=== PATIENT | male | born 1955 | race Caucasian/White ===

== ENCOUNTER 2016-09-14 21:45 | Emergency (ER) | payer MEDICARE, OTHER ==
[2016-09-14 22:01] VITALS: BP 161/110
[2016-09-14] MEDS ORDERED: Doxycycline 100 MG Cap PO ONE (22:46)
--- NOTE | 2016-09-14 22:50 | EDM.PDOC ---
ED HPI Skin/Rash - General Chief Complaint: Skin Complaint Stated Complaint: BOIL ON TOP OF BACK Time Seen by Provider: 09/14/16 22:26 Source: Reports: Patient History Limitations: Reports: No limitations - History of Present Illness INITIAL COMMENTS - FREE TEXT/NARRATIVE: 61-year-old male presents to the ED with a chronic skin lesion right upper back. States his been present for at least 3 weeks and he can't help himself from picking at it.he can't of course visualize it very well is on his right upper back adjacent to the shoulder blade. Known injuries. No drainage from the wound. Hit one of the nurses look at it down at [place] today as this is where his father is. Symptom Onset Date: 08/19/16 Timing: Reports: still present, worse, gradual onset Location, Skin: Reports: back (right upper back) Quality: Reports: Ache, Burning, Itching, Other (pain when he lies back on it.) Severity: moderate Known Identified Source: no Sick Contact: no Associated Symptoms: Reports: no other symptoms Similar Symptoms Previously: no Recent Medical Care: no - Related Data Allergies Allergy/AdvReac Type Severity Reaction Status Date / Time peanut Allergy Anaphylactic Verified 09/14/16 22:01 Shock levofloxacin AdvReac Other Verified 09/14/16 22:01 metformin AdvReac Diarrhea Verified 09/14/16 22:01 nuts Allergy Hives Uncoded 09/14/16 22:01 Home Meds: Ambulatory Orders Medication Instructions Recorded Confirmed Lisinopril 5 mg PO DAILY 10/29/14 09/14/16 Metoprolol Succinate [Toprol XL] 100 mg PO DAILY 10/29/14 09/14/16 Potassium Chloride 10 meq PO DAILY 10/29/14 09/14/16 Pravastatin [Pravachol] 10 mg PO DAILY 10/29/14 09/14/16 Temazepam 15 mg PO BEDTIME 10/29/14 09/14/16 Ibuprofen 600 mg PO Q6H PRN 07/27/15 09/14/16 Multivitamin [Multi-Vitamin Daily] 1 tab PO DAILY 01/13/16 09/14/16 Omeprazole Magnesium [Prilosec Otc] 20 mg PO DAILY #30 tablet. 01/13/16 Sucralfate [Carafate] 1 gm PO QIDACANDBED #28 tablet 01/13/16 09/14/16 Doxycycline [Vibramycin] 100 mg PO Q12HR #28 cap 09/14/16 Past Medical History HEENT History: Reports: Impaired vision Other HEENT History: Wears glasses Cardiovascular History: Reports: High cholesterol, Hypertension Respiratory History: Reports: Sleep apnea, Other (see below) Other Respiratory History: hemothorax with chest tube Gastrointestinal History: Reports: Diverticulosis, GERD, Pancreatitis Genitourinary History: Reports: Acute renal failure Musculoskeletal History: Reports: Amputation, Fracture Other Musculoskeletal History: Lumbar fracture Neurological History: Reports: Neuropathy, peripheral Psychiatric History: Reports: Anxiety Endocrine/Metabolic History: Reports: Diabetes, type II Other Endocrine/Metabolic History: diabetic Hematologic History: Reports: Other (see below) Other Hematologic History: Hypopotassemia Dermatologic History: Reports: Cellulitis, Other (see below) Other Dermatologic History: boils - Past Surgical History HEENT Surgical History: Reports: Tonsillectomy Respiratory Surgical History: Reports: Other (see below) (fell with multiple rib fractures and pneumothorax requiring close thoracotomy drainage.) Neurological Surgical History: Reports: Lumbar spine, Spinal fusion (with rods and screws.) Musculoskeletal Surgical History: Reports: Knee replacement, Other (see below) ( 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 He only has small portion of the proximal humerus present.) Other Musculoskeletal Surgeries/Procedures:: Has stump on the right arm from farm accident in 1962 Social & Family History - Family History Family Medical History: Noncontributory - Tobacco Use Smoking Status *Q: Never Smoker Second Hand Smoke Exposure: No - Caffeine Use Caffeine Use: Reports: None - Recreational Drug Use Recreational Drug Use: No - Living Situation & Occupation Living situation: Reports: single Occupation: disabled ED ROS GENERAL - Review of Systems Review Of Systems: See Below Constitutional: Denies: fever, chills, malaise, weakness, fatigue, weight loss HEENT: Reports: No symptoms Respiratory: Reports: No Symptoms Cardiovascular: Reports: No symptoms Endocrine: Reports: no symptoms GI/Abdominal: Reports: No symptoms : Reports: no symptoms Musculoskeletal: Reports: other (healing fracture right foot.) Skin: Reports: rash (right upper back see history of present illness) Neurological: Reports: No Symptoms Psychiatric: Reports: No symptoms Hematologic/Lymphatic: Reports: no symptoms ED EXAM, SKIN/RASH Exam: See Below Exam Limited By: No limitations General Appearance: alert, WD/WN, no apparent distress Eye Exam: bilateral eye: normal inspection Extremities: other (patient has only a small portion of the proximal humerus on the right shoulder. Rest of the arm has been amputated from a grain auger accident as a youngster.) Neurological: alert, oriented, CN II-XII intact, normal cognition Psychiatric: normal affect Skin: Other (patient has a scaly skin lesion 4 cm length and 2 cm in width on his right upper back almost 08 in shape. It is a circumferential red border which is not raised. The central part is christianson crusted. Hips has no suspicious areas to suggest malignancy. He does suggest that the area was infected and with continued picking the skin is been continued to be broken down. Her is no surrounding erythema to suggest cellulitis. There is no oozing from the wound to allow collection of sample.) Location, Skin: back (8 upper back medial to the shoulder blade) Characteristics: maculopapular, patchy Associated features: scaling, crusting, rough. No: warmth, tenderness, swelling , induration, lymphangitis, weeping Course - Vital Signs Last Recorded V/S: Last Vital Signs Temp 36.5 C 09/14/16 21:56 Pulse 91 09/14/16 21:56 Resp 18 09/14/16 21:56 BP 161/110 H 09/14/16 21:56 Pulse Ox 97 09/14/16 21:56 - Orders/Labs/Meds Meds: Medications Discontinued Medications Generic Name Dose Route Start Last Admin Trade Name Freq PRN Reason Stop Dose Admin Doxycycline Hyclate 200 mg 09/14/16 22:46 09/14/16 23:00 Vibramycin PO 09/14/16 22:47 200 mg ONETIME ONE Administration - Radiology Interpretation Free Text/Narrative:: 61-year-old male presents the ED for evaluation of a chronic skin lesion right upper back. It's unclear how long its been present but certainly more than 3 weeks. Exam reveals a 4 cm in length and 2 cm in width the lesion almost totally in shape on his right upper back. It has a red border well demarcated lesion. The inside of the lesion is christianson and slightly crusty-impetigo like. He is not losing any serous material. There is no active signs of cellulitis. I suspect it's been chronically infected from him picking at it. Plan I'm going to place him on doxycycline 200 mg tonight then to 100 mg twice daily for 14 days and see how it looks. If it is not improved then biopsy is indicated to rule out an underlying malignancy. Patient was advised for followup with his personal care physician in 14 days time Departure - Departure Time of Disposition: 22:47 Disposition: Home, Self-Care 01 Condition: fair Clinical Impression: Skin lesion of back Prescriptions: Doxycycline [Vibramycin] 100 mg PO Q12HR #28 cap Referrals: Yari Perez NP [Primary Care Provider] - Forms: ED Department Discharge Additional Instructions: evaluation he mentioned today in regards to a persistent skin lesion right upper back. As you indicated you been picking at this area because it's irritating for several weeks. Examination shows a almost oval shaped lesion approximately 4 cm in length and 2 cm in width. It is showing a erythematous border with crusting in the center of the lesion suggesting the infection that is breaking down the skin. Suggest treatment with doxycycline 200 mg tonight then one tablet twice daily for 100 mg strength for the next 2 weeks. Evaluation of this lesion needs to be carried out again in 12 weeks if it's not healing and needs to be biopsied.
== END 2016-09-14 23:07 | disposition home or self-care (01) ==
LOC: JD.ED 21:45
DX: L98.9 Disorder of the skin and subcutaneous tissue, unspecified (principal); K21.9 Gastro-esophageal reflux disease without esophagitis; I10 Essential (primary) hypertension; E78.00 Pure hypercholesterolemia, unspecified; F41.9 Anxiety disorder, unspecified; E11.9 Type 2 diabetes mellitus without complications; Z98.890 Other specified postprocedural states; Z91.010 Allergy to peanuts; Z91.018 Allergy to other foods; Z88.8 Allergy status to other drugs, medicaments and biological substances; Z96.659 Presence of unspecified artificial knee joint; Z88.1 Allergy status to other antibiotic agents
CPT/HCPCS: 99283; A9270

== ENCOUNTER 2016-09-29 13:01 | Emergency (ER) | payer MEDICARE, OTHER ==
[2016-09-29 13:16] VITALS: BP 126/93
--- NOTE | 2016-09-29 13:36 | EDM.PDOC ---
ED HPI GENERAL MEDICAL PROBLEM - General Chief Complaint: Chest Pain Stated Complaint: UNABLE TO URINATE AND CHEST PAIN Time Seen by Provider: 09/29/16 13:33 Source of Information: Reports: Patient History Limitations: Reports: No Limitations - History of Present Illness INITIAL COMMENTS - FREE TEXT/NARRATIVE: 61-year-old male reports to the ED stating that she's unable to void. States it may take 30 seconds to a minute for him to stand up toward addending get a bit of a few dribbles out. This has occurred over the last 2-3 days. He has mild lower bowel discomfort but note terrible pain from urinary retention. He is diaphoretic however. He also reports intermittent left-sided chest pain off and on the last day or so. No associated shortness of breath. He is very high strung and anxious. He is to see Dr. Tracey moreno shortly about having surgery on his shoulder. 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 At present he is struggling with left arm pain suspect due to to combination of degenerative arthritis and rotator cuff disease. He denies any fever or chills. Patient has a type II diabetic currently controlled by diet and no medications. Patient had initially attended the [facility] once he reported chest pain he was sent to the ED for further evaluation. He states he had chest pain off and on during the night but he has no chest pain at present. ECG done by triage nurse shows sinus rhythm at 82 per minute with early R-wave transition. Suspect right ventricular hypertrophy versus septal hypertrophy pattern. No evidence of ischemia is evident on current ECG. Onset: Today (Has had chest pain left precordium off-and-on over the night. More sharp stabbing pain. Patient is quite anxious as well. Associated diaphoresis.), Gradual (Gradually worsening ability to void. States he'll stand at the toilet for 30 seconds to couple minutes to get urine to flow and then it' s only a few dribbles at the time. He feels he is not emptying his bladder completely. The going on for at least 3 days.) Duration: Day(s): Location: Reports: Chest (Intermittent left-sided chest pain during the night but not at present time.), Other (Difficulty voiding for the last 3 days.) Quality: Reports: Sharp (Is being distended be sharp and stabbing and transient. ), Other (Denies any abdominal pain.) Severity: Moderate Improves with: Reports: None Worsens with: Reports: None Context: Denies: Activity, Exercise, Lifting, Sick Contact, Trauma, Other Associated Symptoms: Reports: Chest Pain, Diaphoresis, Loss of Appetite, Malaise , Nausea/Vomiting, Weakness (Occasional nausea. Generalized weakness he is worried his potassium might be a bit on the low side again.). Denies: No Other Symptoms, Confusion (Precordium), Cough, cough w sputum, Fever/Chills (States he sweats easily and he was more diaphoretic today than usual.), Headaches, Rash , Seizure, Shortness of Breath, Syncope Treatments SALES [employer]: Reports: Other (see below) (Not) Chest Pain Score (Numeric/FACES): 0 - Related Data Allergies Allergy/AdvReac Type Severity Reaction Status Date / Time peanut Allergy Anaphylactic Verified 09/29/16 13:11 Shock levofloxacin AdvReac Other Verified 09/29/16 13:11 metformin AdvReac Diarrhea Verified 09/29/16 13:11 nuts Allergy Hives Uncoded 09/29/16 13:11 Home Meds: Home Meds Lisinopril 5 mg PO DAILY 10/29/14 [History] Metoprolol Succinate [Toprol XL] 100 mg PO DAILY 10/29/14 [History] Potassium Chloride 10 meq PO DAILY 10/29/14 [History] Pravastatin [Pravachol] 10 mg PO DAILY 10/29/14 [History] Temazepam 15 mg PO BEDTIME 10/29/14 [History] Ibuprofen 600 mg PO Q6H PRN 07/27/15 [History] Multivitamin [Multi-Vitamin Daily] 1 tab PO DAILY 01/13/16 [History] Omeprazole Magnesium [Prilosec Otc] 20 mg PO DAILY #30 tablet. 01/13/16 [Rx] Sucralfate [Carafate] 1 gm PO QIDACANDBED #28 tablet 01/13/16 [Rx] Doxycycline [Vibramycin] 100 mg PO Q12HR #28 cap 09/14/16 [Rx] Potassium Chloride 20 meq PO DAILY #30 tablet.er 09/29/16 [Rx] Sulfamethoxazole/Trimethoprim [Bactrim Ds Tablet] 1 each PO BID #20 tablet 09/29 [Rx] Past Medical History HEENT History: Reports: Impaired Vision Other HEENT History: Wears glasses Cardiovascular History: Reports: High Cholesterol, Hypertension Respiratory History: Reports: Sleep Apnea, Other (See Below) Other Respiratory History: hemothorax with chest tube Gastrointestinal History: Reports: Diverticulosis, GERD, Pancreatitis Genitourinary History: Reports: Acute Renal Failure Musculoskeletal History: Reports: Amputation, Fracture Other Musculoskeletal History: Lumbar fracture Neurological History: Reports: Neuropathy, Peripheral Psychiatric History: Reports: Anxiety Endocrine/Metabolic History: Reports: Diabetes, Type II Other Endocrine/Metabolic History: diabetic Hematologic History: Reports: Other (See Below) Other Hematologic History: Hypopotassemia Dermatologic History: Reports: Cellulitis, Other (See Below) Other Dermatologic History: boils - Past Surgical History Respiratory Surgical History: Reports: Other (See Below) Neurological Surgical History: Reports: Lumbar Spine, Spinal Fusion Musculoskeletal Surgical History: Reports: Knee Replacement, Other (See Below) Social & Family History - Family History Family Medical History: Noncontributory - Tobacco Use Smoking Status *Q: Never Smoker Second Hand Smoke Exposure: No - Caffeine Use Caffeine Use: Reports: None - Recreational Drug Use Recreational Drug Use: No - Living Situation & Occupation Living situation: Reports: Single Occupation: Disabled ED ROS GENERAL - Review of Systems Review Of Systems: See Below Constitutional: Reports: Malaise, Weakness, Fatigue, Diaphoresis, Decreased Appetite. Denies: Fever, Chills, Weight Loss HEENT: Reports: No Symptoms Respiratory: Denies: Shortness of Breath, Wheezing, Pleuritic Chest Pain, Cough , Sputum, Hemoptysis, Other Cardiovascular: Reports: Chest Pain (Intermittent left precordial chest pains, sharp and stabbing in fleeting. They were present during the night but not at present time). Denies: Blood Pressure Problem, Claudication, Dyspnea on Exertion, Edema, Lightheadedness, Orthopnea, Palpitations Endocrine: Reports: Fatigue, High Glucose GI/Abdominal: Denies: Abdominal Pain : Reports: Other (Greg troubles trying to avoid the last 3 days. Takes a long time to start his flow and then he only gets a small quantity of urine out. He is aware that his bladder sterilely not emptying all the way. This reason he has not been drinking much in the way of fluids.). Denies: Dysuria Musculoskeletal: Reports: Back Pain (Has had chronic back pain with multiple surgeries. Right chronic right shoulder dislocation after proximal humerus amputation and a granddaughter many years ago. I pain in his left shoulder due to 2 degenerative arthritis and rotator cuff disease.) Skin: Reports: No Symptoms Neurological: Reports: No Symptoms Psychiatric: Reports: Anxiety (Mildly anxious.), Depression (Chronic depression due to chronic illness.) Hematologic/Lymphatic: Reports: No Symptoms Immunologic: Reports: No Symptoms ED EXAM, GENERAL - Physical Exam Exam: See Below Exam Limited By: No Limitations General Appearance: Alert, Anxious, Mild Distress Eye Exam: Bilateral Eye: Normal Inspection Throat/Mouth: Normal Inspection, Normal Lips, Normal Teeth, Normal Gums, Normal Oropharynx Head: Atraumatic, Normocephalic Neck: Normal Inspection, Supple, Non-Tender, Full Range of Motion Respiratory/Chest: No Respiratory Distress, Lungs Clear, Normal Breath Sounds, No Accessory Muscle Use Cardiovascular: Regular Rate, Rhythm, No Edema, No Gallop, No Murmur, No Rub. No: Normal Peripheral Pulses Peripheral Pulses: 1+: Posterior Tibial (L), Posterior Tibial (R), Dorsalis Pedis (L), Dorsalis Pedis (R) GI/Abdominal: Normal Bowel Sounds, Soft, Non-Tender, No Organomegaly, Other ( Does have dullness to percussion in the lower abdomen with no defined palpable urinary bladder certainly no exacerbation of pain on palpation of the lower abdomen. There is a sense of fullness over the in this area.) (Male) Exam: Suprapubic Fullness Neurological: Other (Well-healed mid line surgical scars.) Psychiatric: Depressed Mood Skin Exam: Warm, Dry, Intact, Normal Color, No Rash EKG INTERPRETATION EKG Date: 09/29/16 Time: 13:10 Rhythm: NSR Rate (beats/min): 82 [place]: normal P-wave: present QRS: other (Early R wave transition. Consider right ventricular hypertrophy/ septal hypertrophy pattern.) ST-T: other (Normal. Computed indicates that there is ST elevation in the lateral leads which I disagree with. There is no evidence of lateral ischemia.) QT: prolonged (QT is mildly prolonged.) Course - Vital Signs Last Recorded V/S: Last Vital Signs Temp 35.7 C 09/29/16 13:11 Pulse 83 09/29/16 13:11 Resp BP 126/93 H 09/29/16 13:11 Pulse Ox 93 L 09/29/16 13:11 - Orders/Labs/Meds Orders: Active Orders 24 hr Category Date Time Status EKG Documentation Completion [RC] STAT Care 09/29/16 13:44 Active Mayo Catheter Insertion [Insert Urinary Catheter] [OM. Care 09/29/16 15:00 Ordered PC] Q24H Urinary Catheter Assessment [RC] ASDIRECTED Care 09/29/16 14:47 Active CULTURE URINE [RM] Stat Lab 09/29/16 16:12 Uncollected Dextrose 5%-0.9% NaCl [Dextrose 5%-Normal Saline] 1,000 Med 09/29/16 14:15 Active ml IV ASDIRECTED Medication Orders Dextrose/Sodium Chloride (Dextrose 5%-Normal Saline) 1,000 mls @ 500 mls/hr IV ASDIRECTED WANDA Last Admin: 09/29/16 15:27 Dose: 500 mls/hr Labs: Laboratory Tests 09/29/16 09/29/16 09/29/16 Range/Units 14:00 14:15 14:15 WBC 10.59 H (4.23-9.07) K/mm3 RBC 6.02 (4.63-6.08) M/mm3 Hgb 17.7 H (13.7-17.5) gm/L Hct 52.2 H (40.1-51.0) % MCV 86.7 (79.0-92.2) fl MCH 29.4 (25.7-32.2) pg MCHC 33.9 (32.2-35.5) g/dl RDW Std Deviation 46.5 H (35.1-43.9) fL Plt Count 162 L (163-337) K/mm3 MPV 10.5 (9.4-12.3) fl Neutrophils % (Manual) 80 H (40-60) % Band Neutrophils % 0 (0-10) % Lymphocytes % (Manual) 13 L (20-40) % Atypical Lymphs % 0 % Monocytes % (Manual) 4 (2-10) % Eosinophils % (Manual) 3 (0.8-7.0) % Basophils % (Manual) 0 L (0.2-1.2) Platelet Estimate Adequate Plt Morphology Comment Normal RBC Morph Comment Normal PT 10.3 (8.0-13.0) SECONDS INR 0.95 Sodium (136-145) mEq/L Potassium (3.5-5.1) mEq/L Chloride (98-107) mEq/L Carbon Dioxide (21-32) mEq/L Anion Gap (5-15) BUN (7-18) mg/dL Creatinine (0.7-1.3) mg/dL Est Cr Clr Drug Dosing mL/min Estimated GFR (MDRD) (>60) mL/min BUN/Creatinine Ratio (14-18) Glucose (74-106) mg/dL Hemoglobin A1c (4.50-6.20) % Calcium (8.5-10.1) mg/dL Total Bilirubin (0.2-1.0) mg/dL AST (15-37) U/L ALT (16-63) U/L Alkaline Phosphatase (46-116) U/L CK-MB (CK-2) (0-3.6) ng/ml Troponin I (0.00-0.056) ng/mL C-Reactive Protein (<1.0) mg/dL B-Natriuretic Peptide (0-100) pg/mL Total Protein (6.4-8.2) g/dl Albumin (3.4-5.0) g/dl Globulin gm/dL Albumin/Globulin Ratio (1-2) PSA Screen (0.0-4.0) ng/mL Urine Color Dark yellow (Yellow) Urine Appearance Clear (Clear) Urine pH 7.0 (5.0-8.0) Ur Specific [place] 1.025 (1.005-1.030) Urine Protein 2+ H (Negative) Urine Glucose (UA) 1+ H (Negative) Urine Ketones Negative (Negative) Urine Occult Blood Negative (Negative) Urine Nitrite Negative (Negative) Urine Bilirubin 1+ H (Negative) Urine Urobilinogen 1.0 (0.2-1.0) Ur Leukocyte Esterase Negative (Negative) Urine RBC 0-5 (0-5) /hpf Urine WBC 0-5 (0-5) /hpf Ur Epithelial Cells 0-5 (0-5) /hpf Amorphous Sediment Few H (NOT SEEN) /hpf Urine Bacteria Moderate H (FEW) /hpf Urine Mucus Few (FEW) /hpf 09/29/16 09/29/16 09/29/16 Range/Units 14:15 14:15 14:15 WBC (4.23-9.07) K/mm3 RBC (4.63-6.08) M/mm3 Hgb (13.7-17.5) gm/L Hct (40.1-51.0) % MCV (79.0-92.2) fl MCH (25.7-32.2) pg MCHC (32.2-35.5) g/dl RDW Std Deviation (35.1-43.9) fL Plt Count (163-337) K/mm3 MPV (9.4-12.3) fl Neutrophils % (Manual) (40-60) % Band Neutrophils % (0-10) % Lymphocytes % (Manual) (20-40) % Atypical Lymphs % % Monocytes % (Manual) (2-10) % Eosinophils % (Manual) (0.8-7.0) % Basophils % (Manual) (0.2-1.2) Platelet Estimate Plt Morphology Comment RBC Morph Comment PT (8.0-13.0) SECONDS INR Sodium 139 (136-145) mEq/L Potassium 3.2 L (3.5-5.1) mEq/L Chloride 99 (98-107) mEq/L Carbon Dioxide 31 (21-32) mEq/L Anion Gap 12.2 (5-15) BUN 27 H (7-18) mg/dL Creatinine 1.0 (0.7-1.3) mg/dL Est Cr Clr Drug Dosing 83.67 mL/min Estimated GFR (MDRD) > 60 (>60) mL/min BUN/Creatinine Ratio 27.0 H (14-18) Glucose 294 H (74-106) mg/dL Hemoglobin A1c (4.50-6.20) % Calcium 9.0 (8.5-10.1) mg/dL Total Bilirubin 1.3 H (0.2-1.0) mg/dL AST 54 H (15-37) U/L ALT 67 H (16-63) U/L Alkaline Phosphatase 95 (46-116) U/L CK-MB (CK-2) 1.9 (0-3.6) ng/ml Troponin I < 0.017 (0.00-0.056) ng/mL C-Reactive Protein 1.9 H* (<1.0) mg/dL B-Natriuretic Peptide 92 (0-100) pg/mL Total Protein 7.6 (6.4-8.2) g/dl Albumin 3.9 (3.4-5.0) g/dl Globulin 3.7 gm/dL Albumin/Globulin Ratio 1.1 (1-2) PSA Screen 0.4 (0.0-4.0) ng/mL Urine Color (Yellow) Urine Appearance (Clear) Urine pH (5.0-8.0) Ur Specific [place] (1.005-1.030) Urine Protein (Negative) Urine Glucose (UA) (Negative) Urine Ketones (Negative) Urine Occult Blood (Negative) Urine Nitrite (Negative) Urine Bilirubin (Negative) Urine Urobilinogen (0.2-1.0) Ur Leukocyte Esterase (Negative) Urine RBC (0-5) /hpf Urine WBC (0-5) /hpf Ur Epithelial Cells (0-5) /hpf Amorphous Sediment (NOT SEEN) /hpf Urine Bacteria (FEW) /hpf Urine Mucus (FEW) /hpf 09/29/16 Range/Units 14:15 WBC (4.23-9.07) K/mm3 RBC (4.63-6.08) M/mm3 Hgb (13.7-17.5) gm/L Hct (40.1-51.0) % MCV (79.0-92.2) fl MCH (25.7-32.2) pg MCHC (32.2-35.5) g/dl RDW Std Deviation (35.1-43.9) fL Plt Count (163-337) K/mm3 MPV (9.4-12.3) fl Neutrophils % (Manual) (40-60) % Band Neutrophils % (0-10) % Lymphocytes % (Manual) (20-40) % Atypical Lymphs % % Monocytes % (Manual) (2-10) % Eosinophils % (Manual) (0.8-7.0) % Basophils % (Manual) (0.2-1.2) Platelet Estimate Plt Morphology Comment RBC Morph Comment PT (8.0-13.0) SECONDS INR Sodium (136-145) mEq/L Potassium (3.5-5.1) mEq/L Chloride (98-107) mEq/L Carbon Dioxide (21-32) mEq/L Anion Gap (5-15) BUN (7-18) mg/dL Creatinine (0.7-1.3) mg/dL Est Cr Clr Drug Dosing mL/min Estimated GFR (MDRD) (>60) mL/min BUN/Creatinine Ratio (14-18) Glucose (74-106) mg/dL Hemoglobin A1c 7.90 H (4.50-6.20) % Calcium (8.5-10.1) mg/dL Total Bilirubin (0.2-1.0) mg/dL AST (15-37) U/L ALT (16-63) U/L Alkaline Phosphatase (46-116) U/L CK-MB (CK-2) (0-3.6) ng/ml Troponin I (0.00-0.056) ng/mL C-Reactive Protein (<1.0) mg/dL B-Natriuretic Peptide (0-100) pg/mL Total Protein (6.4-8.2) g/dl Albumin (3.4-5.0) g/dl Globulin gm/dL Albumin/Globulin Ratio (1-2) PSA Screen (0.0-4.0) ng/mL Urine Color (Yellow) Urine Appearance (Clear) Urine pH (5.0-8.0) Ur Specific [place] (1.005-1.030) Urine Protein (Negative) Urine Glucose (UA) (Negative) Urine Ketones (Negative) Urine Occult Blood (Negative) Urine Nitrite (Negative) Urine Bilirubin (Negative) Urine Urobilinogen (0.2-1.0) Ur Leukocyte Esterase (Negative) Urine RBC (0-5) /hpf Urine WBC (0-5) /hpf Ur Epithelial Cells (0-5) /hpf Amorphous Sediment (NOT SEEN) /hpf Urine Bacteria (FEW) /hpf Urine Mucus (FEW) /hpf Meds: Medications Generic Name Dose Route Start Last Admin Trade Name Freq PRN Reason Stop Dose Admin Dextrose/Sodium Chloride 1,000 mls @ 500 mls/hr 09/29/16 14:15 09/29/16 15:27 Dextrose 5%-Normal Saline IV 500 mls/hr ASDIRECTED WANDA Administration Discontinued Medications Generic Name Dose Route Start Last Admin Trade Name Freq PRN Reason Stop Dose Admin Levofloxacin 500 mg 09/29/16 15:23 Levaquin PO 09/29/16 15:24 ONETIME ONE Lidocaine HCl 10 ml 09/29/16 14:47 Xylocaine 2% Jelly MUCMEM 09/29/16 14:48 ONETIME ONE Nitrofurantoin Macrocrystals 100 mg 09/29/16 15:33 09/29/16 18:05 Macrobid PO 09/29/16 15:34 100 mg ONETIME ONE Administration - Radiology Interpretation Free Text/Narrative:: 61-year-old male presents to the ED with a multitude of complaints. Intermittent left-sided chest pain during the night then when he attended the ED. Chief complaint is primarily that of inability to void. CT scans of the toilet and takes 30 seconds to 2 minutes for 2 work a little bit and it is only passing small quantity of urine. He seems to be well aware that he is not emptying his bladder for the last 2-3 days. Associated diaphoresis but no reported fever or bad chills. Appetite is poor with mild nausea. Patient is a right upper extremity amputee from [place] accident many years ago. He does only has his left arm. Left shoulder is painful due to rotator cuff disease and degenerative arthritic changes and he is waiting to see Dr. Webb in this regard patient has type 2 diabetes and is not taking any medication for this. Apparently he developed side effects to metformin and therefore has not been on medication. Examination revealed heart lungs to sounds clear. Benign abdominal examination although a sense of fullness suprapubically appreciated suggestive of possible bladder. I will be to try and have been voiding and a post residual bladder scan. Routine labs to be done to look for signs of infection. Urinalysis when able. - Re-Assessments/Exams Free Text/Narrative Re-Assessment/Exam: 09/29/16 14:48 Bladder scan revealed 350 mils of retained urine after voiding. Therefore a Mayo catheter will be placed in presumption that he had some infection in his prostate for benign prostatic hypertrophy to be the cause of this problem. Chest x-ray is within normal limits. 09/29/16 15:01 patient is somewhat apprehensive of having a Mayo catheter placed but explained that really doesn't have much choice. I suspect because he is not having much discomfort that he has developing a neurogenic bladder. This is likely from uncontrolled diabetes. We will Mayo catheter in under local anesthesia the viscous lidocaine and see how he manages with a leg bag with his left arm. Urinalysis is not yet back. Chest x-ray reveals chronic dislocation of his right shoulder the left-sided rib fractures which appear to be chronic lungs are clear without any infiltrates previous lumbar spine surgery is appreciated tortuous thoracic aorta noted without aneurysm. 09/29/16 15:24 her white count is 10.59 with 80% neutrophils no bands hemoglobin is 17.7 with hematocrit of 52.2 indicating a degree of hemoconcentration pellets 162,000. Coags are normal sodium 139 potassium low at 3.2 bicarbonate is 31 BUN is 27. Glucose 294 BNP 92 CRP is 1.9 bilirubin 1.3 AST 54 ALT 67 cardiac markers were all normal. Creatinine is 1.0. EGFR is greater than 60. 09/29/16 15:49 CRP is 1.9. Urine does contain moderate amount of bacteria but no pus cells. This is suggestive of likely prostatitis. Urine culture will be ordered. Glycosylate protein was 7.9. Diabetes is present and at risk of increased infection. Potassium is 3.2 and is going to need potassium supplement twice daily I suggest 20 mEq once a day. He will be discharged in the ED with a view to followup with Chris in the clinic on Thursday morning to have his catheter removed. Hopefully he will be able to void normally once the swelling has gone down was treated with antibiotic therapy. Again follow up with urology in the near future is indicated. He may well have a component of neurogenic bladder since he had very little pain or discomfort with his bladder. He may well need to be introduced to another medication to bring his blood sugar under better control. Departure - Departure Time of Disposition: 17:21 Disposition: Home, Self-Care 01 Condition: fair Clinical Impression: Urinary retention due to benign prostatic hyperplasia, Non-cardiac chest pain, Hypokalemia with normal acid-base balance Type 2 diabetes mellitus Qualifiers: Diabetes mellitus complication status: with unspecified complications Prescriptions: Potassium Chloride 20 meq PO DAILY #30 tablet.er Sulfamethoxazole/Trimethoprim [Bactrim Ds Tablet] 1 each PO BID #20 tablet Instructions: Benign Prostatic Hyperplasia, Hypokalemia, Nonspecific Chest Pain , Acute Urinary Retention, Male, [id number] Referrals: Yari Perez NP [Primary Care Provider] - Forms: ED Department Discharge Additional Instructions: Evaluation in the emergency department today primarily in regards to urinary retention inability to pass her water. This appears to be secondary to infection your prostate gland call prostatitis. Urine showed moderate amount of bacteria. Culture has been performed. Chest pains were evaluated but had a normal ECG and normal chest x-ray and normal lab work all in regards to heart no signs of heart related illness. Diabetes is a little bit uncontrolled with a blood sugar of 294 today. Glycosylate protein was 7.9. Elevated blood sugars contributing to infection your prostate. He'll have a finding today was a low potassium at 3.2. He therefore will need treatment with antibiotic Bactrim double strength twice daily for 10 days to clear up infection and I suggested 20 mg a potassium supplement once daily. I sent these prescriptions to in the pharmacy close to the [facility]. He needs followup with your provider on Thursday this week to have the catheter removed from her bladder but preferably in the director of early childhood so that we know you didn't go back into retention over the next 8 hours i.e. that you're back to voiding per her norm. Followup with urology is probably advisable in the future as you would risk of this happening again. He to see if you have any component of neurogenic bladder in terms of the bladder itself was not bruna properly. It appears that most of this is secondary to an enlarged prostate with an infection that compromised the flow. - My Orders Last 24 Hours: My Active Orders 09/29/16 13:44 EKG Documentation Completion [RC] STAT 09/29/16 14:15 Dextrose 5%-0.9% NaCl [Dextrose 5%-Normal Saline] 1,000 ml IV ASDIRECTED 09/29/16 14:47 Urinary Catheter Assessment [RC] ASDIRECTED 09/29/16 15:00 Mayo Catheter Insertion [Insert Urinary Catheter] [OM.PC] Q24H 09/29/16 16:12 CULTURE URINE [RM] Stat - Assessment/Plan Last 24 Hours: My Active Orders 09/29/16 13:44 EKG Documentation Completion [RC] STAT 09/29/16 14:15 Dextrose 5%-0.9% NaCl [Dextrose 5%-Normal Saline] 1,000 ml IV ASDIRECTED 09/29/16 14:47 Urinary Catheter Assessment [RC] ASDIRECTED 09/29/16 15:00 Mayo Catheter Insertion [Insert Urinary Catheter] [OM.PC] Q24H 09/29/16 16:12 CULTURE URINE [RM] Stat
[2016-09-29] MEDS ORDERED: Dextrose 5%-0.9% NaCl 1,000 ML IV SCH (14:15)
[2016-09-29] MEDS ORDERED: Lidocaine 2% Jelly 10 ML Urojet MUCMEM ONE (14:47)
--- NOTE | 2016-09-29 15:05 | CR ---
Chest: Portable view of the chest was obtained. Comparison: Previous chest x-ray of 02/09/16. Chronic dislocated right shoulder is seen. Multiple left-sided rib fractures are seen which appear to be chronic. Lungs are clear with no acute infiltrates. Previous lumbar spine surgery is partially visualized. Heart size is normal. Tortuous thoracic aorta is seen. Impression: 1. Multiple findings which are stable as described above. Nothing acute is identified on portable chest x-ray. Diagnostic code #2
[2016-09-29] MEDS ORDERED: Levofloxacin 250 MG Tab PO ONE (15:23)
[2016-09-29] MEDS ORDERED: Nitrofurantoin Monohydrate/Macrocrystalline 100 MG Cap PO ONE (15:33)
[2016-09-29] MEDS ORDERED: Levofloxacin 500 MG Tab ONE (18:11)
== END 2016-09-29 18:20 | disposition home or self-care (01) ==
LOC: JD.ED 13:01
DX: N40.1 Benign prostatic hyperplasia with lower urinary tract symptoms (principal); R07.89 Other chest pain; E87.6 Hypokalemia; E87.4 Mixed disorder of acid-base balance; I10 Essential (primary) hypertension; E78.00 Pure hypercholesterolemia, unspecified; K21.9 Gastro-esophageal reflux disease without esophagitis; E11.40 Type 2 diabetes mellitus with diabetic neuropathy, unspecified; Z91.010 Allergy to peanuts; Z88.1 Allergy status to other antibiotic agents; Z91.018 Allergy to other foods; Z88.8 Allergy status to other drugs, medicaments and biological substances; Z79.899 Other long term (current) drug therapy; Z96.659 Presence of unspecified artificial knee joint
CPT/HCPCS: 36415; 51702; 51798; 71010; 80053; 81001; 82553; 83036; 83880; 84484; 85025; 85610; 86140; 93005; 96360; 96361; 99285; A9270; G0103; J7042; 99283

== ENCOUNTER 2017-02-24 11:34 | Inpatient (IN) | payer MEDICARE, OTHER ==
[2017-02-24] MEDS ORDERED: Albuterol/Ipratropium 3.0-0.5 MG/3 ML Neb Soln NEB ONE ×2 (12:00→18:02)
[2017-02-24] MEDS ORDERED: Sodium Chloride 0.9% 1,000 ML IV SCH (12:00)
[2017-02-24] MEDS ORDERED: methylPREDNISolone Sodium Succinate 125 MG/2 ML SDV IVPUSH ONE (12:01)
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
[2017-02-24] MEDS ORDERED: LORazepam 2 MG/ML MDV IVPUSH ONE (12:10)
[2017-02-24] MEDS ORDERED: Albuterol 0.083% 2.5 MG/3 ML Neb Soln NEB ONE (13:49)
[2017-02-24] MEDS ORDERED: Sodium Chloride 0.9% 10 ML Syringe FLUSH PRN (14:43)
[2017-02-24] MEDS ORDERED: Iopamidol 612 MG/ML 100 ML Bottle IVPUSH ONE (14:43)
--- NOTE | 2017-02-24 15:29 | CT ---
CT chest Technique: Multiple axial sections were obtained from above the lung apices inferiorly through the lung bases. Intravenous contrast was utilized. Comparison: Prior chest x-ray performed on the same day, no previous chest CT. Findings: Mediastinum and hilar regions show no adenopathy or mass. Coronary artery calcification is seen. No pericardial thickening is seen. Fatty infiltration is seen within the visualized portions of the liver. Lungs are clear. No pleural effusions are seen. Multiple old healed left-sided rib fractures are present. Several old healed right-sided rib fractures are also seen. Previous surgery within the lower thoracic spine is noted. Impression: 1. Old healed rib fractures on both sides of the chest, more numerous on the left side. 2. Previous lower thoracic spine surgery. 3. Other incidental findings. 4. Nothing acute is seen on CT study of the chest. Diagnostic code #2
[2017-02-24] MEDS ORDERED: cefTRIAXone 1 GM in Sodium Chloride 0.9% 100 ML IV ONE (15:38)
[2017-02-24] MEDS ORDERED: Acetaminophen/oxyCODONE 325-5 MG Tab PO ONE (20:25)
[2017-02-24] MEDS ORDERED: LORazepam 2 MG/ML MDV IVPUSH PRN (22:48)
[2017-02-24] MEDS ORDERED: Albuterol 0.083% 2.5 MG/3 ML Neb Soln NEB PRN (22:48)
[2017-02-24] MEDS ORDERED: Acetaminophen 325 MG Tab PO PRN (22:48)
[2017-02-24] MEDS: Albuterol/Ipratropium 3.0-0.5 MG/3 ML Neb Soln NEB SCH (23:24)
[2017-02-24] MEDS: Gabapentin 100 MG Cap PO SCH (23:50)
[2017-02-24] MEDS: Tamsulosin 0.4 MG Cap.ER PO SCH (23:50)
[2017-02-24] MEDS: guaiFENesin 600 MG Tab.ER PO SCH (23:50)
[2017-02-24] MEDS: Temazepam 15 MG Cap PO SCH (23:51)
[2017-02-24] MEDS: Glimepiride 2 MG Tab PO SCH (23:51)
[2017-02-24] MEDS: Metoprolol Succinate 50 MG Tab.ER PO SCH (23:59)
[2017-02-25] MEDS: Albuterol/Ipratropium 3.0-0.5 MG/3 ML Neb Soln NEB SCH ×4 (03:46→20:53)
[2017-02-25] MEDS: Potassium Chloride 20 MEQ Tab.ER PO SCH (07:37)
[2017-02-25] MEDS: Nystatin Topical Powder 15 GM Bottle TOP SCH ×2 (07:38→21:29)
--- NOTE | 2017-02-25 08:04 | PCM.HP ---
<Donnell Maxwell - Last Filed: 02/25/17 08:55> H&P History of Present Illness - General Date of Service: 02/25/17 Admit Problem/Dx: Admission Diagnosis/Problem Admission Diagnosis/Problem Bronchitis Source of Information: Patient, Old Records, RN History Limitations: Reports: No Limitations - History of Present Illness Initial Comments - Free Text/Narative: Melvin Kelly is a 62 yo male who presented to our ED last night via ambulance with complaints of dyspnea. Reports a cough that began yesterday and worsened. He awoke with a productive cough and was diaphoretic. He contacted 911 after he was able to catch his breath. EMS gave the patient a DuoNeb while in route. This reportedly did help somewhat but he was still short of breath. Lungs in the ED were clear to auscultation and percussion. He was very diaphoretic and anxious. He denied any recent cold symptoms. It is reported that he did eat 8. But are perfectly last night and he is allergic to peanuts. Unsure if this is contributing to current episode. Once in the ED was given oxygen which was titrated up to 4 L to keep him above 94%. Chest x-ray was obtained that revealed poor air flow at the left lung. Increased vasculature and decreased air were noted suggesting mucous plug. Some areas of increased density were noted within the right lung. Atelectasis was noted in the left lower lobe per ED report. Labs were obtained: White count was 9.72. Hemoglobin 14.7. Hematocrit 44.8. Platelets 199,000. 77% neutrophils with no bandemia. D-dimer normal at 0.45. Chemistry normal with an anion gap of 14.9. He was slightly elevated at 23. Creatinine 0.9. Glucose markedly elevated at 303. TMB slightly elevated at 3.9. Normal at less than 0.017. CRP 0.6. BNP 64. CT of the chest showed normal-appearing left lung field. There is some evidence of old healed rib fractures bilateral. Mild fatty infiltration is seen within some portions of the liver. He was given Rocephin 1 g. Original plan was to send the patient home however he was unable to be weaned off oxygen. Sats showed 9495% on room air however he was unable to catch breath. He remained very anxious about this and oxygen remained at 2 L by nasal cannula. He carries a history of HLD, HTN, sleep apnea, diverticulosis, GERD, right arm amputation, peripheral neuropathy, anxiety, type II but diabetes, obesity, and hypokalemia. He was subsequently admitted to the medical department as an observation patient. He is a full code. He is a patient of Sridevi Perez, nurse practitioner at [facility] in [place]. - Related Data Allergies/Adverse Reactions: Allergies Allergy/AdvReac Type Severity Reaction Status Date / Time peanut Allergy Anaphylactic Verified 02/24/17 12:19 Shock levofloxacin AdvReac Other Verified 02/24/17 12:19 metformin AdvReac Diarrhea Verified 02/24/17 12:19 cats Allergy Airway Uncoded 02/24/17 12:30 Tightness nuts Allergy Hives Uncoded 02/24/17 12:19 steroids Allergy Cannot Uncoded 02/24/17 12:19 Remember Home Medications: Home Meds Lisinopril 20 mg PO DAILY 10/29/14 [History] Metoprolol Succinate [Toprol XL] 100 mg PO DAILY 10/29/14 [History] Pravastatin [Pravachol] 40 mg PO DAILY 10/29/14 [History] Temazepam 30 mg PO BEDTIME 10/29/14 [History] Ibuprofen 600 mg PO Q6H PRN 07/27/15 [History] Multivitamin [Multi-Vitamin Daily] 1 tab PO DAILY 01/13/16 [History] Omeprazole Magnesium [Prilosec Otc] 20 mg PO DAILY #30 tablet. 01/13/16 [Rx] Potassium Chloride 20 meq PO DAILY #30 tablet.er 09/29/16 [Rx] Fenofibric Acid (Choline) [Fenofibric Acid] 135 mg PO DAILY 02/24/17 [History] Gabapentin [Neurontin] 200 mg PO BID 02/24/17 [History] Glimepiride [Amaryl] 2 mg PO DAILY 02/24/17 [History] Nystatin [Nystatin Crm] 15 gm TOP BID 02/24/17 [History] SitaGLIPtin [Januvia] 100 mg PO DAILY 02/24/17 [History] Tamsulosin [Flomax] 0.4 mg PO BEDTIME 02/24/17 [History] oxyCODONE HCl/Acetaminophen [Percocet 10-325 mg Tablet] 1 each PO Q6HR PRN 02/24 [History] Past Medical History HEENT History: Reports: Impaired Vision Other HEENT History: Wears glasses, loss portion of vision in left eye Cardiovascular History: Reports: High Cholesterol, Hypertension, Other (See Below) Other Cardiovascular History: hx of more parkinsons syndrome-surgery was done. Respiratory History: Reports: Sleep Apnea, Other (See Below) Other Respiratory History: hemothorax with chest tube Gastrointestinal History: Reports: Diverticulosis, GERD, Pancreatitis Genitourinary History: Reports: Acute Renal Failure Musculoskeletal History: Reports: Amputation, Fracture Other Musculoskeletal History: Lumbar fracture Neurological History: Reports: Neuropathy, Peripheral Psychiatric History: Reports: Anxiety Endocrine/Metabolic History: Reports: Diabetes, Type II, Obesity/BMI 30+ Other Endocrine/Metabolic History: diabetic Hematologic History: Reports: Other (See Below) Other Hematologic History: Hypopotassemia Oncologic (Cancer) History: Reports: Other (See Below) Other Oncologic History: preliminary skin cancer, removed and biopsy, froze the area. Dermatologic History: Reports: Cellulitis, Other (See Below) Other Dermatologic History: boils - Infectious Disease History Infectious Disease History: Reports: Influenza - Past Surgical History HEENT Surgical History: Reports: Adenoidectomy Cardiovascular Surgical History: Reports: None Respiratory Surgical History: Reports: None GI Surgical History: Reports: Colonoscopy, Hernia Repair/Other Male Surgical History: Reports: Other (See Below) Other Male Surgeries/Procedures: surgery on testicles Neurological Surgical History: Reports: Lumbar Spine, Spinal Fusion Musculoskeletal Surgical History: Reports: Knee Replacement Other Musculoskeletal Surgeries/Procedures:: bilateral knee replacement, two rods and six pins in back from broken back Oncologic Surgical History: Reports: None Dermatological Surgical History: Reports: Skin Biopsy Social & Family History - Family History Family Medical History: Noncontributory - Tobacco Use Smoking Status *Q: Never Smoker Second Hand Smoke Exposure: No - Caffeine Use Caffeine Use: Reports: Coffee - Recreational Drug Use Recreational Drug Use: No - Living Situation & Occupation Living situation: Reports: Single Occupation: Disabled H&P Review of Systems - Review of Systems: Review Of Systems: See Below General: Reports: Malaise, Weakness, Diaphoresis. Denies: Fever, Chills HEENT: Reports: No Symptoms. Denies: Ear Pain, Eye Pain, Headaches, Sinus Congestion, Sore Throat Pulmonary: Reports: Shortness of Breath, Wheezing, Cough, Sputum. Denies: Pleuritic Chest Pain Cardiovascular: Reports: Chest Pain, Dyspnea on Exertion, Lightheadedness, Blood Pressure Problem. Denies: Palpitations, Edema Gastrointestinal: Reports: No Symptoms. Denies: Abdominal Pain, Constipation, Diarrhea, Nausea, Vomiting Genitourinary: Reports: Frequency. Denies: Dysuria, Burning, Pain Musculoskeletal: Reports: Neck Pain, Back Pain, Hand Pain (worse in fingers ), Muscle Pain, Other (phantom pain in right arm ) Skin: Reports: Diaphoresis. Denies: Cyanosis, Jaundice, Mottled Psychiatric: Reports: Depression (non-medicated ), Anxiety. Denies: Confusion Neurological: Reports: Dizziness, Numbness, Tingling, Weakness. Denies: Confusion, Headache, Seizure, Trouble Speaking, Difficulty Walking Hematologic/Lymphatic: Reports: No Symptoms Immunologic: Reports: No Symptoms Review of Systems Comment:: Patient reports that he does not feel any better and he believes his cough may be worsening. I explained to the patient that this can occur as the mucous loosens. He is very concerned about his medications as he says he cannot afford to pay for the medications here. He's currently on observation status. Will discuss this with case management. Exam - Exam Exam: See Below - Vital Signs Vital Signs: Last Vital Signs Temp 98.8 F 02/24/17 21:16 Pulse 91 02/25/17 03:07 Resp 18 02/24/17 21:16 BP 141/81 H 02/24/17 23:59 Pulse Ox 93 L 02/25/17 03:46 Weight: 113.534 kg - Exam Quality Assessment: Supplemental Oxygen, DVT Prophylaxis (ordered) General: Alert, Oriented, Cooperative, Mild Distress HEENT: Conjunctiva Clear, EACs Clear, EOMI, Hearing Intact, Mucosa Moist & [place] , Nares Patent, Normal Nasal Septum, Pupils Equal, Pupils Reactive, Other ( Exematous posterior pharynx ) Neck: Supple, Trachea Midline, Full Range of Motion. 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 ) Peripheral Pulses: 2+: Radial (L), Posterior Tibial (L), Posterior Tibial (R), Dorsalis Pedis (L), Dorsalis Pedis (R) Skin: Warm, Intact, Moist Neurological: Cranial Nerves Intact (grossly) Neuro Extensive - Mental Status: Alert, Oriented x3, Normal Cognition, Memory Intact Neuro Extensive - Motor, Sensory, Reflexes: CN II-XII Intact (grossly), Normal Gait Psychiatric: Alert, Normal Mood, Anxious - Patient Data Lab Results Last 24 hrs: Laboratory Results - last 24 hr 02/25/17 02/25/17 Range/Units 06:35 06:35 WBC 8.30 (4.23-9.07) K/mm3 RBC 4.85 (4.63-6.08) M/mm3 Hgb 14.3 (13.7-17.5) gm/L Hct 42.8 (40.1-51.0) % MCV 88.2 (79.0-92.2) fl MCH 29.5 (25.7-32.2) pg MCHC 33.4 (32.2-35.5) g/dl RDW Std Deviation 47.6 H (35.1-43.9) fL Plt Count 191 (163-337) K/mm3 MPV 10.1 (9.4-12.3) fl Neut % (Auto) 63.3 (34.0-67.9) % Lymph % (Auto) 19.5 L (21.8-53.1) % Park % (Auto) 11.1 (5.3-12.2) % Eos % (Auto) 4.9 (0.8-7.0) Baso % (Auto) 0.7 (0.1-1.2) % Neut # (Auto) 5.25 (1.78-5.38) K/mm3 Lymph # (Auto) 1.62 (1.32-3.57) K/mm3 Park # (Auto) 0.92 H (0.30-0.82) K/mm3 Eos # (Auto) 0.41 (0.04-0.54) K/mm3 Baso # (Auto) 0.06 (0.01-0.08) K/mm3 Sodium 144 (136-145) mEq/L Potassium 3.6 (3.5-5.1) mEq/L Chloride 107 (98-107) mEq/L Carbon Dioxide 28 (21-32) mEq/L Anion Gap 12.6 (5-15) BUN 16 (7-18) mg/dL Creatinine 0.7 (0.7-1.3) mg/dL Est Cr Clr Drug Dosing 114.42 mL/min Estimated GFR (MDRD) > 60 (>60) mL/min BUN/Creatinine Ratio 22.9 H (14-18) Glucose 194 H (80-115) mg/dL Calcium 8.6 (8.5-10.1) mg/dL Magnesium 1.8 (1.8-2.4) mg/dl Result Diagrams: 02/25/17 06:35 02/25/17 06:35 Dmitry Results Last 24 hrs: Microbiology 02/24/17 23:30 Gram Stain - Final Sputum - Expectorated *Q Meaningful Use (ADM) - VTE *Q VTE Criteria *Q: - Stroke *Q Stroke Criteria *Q: - AMI *Q AMI Criteria *Q: - Problem List (1) Bronchitis SNOMED Code(s): 22237130 ICD Code: J40 - BRONCHITIS, NOT SPECIFIED ACUTE OR CHRONIC Status: Acute Priority: High Current Visit: Yes (2) Hypoxia SNOMED Code(s): 659505814 ICD Code: R09.02 - HYPOXEMIA Status: Acute Priority: High Current Visit : Yes (3) Type 2 diabetes mellitus SNOMED Code(s): 29891526 ICD Code: E11.9 - TYPE 2 DIABETES MELLITUS WITHOUT COMPLICATIONS Status: Chronic Priority: Low Current Visit: Yes QualifierTitle: Diabetes mellitus complication status: with unspecified complications Diabetes mellitus sales operations associate insulin use: unspecified mcc insulin use status Qualified Code(s): E11.8 - Type 2 diabetes mellitus with unspecified complications (4) Venous (peripheral) insufficiency SNOMED Code(s): 00214146 ICD Code: I87.2 - VENOUS INSUFFICIENCY (CHRONIC) (PERIPHERAL) Status: Chronic Priority: Low Current Visit: Yes Problem List Initiated/Reviewed/Updated: Yes Orders Last 24hrs: Active Orders 24 hr Category Date Time Status Antiembolic Devices [RC] PER UNIT ROUTINE Care 02/25/17 06:26 Active RT Aerosol Therapy [RC] ASDIRECTED Care 02/24/17 22:50 Active Up ad Ashley [RC] ASDIRECTED Care 02/24/17 22:43 Active Vital Signs [RC] 09,15,21,03 Care 02/24/17 22:43 Active Consult to Diabetic Nurse Specialist [CONS] Routine Cons 02/25/17 07:52 Active Consult to Occupational Therapy [OT Evaluation and Cons 02/24/17 22:48 Active Treatment] [CONS] Routine Consult to Ratchet Setter [CONS] Routine Cons 02/24/17 22:48 Active PT Evaluation and Treatment [CONS] Routine Cons 02/24/17 22:48 Active Consistent Carbohydrate Diet [DIET] Diet 02/25/17 Lunch Active CULTURE SPUTUM + SMEAR [RM] Routine Lab 02/24/17 23:30 Results Acetaminophen [Tylenol] Med 02/24/17 22:48 Active 650 mg PO Q6H PRN Albuterol [Proventil Neb Soln] Med 02/24/17 22:48 Active 2.5 mg NEB Q4HRRT PRN Albuterol/Ipratropium [DuoNeb 3.0-0.5 MG/3 ML] Med 02/24/17 23:00 Active 3 ml NEB Q6HRRT Azithromycin [Zithromax] 500 mg Med 02/25/17 12:00 Active Sodium Chloride 0.9% [Normal Saline] 250 ml IV Q24H Gabapentin [Neurontin] Med 02/24/17 23:00 Active 200 mg PO BID Glimepiride [Amaryl] Med 02/24/17 23:00 Active 2 mg PO DAILY HYDROmorphone [Dilaudid] Med 02/24/17 22:48 Active 1 mg IVPUSH Q6H PRN LORazepam [Ativan] Med 02/24/17 22:48 Active 1 mg IVPUSH Q12H PRN Lisinopril [Prinivil] Med 02/24/17 23:00 Active 20 mg PO DAILY Metoprolol Succinate [Toprol XL] Med 02/24/17 23:00 Active 100 mg PO DAILY Nystatin [Nystop] Med 02/25/17 06:30 Active 0 gm TOP BID Potassium Chloride [Klor-Con M20] Med 02/25/17 06:30 Active 20 meq PO DAILY Saxagliptin [Onglyza] Med 02/25/17 09:00 Active 5 mg PO DAILY Tamsulosin [Flomax] Med 02/24/17 22:59 Active 0.4 mg PO BEDTIME Temazepam [Restoril] Med 02/24/17 22:59 Active 30 mg PO BEDTIME cefTRIAXone [Rocephin] 2 gm Med 02/25/17 11:00 Active Sodium Chloride 0.9% [Normal Saline] 100 ml IV Q24H guaiFENesin [Mucinex] Med 02/24/17 23:45 Active 1,200 mg PO BID FRANTZ Hose [Antiembolic Hose] [OM.PC] Routine Oth 02/25/17 06:26 Ordered Resuscitation Status Routine Resus Stat 02/25/17 01:01 Ordered Medication Orders Acetaminophen (Tylenol) 650 mg PO Q6H PRN PRN Reason: Pain/Fever Albuterol (Proventil Neb Soln) 2.5 mg NEB Q4HRRT PRN PRN Reason: Shortness of Breath Albuterol/Ipratropium (Duoneb 3.0-0.5 Mg/3 Ml) 3 ml NEB Q6HRRT [facility] Last Admin: 02/25/17 03:46 Dose: 3 ml Admin: 02/24/17 23:24 Dose: 3 ml Gabapentin (Neurontin) 200 mg PO BID [facility] Last Admin: 02/24/17 23:50 Dose: 200 mg Glimepiride (Amaryl) 2 mg PO DAILY [facility] Last Admin: 02/24/17 23:51 Dose: 2 mg Guaifenesin (Mucinex) 1,200 mg PO BID [facility] Last Admin: 02/24/17 23:50 Dose: 1,200 mg Hydromorphone HCl (Dilaudid) 1 mg IVPUSH Q6H PRN PRN Reason: Pain Azithromycin 500 mg/ Sodium (Chloride) 250 mls @ 250 mls/hr IV Q24H [facility] Ceftriaxone Sodium 2 gm/ (Sodium Chloride) 100 mls @ 200 mls/hr IV Q24H [facility] Lisinopril (Prinivil) 20 mg PO DAILY [facility] Last Admin: 02/25/17 00:00 Dose: 20 mg Lorazepam (Ativan) 1 mg IVPUSH Q12H PRN PRN Reason: Anxiety Metoprolol Succinate (Toprol Xl) 100 mg PO DAILY [facility] Last Admin: 02/24/17 23:59 Dose: 100 mg Nystatin (Nystop) 0 gm TOP BID [facility] Last Admin: 02/25/17 07:38 Dose: Not Given Potassium Chloride (Klor-Con M20) 20 meq PO DAILY [facility] Last Admin: 02/25/17 07:37 Dose: 20 meq Saxagliptin Hydrochloride (Onglyza) 5 mg PO DAILY [facility] Sodium Chloride (Saline Flush) 10 ml FLUSH ONETIME PRN PRN Reason: IV FLUSH Last Admin: 02/24/17 14:57 Dose: 10 ml Tamsulosin HCl (Flomax) 0.4 mg PO BEDTIME [facility] Last Admin: 02/24/17 23:50 Dose: 0.4 mg Temazepam (Restoril) 30 mg PO BEDTIME [facility] Last Admin: 02/24/17 23:51 Dose: 30 mg Assessment/Plan Comment:: I/P: Acute: Bronchitis -Minimal findings on CT and CXR -Continues to be SOB on 2L via NC -Cough with sputum -Duoneb given in ED with minimal improvement -Rocephen 1g given in ED --> increased to 2 g daily on floor -Albuterol and Duoneb as ordered -Azithromycin -Mucinex -Sputum culture obtained, results pending -RT -Attempt to wean off O2 Anxiety -Ativan -Coaching of progress Chronic: Periphreal neuropathy -Home medications as ordered -Percocet given in ED -Additional pain medications as ordered HLD HTN GERALD Diverticulosis GERD Amputations of right arm - mid to proximal humerus Obesity Type II DM - continue home medications Hypokalemia - continue supplementation Plan: Admit to medical floor with telemetry CM/SW for discharge planning Consult diabetic education for help with medication assistance while in hospital Continue home medications as indicated Routine AM lab draws PT/OT DVT prophylaxis <Reba Campuzano - Last Filed: 02/25/17 11:59> H&P History of Present Illness - General Admit Problem/Dx: Admission Diagnosis/Problem Admission Diagnosis/Problem Bronchitis Exam - Vital Signs Vital Signs: Last Vital Signs Temp 37.1 C 02/24/17 21:16 Pulse 94 02/25/17 10:22 Resp 18 02/24/17 21:16 BP 132/82 02/25/17 10:22 Pulse Ox 91 L 02/25/17 09:34 - Patient Data Lab Results Last 24 hrs: Laboratory Results - last 24 hr 02/25/17 02/25/17 Range/Units 06:35 06:35 WBC 8.30 (4.23-9.07) K/mm3 RBC 4.85 (4.63-6.08) M/mm3 Hgb 14.3 (13.7-17.5) gm/L Hct 42.8 (40.1-51.0) % MCV 88.2 (79.0-92.2) fl MCH 29.5 (25.7-32.2) pg MCHC 33.4 (32.2-35.5) g/dl RDW Std Deviation 47.6 H (35.1-43.9) fL Plt Count 191 (163-337) K/mm3 MPV 10.1 (9.4-12.3) fl Neut % (Auto) 63.3 (34.0-67.9) % Lymph % (Auto) 19.5 L (21.8-53.1) % Park % (Auto) 11.1 (5.3-12.2) % Eos % (Auto) 4.9 (0.8-7.0) Baso % (Auto) 0.7 (0.1-1.2) % Neut # (Auto) 5.25 (1.78-5.38) K/mm3 Lymph # (Auto) 1.62 (1.32-3.57) K/mm3 Park # (Auto) 0.92 H (0.30-0.82) K/mm3 Eos # (Auto) 0.41 (0.04-0.54) K/mm3 Baso # (Auto) 0.06 (0.01-0.08) K/mm3 Sodium 144 (136-145) mEq/L Potassium 3.6 (3.5-5.1) mEq/L Chloride 107 (98-107) mEq/L Carbon Dioxide 28 (21-32) mEq/L Anion Gap 12.6 (5-15) BUN 16 (7-18) mg/dL Creatinine 0.7 (0.7-1.3) mg/dL Est Cr Clr Drug Dosing 114.42 mL/min Estimated GFR (MDRD) > 60 (>60) mL/min BUN/Creatinine Ratio 22.9 H (14-18) Glucose 194 H (80-115) mg/dL Calcium 8.6 (8.5-10.1) mg/dL Magnesium 1.8 (1.8-2.4) mg/dl Result Diagrams: 02/25/17 06:35 02/25/17 06:35 Dmitry Results Last 24 hrs: Microbiology 02/24/17 23:30 Gram Stain - Final Sputum - Expectorated *Q Meaningful Use (ADM) - VTE *Q VTE Criteria *Q: - Stroke *Q Stroke Criteria *Q: - AMI *Q AMI Criteria *Q: Orders Last 24hrs: Active Orders 24 hr Category Date Time Status Admission Status [Patient Status] [ADT] Routine ADT 02/25/17 11:37 Active Antiembolic Devices [RC] PER UNIT ROUTINE Care 02/25/17 06:26 Active RT Aerosol Therapy [RC] ASDIRECTED Care 02/24/17 22:50 Active RT PFT Spirometry Screen Pre/P [RC] Click to Edit Care 02/25/17 11:40 Active Up ad Ashley [RC] ASDIRECTED Care 02/24/17 22:43 Active Vital Signs [RC] 09,15,21,03 Care 02/24/17 22:43 Active Consult to Diabetic Nurse Specialist [CONS] Routine Cons 02/25/17 07:52 Active Consult to Occupational Therapy [OT Evaluation and Cons 02/24/17 22:48 Active Treatment] [CONS] Routine Consult to Ratchet Setter [CONS] Routine Cons 02/24/17 22:48 Active PT Evaluation and Treatment [CONS] Routine Cons 02/24/17 22:48 Active Consistent Carbohydrate Diet [DIET] Diet 02/25/17 Breakfast Active CULTURE SPUTUM + SMEAR [RM] Routine Lab 02/24/17 23:30 Results Acetaminophen [Tylenol] Med 02/24/17 22:48 Active 650 mg PO Q6H PRN Albuterol [Proventil Neb Soln] Med 02/24/17 22:48 Active 2.5 mg NEB Q4HRRT PRN Albuterol/Ipratropium [DuoNeb 3.0-0.5 MG/3 ML] Med 02/24/17 23:00 Active 3 ml NEB Q6HRRT Azithromycin [Zithromax] 500 mg Med 02/25/17 12:00 Active Sodium Chloride 0.9% [Normal Saline] 250 ml IV Q24H Gabapentin [Neurontin] Med 02/24/17 23:00 Active 200 mg PO BID Glimepiride [Amaryl] Med 02/24/17 23:00 Active 2 mg PO DAILY HYDROmorphone [Dilaudid] Med 02/24/17 22:48 Active 1 mg IVPUSH Q6H PRN LORazepam [Ativan] Med 02/24/17 22:48 Active 1 mg IVPUSH Q12H PRN Lisinopril [Prinivil] Med 02/24/17 23:00 Active 20 mg PO DAILY Metoprolol Succinate [Toprol XL] Med 02/24/17 23:00 Active 100 mg PO DAILY Nystatin [Nystop] Med 02/25/17 06:30 Active 0 gm TOP BID Potassium Chloride [Klor-Con M20] Med 02/25/17 06:30 Active 20 meq PO DAILY Saxagliptin [Onglyza] Med 02/25/17 09:00 Active 5 mg PO DAILY Tamsulosin [Flomax] Med 02/24/17 22:59 Active 0.4 mg PO BEDTIME Temazepam [Restoril] Med 02/24/17 22:59 Active 30 mg PO BEDTIME cefTRIAXone [Rocephin] 2 gm Med 02/25/17 11:00 Active Sodium Chloride 0.9% [Normal Saline] 100 ml IV Q24H guaiFENesin [Mucinex] Med 02/24/17 23:45 Active 1,200 mg PO BID Bedside Screening Spirometry [RT Spirometry Screening] Oth 02/25/17 09:52 Active [RESPCARE] Routine FRANTZ Hose [Antiembolic Hose] [OM.PC] Routine Oth 02/25/17 06:26 Ordered Resuscitation Status Routine Resus Stat 02/25/17 01:01 Ordered Medication Orders Acetaminophen (Tylenol) 650 mg PO Q6H PRN PRN Reason: Pain/Fever Albuterol (Proventil Neb Soln) 2.5 mg NEB Q4HRRT PRN PRN Reason: Shortness of Breath Albuterol/Ipratropium (Duoneb 3.0-0.5 Mg/3 Ml) 3 ml NEB Q6HRRT [facility] Last Admin: 02/25/17 09:23 Dose: 3 ml Admin: 02/25/17 03:46 Dose: 3 ml Admin: 02/24/17 23:24 Dose: 3 ml Gabapentin (Neurontin) 200 mg PO BID [facility] Last Admin: 02/25/17 10:23 Dose: 200 mg Admin: 02/24/17 23:50 Dose: 200 mg Glimepiride (Amaryl) 2 mg PO DAILY [facility] Last Admin: 02/25/17 10:25 Dose: 2 mg Admin: 02/24/17 23:51 Dose: 2 mg Guaifenesin (Mucinex) 1,200 mg PO BID [facility] Last Admin: 02/25/17 10:25 Dose: 1,200 mg Admin: 02/24/17 23:50 Dose: 1,200 mg Hydromorphone HCl (Dilaudid) 1 mg IVPUSH Q6H PRN PRN Reason: Pain Last Admin: 02/25/17 10:07 Dose: 1 mg Azithromycin 500 mg/ Sodium (Chloride) 250 mls @ 250 mls/hr IV Q24H [facility] Last Admin: 02/25/17 11:14 Dose: 250 mls/hr Ceftriaxone Sodium 2 gm/ (Sodium Chloride) 100 mls @ 200 mls/hr IV Q24H [facility] Last Admin: 02/25/17 10:17 Dose: 200 mls/hr Lisinopril (Prinivil) 20 mg PO DAILY [facility] Last Admin: 02/25/17 10:23 Dose: 20 mg Admin: 02/25/17 00:00 Dose: 20 mg Lorazepam (Ativan) 1 mg IVPUSH Q12H PRN PRN Reason: Anxiety Last Admin: 02/25/17 11:10 Dose: 1 mg Metoprolol Succinate (Toprol Xl) 100 mg PO DAILY [facility] Last Admin: 02/25/17 10:22 Dose: 100 mg Admin: 02/24/17 23:59 Dose: 100 mg Nystatin (Nystop) 0 gm TOP BID [facility] Last Admin: 02/25/17 07:38 Dose: Not Given Potassium Chloride (Klor-Con M20) 20 meq PO DAILY [facility] Last Admin: 02/25/17 07:37 Dose: 20 meq Saxagliptin Hydrochloride (Onglyza) 5 mg PO DAILY [facility] Last Admin: 02/25/17 10:24 Dose: 5 mg Sodium Chloride (Saline Flush) 10 ml FLUSH ONETIME PRN PRN Reason: IV FLUSH Last Admin: 02/24/17 14:57 Dose: 10 ml Tamsulosin HCl (Flomax) 0.4 mg PO BEDTIME [facility] Last Admin: 02/24/17 23:50 Dose: 0.4 mg Temazepam (Restoril) 30 mg PO BEDTIME [facility] Last Admin: 02/24/17 23:51 Dose: 30 mg Assessment/Plan Comment:: Patient was seen in the ED, admitted around 2100 hour to observation. Appears to have a hx of COPD, currently being treated for COPD exacerbation. Pulmonary studies will be performed this admission. Also is depressed, will order a psych consult with Dr Kaufman.
--- NOTE | 2017-02-25 08:16 | CR ---
Chest: Frontal view of the chest was obtained. Comparison: Previous chest x-ray of 09/29/16. Old left-sided rib fractures are seen. Lungs are clear. Heart size is normal. Mild tortuosity of the thoracic aorta is seen. Chronic dislocation is seen of the right shoulder. Impression: 1. Chronic bone findings. Nothing acute is appreciated. Diagnostic code #2
[2017-02-25] MEDS ORDERED: FLU Vacc QS 2017-18 (6mos UP)/PF 60 MCG/0.5 ML Syringe IM ONE (09:00)
[2017-02-25] MEDS: HYDROmorphone 1 MG/ML Syringe IVPUSH PRN ×2 (10:07→17:16)
[2017-02-25] MEDS: Metoprolol Succinate 50 MG Tab.ER PO SCH (10:22)
[2017-02-25] MEDS: Gabapentin 100 MG Cap PO SCH ×2 (10:23→20:44)
[2017-02-25] MEDS: Lisinopril 5 MG Tab PO SCH ×2 (10:23)
[2017-02-25] MEDS: Saxagliptin 5 MG Tab PO SCH (10:24)
[2017-02-25] MEDS: Glimepiride 2 MG Tab PO SCH (10:25)
[2017-02-25] MEDS: guaiFENesin 600 MG Tab.ER PO SCH ×2 (10:25→20:44)
[2017-02-25] MEDS ORDERED: Calcium Carbonate 500 MG Tab.Chew PO ONE (10:58)
[2017-02-25] MEDS ORDERED: cefTRIAXone 2 GM in Sodium Chloride 0.9% 100 ML IV SCH (11:00)
[2017-02-25] MEDS ORDERED: Azithromycin 500 MG in Sodium Chloride 0.9% 250 ML IV SCH (12:00)
[2017-02-25] MEDS: Insulin Aspart 100 Units/ML 3 ML Pen SUBCUT SCH ×3 (17:08→21:28)
[2017-02-25] MEDS: Temazepam 15 MG Cap PO SCH (20:44)
[2017-02-25] MEDS: Tamsulosin 0.4 MG Cap.ER PO SCH (20:44)
[2017-02-25] MEDS ORDERED: Aluminum Hydroxide/Magnesium Hydroxide/Simethicone Susp 30 ML Cup PO PRN (20:52)
[2017-02-26] MEDS: Albuterol/Ipratropium 3.0-0.5 MG/3 ML Neb Soln NEB SCH ×4 (02:49→21:34)
[2017-02-26] MEDS: HYDROmorphone 1 MG/ML Syringe IVPUSH PRN (06:49)
[2017-02-26] MEDS: Insulin Aspart 100 Units/ML 3 ML Pen SUBCUT SCH ×4 (06:50→21:02)
[2017-02-26] MEDS: Glimepiride 2 MG Tab PO SCH (09:00)
[2017-02-26] MEDS: Potassium Chloride 20 MEQ Tab.ER PO SCH (09:01)
[2017-02-26] MEDS: Gabapentin 100 MG Cap PO SCH ×2 (09:01→20:36)
[2017-02-26] MEDS: guaiFENesin 600 MG Tab.ER PO SCH ×2 (09:01→20:37)
[2017-02-26] MEDS: Saxagliptin 5 MG Tab PO SCH (09:02)
[2017-02-26] MEDS: Lisinopril 5 MG Tab PO SCH (09:03)
[2017-02-26] MEDS: Metoprolol Succinate 50 MG Tab.ER PO SCH (09:04)
[2017-02-26] MEDS: Nystatin Topical Powder 15 GM Bottle TOP SCH ×2 (10:30→20:38)
[2017-02-26] MEDS: Levofloxacin/Dextrose 5%-Water 750 MG in Premix Bag 1 BAG IV SCH (11:11)
--- NOTE | 2017-02-26 14:13 | PCM.PN ---
<Donnell Maxwell - Last Filed: 02/26/17 15:19> - General Info Date of Service: 02/26/17 Admission Dx/Problem (Free Text): Admission Diagnosis/Problem Admission Diagnosis/Problem Bronchitis Functional Status: Reports: Pain Controlled, Tolerating Diet, Ambulating, Incentive Spirometry. Denies: New Symptoms - Review of Systems General: Reports: No Symptoms HEENT: Reports: No Symptoms Pulmonary: Reports: Shortness of Breath, Cough, Sputum Cardiovascular: Reports: Dyspnea on Exertion, Edema Gastrointestinal: Reports: No Symptoms Genitourinary: Reports: No Symptoms Musculoskeletal: Reports: Arm Pain, Hand Pain, Back Pain, Leg Pain Skin: Reports: No Symptoms Neurological: Reports: No Symptoms Psychiatric: Reports: No Symptoms Systems Review Comment:: Patient reports he is improving however he still feels short of breath. He was seen today by Dr. Kaufman this made him very angry. He was not notified of the consult prior due to a communication error. - Patient Data Vitals - Most Recent: Last Vital Signs Temp 97.0 F 02/26/17 11:40 Pulse 92 02/26/17 11:40 Resp 20 02/26/17 11:40 BP 152/95 H 02/26/17 11:40 Pulse Ox 94 L 02/26/17 11:40 Weight - Most Recent: 114.351 kg I&O - Last 24 Hours: Intake & Output 02/25/17 02/26/17 02/26/17 22:59 06:59 14:59 Intake Total 1285 50 960 Balance 1285 50 960 Lab Results Last 24 Hours: Laboratory Results - last 24 hr 02/25/17 02/25/17 02/26/17 Range/Units 16:49 21:28 06:48 WBC (4.23-9.07) K/mm3 RBC (4.63-6.08) M/mm3 Hgb (13.7-17.5) gm/L Hct (40.1-51.0) % MCV (79.0-92.2) fl MCH (25.7-32.2) pg MCHC (32.2-35.5) g/dl RDW Std Deviation (35.1-43.9) fL Plt Count (163-337) K/mm3 MPV (9.4-12.3) fl Neut % (Auto) (34.0-67.9) % Lymph % (Auto) (21.8-53.1) % Sargent % (Auto) (5.3-12.2) % Eos % (Auto) (0.8-7.0) Baso % (Auto) (0.1-1.2) % Neut # (Auto) (1.78-5.38) K/mm3 Lymph # (Auto) (1.32-3.57) K/mm3 Sargent # (Auto) (0.30-0.82) K/mm3 Eos # (Auto) (0.04-0.54) K/mm3 Baso # (Auto) (0.01-0.08) K/mm3 Sodium (136-145) mEq/L Potassium (3.5-5.1) mEq/L Chloride (98-107) mEq/L Carbon Dioxide (21-32) mEq/L Anion Gap (5-15) BUN (7-18) mg/dL Creatinine (0.7-1.3) mg/dL Est Cr Clr Drug Dosing mL/min Estimated GFR (MDRD) (>60) mL/min BUN/Creatinine Ratio (14-18) Glucose (80-115) mg/dL POC Glucose 238 H 184 H 181 H (80-115) mg/dL Calcium (8.5-10.1) mg/dL Magnesium (1.8-2.4) mg/dl 02/26/17 02/26/17 02/26/17 Range/Units 08:19 08:19 11:25 WBC 7.74 (4.23-9.07) K/mm3 RBC 4.98 (4.63-6.08) M/mm3 Hgb 14.4 (13.7-17.5) gm/L Hct 43.7 (40.1-51.0) % MCV 87.8 (79.0-92.2) fl MCH 28.9 (25.7-32.2) pg MCHC 33.0 (32.2-35.5) g/dl RDW Std Deviation 47.6 H (35.1-43.9) fL Plt Count 207 (163-337) K/mm3 MPV 10.3 (9.4-12.3) fl Neut % (Auto) 65.2 (34.0-67.9) % Lymph % (Auto) 19.8 L (21.8-53.1) % Sargent % (Auto) 8.8 (5.3-12.2) % Eos % (Auto) 5.2 (0.8-7.0) Baso % (Auto) 0.6 (0.1-1.2) % Neut # (Auto) 5.05 (1.78-5.38) K/mm3 Lymph # (Auto) 1.53 (1.32-3.57) K/mm3 Sargent # (Auto) 0.68 (0.30-0.82) K/mm3 Eos # (Auto) 0.40 (0.04-0.54) K/mm3 Baso # (Auto) 0.05 (0.01-0.08) K/mm3 Sodium 141 (136-145) mEq/L Potassium 3.8 (3.5-5.1) mEq/L Chloride 105 (98-107) mEq/L Carbon Dioxide 25 (21-32) mEq/L Anion Gap 14.8 (5-15) BUN 17 (7-18) mg/dL Creatinine 0.8 (0.7-1.3) mg/dL Est Cr Clr Drug Dosing 100.12 mL/min Estimated GFR (MDRD) > 60 (>60) mL/min BUN/Creatinine Ratio 21.3 H (14-18) Glucose 266 H (80-115) mg/dL POC Glucose 244 H (80-115) mg/dL Calcium 8.9 (8.5-10.1) mg/dL Magnesium 1.9 (1.8-2.4) mg/dl Med Orders - Current: Current Medications Acetaminophen (Tylenol) 650 mg PO Q6H PRN PRN Reason: Pain/Fever Last Admin: 02/26/17 09:05 Dose: 650 mg Al Hydroxide/Mg Hydroxide (Mag-Al Plus) 30 ml PO Q4H PRN PRN Reason: Heartburn Last Admin: 02/25/17 21:25 Dose: 30 ml Albuterol (Proventil Neb Soln) 2.5 mg NEB Q4HRRT PRN PRN Reason: Shortness of Breath Albuterol/Ipratropium (Duoneb 3.0-0.5 Mg/3 Ml) 3 ml NEB Q6HRRT [facility] Last Admin: 02/26/17 08:29 Dose: 3 ml Gabapentin (Neurontin) 200 mg PO BID [facility] Last Admin: 02/26/17 09:01 Dose: 200 mg Glimepiride (Amaryl) 2 mg PO DAILY [facility] Last Admin: 02/26/17 09:00 Dose: 2 mg Guaifenesin (Mucinex) 1,200 mg PO BID [facility] Last Admin: 02/26/17 09:01 Dose: 1,200 mg Hydromorphone HCl (Dilaudid) 1 mg IVPUSH Q6H PRN PRN Reason: Pain Last Admin: 02/26/17 06:49 Dose: 1 mg Levofloxacin/Dextrose 750 mg/ (Premix) 150 mls @ 100 mls/hr IV Q24H [facility] Last Admin: 02/26/17 11:11 Dose: 100 mls/hr Insulin Aspart (Novolog) 0 unit SUBCUT QIDACANDBED [facility] PRN Reason: Protocol Last Admin: 02/26/17 12:07 Dose: 2 units Lisinopril (Prinivil) 20 mg PO DAILY [facility] Last Admin: 02/26/17 09:03 Dose: 20 mg Lorazepam (Ativan) 1 mg IVPUSH Q12H PRN PRN Reason: Anxiety Last Admin: 02/25/17 11:10 Dose: 1 mg Metoprolol Succinate (Toprol Xl) 100 mg PO DAILY [facility] Last Admin: 02/26/17 09:04 Dose: 100 mg Nystatin (Nystop) 0 gm TOP BID [facility] Last Admin: 02/26/17 10:30 Dose: Not Given Potassium Chloride (Klor-Con M20) 20 meq PO DAILY [facility] Last Admin: 02/26/17 09:01 Dose: 20 meq Saxagliptin Hydrochloride (Onglyza) 5 mg PO DAILY [facility] Last Admin: 02/26/17 09:02 Dose: 5 mg Sodium Chloride (Saline Flush) 10 ml FLUSH ONETIME PRN PRN Reason: IV FLUSH Last Admin: 02/24/17 14:57 Dose: 10 ml Tamsulosin HCl (Flomax) 0.4 mg PO BEDTIME [facility] Last Admin: 02/25/17 20:44 Dose: 0.4 mg Temazepam (Restoril) 30 mg PO BEDTIME WANDA Last Admin: 02/25/17 20:44 Dose: 30 mg Discontinued Medications Albuterol (Proventil Neb Soln) 2.5 mg NEB ONETIME ONE Stop: 02/24/17 13:50 Last Admin: 02/24/17 14:03 Dose: 2.5 mg Albuterol/Ipratropium (Duoneb 3.0-0.5 Mg/3 Ml) 3 ml NEB ONETIME ONE Stop: 02/24/17 12:01 Last Admin: 02/24/17 12:11 Dose: 3 ml Albuterol/Ipratropium (Duoneb 3.0-0.5 Mg/3 Ml) 3 ml NEB ONETIME ONE Stop: 02/24/17 18:03 Last Admin: 02/24/17 18:08 Dose: 3 ml Calcium Carbonate/Glycine (Tums) 1,000 mg PO ONETIME ONE Stop: 02/25/17 10:59 Last Admin: 02/25/17 11:10 Dose: 1,000 mg Sodium Chloride (Normal Saline) 1,000 mls @ 100 mls/hr IV ASDIRECTED [facility] Last Admin: 02/24/17 12:12 Dose: 100 mls/hr Ceftriaxone Sodium 1 gm/ (Sodium Chloride) 100 mls @ 200 mls/hr IV ONETIME ONE Stop: 02/24/17 16:07 Last Admin: 02/24/17 15:49 Dose: 200 mls/hr Azithromycin 500 mg/ Sodium (Chloride) 250 mls @ 250 mls/hr IV Q24H [facility] Last Admin: 02/25/17 11:14 Dose: 250 mls/hr Ceftriaxone Sodium 2 gm/ (Sodium Chloride) 100 mls @ 200 mls/hr IV Q24H [facility] Last Admin: 02/25/17 10:17 Dose: 200 mls/hr Influenza Virus Vaccine (Pharmacy To Dose - Influenza Vaccine) 1 each IM ONETIME ONE Stop: 02/25/17 08:51 Influenza Virus Vaccine (Flulaval Quad [id number]) 60 mcg IM .ONCE ONE Stop: 02/25/17 09:01 Iopamidol (Isovue-300 (61%)) 100 ml IVPUSH ONETIME ONE Stop: 02/24/17 14:44 Last Admin: 02/24/17 14:56 Dose: 80 ml Lorazepam (Ativan) 1 mg IVPUSH ONETIME ONE Stop: 02/24/17 12:11 Last Admin: 10/17/17 12:26 Dose: 1 mg Methylprednisolone Sodium Succinate (Solu-Medrol) 125 mg IVPUSH ONETIME ONE Stop: 02/24/17 12:02 Last Admin: 02/24/17 12:21 Dose: Not Given Oxycodone/Acetaminophen (Percocet 325-5 Mg) 1 tab PO ONETIME ONE Stop: 02/24/17 20:26 Last Admin: 02/24/17 20:28 Dose: 1 tab Sitagliptin Phosphate (Januvia) 100 mg PO DAILY WANDA Last Admin: 02/25/17 02:11 Dose: Not Given - Exam Quality Assessment: DVT Prophylaxis General: Alert, Oriented, Cooperative HEENT: Pupils Equal, Pupils Reactive, Mucous Membr. Moist/Theresa Neck: Supple, Trachea Midline, No JVD Lungs: Clear to Auscultation, Normal Respiratory Effort, Decreased Breath Sounds Cardiovascular: Regular Rate, Regular Rhythm GI/Abdominal Exam: Normal Bowel Sounds, Soft, Non-Tender, No Organomegaly, No Distention, No Abnormal Bruit (Male) Exam: Deferred Back Exam: Normal Inspection, Full Range of Motion Extremities: Normal Range of Motion, Non-Tender, No Pedal Edema, Other (Right mid to proximal humerus amputation ) Peripheral Pulses: 2+: Radial (L), Posterior Tibial (L), Posterior Tibial (R), Dorsalis Pedis (L), Dorsalis Pedis (R) Skin: Warm, Dry, Intact Neurological: No New Focal Deficit Psy/Mental Status: Alert, Normal Affect, Anxious Physical Findings Comments:: I explained to the patient his new diagnosis of COPD and plan of care. With a lengthy discussion about his health history and his care with us thus far. Labs looked good today. - Problem List & Annotations (1) COPD (chronic obstructive pulmonary disease) SNOMED Code(s): 15432020 Code(s): J44.9 - CHRONIC OBSTRUCTIVE PULMONARY DISEASE, UNSPECIFIED Status : Acute Current Visit: Yes (2) Bronchitis SNOMED Code(s): 28975952 Code(s): J40 - BRONCHITIS, NOT SPECIFIED ACUTE OR CHRONIC Status: Acute Priority: High Current Visit: Yes (3) Hypoxia SNOMED Code(s): 274587340 Code(s): R09.02 - HYPOXEMIA Status: Acute Priority: High Current Visit : Yes (4) Type 2 diabetes mellitus SNOMED Code(s): 56095804 Code(s): E11.9 - TYPE 2 DIABETES MELLITUS WITHOUT COMPLICATIONS Status: Chronic Priority: Low Current Visit: Yes QualifierTitle: Diabetes mellitus complication status: with unspecified complications Diabetes mellitus intermediate insulin use: unspecified intermediate insulin use status Qualified Code(s): E11.8 - Type 2 diabetes mellitus with unspecified complications (5) Venous (peripheral) insufficiency SNOMED Code(s): 24993859 Code(s): I87.2 - VENOUS INSUFFICIENCY (CHRONIC) (PERIPHERAL) Status: Chronic Priority: Low Current Visit: Yes - Problem List Review Problem List Initiated/Reviewed/Updated: Yes - My Orders Last 24 Hours: My Active Orders 02/26/17 10:30 Levofloxacin/Dextrose 5%-Water [Levaquin in D5W 750 MG/150 ML] 750 mg Premix Bag 1 bag IV Q24H 02/26/17 14:06 MYCOPLASMA PNEUMONIAE IGM AB [CHEM] Routine RESPIRATORY PANEL BY PCR [MREF] Routine STREP PNEUMONIAE ANTIGEN [MREF] Routine 02/27/17 05:11 BASIC METABOLIC PANEL,BMP [CHEM] AM CBC WITH AUTO DIFF [HEME] AM MAGNESIUM [CHEM] AM 02/27/17 08:00 CXR [Chest 2V] [CR] Routine 02/28/17 05:11 BASIC METABOLIC PANEL,BMP [CHEM] AM CBC WITH AUTO DIFF [HEME] AM MAGNESIUM [CHEM] AM 03/01/17 05:11 BASIC METABOLIC PANEL,BMP [CHEM] AM CBC WITH AUTO DIFF [HEME] AM MAGNESIUM [CHEM] AM - Plan Plan:: I/P: Acute: Exacerbation of COPD -New diagnosis after PFT yesterday - Severe obstructive airway disease -Never a smoker -Regularly exposed to second-hand smoke via brother and other family members -Will start dulera -Follow-up with PCP after discharge for continued management -Consider establishing with lodge sales associate after discharge Bronchitis -Minimal findings on CT and CXR - Repeat CXR ordered 02/27/17 -Continues to be SOB on 2L via NC - Discontinued O2. Pt. states he feels short of breath but speaks in full sentences and does not appear dyspneic. -Continue to titrate and monitor -Cough with sputum -Duoneb given in ED with minimal improvement -Rocephen 1g given in ED --> increased to 2 g daily on floor - discontinued -Albuterol and Duoneb as ordered -Azithromycin- Switched to Levaquin 750mg. -Mucinex -Sputum culture obtained, normal respiratory brittni after 1 day -RT -Respiratory panel, step, and mycoplasma ordered. 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 I spent approximately 60 minutes with the patient today discussing plan of care and concerns. <Reba Campuzano - Last Filed: 02/26/17 18:51> - Patient Data Vitals - Most Recent: Last Vital Signs Temp 36.6 C 02/26/17 16:19 Pulse 91 02/26/17 16:19 Resp 19 02/26/17 16:19 BP 152/95 H 02/26/17 16:19 Pulse Ox 94 L 02/26/17 16:19 I&O - Last 24 Hours: Intake & Output 02/26/17 02/26/17 02/26/17 06:59 14:59 22:59 Intake Total 50 960 920 Balance 50 960 920 Lab Results Last 24 Hours: Laboratory Results - last 24 hr 02/25/17 02/26/17 02/26/17 Range/Units 21:28 06:48 08:19 WBC 7.74 (4.23-9.07) K/mm3 RBC 4.98 (4.63-6.08) M/mm3 Hgb 14.4 (13.7-17.5) gm/L Hct 43.7 (40.1-51.0) % MCV 87.8 (79.0-92.2) fl MCH 28.9 (25.7-32.2) pg MCHC 33.0 (32.2-35.5) g/dl RDW Std Deviation 47.6 H (35.1-43.9) fL Plt Count 207 (163-337) K/mm3 MPV 10.3 (9.4-12.3) fl Neut % (Auto) 65.2 (34.0-67.9) % Lymph % (Auto) 19.8 L (21.8-53.1) % Sargent % (Auto) 8.8 (5.3-12.2) % Eos % (Auto) 5.2 (0.8-7.0) Baso % (Auto) 0.6 (0.1-1.2) % Neut # (Auto) 5.05 (1.78-5.38) K/mm3 Lymph # (Auto) 1.53 (1.32-3.57) K/mm3 Sargent # (Auto) 0.68 (0.30-0.82) K/mm3 Eos # (Auto) 0.40 (0.04-0.54) K/mm3 Baso # (Auto) 0.05 (0.01-0.08) K/mm3 Sodium (136-145) mEq/L Potassium (3.5-5.1) mEq/L Chloride (98-107) mEq/L Carbon Dioxide (21-32) mEq/L Anion Gap (5-15) BUN (7-18) mg/dL Creatinine (0.7-1.3) mg/dL Est Cr Clr Drug Dosing mL/min Estimated GFR (MDRD) (>60) mL/min BUN/Creatinine Ratio (14-18) Glucose (80-115) mg/dL POC Glucose 184 H 181 H (80-115) mg/dL Calcium (8.5-10.1) mg/dL Magnesium (1.8-2.4) mg/dl Mycoplasma pneumon IgM (NEGATIVE) 02/26/17 02/26/17 02/26/17 Range/Units 08:19 08:19 11:25 WBC (4.23-9.07) K/mm3 RBC (4.63-6.08) M/mm3 Hgb (13.7-17.5) gm/L Hct (40.1-51.0) % MCV (79.0-92.2) fl MCH (25.7-32.2) pg MCHC (32.2-35.5) g/dl RDW Std Deviation (35.1-43.9) fL Plt Count (163-337) K/mm3 MPV (9.4-12.3) fl Neut % (Auto) (34.0-67.9) % Lymph % (Auto) (21.8-53.1) % Sargent % (Auto) (5.3-12.2) % Eos % (Auto) (0.8-7.0) Baso % (Auto) (0.1-1.2) % Neut # (Auto) (1.78-5.38) K/mm3 Lymph # (Auto) (1.32-3.57) K/mm3 Sargent # (Auto) (0.30-0.82) K/mm3 Eos # (Auto) (0.04-0.54) K/mm3 Baso # (Auto) (0.01-0.08) K/mm3 Sodium 141 (136-145) mEq/L Potassium 3.8 (3.5-5.1) mEq/L Chloride 105 (98-107) mEq/L Carbon Dioxide 25 (21-32) mEq/L Anion Gap 14.8 (5-15) BUN 17 (7-18) mg/dL Creatinine 0.8 (0.7-1.3) mg/dL Est Cr Clr Drug Dosing 100.12 mL/min Estimated GFR (MDRD) > 60 (>60) mL/min BUN/Creatinine Ratio 21.3 H (14-18) Glucose 266 H (80-115) mg/dL POC Glucose 244 H (80-115) mg/dL Calcium 8.9 (8.5-10.1) mg/dL Magnesium 1.9 (1.8-2.4) mg/dl Mycoplasma pneumon IgM Negative (NEGATIVE) 02/26/17 Range/Units 17:13 WBC (4.23-9.07) K/mm3 RBC (4.63-6.08) M/mm3 Hgb (13.7-17.5) gm/L Hct (40.1-51.0) % MCV (79.0-92.2) fl MCH (25.7-32.2) pg MCHC (32.2-35.5) g/dl RDW Std Deviation (35.1-43.9) fL Plt Count (163-337) K/mm3 MPV (9.4-12.3) fl Neut % (Auto) (34.0-67.9) % Lymph % (Auto) (21.8-53.1) % Sargent % (Auto) (5.3-12.2) % Eos % (Auto) (0.8-7.0) Baso % (Auto) (0.1-1.2) % Neut # (Auto) (1.78-5.38) K/mm3 Lymph # (Auto) (1.32-3.57) K/mm3 Sargent # (Auto) (0.30-0.82) K/mm3 Eos # (Auto) (0.04-0.54) K/mm3 Baso # (Auto) (0.01-0.08) K/mm3 Sodium (136-145) mEq/L Potassium (3.5-5.1) mEq/L Chloride (98-107) mEq/L Carbon Dioxide (21-32) mEq/L Anion Gap (5-15) BUN (7-18) mg/dL Creatinine (0.7-1.3) mg/dL Est Cr Clr Drug Dosing mL/min Estimated GFR (MDRD) (>60) mL/min BUN/Creatinine Ratio (14-18) Glucose (80-115) mg/dL POC Glucose 198 H (80-115) mg/dL Calcium (8.5-10.1) mg/dL Magnesium (1.8-2.4) mg/dl Mycoplasma pneumon IgM (NEGATIVE) Med Orders - Current: Current Medications Acetaminophen (Tylenol) 650 mg PO Q6H PRN PRN Reason: Pain/Fever Last Admin: 02/26/17 09:05 Dose: 650 mg Al Hydroxide/Mg Hydroxide (Mag-Al Plus) 30 ml PO Q4H PRN PRN Reason: Heartburn Last Admin: 02/25/17 21:25 Dose: 30 ml Albuterol (Proventil Neb Soln) 2.5 mg NEB Q4HRRT PRN PRN Reason: Shortness of Breath Albuterol/Ipratropium (Duoneb 3.0-0.5 Mg/3 Ml) 3 ml NEB Q6HRRT [facility] Last Admin: 02/26/17 15:02 Dose: 3 ml Gabapentin (Neurontin) 200 mg PO BID [facility] Last Admin: 02/26/17 09:01 Dose: 200 mg Glimepiride (Amaryl) 2 mg PO DAILY [facility] Last Admin: 02/26/17 09:00 Dose: 2 mg Guaifenesin (Mucinex) 1,200 mg PO BID [facility] Last Admin: 02/26/17 09:01 Dose: 1,200 mg Levofloxacin/Dextrose 750 mg/ (Premix) 150 mls @ 100 mls/hr IV Q24H [facility] Last Admin: 02/26/17 11:11 Dose: 100 mls/hr Insulin Aspart (Novolog) 0 unit SUBCUT QIDACANDBED WANDA PRN Reason: Protocol Last Admin: 02/26/17 17:41 Dose: 1 units Lisinopril (Prinivil) 20 mg PO DAILY [facility] Last Admin: 02/26/17 09:03 Dose: 20 mg Lorazepam (Ativan) 1 mg IVPUSH Q12H PRN PRN Reason: Anxiety Last Admin: 02/25/17 11:10 Dose: 1 mg Metoprolol Succinate (Toprol Xl) 100 mg PO DAILY [facility] Last Admin: 02/26/17 09:04 Dose: 100 mg Mometasone Furoate/Formoterol Fumar (Dulera 100-5 Mcg) 2 puff IH BID [facility] Nystatin (Nystop) 0 gm TOP BID [facility] Last Admin: 02/26/17 10:30 Dose: Not Given Oxycodone/Acetaminophen (Percocet 325-5 Mg) 1 tab PO Q6H PRN PRN Reason: Pain Last Admin: 02/26/17 15:55 Dose: 1 tab Potassium Chloride (Klor-Con M20) 20 meq PO DAILY [facility] Last Admin: 02/26/17 09:01 Dose: 20 meq Saxagliptin Hydrochloride (Onglyza) 5 mg PO DAILY [facility] Last Admin: 02/26/17 09:02 Dose: 5 mg Sodium Chloride (Saline Flush) 10 ml FLUSH ONETIME PRN PRN Reason: IV FLUSH Last Admin: 02/24/17 14:57 Dose: 10 ml Tamsulosin HCl (Flomax) 0.4 mg PO BEDTIME [facility] Last Admin: 02/25/17 20:44 Dose: 0.4 mg Temazepam (Restoril) 30 mg PO BEDTIME [facility] Last Admin: 02/25/17 20:44 Dose: 30 mg Discontinued Medications Albuterol (Proventil Neb Soln) 2.5 mg NEB ONETIME ONE Stop: 02/24/17 13:50 Last Admin: 02/24/17 14:03 Dose: 2.5 mg Albuterol/Ipratropium (Duoneb 3.0-0.5 Mg/3 Ml) 3 ml NEB ONETIME ONE Stop: 02/24/17 12:01 Last Admin: 02/24/17 12:11 Dose: 3 ml Albuterol/Ipratropium (Duoneb 3.0-0.5 Mg/3 Ml) 3 ml NEB ONETIME ONE Stop: 02/24/17 18:03 Last Admin: 02/24/17 18:08 Dose: 3 ml Calcium Carbonate/Glycine (Tums) 1,000 mg PO ONETIME ONE Stop: 02/25/17 10:59 Last Admin: 02/25/17 11:10 Dose: 1,000 mg Hydromorphone HCl (Dilaudid) 1 mg IVPUSH Q6H PRN PRN Reason: Pain Last Admin: 02/26/17 06:49 Dose: 1 mg Sodium Chloride (Normal Saline) 1,000 mls @ 100 mls/hr IV ASDIRECTED [facility] Last Admin: 02/24/17 12:12 Dose: 100 mls/hr Ceftriaxone Sodium 1 gm/ (Sodium Chloride) 100 mls @ 200 mls/hr IV ONETIME ONE Stop: 02/24/17 16:07 Last Admin: 02/24/17 15:49 Dose: 200 mls/hr Azithromycin 500 mg/ Sodium (Chloride) 250 mls @ 250 mls/hr IV Q24H [facility] Last Admin: 02/25/17 11:14 Dose: 250 mls/hr Ceftriaxone Sodium 2 gm/ (Sodium Chloride) 100 mls @ 200 mls/hr IV Q24H [facility] Last Admin: 02/25/17 10:17 Dose: 200 mls/hr Influenza Virus Vaccine (Pharmacy To Dose - Influenza Vaccine) 1 each IM ONETIME ONE Stop: 02/25/17 08:51 Influenza Virus Vaccine (Flulaval Quad [id number]) 60 mcg IM .ONCE ONE Stop: 02/25/17 09:01 Iopamidol (Isovue-300 (61%)) 100 ml IVPUSH ONETIME ONE Stop: 02/24/17 14:44 Last Admin: 02/24/17 14:56 Dose: 80 ml Lorazepam (Ativan) 1 mg IVPUSH ONETIME ONE Stop: 02/24/17 12:11 Last Admin: 02/24/17 12:26 Dose: 1 mg Methylprednisolone Sodium Succinate (Solu-Medrol) 125 mg IVPUSH ONETIME ONE Stop: 02/24/17 12:02 Last Admin: 02/24/17 12:21 Dose: Not Given Mometasone Furoate/Formoterol Fumar (Dulera 100-5 Mcg) 2 puff IH BIDRT [facility] Last Admin: 02/26/17 18:12 Dose: Not Given Oxycodone/Acetaminophen (Percocet 325-5 Mg) 1 tab PO ONETIME ONE Stop: 02/24/17 20:26 Last Admin: 02/24/17 20:28 Dose: 1 tab Sitagliptin Phosphate (Januvia) 100 mg PO DAILY [facility] Last Admin: 02/25/17 02:11 Dose: Not Given - My Orders Last 24 Hours: My Active Orders 02/25/17 20:52 Alum Hydrox/Mag Hydrox/Simeth [Mag-Al Plus] 30 ml PO Q4H PRN 02/26/17 10:02 Incentive Spirometry [RT Incentive Spirometry] [RC] ASDIRECTED 02/26/17 16:42 Overnight Pulse Oximetry [RC] Click to Edit 02/26/17 21:00 Mometasone/Formoterol [Dulera 100-5 MCG] 2 puff IH BID - Plan Plan:: Multiple medical problems addresses as above; PFTs document severity of pulmonary function. DC 24-48 hours.
[2017-02-26] MEDS ORDERED: Formoterol/Mometasone 100-5 MCG 8.8 GM Inhaler IH SCH (15:15)
--- NOTE | 2017-02-26 15:16 | CONS ---
CONSULTING PHYSICIAN: Jr Kaufman MD DATE OF CONSULTATION: 02/26/2017 TITLE: Psychiatric evaluation. This is a 60-minute inpatient clinical event. IDENTIFICATION: The patient is a 62-year-old male who was admitted to the inpatient medical unit at [facility] in [place], [place], on 02/24/2017. He is seen for psychiatric evaluation. CHIEF COMPLAINT: "I had congestion problems. I could not breathe." HISTORY OF PRESENT ILLNESS: The patient is a 62-year-old male who is admitted for bronchitis on 02/24/2017. He is assessed for possible anxiety after evidently raising the concerns to the primary treatment team that he had been becoming more agitated while on the unit. For his part, the patient is denying any problems with any kind of psychiatric mental health issues. He denies any suicidal or homicidal, denies any psychotic, delusional, or paranoid symptoms. He denies any problems with depression. He states as long as he is physically healthy, his mood is good, he has good energy levels and good sleep patterns. In fact, the patient states "I am pretty offended" that the psychiatric consult was even ordered because, besides the fact that he does not feel he has anything wrong from a psychiatric standpoint. He is also angry that no one informed him of the consult previously. Again, the patient is denying that he has any psychiatric issues and he is wanting to get better physically so "I can get out of here and go home." MEDICATIONS: At the time of presentation. 1. [place] for pain. 2. Ativan p.r.n. given on the unit for anxiety and agitation. ALLERGIES: 1. Metformin. 2. Steroids. 3. Peanuts. 4. Cats. PAST MEDICAL HISTORY: 1. Status post back surgery. 2. Total knee replacements bilaterally. 3. Loss of right arm at 6 years of age. 4. History of joint pain. 5. Type 2 diabetes. 6. History of dialysis in 2006 for poor kidney function. 7. History of bronchitis. FAMILY PSYCHIATRIC AND CD HISTORY: The patient denies. PAST PSYCHIATRIC AND CD HISTORY: The patient denies any previous psychiatric hospitalizations or chemical dependency treatments. Denies any previous suicide attempts, self-injurious behaviors, eating disorder history. Denies any past psychiatric medication history in the past. He is a nontobacco user. SOCIAL HISTORY: The patient is born and raised in [place], [place] the 4th of 5 siblings having 2 brothers and 2 sisters. The patient's parents were throughout his childhood and adolescence. Father was a cardona. Mother also worked in farm, was a homemaker. The patient's highest level of education is a master's in counseling. 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 He has never been , has no children, not involved in any current relationships. He lives by himself in [place], [place]. Denies any prior service or current legal difficulties. He is Rastafarian in terms of his samantha formation. He enjoys fishing, historical events, Bible study, and going to christianity. MENTAL STATUS EXAM: The patient is a 62-year-old white male in no apparent distress. Speech is of regular rate and rhythm. Psychomotor activity is within normal limits. There is no abnormal motor movements or tics observed. Gait is steady. Station is normal. The patient is cognitively oriented. Psychomotor activity is within normal limits. There is no abnormal motor movements or tics observed. Mood is upset. Affect is consistent with stated mood, but cooperative overall for the purposes of the inpatient psychiatric consult. There is no behavioral or stated evidence of acute suicidal or homicidal ideation or acute psychotic, delusional, or paranoid symptoms. Thought processes are organized. There are no manic symptoms, loose associations evident. Judgment and insight appear unimpaired at this point in time. Motivation for help is fair to good. VITALS: 132/79, 83, 15, 97.5 degrees. IMPRESSION: [place] I. 1. Depression, not otherwise specified, F32.9. 2. Rule out anxiety disorder, not otherwise specified. 3. Rule out bipolar affect disease, not otherwise specified. [place] II: None. [place] III. 1. Bronchitis. 2. Status post back surgery in the past. 3. History of knee replacements bilaterally. 4. Loss of right arm at 6 years of age. 5. Type 2 diabetes. 6. History of dialysis back in 2006 secondary to poor kidney function. 7. History of joint pain. [place] IV: Moderate to severe. [place] V: 65. PLAN: 1. Continue current treatment plan as indicated and prescribed by the patient's primary inpatient medical treatment team. 2. We will hold off on any type of psychiatric medication regimen at this point in time. Does not appear the patient is displaying any psychiatric pathology to the level that requires psychiatric intervention. 3. We will follow up with the patient on an as-needed basis while he remains on the inpatient medical unit. 4. We will follow up with the patient sooner if any complications in the interim. 5. Crisis plan is in place. KRISTINE /[id number]
[2017-02-26] MEDS: Acetaminophen/oxyCODONE 325-5 MG Tab PO PRN ×2 (15:55→23:12)
[2017-02-26] MEDS: Temazepam 15 MG Cap PO SCH (20:36)
[2017-02-26] MEDS: Tamsulosin 0.4 MG Cap.ER PO SCH (20:37)
[2017-02-26] MEDS: Saccharomyces Boulardii (Probiotic) 250 MG Cap PO SCH ×2 (20:37)
[2017-02-27] MEDS: Formoterol/Mometasone 100-5 MCG 8.8 GM Inhaler IH SCH ×2 (02:59→09:01)
[2017-02-27] MEDS: Albuterol/Ipratropium 3.0-0.5 MG/3 ML Neb Soln NEB SCH ×2 (03:00→08:57)
--- NOTE | 2017-02-27 07:50 | PCM.PN ---
- General Info Date of Service: 02/27/17 Admission Dx/Problem (Free Text): Admission Diagnosis/Problem Admission Diagnosis/Problem Bronchitis - Patient Data Vitals - Most Recent: Last Vital Signs Temp 97.5 F 02/27/17 01:52 Pulse 88 02/27/17 01:52 Resp 14 02/27/17 01:52 BP 130/81 02/27/17 01:52 Pulse Ox 93 L 02/27/17 01:52 Weight - Most Recent: 238 lb 14.4 oz I&O - Last 24 Hours: Intake & Output 02/26/17 02/27/17 02/27/17 22:59 06:59 14:59 Intake Total 1550 150 Balance 1550 150 Lab Results Last 24 Hours: Laboratory Results - last 24 hr 02/26/17 02/26/17 02/26/17 Range/Units 08:19 08:19 08:19 WBC 7.74 (4.23-9.07) K/mm3 RBC 4.98 (4.63-6.08) M/mm3 Hgb 14.4 (13.7-17.5) gm/L Hct 43.7 (40.1-51.0) % MCV 87.8 (79.0-92.2) fl MCH 28.9 (25.7-32.2) pg MCHC 33.0 (32.2-35.5) g/dl RDW Std Deviation 47.6 H (35.1-43.9) fL Plt Count 207 (163-337) K/mm3 MPV 10.3 (9.4-12.3) fl Neut % (Auto) 65.2 (34.0-67.9) % Lymph % (Auto) 19.8 L (21.8-53.1) % Nobles % (Auto) 8.8 (5.3-12.2) % Eos % (Auto) 5.2 (0.8-7.0) Baso % (Auto) 0.6 (0.1-1.2) % Neut # (Auto) 5.05 (1.78-5.38) K/mm3 Lymph # (Auto) 1.53 (1.32-3.57) K/mm3 Nobles # (Auto) 0.68 (0.30-0.82) K/mm3 Eos # (Auto) 0.40 (0.04-0.54) K/mm3 Baso # (Auto) 0.05 (0.01-0.08) K/mm3 Sodium 141 (136-145) mEq/L Potassium 3.8 (3.5-5.1) mEq/L Chloride 105 (98-107) mEq/L Carbon Dioxide 25 (21-32) mEq/L Anion Gap 14.8 (5-15) BUN 17 (7-18) mg/dL Creatinine 0.8 (0.7-1.3) mg/dL Est Cr Clr Drug Dosing 100.12 mL/min Estimated GFR (MDRD) > 60 (>60) mL/min BUN/Creatinine Ratio 21.3 H (14-18) Glucose 266 H (80-115) mg/dL POC Glucose (80-115) mg/dL Calcium 8.9 (8.5-10.1) mg/dL Magnesium 1.9 (1.8-2.4) mg/dl Mycoplasma pneumon IgM Negative (NEGATIVE) 02/26/17 02/26/17 02/26/17 Range/Units 11:25 17:13 21:01 WBC (4.23-9.07) K/mm3 RBC (4.63-6.08) M/mm3 Hgb (13.7-17.5) gm/L Hct (40.1-51.0) % MCV (79.0-92.2) fl MCH (25.7-32.2) pg MCHC (32.2-35.5) g/dl RDW Std Deviation (35.1-43.9) fL Plt Count (163-337) K/mm3 MPV (9.4-12.3) fl Neut % (Auto) (34.0-67.9) % Lymph % (Auto) (21.8-53.1) % Nobles % (Auto) (5.3-12.2) % Eos % (Auto) (0.8-7.0) Baso % (Auto) (0.1-1.2) % Neut # (Auto) (1.78-5.38) K/mm3 Lymph # (Auto) (1.32-3.57) K/mm3 Nobles # (Auto) (0.30-0.82) K/mm3 Eos # (Auto) (0.04-0.54) K/mm3 Baso # (Auto) (0.01-0.08) K/mm3 Sodium (136-145) mEq/L Potassium (3.5-5.1) mEq/L Chloride (98-107) mEq/L Carbon Dioxide (21-32) mEq/L Anion Gap (5-15) BUN (7-18) mg/dL Creatinine (0.7-1.3) mg/dL Est Cr Clr Drug Dosing mL/min Estimated GFR (MDRD) (>60) mL/min BUN/Creatinine Ratio (14-18) Glucose (80-115) mg/dL POC Glucose 244 H 198 H 195 H (80-115) mg/dL Calcium (8.5-10.1) mg/dL Magnesium (1.8-2.4) mg/dl Mycoplasma pneumon IgM (NEGATIVE) 02/27/17 02/27/17 02/27/17 Range/Units 06:00 06:00 06:44 WBC 7.14 (4.23-9.07) K/mm3 RBC 5.10 (4.63-6.08) M/mm3 Hgb 15.1 (13.7-17.5) gm/L Hct 44.8 (40.1-51.0) % MCV 87.8 (79.0-92.2) fl MCH 29.6 (25.7-32.2) pg MCHC 33.7 (32.2-35.5) g/dl RDW Std Deviation 48.8 H (35.1-43.9) fL Plt Count 213 (163-337) K/mm3 MPV 10.3 (9.4-12.3) fl Neut % (Auto) 57.5 (34.0-67.9) % Lymph % (Auto) 23.9 (21.8-53.1) % Nobles % (Auto) 11.5 (5.3-12.2) % Eos % (Auto) 5.9 (0.8-7.0) Baso % (Auto) 0.6 (0.1-1.2) % Neut # (Auto) 4.11 (1.78-5.38) K/mm3 Lymph # (Auto) 1.71 (1.32-3.57) K/mm3 Nobles # (Auto) 0.82 (0.30-0.82) K/mm3 Eos # (Auto) 0.42 (0.04-0.54) K/mm3 Baso # (Auto) 0.04 (0.01-0.08) K/mm3 Sodium 141 (136-145) mEq/L Potassium 3.9 (3.5-5.1) mEq/L Chloride 105 (98-107) mEq/L Carbon Dioxide 25 (21-32) mEq/L Anion Gap 14.9 (5-15) BUN 18 (7-18) mg/dL Creatinine 0.8 (0.7-1.3) mg/dL Est Cr Clr Drug Dosing 100.12 mL/min Estimated GFR (MDRD) > 60 (>60) mL/min BUN/Creatinine Ratio 22.5 H (14-18) Glucose 234 H (80-115) mg/dL POC Glucose 193 H (80-115) mg/dL Calcium 9.0 (8.5-10.1) mg/dL Magnesium 1.8 (1.8-2.4) mg/dl Mycoplasma pneumon IgM (NEGATIVE) Med Orders - Current: Current Medications Acetaminophen (Tylenol) 650 mg PO Q6H PRN PRN Reason: Pain/Fever Last Admin: 02/26/17 09:05 Dose: 650 mg Al Hydroxide/Mg Hydroxide (Mag-Al Plus) 30 ml PO Q4H PRN PRN Reason: Heartburn Last Admin: 02/25/17 21:25 Dose: 30 ml Albuterol (Proventil Neb Soln) 2.5 mg NEB Q4HRRT PRN PRN Reason: Shortness of Breath Albuterol/Ipratropium (Duoneb 3.0-0.5 Mg/3 Ml) 3 ml NEB Q6HRRT [facility] Last Admin: 02/27/17 03:00 Dose: Not Given Gabapentin (Neurontin) 200 mg PO BID [facility] Last Admin: 02/26/17 20:36 Dose: 200 mg Glimepiride (Amaryl) 2 mg PO DAILY [facility] Last Admin: 02/26/17 09:00 Dose: 2 mg Guaifenesin (Mucinex) 1,200 mg PO BID [facility] Last Admin: 02/26/17 20:37 Dose: 1,200 mg Levofloxacin/Dextrose 750 mg/ (Premix) 150 mls @ 100 mls/hr IV Q24H [facility] Last Admin: 02/26/17 11:11 Dose: 100 mls/hr Insulin Aspart (Novolog) 0 unit SUBCUT QIDACANDBED WANDA PRN Reason: Protocol Last Admin: 02/26/17 21:02 Dose: 195 units Lisinopril (Prinivil) 20 mg PO DAILY [facility] Last Admin: 02/26/17 09:03 Dose: 20 mg Lorazepam (Ativan) 1 mg IVPUSH Q12H PRN PRN Reason: Anxiety Last Admin: 02/25/17 11:10 Dose: 1 mg Metoprolol Succinate (Toprol Xl) 100 mg PO DAILY [facility] Last Admin: 02/26/17 09:04 Dose: 100 mg Mometasone Furoate/Formoterol Fumar (Dulera 100-5 Mcg) 2 puff IH BID [facility] Last Admin: 02/27/17 02:59 Dose: Not Given Nystatin (Nystop) 0 gm TOP BID [facility] Last Admin: 02/26/17 20:38 Dose: Not Given Oxycodone/Acetaminophen (Percocet 325-5 Mg) 1 tab PO Q6H PRN PRN Reason: Pain Last Admin: 02/26/17 23:12 Dose: 1 tab Potassium Chloride (Klor-Con M20) 20 meq PO DAILY [facility] Last Admin: 02/26/17 09:01 Dose: 20 meq Saccharomyces Boulardii (Florastor) 250 mg PO BID [facility] Last Admin: 02/26/17 20:37 Dose: 250 mg Saxagliptin Hydrochloride (Onglyza) 5 mg PO DAILY [facility] Last Admin: 02/26/17 09:02 Dose: 5 mg Sodium Chloride (Saline Flush) 10 ml FLUSH ONETIME PRN PRN Reason: IV FLUSH Last Admin: 02/24/17 14:57 Dose: 10 ml Tamsulosin HCl (Flomax) 0.4 mg PO BEDTIME [facility] Last Admin: 02/26/17 20:37 Dose: 0.4 mg Temazepam (Restoril) 30 mg PO BEDTIME [facility] Last Admin: 02/26/17 20:36 Dose: 30 mg Discontinued Medications Albuterol (Proventil Neb Soln) 2.5 mg NEB ONETIME ONE Stop: 02/24/17 13:50 Last Admin: 02/24/17 14:03 Dose: 2.5 mg Albuterol/Ipratropium (Duoneb 3.0-0.5 Mg/3 Ml) 3 ml NEB ONETIME ONE Stop: 02/24/17 12:01 Last Admin: 02/24/17 12:11 Dose: 3 ml Albuterol/Ipratropium (Duoneb 3.0-0.5 Mg/3 Ml) 3 ml NEB ONETIME ONE Stop: 02/24/17 18:03 Last Admin: 02/24/17 18:08 Dose: 3 ml Calcium Carbonate/Glycine (Tums) 1,000 mg PO ONETIME ONE Stop: 02/25/17 10:59 Last Admin: 02/25/17 11:10 Dose: 1,000 mg Hydromorphone HCl (Dilaudid) 1 mg IVPUSH Q6H PRN PRN Reason: Pain Last Admin: 02/26/17 06:49 Dose: 1 mg Sodium Chloride (Normal Saline) 1,000 mls @ 100 mls/hr IV ASDIRECTED [facility] Last Admin: 02/24/17 12:12 Dose: 100 mls/hr Ceftriaxone Sodium 1 gm/ (Sodium Chloride) 100 mls @ 200 mls/hr IV ONETIME ONE Stop: 02/24/17 16:07 Last Admin: 02/24/17 15:49 Dose: 200 mls/hr Azithromycin 500 mg/ Sodium (Chloride) 250 mls @ 250 mls/hr IV Q24H [facility] Last Admin: 02/25/17 11:14 Dose: 250 mls/hr Ceftriaxone Sodium 2 gm/ (Sodium Chloride) 100 mls @ 200 mls/hr IV Q24H [facility] Last Admin: 02/25/17 10:17 Dose: 200 mls/hr Influenza Virus Vaccine (Pharmacy To Dose - Influenza Vaccine) 1 each IM ONETIME ONE Stop: 02/25/17 08:51 Influenza Virus Vaccine (Flulaval Quad [id number]) 60 mcg IM .ONCE ONE Stop: 02/25/17 09:01 Iopamidol (Isovue-300 (61%)) 100 ml IVPUSH ONETIME ONE Stop: 02/24/17 14:44 Last Admin: 02/24/17 14:56 Dose: 80 ml Lorazepam (Ativan) 1 mg IVPUSH ONETIME ONE Stop: 02/24/17 12:11 Last Admin: 02/24/17 12:26 Dose: 1 mg Methylprednisolone Sodium Succinate (Solu-Medrol) 125 mg IVPUSH ONETIME ONE Stop: 02/24/17 12:02 Last Admin: 02/24/17 12:21 Dose: Not Given Mometasone Furoate/Formoterol Fumar (Dulera 100-5 Mcg) 2 puff IH BIDRT [facility] Last Admin: 02/26/17 18:12 Dose: Not Given Oxycodone/Acetaminophen (Percocet 325-5 Mg) 1 tab PO ONETIME ONE Stop: 02/24/17 20:26 Last Admin: 02/24/17 20:28 Dose: 1 tab Sitagliptin Phosphate (Januvia) 100 mg PO DAILY [facility] Last Admin: 02/25/17 02:11 Dose: Not Given - Problem List & Annotations (1) COPD (chronic obstructive pulmonary disease) SNOMED Code(s): 90495192 Code(s): J44.9 - CHRONIC OBSTRUCTIVE PULMONARY DISEASE, UNSPECIFIED Status : Acute Current Visit: Yes (2) Bronchitis SNOMED Code(s): 14904595 Code(s): J40 - BRONCHITIS, NOT SPECIFIED ACUTE OR CHRONIC Status: Acute Priority: High Current Visit: Yes (3) Hypoxia SNOMED Code(s): 072381601 Code(s): R09.02 - HYPOXEMIA Status: Acute Priority: High Current Visit : Yes (4) Type 2 diabetes mellitus SNOMED Code(s): 67027879 Code(s): E11.9 - TYPE 2 DIABETES MELLITUS WITHOUT COMPLICATIONS Status: Chronic Priority: Low Current Visit: Yes Qualifiers: Diabetes mellitus complication status: with unspecified complications Diabetes mellitus intermediate accountant insulin use: unspecified detention insulin use status Qualified Code(s): E11.8 - Type 2 diabetes mellitus with unspecified complications (5) Venous (peripheral) insufficiency SNOMED Code(s): 22367481 Code(s): I87.2 - VENOUS INSUFFICIENCY (CHRONIC) (PERIPHERAL) Status: Chronic Priority: Low Current Visit: Yes - My Orders Last 24 Hours: My Active Orders 02/26/17 10:30 Levofloxacin/Dextrose 5%-Water [Levaquin in D5W 750 MG/150 ML] 750 mg Premix Bag 1 bag IV Q24H 02/26/17 15:06 Acetaminophen/oxyCODONE [Percocet 325-5 MG] 1 tab PO Q6H PRN 02/26/17 15:50 RESPIRATORY PANEL BY PCR [MREF] Routine STREP PNEUMONIAE ANTIGEN [MREF] Routine 02/27/17 08:00 CXR [Chest 2V] [CR] Routine 02/28/17 05:11 BASIC METABOLIC PANEL,BMP [CHEM] AM CBC WITH AUTO DIFF [HEME] AM MAGNESIUM [CHEM] AM 03/01/17 05:11 BASIC METABOLIC PANEL,BMP [CHEM] AM CBC WITH AUTO DIFF [HEME] AM MAGNESIUM [CHEM] AM - Plan Plan:: Multiple medical problems addresses as above; PFTs document severity of pulmonary function. DC 24-48 hours.
[2017-02-27] MEDS: Insulin Aspart 100 Units/ML 3 ML Pen SUBCUT SCH ×2 (08:36→12:18)
[2017-02-27] MEDS: Saccharomyces Boulardii (Probiotic) 250 MG Cap PO SCH (08:37)
[2017-02-27] MEDS: Potassium Chloride 20 MEQ Tab.ER PO SCH (08:37)
[2017-02-27] MEDS: Glimepiride 2 MG Tab PO SCH (08:37)
[2017-02-27] MEDS: Gabapentin 100 MG Cap PO SCH (08:39)
[2017-02-27] MEDS: Lisinopril 5 MG Tab PO SCH (08:39)
[2017-02-27] MEDS: Saxagliptin 5 MG Tab PO SCH (08:39)
[2017-02-27] MEDS: Metoprolol Succinate 50 MG Tab.ER PO SCH (08:40)
[2017-02-27] MEDS: guaiFENesin 600 MG Tab.ER PO SCH (08:46)
[2017-02-27 08:47] VITALS: BP 132/83
[2017-02-27] MEDS: Acetaminophen/oxyCODONE 325-5 MG Tab PO PRN (09:39)
--- NOTE | 2017-02-27 09:52 | CR ---
Chest: Two views of the chest are obtained. Comparison: Previous chest x-ray of 02/24/17 Old healed left-sided rib fractures are noted. Previous surgery is seen within the spine. Heart size is normal. Mild tortuosity of the thoracic aorta is seen. Lungs are clear with no acute infiltrates. 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 Impression: 1. Findings as noted above appearing stable from prior chest x-ray. 2. Nothing acute is appreciated. Diagnostic code #2
--- NOTE | 2017-02-27 10:10 | PCM.DCSUM1 ---
<Donnell Maxwell - Last Filed: 02/27/17 12:22> Discharge Summary - Hospital Course Free Text/Narrative:: Melvin Kelly is a 62 yo male who presented to our ED last night via ambulance with complaints of dyspnea. Reports a cough that began day before admission and worsened. He awoke with a productive cough and was diaphoretic. He contacted 911 after he was able to catch his breath. EMS gave the patient a DuoNeb while in route. This reportedly did help somewhat but he was still short of breath. Lungs in the ED were clear to auscultation and percussion. He was very diaphoretic and anxious. He denied any recent cold symptoms. It is reported that he did eat 8. He did eat a peanut butter parfait last night and he is allergic to peanuts. Unsure if this is contributing to current episode. Once in the ED was given oxygen which was titrated up to 4 L to keep him above 94%. Chest x-ray was obtained that revealed poor air flow at the left lung. Increased vasculature and decreased air were noted suggesting mucous plug. Some areas of increased density were noted within the right lung. Atelectasis was noted in the left lower lobe per ED report. Labs were obtained: White count was 9.72. Hemoglobin 14.7. Hematocrit 44.8. Platelets 199,000. 77% neutrophils with no bandemia. D-dimer normal at 0.45. Chemistry normal with an anion gap of 14.9. He was slightly elevated at 23. Creatinine 0.9. Glucose markedly elevated at 303. TMB slightly elevated at 3.9. Normal at less than 0.017. CRP 0.6. BNP 64. CT of the chest showed normal-appearing left lung field. There is some evidence of old healed rib fractures bilateral. Mild fatty infiltration is seen within some portions of the liver. He was given Rocephin 1 g. Original plan was to send the patient home however he was unable to be weaned off oxygen. Sats showed 9495% on room air however he was unable to catch breath. He remained very anxious about this and oxygen remained at 2 L by nasal cannula. He carries a history of HLD, HTN, sleep apnea, diverticulosis, GERD, right arm amputation, peripheral neuropathy, anxiety, type II but diabetes, obesity, and hypokalemia. He was subsequently admitted to the medical department as an observation patient. He is a full code. He is a patient of Sridevi Perez, nurse practitioner at [facility] here in [place]. Once in our care it was noted he had many risk factors for COPD. Spirometry was performed and showed severe pulmonic obstruction. He was then admitted as full inpatient here. Nebulizers were continued and RT assessed the patient regularly. He was able to be weaned off oxygen and his sats remained good. He was given Levaquin via IV. Mucinex was started. He responded well to treatment. I attempted to add Dulera to his medication regimen but the patient refused. He is concerned as he was told by an biomedical engineering aide at one point to not take anything with steroids. I splinted the patient that this was not a systemic steroid but rather a respiratory steroid that would primarily remained in his lungs. He was advised to take this with his new COPD diagnosis but continued to refuse. He advised me he would like to call his biomedical engineering aide Thursday and get the okay. I felt this is reasonable and his primary care provider can prescribe if she feels it is appropriate. I will fax results of his spirometry to [facility]. The patient has had some concern over cost of medications and I discussed Dulera with our pharmacist and she feels this is one of the more inexpensive options. I also advised the patient may want to look into seeing a biomedical engineering aide. This is something his primary care provider can explore as well. A psychiatric consult was ordered during his stay as it was reported to me he was on a depression medication at one point but stopped due to the expense. He has indicated a very tough past and it was felt this would be appropriate. The patient was offended by this. After reasoning was explained he calmed down but still feels was a necessary. Psychologist states patient does not need medication and is not not depressed. A viral panel was ordered. Results of this will be in Thursday as is a send out. Mycoplasma pneumonia was negative. He has not had a white count of since he has been here. He has improved greatly and does not appear in any distress at the moment. RT evaluated overnight and reports patient had good saturations on CPA however he got up to use the bathroom and did not put his mask on. This dropped his saturations. He does have CPAP at home. I do not feel he needs a nebulizer at this point as his responded well to treatment. Will prescribe levofloxacin and Mucinex as he was on these here. He should follow up with his primary care provider in 7-10 days. As noted it may be beneficial to follow-up with a biomedical engineering aide as well. - Discharge Data Discharge Date: 02/27/17 (Admit date: 02/25/17) Discharge Disposition: Home, Self-Care 01 Condition: Good - Discharge Diagnosis/Problem(s) (1) COPD (chronic obstructive pulmonary disease) SNOMED Code(s): 29115938 ICD Code: J44.9 - CHRONIC OBSTRUCTIVE PULMONARY DISEASE, UNSPECIFIED Status : Acute (2) Bronchitis SNOMED Code(s): 09600634 ICD Code: J40 - BRONCHITIS, NOT SPECIFIED ACUTE OR CHRONIC Status: Acute Priority: High (3) Hypoxia SNOMED Code(s): 826297458 ICD Code: R09.02 - HYPOXEMIA Status: Acute Priority: High (4) Type 2 diabetes mellitus SNOMED Code(s): 55726643 ICD Code: E11.9 - TYPE 2 DIABETES MELLITUS WITHOUT COMPLICATIONS Status: Chronic Priority: Low QualifierTitle: Diabetes mellitus complication status: with unspecified complications Diabetes mellitus halfway insulin use: unspecified watermaster insulin use status Qualified Code(s): E11.8 - Type 2 diabetes mellitus with unspecified complications (5) Venous (peripheral) insufficiency SNOMED Code(s): 32677826 ICD Code: I87.2 - VENOUS INSUFFICIENCY (CHRONIC) (PERIPHERAL) Status: Chronic Priority: Low (6) Cough SNOMED Code(s): 19555566 ICD Code: R05 - COUGH Status: Acute Priority: High - Patient Summary/Data Consults: Consultations 02/25/17 11:59 Consult to Physician [CONS] Routine - Patient Instructions Diet: Heart Healthy Diet, Diabetic Diet Activity: As Tolerated Driving: Do Not Drive (today ) Showering/Bathing: May Shower Notify Provider of: Fever, Increased Pain, Nausea and/or Vomiting - Discharge Plan Prescriptions/Med Rec: guaiFENesin [Mucinex] 1,200 mg PO BID 10 Days #20 tab.er Levofloxacin 750 mg PO DAILY 7 Days #7 tablet Home Medications: Home Meds Lisinopril 20 mg PO DAILY 10/29/14 [History] Metoprolol Succinate [Toprol XL] 100 mg PO DAILY 10/29/14 [History] Pravastatin [Pravachol] 40 mg PO DAILY 10/29/14 [History] Temazepam 30 mg PO BEDTIME 10/29/14 [History] Ibuprofen 600 mg PO Q6H PRN 07/27/15 [History] Multivitamin [Multi-Vitamin Daily] 1 tab PO DAILY 01/13/16 [History] Omeprazole Magnesium [Prilosec Otc] 20 mg PO DAILY #30 tablet.dr 01/13/16 [Rx] Potassium Chloride 20 meq PO DAILY #30 tablet.er 09/29/16 [Rx] Fenofibric Acid (Choline) [Fenofibric Acid] 135 mg PO DAILY 02/24/17 [History] Gabapentin [Neurontin] 200 mg PO BID 02/24/17 [History] Glimepiride [Amaryl] 2 mg PO DAILY 02/24/17 [History] Nystatin [Nystatin Crm] 15 gm TOP BID 02/24/17 [History] SitaGLIPtin [Januvia] 100 mg PO DAILY 02/24/17 [History] Tamsulosin [Flomax] 0.4 mg PO BEDTIME 02/24/17 [History] oxyCODONE HCl/Acetaminophen [Percocet 10-325 mg Tablet] 1 each PO Q6HR PRN 02/24 [History] Levofloxacin 750 mg PO DAILY 7 Days #7 tablet 02/27/17 [Rx] guaiFENesin [Mucinex] 1,200 mg PO BID 10 Days #20 tab.er 02/27/17 [Rx] Patient Handouts: Shortness of Breath, [id number], Acute Bronchitis, Easy-to- Read Forms: ED Department Discharge Referrals: Yari Perez NP [Primary Care Provider] - 03/06/17 1:15 pm (Please follow up with Yari Perez on Thursday at 1315.) - Discharge Summary/Plan Comment DC Time >30 min.: Yes (60 minute ) - General Info Date of Service: 02/27/17 Admission Dx/Problem (Free Text: Shortness of breath Functional Status: Reports: Pain Controlled, Tolerating Diet, Ambulating, Urinating, Incentive Spirometry. Denies: New Symptoms - Review of Systems General: Reports: No Symptoms HEENT: Reports: No Symptoms Pulmonary: Reports: Shortness of Breath (improved ), Cough, Sputum Cardiovascular: Reports: No Symptoms Gastrointestinal: Reports: No Symptoms Genitourinary: Reports: No Symptoms Musculoskeletal: Reports: Neck Pain (chronic ), Hand Pain (chronic ), Back Pain (chronic ), Leg Pain (chronic ), Other Skin: Reports: No Symptoms Neurological: Reports: No Symptoms Psychiatric: Reports: No Symptoms - Patient Data Vitals - Most Recent: Last Vital Signs Temp 97.5 F 02/27/17 01:52 Pulse 92 02/27/17 08:40 Resp 14 02/27/17 01:52 BP 132/83 02/27/17 08:40 Pulse Ox 95 02/27/17 08:58 Weight - Most Recent: 108.363 kg I&O - Last 24 hours: Intake & Output 02/26/17 02/27/17 02/27/17 22:59 06:59 14:59 Intake Total 1550 150 Balance 1550 150 Lab Results - Last 24 hrs: Laboratory Results - last 24 hr 02/26/17 02/26/17 02/26/17 Range/Units 08:19 11:25 17:13 WBC (4.23-9.07) K/mm3 RBC (4.63-6.08) M/mm3 Hgb (13.7-17.5) gm/L Hct (40.1-51.0) % MCV (79.0-92.2) fl MCH (25.7-32.2) pg MCHC (32.2-35.5) g/dl RDW Std Deviation (35.1-43.9) fL Plt Count (163-337) K/mm3 MPV (9.4-12.3) fl Neut % (Auto) (34.0-67.9) % Lymph % (Auto) (21.8-53.1) % [place] % (Auto) (5.3-12.2) % Eos % (Auto) (0.8-7.0) Baso % (Auto) (0.1-1.2) % Neut # (Auto) (1.78-5.38) K/mm3 Lymph # (Auto) (1.32-3.57) K/mm3 [place] # (Auto) (0.30-0.82) K/mm3 Eos # (Auto) (0.04-0.54) K/mm3 Baso # (Auto) (0.01-0.08) K/mm3 Sodium (136-145) mEq/L Potassium (3.5-5.1) mEq/L Chloride (98-107) mEq/L Carbon Dioxide (21-32) mEq/L Anion Gap (5-15) BUN (7-18) mg/dL Creatinine (0.7-1.3) mg/dL Est Cr Clr Drug Dosing mL/min Estimated GFR (MDRD) (>60) mL/min BUN/Creatinine Ratio (14-18) Glucose (80-115) mg/dL POC Glucose 244 H 198 H (80-115) mg/dL Calcium (8.5-10.1) mg/dL Magnesium (1.8-2.4) mg/dl Mycoplasma pneumon IgM Negative (NEGATIVE) 02/26/17 02/27/17 02/27/17 Range/Units 21:01 06:00 06:00 WBC 7.14 (4.23-9.07) K/mm3 RBC 5.10 (4.63-6.08) M/mm3 Hgb 15.1 (13.7-17.5) gm/L Hct 44.8 (40.1-51.0) % MCV 87.8 (79.0-92.2) fl MCH 29.6 (25.7-32.2) pg MCHC 33.7 (32.2-35.5) g/dl RDW Std Deviation 48.8 H (35.1-43.9) fL Plt Count 213 (163-337) K/mm3 MPV 10.3 (9.4-12.3) fl Neut % (Auto) 57.5 (34.0-67.9) % Lymph % (Auto) 23.9 (21.8-53.1) % [place] % (Auto) 11.5 (5.3-12.2) % Eos % (Auto) 5.9 (0.8-7.0) Baso % (Auto) 0.6 (0.1-1.2) % Neut # (Auto) 4.11 (1.78-5.38) K/mm3 Lymph # (Auto) 1.71 (1.32-3.57) K/mm3 [place] # (Auto) 0.82 (0.30-0.82) K/mm3 Eos # (Auto) 0.42 (0.04-0.54) K/mm3 Baso # (Auto) 0.04 (0.01-0.08) K/mm3 Sodium 141 (136-145) mEq/L Potassium 3.9 (3.5-5.1) mEq/L Chloride 105 (98-107) mEq/L Carbon Dioxide 25 (21-32) mEq/L Anion Gap 14.9 (5-15) BUN 18 (7-18) mg/dL Creatinine 0.8 (0.7-1.3) mg/dL Est Cr Clr Drug Dosing 100.12 mL/min Estimated GFR (MDRD) > 60 (>60) mL/min BUN/Creatinine Ratio 22.5 H (14-18) Glucose 234 H (80-115) mg/dL POC Glucose 195 H (80-115) mg/dL Calcium 9.0 (8.5-10.1) mg/dL Magnesium 1.8 (1.8-2.4) mg/dl Mycoplasma pneumon IgM (NEGATIVE) 02/27/17 Range/Units 06:44 WBC (4.23-9.07) K/mm3 RBC (4.63-6.08) M/mm3 Hgb (13.7-17.5) gm/L Hct (40.1-51.0) % MCV (79.0-92.2) fl MCH (25.7-32.2) pg MCHC (32.2-35.5) g/dl RDW Std Deviation (35.1-43.9) fL Plt Count (163-337) K/mm3 MPV (9.4-12.3) fl Neut % (Auto) (34.0-67.9) % Lymph % (Auto) (21.8-53.1) % [place] % (Auto) (5.3-12.2) % Eos % (Auto) (0.8-7.0) Baso % (Auto) (0.1-1.2) % Neut # (Auto) (1.78-5.38) K/mm3 Lymph # (Auto) (1.32-3.57) K/mm3 [place] # (Auto) (0.30-0.82) K/mm3 Eos # (Auto) (0.04-0.54) K/mm3 Baso # (Auto) (0.01-0.08) K/mm3 Sodium (136-145) mEq/L Potassium (3.5-5.1) mEq/L Chloride (98-107) mEq/L Carbon Dioxide (21-32) mEq/L Anion Gap (5-15) BUN (7-18) mg/dL Creatinine (0.7-1.3) mg/dL Est Cr Clr Drug Dosing mL/min Estimated GFR (MDRD) (>60) mL/min BUN/Creatinine Ratio (14-18) Glucose (80-115) mg/dL POC Glucose 193 H (80-115) mg/dL Calcium (8.5-10.1) mg/dL Magnesium (1.8-2.4) mg/dl Mycoplasma pneumon IgM (NEGATIVE) Med Orders - Current: Current Medications Acetaminophen (Tylenol) 650 mg PO Q6H PRN PRN Reason: Pain/Fever Last Admin: 02/26/17 09:05 Dose: 650 mg Al Hydroxide/Mg Hydroxide (Mag-Al Plus) 30 ml PO Q4H PRN PRN Reason: Heartburn Last Admin: 02/25/17 21:25 Dose: 30 ml Albuterol (Proventil Neb Soln) 2.5 mg NEB Q4HRRT PRN PRN Reason: Shortness of Breath Albuterol/Ipratropium (Duoneb 3.0-0.5 Mg/3 Ml) 3 ml NEB Q6HRRT [facility] Last Admin: 02/27/17 08:57 Dose: 3 ml Gabapentin (Neurontin) 200 mg PO BID [facility] Last Admin: 02/27/17 08:39 Dose: 200 mg Glimepiride (Amaryl) 2 mg PO DAILY [facility] Last Admin: 02/27/17 08:37 Dose: 2 mg Guaifenesin (Mucinex) 1,200 mg PO BID [facility] Last Admin: 02/27/17 08:46 Dose: 1,200 mg Levofloxacin/Dextrose 750 mg/ (Premix) 150 mls @ 100 mls/hr IV Q24H [facility] Last Admin: 02/26/17 11:11 Dose: 100 mls/hr Insulin Aspart (Novolog) 0 unit SUBCUT QIDACANDBED [facility] PRN Reason: Protocol Last Admin: 02/27/17 08:36 Dose: 1 units Lisinopril (Prinivil) 20 mg PO DAILY [facility] Last Admin: 02/27/17 08:39 Dose: 20 mg Lorazepam (Ativan) 1 mg IVPUSH Q12H PRN PRN Reason: Anxiety Last Admin: 02/25/17 11:10 Dose: 1 mg Metoprolol Succinate (Toprol Xl) 100 mg PO DAILY [facility] Last Admin: 02/27/17 08:40 Dose: 100 mg Mometasone Furoate/Formoterol Fumar (Dulera 100-5 Mcg) 2 puff IH BID [facility] Last Admin: 02/27/17 09:01 Dose: Not Given Nystatin (Nystop) 0 gm TOP BID [facility] Last Admin: 02/26/17 20:38 Dose: Not Given Oxycodone/Acetaminophen (Percocet 325-5 Mg) 1 tab PO Q6H PRN PRN Reason: Pain Last Admin: 02/27/17 09:39 Dose: 1 tab Potassium Chloride (Klor-Con M20) 20 meq PO DAILY [facility] Last Admin: 02/27/17 08:37 Dose: 20 meq Saccharomyces Boulardii (Florastor) 250 mg PO BID [facility] Last Admin: 02/27/17 08:37 Dose: 250 mg Saxagliptin Hydrochloride (Onglyza) 5 mg PO DAILY [facility] Last Admin: 02/27/17 08:39 Dose: 5 mg Sodium Chloride (Saline Flush) 10 ml FLUSH ONETIME PRN PRN Reason: IV FLUSH Last Admin: 02/24/17 14:57 Dose: 10 ml Tamsulosin HCl (Flomax) 0.4 mg PO BEDTIME [facility] Last Admin: 02/26/17 20:37 Dose: 0.4 mg Temazepam (Restoril) 30 mg PO BEDTIME [facility] Last Admin: 02/26/17 20:36 Dose: 30 mg Discontinued Medications Albuterol (Proventil Neb Soln) 2.5 mg NEB ONETIME ONE Stop: 02/24/17 13:50 Last Admin: 02/24/17 14:03 Dose: 2.5 mg Albuterol/Ipratropium (Duoneb 3.0-0.5 Mg/3 Ml) 3 ml NEB ONETIME ONE Stop: 02/24/17 12:01 Last Admin: 02/24/17 12:11 Dose: 3 ml Albuterol/Ipratropium (Duoneb 3.0-0.5 Mg/3 Ml) 3 ml NEB ONETIME ONE Stop: 02/24/17 18:03 Last Admin: 02/24/17 18:08 Dose: 3 ml Calcium Carbonate/Glycine (Tums) 1,000 mg PO ONETIME ONE Stop: 02/25/17 10:59 Last Admin: 02/25/17 11:10 Dose: 1,000 mg Hydromorphone HCl (Dilaudid) 1 mg IVPUSH Q6H PRN PRN Reason: Pain Last Admin: 02/26/17 06:49 Dose: 1 mg Sodium Chloride (Normal Saline) 1,000 mls @ 100 mls/hr IV ASDIRECTED [facility] Last Admin: 02/24/17 12:12 Dose: 100 mls/hr Ceftriaxone Sodium 1 gm/ (Sodium Chloride) 100 mls @ 200 mls/hr IV ONETIME ONE Stop: 02/24/17 16:07 Last Admin: 02/24/17 15:49 Dose: 200 mls/hr Azithromycin 500 mg/ Sodium (Chloride) 250 mls @ 250 mls/hr IV Q24H [facility] Last Admin: 02/25/17 11:14 Dose: 250 mls/hr Ceftriaxone Sodium 2 gm/ (Sodium Chloride) 100 mls @ 200 mls/hr IV Q24H [facility] Last Admin: 02/25/17 10:17 Dose: 200 mls/hr Influenza Virus Vaccine (Pharmacy To Dose - Influenza Vaccine) 1 each IM ONETIME ONE Stop: 02/25/17 08:51 Influenza Virus Vaccine (Flulaval Quad [id number]) 60 mcg IM .ONCE ONE Stop: 02/25/17 09:01 Iopamidol (Isovue-300 (61%)) 100 ml IVPUSH ONETIME ONE Stop: 02/24/17 14:44 Last Admin: 02/24/17 14:56 Dose: 80 ml Lorazepam (Ativan) 1 mg IVPUSH ONETIME ONE Stop: 02/24/17 12:11 Last Admin: 02/24/17 12:26 Dose: 1 mg Methylprednisolone Sodium Succinate (Solu-Medrol) 125 mg IVPUSH ONETIME ONE Stop: 02/24/17 12:02 Last Admin: 02/24/17 12:21 Dose: Not Given Mometasone Furoate/Formoterol Fumar (Dulera 100-5 Mcg) 2 puff IH BIDRT [facility] Last Admin: 02/26/17 18:12 Dose: Not Given Oxycodone/Acetaminophen (Percocet 325-5 Mg) 1 tab PO ONETIME ONE Stop: 02/24/17 20:26 Last Admin: 02/24/17 20:28 Dose: 1 tab Sitagliptin Phosphate (Januvia) 100 mg PO DAILY [facility] Last Admin: 02/25/17 02:11 Dose: Not Given - Exam Quality Assessment: Reports: DVT Prophylaxis. Denies: Supplemental Oxygen General: Reports: Alert, Oriented, Cooperative HEENT: Reports: Pupils Equal, Pupils Reactive, EOMI Lungs: Reports: Clear to Auscultation, Normal Respiratory Effort, Decreased Breath Sounds Cardiovascular: Reports: Regular Rate, Regular Rhythm GI/Abdominal Exam: Normal Bowel Sounds, Soft, Non-Tender, No Organomegaly, No Distention, No Abnormal Bruit, No Mass (Male) Exam: Deferred Rectal (Males) Exam: Deferred Back Exam: Reports: Decreased Range of Motion Extremities: Normal Range of Motion, Non-Tender, No Pedal Edema, Normal Capillary Refill, Other (Right mid to proximal humerus amputation ) Skin: Reports: Warm, Dry, Intact Neurological: Reports: No New Focal Deficit Psy/Mental Status: Reports: Alert, Normal Affect, Normal Mood Physical Findings Comments:: Patient examined while in bed. He looks much better today. No rest or distress. Communicates with ease. *Q Meaningful Use (DIS) - VTE *Q VTE Criteria *Q: - Stroke *Q Stroke Criteria *Q: - AMI *Q AMI Criteria *Q: <Reba Campuzano - Last Filed: 02/27/17 17:51> Discharge Summary - Hospital Course Free Text/Narrative:: Extensive description of hospitalization above, follow up was strongly encouraged; a new COPD dx was documented. The patient hindered his care with frequent refusal of medication. - Patient Summary/Data Consults: Consultations 02/25/17 11:59 Consult to Physician [CONS] Routine - Patient Data Vitals - Most Recent: Last Vital Signs Temp 37.2 C 02/27/17 08:33 Pulse 92 02/27/17 08:40 Resp 14 02/27/17 08:33 BP 132/83 02/27/17 08:40 Pulse Ox 95 02/27/17 08:58 I&O - Last 24 hours: Intake & Output 02/27/17 02/27/17 02/27/17 06:59 14:59 22:59 Intake Total 150 480 200 Balance 150 480 200 Lab Results - Last 24 hrs: Laboratory Results - last 24 hr 02/26/17 02/27/17 02/27/17 Range/Units 21:01 06:00 06:00 WBC 7.14 (4.23-9.07) K/mm3 RBC 5.10 (4.63-6.08) M/mm3 Hgb 15.1 (13.7-17.5) gm/L Hct 44.8 (40.1-51.0) % MCV 87.8 (79.0-92.2) fl MCH 29.6 (25.7-32.2) pg MCHC 33.7 (32.2-35.5) g/dl RDW Std Deviation 48.8 H (35.1-43.9) fL Plt Count 213 (163-337) K/mm3 MPV 10.3 (9.4-12.3) fl Neut % (Auto) 57.5 (34.0-67.9) % Lymph % (Auto) 23.9 (21.8-53.1) % [place] % (Auto) 11.5 (5.3-12.2) % Eos % (Auto) 5.9 (0.8-7.0) Baso % (Auto) 0.6 (0.1-1.2) % Neut # (Auto) 4.11 (1.78-5.38) K/mm3 Lymph # (Auto) 1.71 (1.32-3.57) K/mm3 [place] # (Auto) 0.82 (0.30-0.82) K/mm3 Eos # (Auto) 0.42 (0.04-0.54) K/mm3 Baso # (Auto) 0.04 (0.01-0.08) K/mm3 Sodium 141 (136-145) mEq/L Potassium 3.9 (3.5-5.1) mEq/L Chloride 105 (98-107) mEq/L Carbon Dioxide 25 (21-32) mEq/L Anion Gap 14.9 (5-15) BUN 18 (7-18) mg/dL Creatinine 0.8 (0.7-1.3) mg/dL Est Cr Clr Drug Dosing 100.12 mL/min Estimated GFR (MDRD) > 60 (>60) mL/min BUN/Creatinine Ratio 22.5 H (14-18) Glucose 234 H (80-115) mg/dL POC Glucose 195 H (80-115) mg/dL Calcium 9.0 (8.5-10.1) mg/dL Magnesium 1.8 (1.8-2.4) mg/dl 02/27/17 02/27/17 Range/Units 06:44 12:13 WBC (4.23-9.07) K/mm3 RBC (4.63-6.08) M/mm3 Hgb (13.7-17.5) gm/L Hct (40.1-51.0) % MCV (79.0-92.2) fl MCH (25.7-32.2) pg MCHC (32.2-35.5) g/dl RDW Std Deviation (35.1-43.9) fL Plt Count (163-337) K/mm3 MPV (9.4-12.3) fl Neut % (Auto) (34.0-67.9) % Lymph % (Auto) (21.8-53.1) % [place] % (Auto) (5.3-12.2) % Eos % (Auto) (0.8-7.0) Baso % (Auto) (0.1-1.2) % Neut # (Auto) (1.78-5.38) K/mm3 Lymph # (Auto) (1.32-3.57) K/mm3 [place] # (Auto) (0.30-0.82) K/mm3 Eos # (Auto) (0.04-0.54) K/mm3 Baso # (Auto) (0.01-0.08) K/mm3 Sodium (136-145) mEq/L Potassium (3.5-5.1) mEq/L Chloride (98-107) mEq/L Carbon Dioxide (21-32) mEq/L Anion Gap (5-15) BUN (7-18) mg/dL Creatinine (0.7-1.3) mg/dL Est Cr Clr Drug Dosing mL/min Estimated GFR (MDRD) (>60) mL/min BUN/Creatinine Ratio (14-18) Glucose (80-115) mg/dL POC Glucose 193 H 203 H (80-115) mg/dL Calcium (8.5-10.1) mg/dL Magnesium (1.8-2.4) mg/dl Med Orders - Current: Current Medications Discontinued Medications Acetaminophen (Tylenol) 650 mg PO Q6H PRN PRN Reason: Pain/Fever Last Admin: 02/26/17 09:05 Dose: 650 mg Al Hydroxide/Mg Hydroxide (Mag-Al Plus) 30 ml PO Q4H PRN PRN Reason: Heartburn Last Admin: 02/25/17 21:25 Dose: 30 ml Albuterol (Proventil Neb Soln) 2.5 mg NEB ONETIME ONE Stop: 02/24/17 13:50 Last Admin: 02/24/17 14:03 Dose: 2.5 mg Albuterol (Proventil Neb Soln) 2.5 mg NEB Q4HRRT PRN PRN Reason: Shortness of Breath Albuterol/Ipratropium (Duoneb 3.0-0.5 Mg/3 Ml) 3 ml NEB ONETIME ONE Stop: 02/24/17 12:01 Last Admin: 02/24/17 12:11 Dose: 3 ml Albuterol/Ipratropium (Duoneb 3.0-0.5 Mg/3 Ml) 3 ml NEB ONETIME ONE Stop: 02/24/17 18:03 Last Admin: 02/24/17 18:08 Dose: 3 ml Albuterol/Ipratropium (Duoneb 3.0-0.5 Mg/3 Ml) 3 ml NEB Q6HRRT [facility] Last Admin: 02/27/17 08:57 Dose: 3 ml Calcium Carbonate/Glycine (Tums) 1,000 mg PO ONETIME ONE Stop: 02/25/17 10:59 Last Admin: 02/25/17 11:10 Dose: 1,000 mg Gabapentin (Neurontin) 200 mg PO BID [facility] Last Admin: 02/27/17 08:39 Dose: 200 mg Glimepiride (Amaryl) 2 mg PO DAILY [facility] Last Admin: 02/27/17 08:37 Dose: 2 mg Guaifenesin (Mucinex) 1,200 mg PO BID [facility] Last Admin: 02/27/17 08:46 Dose: 1,200 mg Hydromorphone HCl (Dilaudid) 1 mg IVPUSH Q6H PRN PRN Reason: Pain Last Admin: 02/26/17 06:49 Dose: 1 mg Sodium Chloride (Normal Saline) 1,000 mls @ 100 mls/hr IV ASDIRECTED [facility] [place] Last Admin: 02/24/17 12:12 Dose: 100 mls/hr Ceftriaxone Sodium 1 gm/ (Sodium Chloride) 100 mls @ 200 mls/hr IV ONETIME ONE Stop: 02/24/17 16:07 Last Admin: 02/24/17 15:49 Dose: 200 mls/hr Azithromycin 500 mg/ Sodium (Chloride) 250 mls @ 250 mls/hr IV Q24H [facility] [place] Last Admin: 02/25/17 11:14 Dose: 250 mls/hr Ceftriaxone Sodium 2 gm/ (Sodium Chloride) 100 mls @ 200 mls/hr IV Q24H [facility] [place] Last Admin: 02/25/17 10:17 Dose: 200 mls/hr Levofloxacin/Dextrose 750 mg/ (Premix) 150 mls @ 100 mls/hr IV Q24H [facility] [place] Last Admin: 02/27/17 10:54 Dose: 100 mls/hr Influenza Virus Vaccine (Pharmacy To Dose - Influenza Vaccine) 1 each IM ONETIME ONE Stop: 02/25/17 08:51 Influenza Virus Vaccine (Flulaval Quad [id number]) 60 mcg IM .ONCE ONE Stop: 02/25/17 09:01 Last Admin: 02/27/17 14:45 Dose: 60 mcg Insulin Aspart (Novolog) 0 unit SUBCUT QIDACANDBED [facility] [place] PRN Reason: Protocol Last Admin: 02/27/17 12:18 Dose: 2 units Iopamidol (Isovue-300 (61%)) 100 ml IVPUSH ONETIME ONE Stop: 02/24/17 14:44 Last Admin: 02/24/17 14:56 Dose: 80 ml Lisinopril (Prinivil) 20 mg PO DAILY [facility] [place] Last Admin: 02/27/17 08:39 Dose: 20 mg Lorazepam (Ativan) 1 mg IVPUSH ONETIME ONE Stop: 02/24/17 12:11 Last Admin: 02/24/17 12:26 Dose: 1 mg Lorazepam (Ativan) 1 mg IVPUSH Q12H PRN PRN Reason: Anxiety Last Admin: 02/25/17 11:10 Dose: 1 mg Methylprednisolone Sodium Succinate (Solu-Medrol) 125 mg IVPUSH ONETIME ONE Stop: 02/24/17 12:02 Last Admin: 02/24/17 12:21 Dose: Not Given Metoprolol Succinate (Toprol Xl) 100 mg PO DAILY [facility] [place] Last Admin: 02/27/17 08:40 Dose: 100 mg Mometasone Furoate/Formoterol Fumar (Dulera 100-5 Mcg) 2 puff IH BIDRT [facility] [place] Last Admin: 02/26/17 18:12 Dose: Not Given Mometasone Furoate/Formoterol Fumar (Dulera 100-5 Mcg) 2 puff IH BID [facility] [place] Last Admin: 02/27/17 09:01 Dose: Not Given Nystatin (Nystop) 0 gm TOP BID [facility] [place] Last Admin: 02/27/17 11:30 Dose: Not Given Oxycodone/Acetaminophen (Percocet 325-5 Mg) 1 tab PO ONETIME ONE Stop: 02/24/17 20:26 Last Admin: 02/24/17 20:28 Dose: 1 tab Oxycodone/Acetaminophen (Percocet 325-5 Mg) 1 tab PO Q6H PRN PRN Reason: Pain Last Admin: 02/27/17 09:39 Dose: 1 tab Potassium Chloride (Klor-Con M20) 20 meq PO DAILY [facility] Last Admin: 02/27/17 08:37 Dose: 20 meq Saccharomyces Boulardii (Florastor) 250 mg PO BID [facility] Last Admin: 02/27/17 08:37 Dose: 250 mg Saxagliptin Hydrochloride (Onglyza) 5 mg PO DAILY [facility] Last Admin: 02/27/17 08:39 Dose: 5 mg Sitagliptin Phosphate (Januvia) 100 mg PO DAILY [facility] Last Admin: 02/25/17 02:11 Dose: Not Given Sodium Chloride (Saline Flush) 10 ml FLUSH ONETIME PRN PRN Reason: IV FLUSH Last Admin: 02/24/17 14:57 Dose: 10 ml Tamsulosin HCl (Flomax) 0.4 mg PO BEDTIME [facility] Last Admin: 02/26/17 20:37 Dose: 0.4 mg Temazepam (Restoril) 30 mg PO BEDTIME [facility] Last Admin: 02/26/17 20:36 Dose: 30 mg *Q Meaningful Use (DIS) - VTE *Q VTE Criteria *Q: - Stroke *Q Stroke Criteria *Q: - AMI *Q AMI Criteria *Q:
[2017-02-27] MEDS: Levofloxacin/Dextrose 5%-Water 750 MG in Premix Bag 1 BAG IV SCH (10:54)
[2017-02-27] MEDS: Nystatin Topical Powder 15 GM Bottle TOP SCH (11:30)
--- NOTE | 2017-03-03 17:43 | PCM.SN ---
- Free Text/Narrative Note: I was contacted by Mr. Kelly yesterday with some concern as he was still reportedly short of breath. I contacted his listed pharmacy to discuss a low cost albuterol MDI as he has been concerned about the cost of money in the past. A prescription for albuterol MDI was sent. Today his Viral panel results came back negative and I contacted the patient to alert him of this. 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 I reported they have that I still feel Dulera would be a good option and he should investigate this further with his primary care provider, Natalie Perez. He reported that he has an appointment with Natalie on Thursday and he will investigate this further. He also reported that today was his last day of Levaquin and he was questioning if he needed another prescription. I communicated this was the end of his treatment and Natalie can investigate if he needs it further. He voiced understanding.
== END 2017-02-27 14:50 | disposition home or self-care (01) | DRG 192 ==
LOC: JD.ED 11:34 → JD.MS 19:43 → OBSVTOIN 02-25 11:37 → JD.MS 02-25 11:37
PROVIDERS: ADMIT Internal Medicine Cardiovascular Disease; ATTEND Internal Medicine Cardiovascular Disease
PROC: 3E0234Z Introduction of Serum, Toxoid and Vaccine into Muscle, Percutaneous Approach (ICD-10-PCS; principal; 2017-02-27)
DX: J44.0 Chronic obstructive pulmonary disease with (acute) lower respiratory infection (principal); J40 Bronchitis, not specified as acute or chronic; J20.9 Acute bronchitis, unspecified; J44.1 Chronic obstructive pulmonary disease with (acute) exacerbation; R09.02 Hypoxemia; I87.2 Venous insufficiency (chronic) (peripheral); E11.42 Type 2 diabetes mellitus with diabetic polyneuropathy; I10 Essential (primary) hypertension; E78.5 Hyperlipidemia, unspecified; K21.9 Gastro-esophageal reflux disease without esophagitis; G89.4 Chronic pain syndrome; G47.33 Obstructive sleep apnea (adult) (pediatric); E66.9 Obesity, unspecified; Z68.30 Body mass index [BMI] 30.0-30.9, adult; H54.7 Unspecified visual loss; Z88.1 Allergy status to other antibiotic agents; Z91.018 Allergy to other foods; Z91.010 Allergy to peanuts; Z91.09 Other allergy status, other than to drugs and biological substances; Z79.899 Other long term (current) drug therapy; Z23 Encounter for immunization; F41.9 Anxiety disorder, unspecified; E87.6 Hypokalemia; Z89.201 Acquired absence of right upper limb, unspecified level
CPT/HCPCS: 71010; 71260; 96361; 96365; 94640 ×6; 99285; 93005; 96375; 85025 ×2; 85379; 36415 ×2; 80053; 80048; 83735; 82553; 84484; 83880; 86140; 87040 ×2; A9270 ×16; J0696 ×2; J1170; Q9967; J2060 ×2; J7040; J7030 ×2; J7050 ×2; J0456; 71020; 71020-26; 82962; 86738; 87070; 87205; 87486; 87581; 87633; 87798; 87899; 90686; 93010; 94060; 94660; 94761; 94762; 96366; 96367; 96376; 97110-GO; 97116-GP; 97162-GP; 97167-GO; 97530-GO; G0008; G0378; J1815-GY; J1956

== ENCOUNTER 2017-06-24 07:08 | Day surgery (SDC) | payer MEDICARE, OTHER ==
[~2017-06-24 07:08] MED LIST: Lactated Ringers 1,000 ML IV SCH; Lidocaine 1%/Sod Bicarbonate in NS 8.4% 1 ML Syringe IDERM PRN; Sodium Chloride 0.9% 10 ML Syringe FLUSH PRN
[2017-06-24] MEDS ORDERED: Propofol 200 MG/20 ML SDV ONE (07:12)
[2017-06-24] MEDS ORDERED: fentaNYL 100 MCG/2 ML SDV ONE (07:12)
[2017-06-24] MEDS ORDERED: Lidocaine 1% 4 ML ONE (07:12)
--- NOTE | 2017-06-24 08:38 | PCM.PREANE ---
Preanesthetic Assessment - Procedure Proposed Procedure: Diagnostic colonoscopy - Anesthesia/Transfusion/Family Hx Anesthesia History: Prior Anesthesia Without Reaction Family History of Anesthesia Reaction: No Transfusion History: Prior Transfusion Without Reaction Additional History: opioid dependence - Review of Systems General: No Symptoms Pulmonary: Other (GERALD with CPAP) Cardiovascular: Other (HTN, treated for WPW in 1984) Gastrointestinal: Other (GERD ) Neurological: No Symptoms Other: Reports: Easy Bleeding, Diabetes (IDDM, GS 145 at 0748 this am) - Physical Assessment NPO Status Date: 06/24/17 NPO Status Time: 06:00 O2 Sat by Pulse Oximetry: 95 Respiratory Rate: 18 Vital Signs: Last Vital Signs Temp 36.5 C 06/24/17 07:20 Pulse 75 06/24/17 07:20 Resp 18 06/24/17 07:20 BP 140/92 H 06/24/17 07:20 Pulse Ox 95 06/24/17 07:20 Height: 1.78 m Weight: 106.141 kg ASA Class: 2 Mental Status: Alert & Oriented x3 Airway Class: Mallampati = 3 Thyro-Mental Finger Breadths: 3 Mouth Opening Finger Breadths: 3 ROM/Head Extension: Full Lungs: Clear to Auscultation, Normal Respiratory Effort Cardiovascular: Regular Rate, Regular Rhythm - Lab Values: Laboratory Last Values POC Glucose 145 mg/dL (80-115) H 06/24/17 07:48 - Allergies Allergies/Adverse Reactions: Allergies Allergy/AdvReac Type Severity Reaction Status Date / Time cat dander Allergy Airway Verified 06/24/17 08:14 Tightness Corticosteroids Allergy Cannot Verified 06/24/17 08:14 (Glucocorticoids) Remember lorazepam Allergy Cannot Verified 06/24/17 08:14 Remember peanut Allergy Anaphylactic Verified 06/24/17 08:14 Shock levofloxacin AdvReac Other Verified 06/24/17 08:14 metformin AdvReac Diarrhea Verified 06/24/17 08:14 - Blood Blood Available: No Product(s) Available: None - Anesthesia Plan Pre-Op Medication Ordered: None - Acknowledgements Anesthesia Type Planned: MAC Pt an Appropriate Candidate for the Planned Anesthesia: Yes Alternatives and Risks of Anesthesia Discussed w Pt/Guardian: Yes Pt/Guardian Understands and Agrees with Anesthesia Plan: Yes PreAnesthesia Questionnaire HEENT History: Reports: Impaired Vision Other HEENT History: Wears glasses, loss portion of vision in left eye Cardiovascular History: Reports: High Cholesterol, Hypertension, Other (See Below) Other Cardiovascular History: hx of more parkinsons syndrome-surgery was done. Respiratory History: Reports: Other (See Below), Sleep Apnea Other Respiratory History: hemothorax with chest tube Gastrointestinal History: Reports: Diverticulosis, GERD, Pancreatitis Other Gastrointestinal History: rectal bleeding, dysphagia Genitourinary History: Reports: Acute Renal Failure INTAKE CLERK History: Reports: None Musculoskeletal History: Reports: Amputation, Fracture Other Musculoskeletal History: Lumbar fracture Neurological History: Reports: Neuropathy, Peripheral Psychiatric History: Reports: Anxiety Endocrine/Metabolic History: Reports: Diabetes, Type II, Obesity/BMI 30+ Other Endocrine/Metabolic History: diabetic Hematologic History: Reports: Other (See Below) Other Hematologic History: Hypopotassemia Immunologic History: Reports: None Oncologic (Cancer) History: Reports: Other (See Below) Other Oncologic History: preliminary skin cancer, removed and biopsy, froze the area. Dermatologic History: Reports: Cellulitis, Other (See Below) Other Dermatologic History: boils - Infectious Disease History Infectious Disease History: Reports: Influenza - Past Surgical History Cardiovascular Surgical History: Reports: None - SUBSTANCE USE Smoking Status *Q: Never Smoker Second Hand Smoke Exposure: No Recreational Drug Use History: No - HOME MEDS Home Medications: Home Meds Metoprolol Succinate [Toprol XL] 100 mg PO DAILY 10/29/14 [History] Pravastatin [Pravachol] 20 mg PO DAILY 10/29/14 [History] Temazepam 30 mg PO BEDTIME 10/29/14 [History] Ibuprofen 600 mg PO Q6H PRN 07/27/15 [History] Multivitamin [Multi-Vitamin Daily] 1 tab PO DAILY 01/13/16 [History] Potassium Chloride 20 meq PO DAILY #30 tablet.er 09/29/16 [Rx] Fenofibric Acid (Choline) [Fenofibric Acid] 135 mg PO DAILY 02/24/17 [History] Gabapentin [Neurontin] 300 mg PO BID 02/24/17 [History] Glimepiride [Amaryl] 2 mg PO DAILY 02/24/17 [History] Tamsulosin [Flomax] 0.4 mg PO BEDTIME 02/24/17 [History] oxyCODONE HCl/Acetaminophen [Percocet 10-325 mg Tablet] 1 each PO Q6HR PRN 02/24 [History] Acai Valle Extract [Acai] 500 mg PO DAILY 06/23/17 [History] Ascorbate Calcium [Vitamin C] 500 mg PO DAILY 06/23/17 [History] Bee Pollen 550 mg PO DAILY 06/23/17 [History] Beta-Carotene [Beta Carotene] 25,000 unit PO DAILY 06/23/17 [History] Cinnamon Bark [Cinnamon] 500 mg PO DAILY 06/23/17 [History] Cranberry 500 mg PO DAILY 06/23/17 [History] Fish Oil/[place]-3 Fatty Acids [Fish Oil 1,000 MG] 1 gm PO DAILY 06/23/17 [History ] Garlic 1 tab PO DAILY 06/23/17 [History] Insulin Lispro [Humalog] 1 dose SQ TID 06/23/17 [History] Lisinopril 40 mg PO DAILY 06/23/17 [History] Omeprazole Magnesium [Prilosec Otc] 40 mg PO DAILY 06/23/17 [History] Orphenadrine Citrate 100 mg PO BID 06/23/17 [History] Tresiba 38 units SQ DAILY 06/23/17 [History] Ubidecarenone [Coq-10] 100 mg PO DAILY 06/23/17 [History] Vitamin B Complex [B Complex] 1 tab PO DAILY 06/23/17 [History] - CURRENT (IN HOUSE) MEDS Current Meds: Current Medications Lactated Ringer's (Ringers, Lactated) 1,000 mls @ 125 mls/hr IV ASDIRECTED WANDA Last Admin: 06/24/17 07:47 Dose: 125 mls/hr Lidocaine/Sodium Bicarbonate (Buffered Lidocaine 1% In Ns 8.4%) 0.25 ml IDERM ONETIME PRN PRN Reason: Prior to IV Start Last Admin: 06/24/17 07:44 Dose: 0.25 ml Sodium Chloride (Saline Flush) 10 ml FLUSH ASDIRECTED PRN PRN Reason: Keep Vein Open Discontinued Medications Fentanyl (Sublimaze) Confirm Administered Dose 100 mcg .ROUTE .STK-MED ONE Stop: 06/24/17 07:13 Lidocaine HCl (Xylocaine-Mpf 1%) Confirm Administered Dose 4 mls @ as directed .ROUTE .STK-MED ONE Stop: 06/24/17 07:13 Propofol (Diprivan 20 Ml) Confirm Administered Dose 200 mg .ROUTE .STK-MED ONE Stop: 06/24/17 07:13
--- NOTE | 2017-06-24 09:15 | PCM48HPAN ---
Post Anesthesia Note - EVALUATION WITHIN 48HRS OF ANESTHETIC Vital Signs in Normal Range: Yes Patient Participated in Evaluation: Yes Respiratory Function Stable: Yes Airway Patent: Yes Cardiovascular Function Stable: Yes Hydration Status Stable: Yes Pain Control Satisfactory: Yes Nausea and Vomiting Control Satisfactory: Yes Mental Status Recovered: Yes Pulse Rate: 74 SaO2: 93 Resp Rate: 18 Temperature: 97.7 F Blood Pressure: 99/66
--- NOTE | 2017-06-24 09:16 | PCM.OPNOTE ---
- General Post-Op/Procedure Note Date of Surgery/Procedure: 06/24/17 Operative Procedure(s): Colonoscopy with transverse colon cold forceps polypectomy Findings: 1. Small almost healed posterior chronic anal fissure 2. Internal hemorrhoids 3. Colonic diverticulosis 4. Diminutive transverse colon polyp less than 5 mm Pre Op Diagnosis: Bright red rectal bleeding history of colon polyps Post-Op Diagnosis: 1. Posterior chronic anal fissure. 2. Internal hemorrhoids. 3. Colonic diverticulosis. 4. Diminutive transverse colon polyp less than 5 mm Anesthesia Technique: MAC, Moderate Sedation Primary Surgeon: Gilberto Alfaro Pathology: Diminutive polyp of the transverse colon EBL in mLs: 0 Complications: None Condition: Good Free Text/Narrative:: After adequate IV sedation and analgesia was obtained with monitoring the patient was placed on his left side. Perianal inspection revealed a small posterior anal fissure. Perianal inspection also revealed internal hemorrhoids which were minimally prolapsed. On digital rectal examination I could palpate the hemorrhoids. The prostate was grossly normal. A lubricated colonoscope was then inserted into the rectum and advanced to the cecum without difficulty. The bowel preparation was adequate. The patient had diffuse and many pancolonic diverticuli some with fecaliths. There was a small polyp in the transverse colon which was removed with cold forceps. The cecum ascending colon and transverse colon otherwise were endoscopically normal. The descending colon and sigmoid also had diverticuli. the largest diverticuli were in the sigmoid and were uncomplicated. There weas circular muscle hypertrophy of the sigmoid. The rectum in both views was unremarkable. Air was removed as I finished the procedure which he tolerated well. Photographs were taken for the patient and for the medical record.
[2017-06-24 09:42] VITALS: BP 114/76
== END 2017-06-24 09:48 | disposition home or self-care (01) ==
LOC: JD.SDS 07:08
PROVIDERS: ATTEND Surgery
DX: Z12.11 Encounter for screening for malignant neoplasm of colon (principal); D12.3 Benign neoplasm of transverse colon; K57.30 Diverticulosis of large intestine without perforation or abscess without bleeding; K64.8 Other hemorrhoids; I10 Essential (primary) hypertension; E78.00 Pure hypercholesterolemia, unspecified; K21.9 Gastro-esophageal reflux disease without esophagitis; G47.30 Sleep apnea, unspecified; E11.65 Type 2 diabetes mellitus with hyperglycemia; Z86.010 Personal history of colon polyps; Z88.1 Allergy status to other antibiotic agents; J30.81 Allergic rhinitis due to animal (cat) (dog) hair and dander; Z91.010 Allergy to peanuts; Z79.4 Long term (current) use of insulin; Z79.899 Other long term (current) drug therapy
CPT/HCPCS: 45380; 82962; J3010; J7120; 88305; J2704

== ENCOUNTER 2017-07-12 08:43 | Inpatient (IN) | payer MEDICARE, OTHER ==
[2017-07-12] MEDS ORDERED: HYDROmorphone 1 MG/ML Syringe IM ONE (09:01)
--- NOTE | 2017-07-12 09:06 | EDM.PDOC ---
ED HPI GENERAL MEDICAL PROBLEM - General Chief Complaint: Upper Extremity Injury/Pain Stated Complaint: [facility] Time Seen by Provider: 07/12/17 09:00 Source of Information: Reports: Patient History Limitations: Reports: Uncooperative (Does not want to answer questions) - History of Present Illness INITIAL COMMENTS - FREE TEXT/NARRATIVE: The patient states that he slipped on ice outside of his home this morning, falling onto his left upper extremity. He presents with pain to the superior aspect of his left humerus. He is otherwise uninjured. The patient's PCP is Dr. Henao. Left Arm Pain Score (Numeric/FACES): 8 - Related Data Allergies Allergy/AdvReac Type Severity Reaction Status Date / Time cat dander Allergy Airway Verified 07/12/17 08:51 Tightness Corticosteroids Allergy Cannot Verified 07/12/17 08:51 (Glucocorticoids) Remember lorazepam Allergy Cannot Verified 07/12/17 08:51 Remember peanut Allergy Anaphylactic Verified 07/12/17 08:51 Shock levofloxacin AdvReac Other Verified 07/12/17 08:51 metformin AdvReac Diarrhea Verified 07/12/17 08:51 Home Meds: Home Meds Metoprolol Succinate [Toprol XL] 100 mg PO DAILY 10/29/14 [History] Pravastatin [Pravachol] 40 mg PO DAILY 10/29/14 [History] Temazepam 30 mg PO BEDTIME 10/29/14 [History] Multivitamin [Multi-Vitamin Daily] 1 tab PO DAILY 01/13/16 [History] Potassium Chloride 20 meq PO DAILY #30 tablet.er 09/29/16 [Rx] Fenofibric Acid (Choline) [Fenofibric Acid] 135 mg PO DAILY 02/24/17 [History] Gabapentin [Neurontin] 300 mg PO DAILY 02/24/17 [History] Tamsulosin [Flomax] 0.4 mg PO BEDTIME 02/24/17 [History] oxyCODONE HCl/Acetaminophen [Percocet 10-325 mg Tablet] 1 each PO Q6HR PRN 02/24 [History] Acai Valle Extract [Acai] 500 mg PO DAILY 06/23/17 [History] Ascorbate Calcium [Vitamin C] 500 mg PO DAILY 06/23/17 [History] Bee Pollen 550 mg PO DAILY 06/23/17 [History] Beta-Carotene [Beta Carotene] 25,000 unit PO DAILY 06/23/17 [History] Cinnamon Bark [Cinnamon] 500 mg PO DAILY 06/23/17 [History] Cranberry 500 mg PO DAILY 06/23/17 [History] Fish Oil/[place]-3 Fatty Acids [Fish Oil 1,000 MG] 1 gm PO DAILY 06/23/17 [History ] Garlic 1 tab PO DAILY 06/23/17 [History] Insulin Lispro [Humalog] 1 dose SQ TID 06/23/17 [History] Lisinopril 40 mg PO DAILY 06/23/17 [History] Omeprazole Magnesium [Prilosec Otc] 40 mg PO DAILY 06/23/17 [History] Orphenadrine Citrate 100 mg PO BID 06/23/17 [History] Tresiba 64 units SQ ASDIRECTED 06/23/17 [History] Ubidecarenone [Coq-10] 100 mg PO DAILY 06/23/17 [History] Vitamin B Complex [B Complex] 1 tab PO DAILY 06/23/17 [History] Past Medical History HEENT History: Reports: Impaired Vision Other HEENT History: Wears glasses, loss portion of vision in left eye Cardiovascular History: Reports: Arrhythmia ([id number], s/p ablation ), High Cholesterol, Hypertension Respiratory History: Reports: Sleep Apnea Gastrointestinal History: Reports: Diverticulosis, GERD, Pancreatitis Genitourinary History: Reports: Acute Renal Failure (s/p transient HD), BPH Musculoskeletal History: Reports: Amputation (RUE), Fracture (lumbar spine) Neurological History: Reports: Neuropathy, Peripheral Psychiatric History: Reports: Anxiety Endocrine/Metabolic History: Reports: Diabetes, Type II, Obesity/BMI 30+ - Infectious Disease History Infectious Disease History: Reports: Influenza - Past Surgical History HEENT Surgical History: Reports: Adenoidectomy, Tonsillectomy GI Surgical History: Reports: Colonoscopy, Hernia, Inguinal, Other (See Below) ( Repair of testicular torsion) Neurological Surgical History: Reports: Lumbar Spine (Fusion) Musculoskeletal Surgical History: Reports: Knee Replacement (bilateral), Other ( See Below) (RUE amputation) Social & Family History - Family History Family Medical History: Noncontributory - Tobacco Use Smoking Status *Q: Never Smoker Second Hand Smoke Exposure: No - Caffeine Use Caffeine Use: Reports: Coffee - Alcohol Use Alcohol Use History: No - Recreational Drug Use Recreational Drug Use: No - Living Situation & Occupation Living situation: Reports: Single, Alone Occupation: Disabled Review of Systems - Review of Systems Review Of Systems: ROS reveals no pertinent complaints other than HPI. ED EXAM, GENERAL - Physical Exam Exam: See Below Exam Limited By: Uncooperative (Does not want to be touched) General Appearance: Alert, WD/WN, No Apparent Distress Extremities: Other (No visible abnormality to the left upper extremity, such as obvious deformity, swelling, erythema, ecchymosis, or abrasion. The patient indicates pain to his superior left humerus area. He denies tingling or numbness to the left upper extremity.) Course - Vital Signs Last Recorded V/S: Last Vital Signs Temp 36.1 C 07/12/17 08:51 Pulse 87 07/12/17 08:51 Resp 20 07/12/17 08:51 BP 186/92 H 07/12/17 08:51 Pulse Ox 93 L 07/12/17 08:51 - Orders/Labs/Meds Orders: Active Orders 24 hr Category Date Time Status Humerus Lt [CR] Stat Exams 07/12/17 09:00 Taken DME for Inpatients [OM.PC] Stat Oth 07/12/17 09:41 Ordered Meds: Medications Discontinued Medications Generic Name Dose Route Start Last Admin Trade Name Freq PRN Reason Stop Dose Admin Hydromorphone HCl 1 mg 07/12/17 09:01 07/12/17 09:39 Dilaudid IM 07/12/17 09:02 Not Given ONETIME ONE Hydromorphone HCl 1 mg 07/12/17 09:07 07/12/17 09:14 Dilaudid IM 07/12/17 09:08 1 mg ONETIME STA Administration - Re-Assessments/Exams Free Text/Narrative Re-Assessment/Exam: 07/12/17 09:36 2-view radiographs of the left humerus appear to demonstrate a moderately displaced fracture at the humeral neck. There also appears to be damage to the humeral head. No dislocation of the humeral head. Formal read per the Radiologist pending. 07/12/17 09:[address] Farley at 09:39. He recommends that we sling and swath the LUE. As the patient has only one arm, now fractured, and lives alone, he will not be able to care for himself at home. He will need to be placed into a assisted until he is able to care for himself. Dr. Farley is willing to be on consult. The above was discussed with the patient. He is agreeable to being admitted. Case then discussed with Dr. Campuzano at 09:50. She accepts the patient for admission. Departure - Departure Time of Disposition: 09:55 Disposition: Admitted As Inpatient 67 Condition: Fair Clinical Impression: Left humeral fracture - Discharge Information - My Orders Last 24 Hours: My Active Orders 07/12/17 09:00 Humerus Lt [CR] Stat 07/12/17 09:41 DME for Inpatients [OM.PC] Stat - Assessment/Plan Last 24 Hours: My Active Orders 07/12/17 09:00 Humerus Lt [CR] Stat 07/12/17 09:41 DME for Inpatients [OM.PC] Stat
[2017-07-12] MEDS ORDERED: HYDROmorphone 0.5 MG/0.5 ML SYRINGE IM STA (09:07)
[2017-07-12] MEDS ORDERED: HYDROmorphone 0.5 MG/0.5 ML SYRINGE IVPUSH STA (10:15)
--- NOTE | 2017-07-12 11:07 | PCM.HP ---
H&P History of Present Illness - General Date of Service: 07/12/17 Admit Problem/Dx: Admission Diagnosis/Problem Admission Diagnosis/Problem Fracture of humerus Source of Information: Patient, Provider History Limitations: Reports: No Limitations - History of Present Illness Initial Comments - Free Text/Narative: 62 year old male with a moderately displaced fracture of left humerus will be admitted for intractable pain. He will acutely require SNF, he has a history of a RUE amputation; the injured limb is the LUE. Thus he will be unable to use his one remaining UE until the pain is more manageable. An otho consult has been made, he will be seen by Dr Farley. Onset of Symptoms: Reports: Sudden Duration of Symptoms: Reports: Hour(s):, Getting Worse Location: Reports: Lower Extremity, Left Severity: Moderate Improves with: Reports: Medication Worsens with: Reports: Movement Associated Symptoms: Reports: No Other Symptoms Left Arm Pain Score (Numeric/FACES): 8 - Related Data Allergies/Adverse Reactions: Allergies Allergy/AdvReac Type Severity Reaction Status Date / Time cat dander Allergy Airway Verified 07/12/17 12:29 Tightness Corticosteroids Allergy Cannot Verified 07/12/17 12:29 (Glucocorticoids) Remember lorazepam Allergy Cannot Verified 07/12/17 12:29 Remember peanut Allergy Anaphylactic Verified 07/12/17 12:29 Shock levofloxacin AdvReac Other Verified 07/12/17 12:29 metformin AdvReac Diarrhea Verified 07/12/17 12:29 Home Medications: Home Meds Metoprolol Succinate [Toprol XL] 100 mg PO DAILY 10/29/14 [History] Pravastatin [Pravachol] 40 mg PO DAILY 10/29/14 [History] Temazepam 30 mg PO BEDTIME 10/29/14 [History] Multivitamin [Multi-Vitamin Daily] 1 tab PO DAILY 01/13/16 [History] Potassium Chloride 20 meq PO DAILY #30 tablet.er 09/29/16 [Rx] Fenofibric Acid (Choline) [Fenofibric Acid] 135 mg PO DAILY 02/24/17 [History] Gabapentin [Neurontin] 300 mg PO DAILY 02/24/17 [History] Tamsulosin [Flomax] 0.4 mg PO BEDTIME 02/24/17 [History] oxyCODONE HCl/Acetaminophen [Percocet 10-325 mg Tablet] 1 each PO Q6HR PRN 10/17 /17 [History] Acai Valle Extract [Acai] 500 mg PO DAILY 06/23/17 [History] Ascorbate Calcium [Vitamin C] 500 mg PO DAILY 06/23/17 [History] Bee Pollen 550 mg PO DAILY 06/23/17 [History] Beta-Carotene [Beta Carotene] 25,000 unit PO DAILY 06/23/17 [History] Cinnamon Bark [Cinnamon] 500 mg PO DAILY 06/23/17 [History] Cranberry 500 mg PO DAILY 06/23/17 [History] Fish Oil/[place]-3 Fatty Acids [Fish Oil 1,000 MG] 1 gm PO DAILY 06/23/17 [History ] Garlic 1 tab PO DAILY 06/23/17 [History] Insulin Lispro [Humalog] 1 dose SQ TID 06/23/17 [History] Lisinopril 40 mg PO DAILY 06/23/17 [History] Omeprazole Magnesium [Prilosec Otc] 40 mg PO DAILY 06/23/17 [History] Orphenadrine Citrate 100 mg PO BID 06/23/17 [History] Tresiba 64 units SQ ASDIRECTED 06/23/17 [History] Ubidecarenone [Coq-10] 100 mg PO DAILY 06/23/17 [History] Vitamin B Complex [B Complex] 1 tab PO DAILY 06/23/17 [History] Past Medical History HEENT History: Reports: Impaired Vision Other HEENT History: Wears glasses, loss portion of vision in left eye Cardiovascular History: Reports: Arrhythmia (Snoqr-Uemaedivb-Ehhtn, s/p ablation ), High Cholesterol, Hypertension Other Cardiovascular History: hx of more parkinsons syndrome-surgery was done. Respiratory History: Reports: Sleep Apnea Other Respiratory History: hemothorax with chest tube Gastrointestinal History: Reports: Diverticulosis, GERD, Pancreatitis Other Gastrointestinal History: rectal bleeding, dysphagia Genitourinary History: Reports: Acute Renal Failure (s/p transient HD), BPH BUTCHER FISH History: Reports: None Musculoskeletal History: Reports: Amputation (RUE), Fracture (lumbar spine) Other Musculoskeletal History: Lumbar fracture Neurological History: Reports: Neuropathy, Peripheral Psychiatric History: Reports: Anxiety Endocrine/Metabolic History: Reports: Diabetes, Type II, Obesity/BMI 30+ Other Endocrine/Metabolic History: diabetic Hematologic History: Reports: Other (See Below) Other Hematologic History: Hypopotassemia Immunologic History: Reports: None Oncologic (Cancer) History: Reports: Other (See Below) Other Oncologic History: preliminary skin cancer, removed and biopsy, froze the area. Dermatologic History: Reports: Cellulitis, Other (See Below) Other Dermatologic History: boils - Infectious Disease History Infectious Disease History: Reports: Influenza - Past Surgical History HEENT Surgical History: Reports: Adenoidectomy, Tonsillectomy GI Surgical History: Reports: Colonoscopy, Hernia, Inguinal, Other (See Below) ( Repair of testicular torsion) Neurological Surgical History: Reports: Lumbar Spine (Fusion) Musculoskeletal Surgical History: Reports: Knee Replacement (bilateral), Other ( See Below) (RUE amputation) Social & Family History - Family History Family Medical History: Noncontributory - Tobacco Use Smoking Status *Q: Never Smoker Second Hand Smoke Exposure: No - Caffeine Use Caffeine Use: Reports: Coffee - Recreational Drug Use Recreational Drug Use: No - Living Situation & Occupation Living situation: Reports: Single, Alone Occupation: Disabled H&P Review of Systems - Review of Systems: Review Of Systems: See Below General: Reports: No Symptoms HEENT: Reports: No Symptoms Pulmonary: Reports: No Symptoms Cardiovascular: Reports: No Symptoms Gastrointestinal: Reports: No Symptoms Genitourinary: Reports: No Symptoms Musculoskeletal: Reports: Arm Pain, Back Pain, Muscle Stiffness Skin: Reports: No Symptoms Psychiatric: Reports: No Symptoms Neurological: Reports: No Symptoms Hematologic/Lymphatic: Reports: No Symptoms Immunologic: Reports: No Symptoms Exam - Exam Exam: See Below - Vital Signs Vital Signs: Last Vital Signs Temp 36.1 C 07/12/17 08:51 Pulse 87 07/12/17 08:51 Resp 20 07/12/17 08:51 BP 186/92 H 07/12/17 08:51 Pulse Ox 93 L 07/12/17 08:51 Weight: 111.13 kg - Exam Quality Assessment: DVT Prophylaxis General: Alert, Oriented, Mild Distress HEENT: Conjunctiva Clear, Nares Patent, Normal Nasal Septum, Pupils Equal, Pupils Reactive, PERRLA Neck: Trachea Midline Lungs: Clear to Auscultation, Normal Respiratory Effort Cardiovascular: Regular Rate, Regular Rhythm GI/Abdominal Exam: Normal Bowel Sounds, Soft, Non-Tender, No Organomegaly, No Distention (Male) Exam: Deferred Rectal (Males) Exam: Deferred Back Exam: Normal Inspection Extremities: Normal Inspection, Arm Pain, Limited Range of Motion Skin: Warm Neurological: Cranial Nerves Intact, Normal Speech Neuro Extensive - Mental Status: Alert, Oriented x3, Normal Mood/Affect, Normal Cognition, Memory Intact Neuro Extensive - Motor, Sensory, Reflexes: CN II-XII Intact Psychiatric: Alert, Depressed - Patient Data Lab Results Last 24 hrs: Laboratory Results - last 24 hr 07/12/17 Range/Units 10:52 POC Glucose 202 H (80-115) mg/dL *Q Meaningful Use (ADM) - VTE *Q VTE Criteria *Q: - Stroke *Q Stroke Criteria *Q: - AMI *Q AMI Criteria *Q: - Problem List (1) Left humeral fracture SNOMED Code(s): 30198496 ICD Code: S42.302A - UNSP FRACTURE OF SHAFT OF HUMERUS, LEFT ARM, INIT Status: Acute Current Visit: Yes (2) Adjustment disorder with anxiety SNOMED Code(s): 62268988 ICD Code: F43.22 - ADJUSTMENT DISORDER WITH ANXIETY Status: Acute Current Visit: No (3) Back pain SNOMED Code(s): 452929333 ICD Code: M54.9 - DORSALGIA, UNSPECIFIED Status: Acute Current Visit: No (4) COPD (chronic obstructive pulmonary disease) SNOMED Code(s): 04011161 ICD Code: J44.9 - CHRONIC OBSTRUCTIVE PULMONARY DISEASE, UNSPECIFIED Status : Acute Current Visit: No (5) Diverticulosis of colon SNOMED Code(s): 496567892 ICD Code: K57.30 - DVRTCLOS OF LG INT W/O PERFORATION OR ABSCESS W/O BLEEDING Status: Chronic Priority: Low Current Visit: No (6) Type 2 diabetes mellitus SNOMED Code(s): 53328714 ICD Code: E11.9 - TYPE 2 DIABETES MELLITUS WITHOUT COMPLICATIONS Status: Chronic Priority: Low Current Visit: No Qualifiers: Diabetes mellitus complication status: with unspecified complications Diabetes mellitus group home insulin use: unspecified group home insulin use status Qualified Code(s): E11.8 - Type 2 diabetes mellitus with unspecified complications Problem List Initiated/Reviewed/Updated: Yes Orders Last 24hrs: Active Orders 24 hr Category Date Time Status ADA Diabetic [[place] [employer] Diet] [DIET Diet 07/12/17 Lunch Active ] Assessment/Plan Comment:: Impression: Acute traumatic LUE injury with displaced fracture at the humeral neck. S/P fall 07/12/17. RUE amputation Multiple orthopedic procedures including spinal fusion, lumbar Chronic pain with dependence on narcotics History of WPW S/P ablation Chronic DM type II Obesity HLD Hx of pancreatitis Plan: Ortho consult, notified by ED ALFREDO [place] Pain mgt Home meds Daily labs Consult PT/OT/SW DVT/GI prophylaxis
[2017-07-12] MEDS: Acetaminophen/oxyCODONE 325-5 MG Tab PO PRN ×2 (13:12→21:31)
[2017-07-12] MEDS: oxyCODONE 5 MG Tab PO PRN ×2 (13:13→21:32)
[2017-07-12] MEDS ORDERED: HYDROmorphone 1 MG/ML Syringe IVPUSH PRN (13:45)
[2017-07-12] MEDS: Gabapentin 300 MG Cap PO SCH ×2 (14:41→22:00)
[2017-07-12] MEDS: fentaNYL 25 MCG/HR Transdermal Patch TRDERM SCH (14:42)
[2017-07-12] MEDS: Lactated Ringers 1,000 ML IV SCH (14:43)
[2017-07-12] MEDS ORDERED: INSULIN LISPRO SQ SCH (15:00)
[2017-07-12] MEDS: HYDROmorphone 0.5 MG/0.5 ML SYRINGE IVPUSH PRN (17:24)
[2017-07-12] MEDS: Insulin Aspart 100 Units/ML 3 ML Pen SUBCUT SCH ×2 (17:33→22:01)
[2017-07-12] MEDS: Temazepam 15 MG Cap PO SCH (22:00)
[2017-07-12] MEDS: Tamsulosin 0.4 MG Cap.ER PO SCH (22:00)
[2017-07-12] MEDS: Orphenadrine 100 MG Tab.ER PO SCH (22:00)
[2017-07-13] MEDS: HYDROmorphone 0.5 MG/0.5 ML SYRINGE IVPUSH PRN ×2 (00:01→06:28)
[2017-07-13] MEDS: oxyCODONE 5 MG Tab PO PRN (03:41)
[2017-07-13] MEDS: Lactated Ringers 1,000 ML IV SCH ×2 (03:41→17:29)
[2017-07-13] MEDS: Acetaminophen/oxyCODONE 325-5 MG Tab PO PRN (03:41)
[2017-07-13] MEDS: Pantoprazole 40 MG Tab.CR PO SCH (06:28)
[2017-07-13] MEDS ORDERED: Enoxaparin 30 MG/0.3 ML Syringe SUBCUT SCH (09:00)
[2017-07-13] MEDS ORDERED: Non-Formulary Medication 1 Each (Ubidecarenone 100 MG) PO SCH (09:00)
[2017-07-13] MEDS: Gabapentin 300 MG Cap PO SCH ×2 (09:00→21:52)
[2017-07-13] MEDS ORDERED: Gabapentin 300 MG Cap PO SCH (09:00)
[2017-07-13] MEDS: Fenofibrate Nanocrystallized 145 MG Tab PO SCH (09:01)
[2017-07-13] MEDS: Ascorbic Acid 500 MG Tab PO SCH (09:01)
[2017-07-13] MEDS: Insulin Aspart 100 Units/ML 3 ML Pen SUBCUT SCH ×4 (09:01→21:53)
[2017-07-13] MEDS: Orphenadrine 100 MG Tab.ER PO SCH ×2 (09:01→21:52)
[2017-07-13] MEDS: Metoprolol Succinate 50 MG Tab.ER PO SCH (09:04)
[2017-07-13] MEDS: Insulin Detemir 100 Units/ML 3 ML Pen SUBCUT SCH ×2 (10:02→21:54)
[2017-07-13] MEDS: Magnesium Sulfate/Water 2 GM in Premix Bag 1 BAG IV SCH ×3 (10:03→15:12)
[2017-07-13] MEDS ORDERED: Naloxone 0.4 MG/ML SDV IVPUSH ONE (12:45)
--- NOTE | 2017-07-13 13:51 | CR ---
Left humerus: Two views of the left humerus were obtained. Comparison: No prior humerus exam. Fracture is identified within the surgical neck. Fracture is seen within the greater tuberosity. Mild displacement is seen by approximately 9 mm. No distal abnormality is seen. Impression: 1. Mildly displaced surgical neck fracture as well as fracture within the greater tuberosity. Diagnostic code #3
[2017-07-13] MEDS ORDERED: Magnesium Sulfate/Water 4 GM in Premix Bag 1 BAG IV ONE (15:18)
--- NOTE | 2017-07-13 19:22 | PCM.PN ---
- General Info Date of Service: 07/13/17 Functional Status: Reports: Pain Controlled, Tolerating Diet, Ambulating, Urinating - Review of Systems General: Reports: No Symptoms HEENT: Reports: No Symptoms Pulmonary: Reports: No Symptoms Cardiovascular: Reports: No Symptoms Gastrointestinal: Reports: No Symptoms Genitourinary: Reports: No Symptoms Musculoskeletal: Reports: No Symptoms Skin: Reports: No Symptoms Neurological: Reports: No Symptoms Psychiatric: Reports: No Symptoms - Patient Data Vitals - Most Recent: Last Vital Signs Temp 37.4 C 07/13/17 11:16 Pulse 89 07/13/17 13:34 Resp 12 07/13/17 12:40 BP 122/78 07/13/17 12:40 Pulse Ox 90 L 07/13/17 13:34 Weight - Most Recent: 112.4 kg I&O - Last 24 Hours: Intake & Output 07/13/17 07/13/17 07/13/17 06:59 14:59 22:59 Intake Total 8413 856 7366 Output Total 300 900 Balance 0843 725 4614 Lab Results Last 24 Hours: Laboratory Results - last 24 hr 07/12/17 07/13/17 07/13/17 Range/Units 20:41 06:11 06:45 WBC (4.23-9.07) K/mm3 RBC (4.63-6.08) M/mm3 Hgb (13.7-17.5) gm/L Hct (40.1-51.0) % MCV (79.0-92.2) fl MCH (25.7-32.2) pg MCHC (32.2-35.5) g/dl RDW Std Deviation (35.1-43.9) fL Plt Count (163-337) K/mm3 MPV (9.4-12.3) fl Neut % (Auto) (34.0-67.9) % Lymph % (Auto) (21.8-53.1) % [place] % (Auto) (5.3-12.2) % Eos % (Auto) (0.8-7.0) Baso % (Auto) (0.1-1.2) % Neut # (Auto) (1.78-5.38) K/mm3 Lymph # (Auto) (1.32-3.57) K/mm3 [place] # (Auto) (0.30-0.82) K/mm3 Eos # (Auto) (0.04-0.54) K/mm3 Baso # (Auto) (0.01-0.08) K/mm3 Sodium 137 (136-145) mEq/L Potassium 4.2 (3.5-5.1) mEq/L Chloride 104 (98-107) mEq/L Carbon Dioxide 21 (21-32) mEq/L Anion Gap 16.2 H (5-15) BUN 20 H (7-18) mg/dL Creatinine 0.9 (0.7-1.3) mg/dL Est Cr Clr Drug Dosing 91.80 mL/min Estimated GFR (MDRD) > 60 (>60) mL/min BUN/Creatinine Ratio 22.2 H (14-18) Glucose 138 H (80-115) mg/dL POC Glucose 295 H 170 H (80-115) mg/dL Hemoglobin A1c (4.50-6.20) % Calcium 7.7 L (8.5-10.1) mg/dL Magnesium 1.1 L (1.8-2.4) mg/dl C-Reactive Protein 2.8 H* (<1.0) mg/dL 07/13/17 07/13/17 07/13/17 Range/Units 06:45 06:45 10:58 WBC 6.60 (4.23-9.07) K/mm3 RBC 3.41 L (4.63-6.08) M/mm3 Hgb 10.0 L (13.7-17.5) gm/L Hct 31.5 L (40.1-51.0) % MCV 92.4 H (79.0-92.2) fl MCH 29.3 (25.7-32.2) pg MCHC 31.7 L (32.2-35.5) g/dl RDW Std Deviation 47.6 H (35.1-43.9) fL Plt Count 140 L (163-337) K/mm3 MPV 10.2 (9.4-12.3) fl Neut % (Auto) 64.9 (34.0-67.9) % Lymph % (Auto) 21.8 (21.8-53.1) % [place] % (Auto) 9.2 (5.3-12.2) % Eos % (Auto) 3.2 (0.8-7.0) Baso % (Auto) 0.6 (0.1-1.2) % Neut # (Auto) 4.28 (1.78-5.38) K/mm3 Lymph # (Auto) 1.44 (1.32-3.57) K/mm3 [place] # (Auto) 0.61 (0.30-0.82) K/mm3 Eos # (Auto) 0.21 (0.04-0.54) K/mm3 Baso # (Auto) 0.04 (0.01-0.08) K/mm3 Sodium (136-145) mEq/L Potassium (3.5-5.1) mEq/L Chloride (98-107) mEq/L Carbon Dioxide (21-32) mEq/L Anion Gap (5-15) BUN (7-18) mg/dL Creatinine (0.7-1.3) mg/dL Est Cr Clr Drug Dosing mL/min Estimated GFR (MDRD) (>60) mL/min BUN/Creatinine Ratio (14-18) Glucose (80-115) mg/dL POC Glucose 168 H (80-115) mg/dL Hemoglobin A1c 9.10 H (4.50-6.20) % Calcium (8.5-10.1) mg/dL Magnesium (1.8-2.4) mg/dl C-Reactive Protein (<1.0) mg/dL 07/13/17 Range/Units 17:10 WBC (4.23-9.07) K/mm3 RBC (4.63-6.08) M/mm3 Hgb (13.7-17.5) gm/L Hct (40.1-51.0) % MCV (79.0-92.2) fl MCH (25.7-32.2) pg MCHC (32.2-35.5) g/dl RDW Std Deviation (35.1-43.9) fL Plt Count (163-337) K/mm3 MPV (9.4-12.3) fl Neut % (Auto) (34.0-67.9) % Lymph % (Auto) (21.8-53.1) % [place] % (Auto) (5.3-12.2) % Eos % (Auto) (0.8-7.0) Baso % (Auto) (0.1-1.2) % Neut # (Auto) (1.78-5.38) K/mm3 Lymph # (Auto) (1.32-3.57) K/mm3 [place] # (Auto) (0.30-0.82) K/mm3 Eos # (Auto) (0.04-0.54) K/mm3 Baso # (Auto) (0.01-0.08) K/mm3 Sodium (136-145) mEq/L Potassium (3.5-5.1) mEq/L Chloride (98-107) mEq/L Carbon Dioxide (21-32) mEq/L Anion Gap (5-15) BUN (7-18) mg/dL Creatinine (0.7-1.3) mg/dL Est Cr Clr Drug Dosing mL/min Estimated GFR (MDRD) (>60) mL/min BUN/Creatinine Ratio (14-18) Glucose (80-115) mg/dL POC Glucose 242 H (80-115) mg/dL Hemoglobin A1c (4.50-6.20) % Calcium (8.5-10.1) mg/dL Magnesium (1.8-2.4) mg/dl C-Reactive Protein (<1.0) mg/dL Med Orders - Current: Current Medications Ascorbic Acid (Vitamin C) 500 mg PO DAILY [facility] Last Admin: 07/13/17 09:01 Dose: 500 mg Enoxaparin Sodium (Lovenox) 40 mg SUBCUT DAILY [facility] Fenofibrate (Tricor) 145 mg PO DAILY [facility] Last Admin: 07/13/17 09:01 Dose: 145 mg Fentanyl (Duragesic) 25 mcg TRDERM Q72H [facility] Last Admin: 07/12/17 14:42 Dose: 25 mcg Gabapentin (Neurontin) 600 mg PO BID [facility] Last Admin: 07/13/17 09:00 Dose: 600 mg Hydromorphone HCl (Dilaudid) 1 mg IVPUSH Q6H PRN PRN Reason: Pain (moderate 4-6) Last Admin: 07/13/17 06:28 Dose: 1 mg Lactated Ringer's (Ringers, Lactated) 1,000 mls @ 75 mls/hr IV ASDIRECTED [facility] Last Admin: 07/13/17 17:29 Dose: 75 mls/hr Insulin Aspart (Novolog) 0 unit SUBCUT QIDACANDBED [facility] PRN Reason: Protocol Last Admin: 07/13/17 17:29 Dose: 4 units Insulin Detemir (Levemir) 32 unit SUBCUT BID [facility] Last Admin: 07/13/17 10:02 Dose: 32 units Metoprolol Succinate (Toprol Xl) 100 mg PO DAILY [facility] Last Admin: 07/13/17 09:04 Dose: 100 mg Miscellaneous Information (Remove Patch) 1 ea TRDERM Q72H [facility] Orphenadrine Citrate (Norflex) 100 mg PO BID [facility] Last Admin: 07/13/17 09:01 Dose: 100 mg Oxycodone HCl (Oxycodone) 5 mg PO Q6H PRN PRN Reason: PAIN Last Admin: 07/13/17 03:41 Dose: 5 mg Oxycodone/Acetaminophen (Percocet 325-5 Mg) 1 tab PO Q6H PRN PRN Reason: PAIN Last Admin: 07/13/17 03:41 Dose: 1 tab Pantoprazole Sodium (Protonix) 40 mg PO DAILY@0700 [facility] Last Admin: 07/13/17 06:28 Dose: 40 mg Simvastatin (Zocor) 20 mg PO BEDTIME [facility] Tamsulosin HCl (Flomax) 0.4 mg PO BEDTIME [facility] Last Admin: 07/12/17 22:00 Dose: 0.4 mg Temazepam (Restoril) 30 mg PO BEDTIME [facility] Last Admin: 07/12/17 22:00 Dose: 30 mg Discontinued Medications Enoxaparin Sodium (Lovenox) 30 mg SUBCUT DAILY [facility] Last Admin: 07/13/17 09:00 Dose: 30 mg Gabapentin (Neurontin) 300 mg PO DAILY [facility] Hydromorphone HCl (Dilaudid) 1 mg IM ONETIME ONE Stop: 07/12/17 09:02 Last Admin: 07/12/17 09:39 Dose: Not Given Hydromorphone HCl (Dilaudid) 1 mg IM ONETIME STA Stop: 07/12/17 09:08 Last Admin: 07/12/17 09:14 Dose: 1 mg Hydromorphone HCl (Dilaudid) 1 mg IVPUSH ONETIME STA Stop: 07/12/17 10:16 Last Admin: 07/12/17 10:21 Dose: 1 mg Hydromorphone HCl (Dilaudid) 1 mg IVPUSH Q6H PRN PRN Reason: Pain (moderate 4-6) Magnesium Sulfate 2 gm/ Premix 50 mls @ 25 mls/hr IV Q2H [facility] Stop: 07/13/17 15:44 Last Admin: 07/13/17 15:12 Dose: 25 mls/hr Magnesium Sulfate 4 gm/ Premix 100 mls @ 50 mls/hr IV ONETIME ONE Stop: 07/13/17 17:17 Last Admin: 07/13/17 17:56 Dose: Not Given Naloxone HCl (Narcan) 0.4 mg IVPUSH ONETIME ONE Stop: 07/13/17 12:46 Last Admin: 07/13/17 12:48 Dose: 0.4 mg Non-Formulary Medication (Insulin Lispro [Humalog]) 1 dose SQ TID [facility] Non-Formulary Medication (Ubidecarenone) 100 mg PO DAILY [facility] - Exam Quality Assessment: DVT Prophylaxis General: Alert, Oriented, Cooperative HEENT: Pupils Equal, Pupils Reactive, EOMI Neck: Trachea Midline, No JVD Lungs: Normal Respiratory Effort Cardiovascular: Regular Rate, Regular Rhythm GI/Abdominal Exam: Normal Bowel Sounds, Soft, Non-Tender, No Organomegaly, No Distention (Male) Exam: Deferred Back Exam: Normal Inspection Extremities: Normal Inspection Skin: Warm Neurological: No New Focal Deficit Psy/Mental Status: Alert, Normal Affect, Normal Mood - Problem List & Annotations (1) Left humeral fracture SNOMED Code(s): 68450760 Code(s): S42.302A - UNSP FRACTURE OF SHAFT OF HUMERUS, LEFT ARM, INIT Status: Acute Current Visit: Yes (2) Adjustment disorder with anxiety SNOMED Code(s): 01515305 Code(s): F43.22 - ADJUSTMENT DISORDER WITH ANXIETY Status: Acute Current Visit: No (3) Back pain SNOMED Code(s): 973705991 Code(s): M54.9 - DORSALGIA, UNSPECIFIED Status: Acute Current Visit: No (4) COPD (chronic obstructive pulmonary disease) SNOMED Code(s): 46506021 Code(s): J44.9 - CHRONIC OBSTRUCTIVE PULMONARY DISEASE, UNSPECIFIED Status : Acute Current Visit: No (5) Diverticulosis of colon SNOMED Code(s): 419137851 Code(s): K57.30 - DVRTCLOS OF LG INT W/O PERFORATION OR ABSCESS W/O BLEEDING Status: Chronic Priority: Low Current Visit: No (6) Type 2 diabetes mellitus SNOMED Code(s): 16246723 Code(s): E11.9 - TYPE 2 DIABETES MELLITUS WITHOUT COMPLICATIONS Status: Chronic Priority: Low Current Visit: No Qualifiers: Diabetes mellitus complication status: with unspecified complications Diabetes mellitus fpc insulin use: unspecified fpc insulin use status Qualified Code(s): E11.8 - Type 2 diabetes mellitus with unspecified complications - Problem List Review Problem List Initiated/Reviewed/Updated: Yes - My Orders Last 24 Hours: My Active Orders 07/12/17 21:00 Orphenadrine [Norflex] 100 mg PO BID Tamsulosin [Flomax] 0.4 mg PO BEDTIME Temazepam [Restoril] 30 mg PO BEDTIME 07/13/17 07:00 Consult to Physician [CONS] Routine Pantoprazole [ProTONIX] 40 mg PO DAILY@0700 07/13/17 09:00 Ascorbic Acid [Vitamin C] 500 mg PO DAILY Fenofibrate Nanocrystallized [Tricor] 145 mg PO DAILY Insulin Detemir [Levemir] 32 unit SUBCUT BID Metoprolol Succinate [Toprol XL] 100 mg PO DAILY 07/13/17 10:26 Enoxaparin [Lovenox] 40 mg SUBCUT DAILY 07/13/17 21:00 Simvastatin [Zocor] 20 mg PO BEDTIME 07/14/17 05:00 BMP [BASIC METABOLIC PANEL,BMP] [CHEM] DAILY CRP [C-REACTIVE PROTEIN] [CHEM] DAILY MAGNESIUM [CHEM] DAILY 07/14/17 12:08 CBC WITH AUTO DIFF [HEME] DAILY 07/15/17 05:00 BMP [BASIC METABOLIC PANEL,BMP] [CHEM] DAILY CRP [C-REACTIVE PROTEIN] [CHEM] DAILY MAGNESIUM [CHEM] DAILY 07/15/17 12:08 CBC WITH AUTO DIFF [HEME] DAILY 07/15/17 14:00 Remove Patch 1 ea TRDERM Q72H 07/16/17 05:00 BMP [BASIC METABOLIC PANEL,BMP] [CHEM] DAILY CRP [C-REACTIVE PROTEIN] [CHEM] DAILY MAGNESIUM [CHEM] DAILY 07/16/17 12:08 CBC WITH AUTO DIFF [HEME] DAILY - Plan Plan:: Impression: Acute traumatic LUE injury with displaced fracture at the humeral neck. S/P fall 07/12/17. RUE amputation Multiple orthopedic procedures including spinal fusion, lumbar Chronic pain with dependence on narcotics History of WPW S/P ablation Chronic DM type II Obesity HLD Hx of pancreatitis Plan: --->Ortho consult, notified by ED; will call again. LUE sling and swath Pain mgt Home meds Daily labs Consult PT/OT/SW DVT/GI prophylaxis
[2017-07-13] MEDS: Simvastatin 20 MG Tab PO SCH (21:52)
[2017-07-13] MEDS: Tamsulosin 0.4 MG Cap.ER PO SCH (21:52)
[2017-07-13] MEDS: Temazepam 15 MG Cap PO SCH (23:08)
[2017-07-14] MEDS: Benzocaine/Cetylpyridinium/Menthol Lozenge MUCMEM PRN (03:49)
[2017-07-14] MEDS: Lactated Ringers 1,000 ML IV SCH (06:06)
[2017-07-14] MEDS: Pantoprazole 40 MG Tab.CR PO SCH (06:07)
[2017-07-14] MEDS: Insulin Aspart 100 Units/ML 3 ML Pen SUBCUT SCH ×4 (08:02→21:04)
[2017-07-14] MEDS: Enoxaparin 40 MG/0.4 ML Syringe SUBCUT SCH (10:16)
[2017-07-14] MEDS: Orphenadrine 100 MG Tab.ER PO SCH ×2 (10:17→20:58)
[2017-07-14] MEDS: Insulin Detemir 100 Units/ML 3 ML Pen SUBCUT SCH ×2 (10:17→21:04)
[2017-07-14] MEDS: Ascorbic Acid 500 MG Tab PO SCH (10:18)
[2017-07-14] MEDS: Gabapentin 300 MG Cap PO SCH (10:24)
[2017-07-14] MEDS: Fenofibrate Nanocrystallized 145 MG Tab PO SCH (10:24)
[2017-07-14] MEDS: Metoprolol Succinate 50 MG Tab.ER PO SCH (10:45)
[2017-07-14] MEDS: oxyCODONE 5 MG Tab PO PRN ×2 (13:10→22:20)
[2017-07-14] MEDS: Acetaminophen/oxyCODONE 325-5 MG Tab PO PRN ×2 (13:12→22:20)
--- NOTE | 2017-07-14 13:25 | PCM.PN ---
- General Info Date of Service: 07/14/17 Subjective Update: Patient continues to have pain with movement; will adjust Neurontin dose to 600 mg TID. Functional Status: Reports: Tolerating Diet, Ambulating, Urinating - Review of Systems General: Reports: No Symptoms HEENT: Reports: No Symptoms Pulmonary: Reports: No Symptoms Cardiovascular: Reports: No Symptoms Gastrointestinal: Reports: No Symptoms Genitourinary: Reports: No Symptoms Musculoskeletal: Reports: Arm Pain Skin: Reports: No Symptoms Neurological: Reports: No Symptoms Psychiatric: Reports: No Symptoms - Patient Data Vitals - Most Recent: Last Vital Signs Temp 37.3 C 07/14/17 11:31 Pulse 96 07/14/17 11:31 Resp 19 07/14/17 11:31 BP 157/89 H 07/14/17 12:28 Pulse Ox 92 L 07/14/17 11:31 Weight - Most Recent: 111.697 kg I&O - Last 24 Hours: Intake & Output 07/13/17 07/14/17 07/14/17 22:59 06:59 14:59 Intake Total 2775 898 1120 Output Total 900 1625 Balance 1875 898 -505 Lab Results Last 24 Hours: Laboratory Results - last 24 hr 07/13/17 07/14/17 07/14/17 Range/Units 17:10 06:10 06:10 WBC 7.71 (4.23-9.07) K/mm3 RBC 4.89 (4.63-6.08) M/mm3 Hgb 14.1 (13.7-17.5) gm/L Hct 44.0 (40.1-51.0) % MCV 90.0 (79.0-92.2) fl MCH 28.8 (25.7-32.2) pg MCHC 32.0 L (32.2-35.5) g/dl RDW Std Deviation 47.7 H (35.1-43.9) fL Plt Count 162 L (163-337) K/mm3 MPV 10.5 (9.4-12.3) fl Neut % (Auto) 59.3 (34.0-67.9) % Lymph % (Auto) 23.1 (21.8-53.1) % [place] % (Auto) 12.2 (5.3-12.2) % Eos % (Auto) 4.7 (0.8-7.0) Baso % (Auto) 0.4 (0.1-1.2) % Neut # (Auto) 4.58 (1.78-5.38) K/mm3 Lymph # (Auto) 1.78 (1.32-3.57) K/mm3 [place] # (Auto) 0.94 H (0.30-0.82) K/mm3 Eos # (Auto) 0.36 (0.04-0.54) K/mm3 Baso # (Auto) 0.03 (0.01-0.08) K/mm3 Sodium 142 (136-145) mEq/L Potassium 4.0 (3.5-5.1) mEq/L Chloride 107 (98-107) mEq/L Carbon Dioxide 28 (21-32) mEq/L Anion Gap 11.0 (5-15) BUN 16 (7-18) mg/dL Creatinine 0.6 L (0.7-1.3) mg/dL Est Cr Clr Drug Dosing 137.70 mL/min Estimated GFR (MDRD) > 60 (>60) mL/min BUN/Creatinine Ratio 26.7 H (14-18) Glucose 145 H (80-115) mg/dL POC Glucose 242 H (80-115) mg/dL Calcium 8.4 L (8.5-10.1) mg/dL Magnesium 1.8 (1.8-2.4) mg/dl C-Reactive Protein 6.4 H* (<1.0) mg/dL 18 07/14/17 Range/Units 07:15 10:45 WBC (4.23-9.07) K/mm3 RBC (4.63-6.08) M/mm3 Hgb (13.7-17.5) gm/L Hct (40.1-51.0) % MCV (79.0-92.2) fl MCH (25.7-32.2) pg MCHC (32.2-35.5) g/dl RDW Std Deviation (35.1-43.9) fL Plt Count (163-337) K/mm3 MPV (9.4-12.3) fl Neut % (Auto) (34.0-67.9) % Lymph % (Auto) (21.8-53.1) % [place] % (Auto) (5.3-12.2) % Eos % (Auto) (0.8-7.0) Baso % (Auto) (0.1-1.2) % Neut # (Auto) (1.78-5.38) K/mm3 Lymph # (Auto) (1.32-3.57) K/mm3 [place] # (Auto) (0.30-0.82) K/mm3 Eos # (Auto) (0.04-0.54) K/mm3 Baso # (Auto) (0.01-0.08) K/mm3 Sodium (136-145) mEq/L Potassium (3.5-5.1) mEq/L Chloride (98-107) mEq/L Carbon Dioxide (21-32) mEq/L Anion Gap (5-15) BUN (7-18) mg/dL Creatinine (0.7-1.3) mg/dL Est Cr Clr Drug Dosing mL/min Estimated GFR (MDRD) (>60) mL/min BUN/Creatinine Ratio (14-18) Glucose (80-115) mg/dL POC Glucose 149 H 305 H (80-115) mg/dL Calcium (8.5-10.1) mg/dL Magnesium (1.8-2.4) mg/dl C-Reactive Protein (<1.0) mg/dL Med Orders - Current: Current Medications Ascorbic Acid (Vitamin C) 500 mg PO DAILY [facility] Last Admin: 07/14/17 10:18 Dose: 500 mg Benzocaine/Menthol (Cepacol Sore Throat) 1 lozenge MUCMEM Q2H PRN PRN Reason: throat irritation, dry mouth Last Admin: 07/14/17 03:49 Dose: 1 lozenge Enoxaparin Sodium (Lovenox) 40 mg SUBCUT DAILY [facility] Last Admin: 07/14/17 10:16 Dose: 40 mg Fenofibrate (Tricor) 145 mg PO DAILY [facility] Last Admin: 07/14/17 10:24 Dose: 145 mg Fentanyl (Duragesic) 25 mcg TRDERM Q72H [facility] Last Admin: 07/12/17 14:42 Dose: 25 mcg Gabapentin (Neurontin) 600 mg PO BID [facility] Last Admin: 07/14/17 10:24 Dose: 600 mg Hydromorphone HCl (Dilaudid) 1 mg IVPUSH Q6H PRN PRN Reason: Pain (moderate 4-6) Last Admin: 07/13/17 06:28 Dose: 1 mg Lactated Ringer's (Ringers, Lactated) 1,000 mls @ 75 mls/hr IV ASDIRECTED [facility] Last Admin: 07/14/17 06:06 Dose: 75 mls/hr Insulin Aspart (Novolog) 0 unit SUBCUT QIDACANDBED [facility] PRN Reason: Protocol Last Admin: 07/14/17 11:26 Dose: 8 units Insulin Detemir (Levemir) 32 unit SUBCUT BID [facility] Last Admin: 07/14/17 10:17 Dose: 32 units Metoprolol Succinate (Toprol Xl) 100 mg PO DAILY [facility] Last Admin: 07/14/17 10:45 Dose: 100 mg Miscellaneous Information (Remove Patch) 1 ea TRDERM Q72H [facility] Orphenadrine Citrate (Norflex) 100 mg PO BID [facility] Last Admin: 07/14/17 10:17 Dose: 100 mg Oxycodone HCl (Oxycodone) 5 mg PO Q6H PRN PRN Reason: PAIN Last Admin: 07/14/17 13:10 Dose: 5 mg Oxycodone/Acetaminophen (Percocet 325-5 Mg) 1 tab PO Q6H PRN PRN Reason: PAIN Last Admin: 07/14/17 13:12 Dose: 1 tab Pantoprazole Sodium (Protonix) 40 mg PO DAILY@0700 [facility] Last Admin: 07/14/17 06:07 Dose: 40 mg Simvastatin (Zocor) 20 mg PO BEDTIME [facility] Last Admin: 07/13/17 21:52 Dose: 20 mg Tamsulosin HCl (Flomax) 0.4 mg PO BEDTIME [facility] Last Admin: 07/13/17 21:52 Dose: 0.4 mg Temazepam (Restoril) 30 mg PO BEDTIME [facility] Last Admin: 07/13/17 23:08 Dose: 30 mg Discontinued Medications Enoxaparin Sodium (Lovenox) 30 mg SUBCUT DAILY [facility] Last Admin: 07/13/17 09:00 Dose: 30 mg Gabapentin (Neurontin) 300 mg PO DAILY [facility] Hydromorphone HCl (Dilaudid) 1 mg IM ONETIME ONE Stop: 07/12/17 09:02 Last Admin: 07/12/17 09:39 Dose: Not Given Hydromorphone HCl (Dilaudid) 1 mg IM ONETIME STA Stop: 07/12/17 09:08 Last Admin: 07/12/17 09:14 Dose: 1 mg Hydromorphone HCl (Dilaudid) 1 mg IVPUSH ONETIME STA Stop: 07/12/17 10:16 Last Admin: 07/12/17 10:21 Dose: 1 mg Hydromorphone HCl (Dilaudid) 1 mg IVPUSH Q6H PRN PRN Reason: Pain (moderate 4-6) Magnesium Sulfate 2 gm/ Premix 50 mls @ 25 mls/hr IV Q2H [facility] Stop: 07/13/17 15:44 Last Admin: 07/13/17 15:12 Dose: 25 mls/hr Magnesium Sulfate 4 gm/ Premix 100 mls @ 50 mls/hr IV ONETIME ONE Stop: 07/13/17 17:17 Last Admin: 07/13/17 17:56 Dose: Not Given Naloxone HCl (Narcan) 0.4 mg IVPUSH ONETIME ONE Stop: 07/13/17 12:46 Last Admin: 07/13/17 12:48 Dose: 0.4 mg Non-Formulary Medication (Insulin Lispro [Humalog]) 1 dose SQ TID [facility] Non-Formulary Medication (Ubidecarenone) 100 mg PO DAILY [facility] - Exam Quality Assessment: DVT Prophylaxis General: Alert, Oriented, Cooperative, No Acute Distress HEENT: Pupils Equal, Pupils Reactive, EOMI Neck: Trachea Midline, No JVD Lungs: Normal Respiratory Effort Cardiovascular: Regular Rate, Regular Rhythm GI/Abdominal Exam: Normal Bowel Sounds, Soft, Non-Tender, No Organomegaly, No Distention (Male) Exam: Deferred Back Exam: Normal Inspection Extremities: Normal Inspection Skin: Warm, Dry Neurological: No New Focal Deficit Psy/Mental Status: Alert, Depressed - Problem List & Annotations (1) Left humeral fracture SNOMED Code(s): 76502484 Code(s): S42.302A - UNSP FRACTURE OF SHAFT OF HUMERUS, LEFT ARM, INIT Status: Acute Current Visit: Yes (2) Adjustment disorder with anxiety SNOMED Code(s): 31550191 Code(s): F43.22 - ADJUSTMENT DISORDER WITH ANXIETY Status: Acute Current Visit: No (3) Back pain SNOMED Code(s): 891961202 Code(s): M54.9 - DORSALGIA, UNSPECIFIED Status: Acute Current Visit: No (4) COPD (chronic obstructive pulmonary disease) SNOMED Code(s): 06922792 Code(s): J44.9 - CHRONIC OBSTRUCTIVE PULMONARY DISEASE, UNSPECIFIED Status : Acute Current Visit: No (5) Diverticulosis of colon SNOMED Code(s): 346557660 Code(s): K57.30 - DVRTCLOS OF LG INT W/O PERFORATION OR ABSCESS W/O BLEEDING Status: Chronic Priority: Low Current Visit: No (6) Type 2 diabetes mellitus SNOMED Code(s): 21253633 Code(s): E11.9 - TYPE 2 DIABETES MELLITUS WITHOUT COMPLICATIONS Status: Chronic Priority: Low Current Visit: No Qualifiers: Diabetes mellitus complication status: with unspecified complications Diabetes mellitus senior living insulin use: unspecified terminal makeup operator insulin use status Qualified Code(s): E11.8 - Type 2 diabetes mellitus with unspecified complications - Problem List Review Problem List Initiated/Reviewed/Updated: Yes - My Orders Last 24 Hours: My Active Orders 07/13/17 21:00 Simvastatin [Zocor] 20 mg PO BEDTIME 07/14/17 03:27 Benzocaine/Cetylpyrd/Menthol [Cepacol Sore Throat] 1 lozenge MUCMEM Q2H PRN 07/14/17 11:03 Consult to Physician [CONS] Routine 07/14/17 11:06 Notify Provider Consults [RC] ASDIRECTED 07/15/17 05:00 BMP [BASIC METABOLIC PANEL,BMP] [CHEM] DAILY CRP [C-REACTIVE PROTEIN] [CHEM] DAILY MAGNESIUM [CHEM] DAILY 07/15/17 12:08 CBC WITH AUTO DIFF [HEME] DAILY 07/15/17 14:00 Remove Patch 1 ea TRDERM Q72H 07/16/17 05:00 BMP [BASIC METABOLIC PANEL,BMP] [CHEM] DAILY CRP [C-REACTIVE PROTEIN] [CHEM] DAILY MAGNESIUM [CHEM] DAILY 07/16/17 12:08 CBC WITH AUTO DIFF [HEME] DAILY - Plan Plan:: Impression: Acute traumatic LUE injury with displaced fracture at the humeral neck. S/P fall 07/12/17. Requested ortho consult, changed providers today. Will have radiographi study for possible surgical intervention, TBD. RUE amputation Multiple orthopedic procedures including spinal fusion, lumbar Chronic pain with dependence on narcotics; adjusted non narcotic pain mgt increased Neurontin 600 mg TID. History of WPW S/P ablation Diabets Mellitus, poor control, Hgb A1C>9.0, continue home meds and increase SS to high level Chronic DM type II Obesity HLD Hx of pancreatitis Plan: LUE sling and swath Pain mgt Home meds Daily labs Correct electrolytes as needed. Consult PT/OT/SW DVT/GI prophylaxis
--- NOTE | 2017-07-14 14:18 | CR ---
Left shoulder: Two views of left shoulder were obtained. Comparison: Prior humerus study of 07/12/17. Proximal humeral fracture is again noted. Displacement appears less than on prior study. No additional abnormality is appreciated on this two-view exam. Impression: 1. Proximal humeral fracture. No callus is seen. Diagnostic code #3
[2017-07-14] MEDS: Gabapentin 600 MG Tab PO SCH ×2 (14:42→20:58)
[2017-07-14] MEDS: Simvastatin 20 MG Tab PO SCH (20:57)
[2017-07-14] MEDS: hydrALAZINE 20 MG/ML SDV IVPUSH PRN (20:58)
[2017-07-14] MEDS: Tamsulosin 0.4 MG Cap.ER PO SCH (20:58)
[2017-07-14] MEDS: Temazepam 15 MG Cap PO SCH (22:19)
[2017-07-15] MEDS: Benzocaine/Cetylpyridinium/Menthol Lozenge MUCMEM PRN (01:01)
[2017-07-15] MEDS: hydrALAZINE 20 MG/ML SDV IVPUSH PRN ×2 (04:52→19:39)
[2017-07-15] MEDS: Acetaminophen/oxyCODONE 325-5 MG Tab PO PRN ×3 (05:36→21:55)
[2017-07-15] MEDS: Pantoprazole 40 MG Tab.CR PO SCH ×2 (05:36→06:24)
[2017-07-15] MEDS: oxyCODONE 5 MG Tab PO PRN ×3 (05:36→21:57)
[2017-07-15] MEDS: Insulin Aspart 100 Units/ML 3 ML Pen SUBCUT SCH ×4 (06:25→21:58)
[2017-07-15] MEDS: Ascorbic Acid 500 MG Tab PO SCH (08:33)
[2017-07-15] MEDS: Fenofibrate Nanocrystallized 145 MG Tab PO SCH (08:33)
[2017-07-15] MEDS: Orphenadrine 100 MG Tab.ER PO SCH ×2 (08:33→21:56)
[2017-07-15] MEDS: Gabapentin 600 MG Tab PO SCH ×3 (08:33→21:55)
[2017-07-15] MEDS: Insulin Detemir 100 Units/ML 3 ML Pen SUBCUT SCH ×2 (08:34→21:57)
[2017-07-15] MEDS: Metoprolol Succinate 50 MG Tab.ER PO SCH (08:36)
[2017-07-15] MEDS: Enoxaparin 40 MG/0.4 ML Syringe SUBCUT SCH (08:36)
--- NOTE | 2017-07-15 08:45 | CT ---
CT left shoulder Technique: Multiple axial sections through the left shoulder were obtained. Reconstructed sagittal and coronal images were obtained. Findings: Slightly comminuted and mildly impacted fracture is noted within the surgical neck. Additional fracture line extends to the inferior aspect of the greater tuberosity but no involvement of the tuberosity is otherwise seen. Greatest displacement is about 5 mm. Fracture is seen within the anterior glenoid rim which shows displacement anteriorly by about 5 mm. Deformity to several left upper ribs having the appearance of old healed fractures. Impression: 1. Proximal humeral fracture as described above. 2. Mildly displaced anterior glenoid rim fracture. Diagnostic code #3 MTDD
[2017-07-15] MEDS: Lisinopril 20 MG Tab PO SCH (12:25)
[2017-07-15] MEDS: fentaNYL 25 MCG/HR Transdermal Patch TRDERM SCH (13:05)
--- NOTE | 2017-07-15 13:15 | PCM.PN ---
- General Info Date of Service: 07/15/17 Functional Status: Reports: Tolerating Diet, Ambulating, Urinating - Review of Systems General: Reports: Weakness HEENT: Reports: No Symptoms Pulmonary: Reports: No Symptoms Cardiovascular: Reports: No Symptoms Gastrointestinal: Reports: No Symptoms Genitourinary: Reports: No Symptoms Musculoskeletal: Reports: No Symptoms Skin: Reports: No Symptoms Neurological: Reports: No Symptoms Psychiatric: Reports: No Symptoms - Patient Data Vitals - Most Recent: Last Vital Signs Temp 36.5 C 07/15/17 02:52 Pulse 92 07/15/17 08:36 Resp 20 07/15/17 08:53 BP 153/89 H 07/15/17 12:25 Pulse Ox 93 L 07/15/17 08:35 Weight - Most Recent: 112.627 kg I&O - Last 24 Hours: Intake & Output 07/14/17 07/15/17 07/15/17 22:59 06:59 14:59 Intake Total 2044 525 Output Total 1800 800 Balance 244 -275 Lab Results Last 24 Hours: Laboratory Results - last 24 hr 07/14/17 07/14/17 07/15/17 Range/Units 16:54 21:03 06:18 WBC (4.23-9.07) K/mm3 RBC (4.63-6.08) M/mm3 Hgb (13.7-17.5) gm/L Hct (40.1-51.0) % MCV (79.0-92.2) fl MCH (25.7-32.2) pg MCHC (32.2-35.5) g/dl RDW Std Deviation (35.1-43.9) fL Plt Count (163-337) K/mm3 MPV (9.4-12.3) fl Neut % (Auto) (34.0-67.9) % Lymph % (Auto) (21.8-53.1) % [place] % (Auto) (5.3-12.2) % Eos % (Auto) (0.8-7.0) Baso % (Auto) (0.1-1.2) % Neut # (Auto) (1.78-5.38) K/mm3 Lymph # (Auto) (1.32-3.57) K/mm3 [place] # (Auto) (0.30-0.82) K/mm3 Eos # (Auto) (0.04-0.54) K/mm3 Baso # (Auto) (0.01-0.08) K/mm3 Sodium (136-145) mEq/L Potassium (3.5-5.1) mEq/L Chloride (98-107) mEq/L Carbon Dioxide (21-32) mEq/L Anion Gap (5-15) BUN (7-18) mg/dL Creatinine (0.7-1.3) mg/dL Est Cr Clr Drug Dosing mL/min Estimated GFR (MDRD) (>60) mL/min BUN/Creatinine Ratio (14-18) Glucose (80-115) mg/dL POC Glucose 168 H 220 H 143 H (80-115) mg/dL Calcium (8.5-10.1) mg/dL Magnesium (1.8-2.4) mg/dl C-Reactive Protein (<1.0) mg/dL 07/15/17 07/15/17 07/15/17 Range/Units 06:20 06:20 11:25 WBC 7.54 (4.23-9.07) K/mm3 RBC 5.11 (4.63-6.08) M/mm3 Hgb 15.0 (13.7-17.5) gm/L Hct 45.6 (40.1-51.0) % MCV 89.2 (79.0-92.2) fl MCH 29.4 (25.7-32.2) pg MCHC 32.9 (32.2-35.5) g/dl RDW Std Deviation 47.8 H (35.1-43.9) fL Plt Count 153 L (163-337) K/mm3 MPV 10.7 (9.4-12.3) fl Neut % (Auto) 64.5 (34.0-67.9) % Lymph % (Auto) 17.6 L (21.8-53.1) % [place] % (Auto) 10.7 (5.3-12.2) % Eos % (Auto) 6.5 (0.8-7.0) Baso % (Auto) 0.4 (0.1-1.2) % Neut # (Auto) 4.86 (1.78-5.38) K/mm3 Lymph # (Auto) 1.33 (1.32-3.57) K/mm3 [place] # (Auto) 0.81 (0.30-0.82) K/mm3 Eos # (Auto) 0.49 (0.04-0.54) K/mm3 Baso # (Auto) 0.03 (0.01-0.08) K/mm3 Sodium 140 (136-145) mEq/L Potassium 3.9 (3.5-5.1) mEq/L Chloride 104 (98-107) mEq/L Carbon Dioxide 27 (21-32) mEq/L Anion Gap 12.9 (5-15) BUN 16 (7-18) mg/dL Creatinine 0.6 L (0.7-1.3) mg/dL Est Cr Clr Drug Dosing 137.70 mL/min Estimated GFR (MDRD) > 60 (>60) mL/min BUN/Creatinine Ratio 26.7 H (14-18) Glucose 142 H (80-115) mg/dL POC Glucose 173 H (80-115) mg/dL Calcium 8.7 (8.5-10.1) mg/dL Magnesium 1.7 L (1.8-2.4) mg/dl C-Reactive Protein 5.3 H* (<1.0) mg/dL Med Orders - Current: Current Medications Ascorbic Acid (Vitamin C) 500 mg PO DAILY [facility] Last Admin: 07/15/17 08:33 Dose: 500 mg Benzocaine/Menthol (Cepacol Sore Throat) 1 lozenge MUCMEM Q2H PRN PRN Reason: throat irritation, dry mouth Last Admin: 07/15/17 01:01 Dose: 1 lozenge Enoxaparin Sodium (Lovenox) 40 mg SUBCUT DAILY [facility] Last Admin: 07/15/17 08:36 Dose: 40 mg Fenofibrate (Tricor) 145 mg PO DAILY [facility] Last Admin: 07/15/17 08:33 Dose: 145 mg Fentanyl (Duragesic) 25 mcg TRDERM Q72H [facility] Last Admin: 07/15/17 13:05 Dose: 25 mcg Gabapentin (Neurontin) 600 mg PO TID [facility] Last Admin: 07/15/17 08:33 Dose: 600 mg Hydralazine HCl (Apresoline) 20 mg IVPUSH Q6H PRN PRN Reason: Hypertension Last Admin: 07/15/17 04:52 Dose: 20 mg Hydromorphone HCl (Dilaudid) 1 mg IVPUSH Q6H PRN PRN Reason: Pain (moderate 4-6) Last Admin: 07/13/17 06:28 Dose: 1 mg Insulin Aspart (Novolog) 0 unit SUBCUT QIDACANDBED [facility] PRN Reason: Protocol Last Admin: 07/15/17 12:22 Dose: 3 units Insulin Detemir (Levemir) 32 unit SUBCUT BID [facility] Last Admin: 07/15/17 08:34 Dose: 32 units Lisinopril (Prinivil) 40 mg PO DAILY [facility] Last Admin: 07/15/17 12:25 Dose: 40 mg Metoprolol Succinate (Toprol Xl) 100 mg PO DAILY [facility] Last Admin: 07/15/17 08:36 Dose: 100 mg Miscellaneous Information (Remove Patch) 1 ea TRDERM Q72H [facility] Last Admin: 07/15/17 13:06 Dose: 1 ea Orphenadrine Citrate (Norflex) 100 mg PO BID [facility] Last Admin: 07/15/17 08:33 Dose: 100 mg Oxycodone HCl (Oxycodone) 5 mg PO Q6H PRN PRN Reason: PAIN Last Admin: 07/15/17 13:05 Dose: 5 mg Oxycodone/Acetaminophen (Percocet 325-5 Mg) 1 tab PO Q6H PRN PRN Reason: PAIN Last Admin: 07/15/17 13:04 Dose: 1 tab Pantoprazole Sodium (Protonix) 40 mg PO DAILY@0700 [facility] Last Admin: 07/15/17 06:24 Dose: Not Given Simvastatin (Zocor) 20 mg PO BEDTIME [facility] Last Admin: 07/14/17 20:57 Dose: 20 mg Tamsulosin HCl (Flomax) 0.4 mg PO BEDTIME [facility] Last Admin: 07/14/17 20:58 Dose: 0.4 mg Temazepam (Restoril) 30 mg PO BEDTIME [facility] Last Admin: 07/14/17 22:19 Dose: 30 mg Discontinued Medications Enoxaparin Sodium (Lovenox) 30 mg SUBCUT DAILY [facility] Last Admin: 07/13/17 09:00 Dose: 30 mg Gabapentin (Neurontin) 300 mg PO DAILY [facility] Gabapentin (Neurontin) 600 mg PO BID [facility] Last Admin: 07/14/17 10:24 Dose: 600 mg Hydromorphone HCl (Dilaudid) 1 mg IM ONETIME ONE Stop: 07/12/17 09:02 Last Admin: 07/12/17 09:39 Dose: Not Given Hydromorphone HCl (Dilaudid) 1 mg IM ONETIME STA Stop: 07/12/17 09:08 Last Admin: 07/12/17 09:14 Dose: 1 mg Hydromorphone HCl (Dilaudid) 1 mg IVPUSH ONETIME [facility] Stop: 07/12/17 10:16 Last Admin: 07/12/17 10:21 Dose: 1 mg Hydromorphone HCl (Dilaudid) 1 mg IVPUSH Q6H PRN PRN Reason: Pain (moderate 4-6) Lactated Ringer's (Ringers, Lactated) 1,000 mls @ 75 mls/hr IV ASDIRECTED [facility] Last Admin: 07/14/17 06:06 Dose: 75 mls/hr Magnesium Sulfate 2 gm/ Premix 50 mls @ 25 mls/hr IV Q2H [facility] Stop: 07/13/17 15:44 Last Admin: 07/13/17 15:12 Dose: 25 mls/hr Magnesium Sulfate 4 gm/ Premix 100 mls @ 50 mls/hr IV ONETIME ONE Stop: 07/13/17 17:17 Last Admin: 07/13/17 17:56 Dose: Not Given Naloxone HCl (Narcan) 0.4 mg IVPUSH ONETIME ONE Stop: 07/13/17 12:46 Last Admin: 07/13/17 12:48 Dose: 0.4 mg Non-Formulary Medication (Insulin Lispro [Humalog]) 1 dose SQ TID [facility] Non-Formulary Medication (Ubidecarenone) 100 mg PO DAILY [facility] - Exam Quality Assessment: Supplemental Oxygen, DVT Prophylaxis General: Alert, Oriented, Cooperative, No Acute Distress HEENT: Pupils Equal, Pupils Reactive, EOMI Neck: Trachea Midline Lungs: Clear to Auscultation, Normal Respiratory Effort Cardiovascular: Regular Rate, Regular Rhythm GI/Abdominal Exam: Normal Bowel Sounds, Soft, Non-Tender, No Organomegaly, No Distention (Male) Exam: Deferred Back Exam: Normal Inspection Extremities: Normal Inspection, Non-Tender Skin: Warm Neurological: No New Focal Deficit Psy/Mental Status: Alert, Anxious, Depressed - Problem List & Annotations (1) Left humeral fracture SNOMED Code(s): 64005401 Code(s): S42.302A - UNSP FRACTURE OF SHAFT OF HUMERUS, LEFT ARM, INIT Status: Acute Current Visit: Yes (2) Adjustment disorder with anxiety SNOMED Code(s): 66252761 Code(s): F43.22 - ADJUSTMENT DISORDER WITH ANXIETY Status: Acute Current Visit: No (3) Back pain SNOMED Code(s): 592441565 Code(s): M54.9 - DORSALGIA, UNSPECIFIED Status: Acute Current Visit: No (4) COPD (chronic obstructive pulmonary disease) SNOMED Code(s): 68866409 Code(s): J44.9 - CHRONIC OBSTRUCTIVE PULMONARY DISEASE, UNSPECIFIED Status : Acute Current Visit: No (5) Diverticulosis of colon SNOMED Code(s): 856669898 Code(s): K57.30 - DVRTCLOS OF LG INT W/O PERFORATION OR ABSCESS W/O BLEEDING Status: Chronic Priority: Low Current Visit: No (6) Type 2 diabetes mellitus SNOMED Code(s): 45985067 Code(s): E11.9 - TYPE 2 DIABETES MELLITUS WITHOUT COMPLICATIONS Status: Chronic Priority: Low Current Visit: No Qualifiers: Diabetes mellitus complication status: with unspecified complications Diabetes mellitus nursing home insulin use: unspecified onion topper insulin use status Qualified Code(s): E11.8 - Type 2 diabetes mellitus with unspecified complications - Problem List Review Problem List Initiated/Reviewed/Updated: Yes - My Orders Last 24 Hours: My Active Orders 07/14/17 15:00 Gabapentin [Neurontin] 600 mg PO TID 07/14/17 15:23 hydrALAZINE [Apresoline] 20 mg IVPUSH Q6H PRN 07/15/17 14:00 Remove Patch 1 ea TRDERM Q72H 07/16/17 05:00 BMP [BASIC METABOLIC PANEL,BMP] [CHEM] DAILY CRP [C-REACTIVE PROTEIN] [CHEM] DAILY MAGNESIUM [CHEM] DAILY 07/16/17 12:08 CBC WITH AUTO DIFF [HEME] DAILY - Plan Plan:: Impression: Acute traumatic LUE injury with displaced fracture at the humeral neck. S/P fall 07/12/17. Requested ortho consult, changed providers today. Will have radiographi study for possible surgical intervention--->non surgical RUE amputation Multiple orthopedic procedures including spinal fusion, lumbar Chronic pain with dependence on narcotics; adjusted non narcotic pain mgt increased Neurontin 600 mg TID. History of WPW S/P ablation Diabetes Mellitus, poor control, Hgb A1C>9.0, continue home meds and increase SS to high level Chronic DM type II Obesity HLD Hx of pancreatitis Plan: LUE sling and swath Pain mgt Home meds Daily labs Correct electrolytes as needed. Consult PT/OT/SW DVT/GI prophylaxis LOS>96 hours with placement needed.
[2017-07-15] MEDS ORDERED: Remove Patch*FENTANYL TRDERM SCH (14:00)
[2017-07-15] MEDS ORDERED: Magnesium Oxide 400 MG Tab PO ONE (18:05)
[2017-07-15] MEDS: Temazepam 15 MG Cap PO SCH (21:55)
[2017-07-15] MEDS: Tamsulosin 0.4 MG Cap.ER PO SCH (21:56)
[2017-07-15] MEDS: Simvastatin 20 MG Tab PO SCH (21:57)
[2017-07-16] MEDS: Acetaminophen/oxyCODONE 325-5 MG Tab PO PRN (06:51)
[2017-07-16] MEDS: Pantoprazole 40 MG Tab.CR PO SCH (06:52)
[2017-07-16] MEDS: oxyCODONE 5 MG Tab PO PRN (06:52)
--- NOTE | 2017-07-16 07:16 | PCM.CONS ---
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 He presents with pain to the left shoulder after a fall on the ice on 07/12/17. Patient was evaluated and found to have a left proximal humerus fracture. Patient was subsequently placed in a shoulder immobilizer and admitted to the floor secondary to having only his left upper extremity for daily living activities. Patient denies any previous pain or problems and lives alone. He also has multiple other health issues including diabetes with a hemoglobin a1c of nearly 10. Left Arm Pain Score (Numeric/FACES): 5 - Related Data Allergies/Adverse Reactions: Allergies Allergy/AdvReac Type Severity Reaction Status Date / Time cat dander Allergy Airway Verified 07/12/17 12:29 Tightness Corticosteroids Allergy Cannot Verified 07/12/17 12:29 (Glucocorticoids) Remember lorazepam Allergy Cannot Verified 07/12/17 12:29 Remember peanut Allergy Anaphylactic Verified 07/12/17 12:29 Shock levofloxacin AdvReac Other Verified 07/12/17 12:29 metformin AdvReac Diarrhea Verified 07/12/17 12:29 Home Medications: Home Meds Metoprolol Succinate [Toprol XL] 100 mg PO DAILY 10/29/14 [History] Pravastatin [Pravachol] 40 mg PO DAILY 10/29/14 [History] Temazepam 30 mg PO BEDTIME 10/29/14 [History] Multivitamin [Multi-Vitamin Daily] 1 tab PO DAILY 01/13/16 [History] Potassium Chloride 20 meq PO DAILY #30 tablet.er 09/29/16 [Rx] Fenofibric Acid (Choline) [Fenofibric Acid] 135 mg PO DAILY 02/24/17 [History] Gabapentin [Neurontin] 300 mg PO DAILY 02/24/17 [History] Tamsulosin [Flomax] 0.4 mg PO BEDTIME 02/24/17 [History] oxyCODONE HCl/Acetaminophen [Percocet 10-325 mg Tablet] 1 each PO Q6HR PRN 02/24 [History] Acai Valle Extract [Acai] 500 mg PO DAILY 06/23/17 [History] Ascorbate Calcium [Vitamin C] 500 mg PO DAILY 06/23/17 [History] Bee Pollen 550 mg PO DAILY 06/23/17 [History] Beta-Carotene [Beta Carotene] 25,000 unit PO DAILY 06/23/17 [History] Cinnamon Bark [Cinnamon] 500 mg PO DAILY 06/23/17 [History] Cranberry 500 mg PO DAILY 06/23/17 [History] Fish Oil/Marion-3 Fatty Acids [Fish Oil 1,000 MG] 1 gm PO DAILY 06/23/17 [History ] Garlic 1 tab PO DAILY 06/23/17 [History] Insulin Lispro [Humalog] 1 dose SQ TID 06/23/17 [History] Lisinopril 40 mg PO DAILY 06/23/17 [History] Omeprazole Magnesium [Prilosec Otc] 40 mg PO DAILY 06/23/17 [History] Orphenadrine Citrate 100 mg PO BID 06/23/17 [History] Tresiba 64 units SQ ASDIRECTED 06/23/17 [History] Ubidecarenone [Coq-10] 100 mg PO DAILY 06/23/17 [History] Vitamin B Complex [B Complex] 1 tab PO DAILY 06/23/17 [History] Past Medical History HEENT History: Reports: Impaired Vision Other HEENT History: Wears glasses, loss portion of vision in left eye Cardiovascular History: Reports: Arrhythmia (Mehbp-[id number], s/p ablation ), High Cholesterol, Hypertension Other Cardiovascular History: hx of more parkinsons syndrome-surgery was done. Respiratory History: Reports: Sleep Apnea Other Respiratory History: hemothorax with chest tube Gastrointestinal History: Reports: Diverticulosis, GERD, Pancreatitis Other Gastrointestinal History: rectal bleeding, dysphagia Genitourinary History: Reports: Acute Renal Failure (s/p transient HD), BPH Other Genitourinary History: hemodyalysis for 2mo. SOLUTIONS ENGINEER History: Reports: None Musculoskeletal History: Reports: Amputation (RUE), Fracture (lumbar spine) Other Musculoskeletal History: Lumbar fracture Neurological History: Reports: Neuropathy, Peripheral Psychiatric History: Reports: Anxiety Endocrine/Metabolic History: Reports: Diabetes, Type II, Obesity/BMI 30+ Other Endocrine/Metabolic History: diabetic Hematologic History: Reports: Other (See Below) Other Hematologic History: Hypopotassemia Immunologic History: Reports: None Oncologic (Cancer) History: Reports: Other (See Below) Other Oncologic History: preliminary skin cancer, removed and biopsy, froze the area. Dermatologic History: Reports: Cellulitis, Other (See Below) Other Dermatologic History: boils - Infectious Disease History Infectious Disease History: Reports: Influenza - Past Surgical History HEENT Surgical History: Reports: Adenoidectomy, Tonsillectomy GI Surgical History: Reports: Colonoscopy, Hernia, Inguinal, Other (See Below) ( Repair of testicular torsion) Neurological Surgical History: Reports: Lumbar Spine (Fusion) Musculoskeletal Surgical History: Reports: Knee Replacement (bilateral), Other ( See Below) (RUE amputation) Social & Family History - Family History Family Medical History: Noncontributory - Tobacco Use Smoking Status *Q: Never Smoker Second Hand Smoke Exposure: No - Caffeine Use Caffeine Use: Reports: Coffee - Recreational Drug Use Recreational Drug Use: No - Living Situation & Occupation Living situation: Reports: Single, Alone Occupation: Disabled H&P Review of Systems - Review of Systems: Review Of Systems: ROS reveals no pertinent complaints other than HPI. Exam - Exam Exam: See Below - Vital Signs Vital Signs: Last Vital Signs Temp 36.6 C 07/16/17 02:30 Pulse 89 07/16/17 02:30 Resp 16 07/16/17 02:30 BP 124/79 07/16/17 02:30 Pulse Ox 91 L 07/16/17 02:30 Weight: 110.903 kg - Exam Physical Exam Comments:: LUE: no tenderness to palpation to the clavicle or elbow, able to move elbow without difficulty, able to move wrist with no tenderness, able to flex and extend the IP joint of his thumb and abduct and adduct his fingers, neurovascularly intact to the median, radial, and ulnar nerve distribution with 2+ distal pulses - Patient Data Lab Results Last 24 hrs: Laboratory Results - last 24 hr 07/15/17 07/15/17 07/15/17 Range/Units 06:20 11:25 16:26 WBC (4.23-9.07) K/mm3 RBC (4.63-6.08) M/mm3 Hgb (13.7-17.5) gm/L Hct (40.1-51.0) % MCV (79.0-92.2) fl MCH (25.7-32.2) pg MCHC (32.2-35.5) g/dl RDW Std Deviation (35.1-43.9) fL Plt Count (163-337) K/mm3 MPV (9.4-12.3) fl Neut % (Auto) (34.0-67.9) % Lymph % (Auto) (21.8-53.1) % Latimer % (Auto) (5.3-12.2) % Eos % (Auto) (0.8-7.0) Baso % (Auto) (0.1-1.2) % Neut # (Auto) (1.78-5.38) K/mm3 Lymph # (Auto) (1.32-3.57) K/mm3 Latimer # (Auto) (0.30-0.82) K/mm3 Eos # (Auto) (0.04-0.54) K/mm3 Baso # (Auto) (0.01-0.08) K/mm3 Sodium 140 (136-145) mEq/L Potassium 3.9 (3.5-5.1) mEq/L Chloride 104 (98-107) mEq/L Carbon Dioxide 27 (21-32) mEq/L Anion Gap 12.9 (5-15) BUN 16 (7-18) mg/dL Creatinine 0.6 L (0.7-1.3) mg/dL Est Cr Clr Drug Dosing 137.70 mL/min Estimated GFR (MDRD) > 60 (>60) mL/min BUN/Creatinine Ratio 26.7 H (14-18) Glucose 142 H (80-115) mg/dL POC Glucose 173 H 211 H (80-115) mg/dL Calcium 8.7 (8.5-10.1) mg/dL Magnesium 1.7 L (1.8-2.4) mg/dl C-Reactive Protein 5.3 H* (<1.0) mg/dL 07/15/17 07/16/17 07/16/17 Range/Units 21:54 06:05 06:05 WBC 5.74 (4.23-9.07) K/mm3 RBC 4.81 (4.63-6.08) M/mm3 Hgb 13.9 (13.7-17.5) gm/L Hct 43.2 (40.1-51.0) % MCV 89.8 (79.0-92.2) fl MCH 28.9 (25.7-32.2) pg MCHC 32.2 (32.2-35.5) g/dl RDW Std Deviation 50.1 H (35.1-43.9) fL Plt Count 188 (163-337) K/mm3 MPV 10.2 (9.4-12.3) fl Neut % (Auto) 58.7 (34.0-67.9) % Lymph % (Auto) 20.4 L (21.8-53.1) % Latimer % (Auto) 12.4 H (5.3-12.2) % Eos % (Auto) 7.5 H (0.8-7.0) Baso % (Auto) 0.7 (0.1-1.2) % Neut # (Auto) 3.37 (1.78-5.38) K/mm3 Lymph # (Auto) 1.17 L (1.32-3.57) K/mm3 Latimer # (Auto) 0.71 (0.30-0.82) K/mm3 Eos # (Auto) 0.43 (0.04-0.54) K/mm3 Baso # (Auto) 0.04 (0.01-0.08) K/mm3 Sodium 139 (136-145) mEq/L Potassium 3.9 (3.5-5.1) mEq/L Chloride 104 (98-107) mEq/L Carbon Dioxide 27 (21-32) mEq/L Anion Gap 11.9 (5-15) BUN 21 H (7-18) mg/dL Creatinine 0.7 (0.7-1.3) mg/dL Est Cr Clr Drug Dosing 118.03 mL/min Estimated GFR (MDRD) > 60 (>60) mL/min BUN/Creatinine Ratio 30.0 H (14-18) Glucose 207 H (80-115) mg/dL POC Glucose 208 H (80-115) mg/dL Calcium 8.7 (8.5-10.1) mg/dL Magnesium 1.7 L (1.8-2.4) mg/dl C-Reactive Protein 3.9 H* (<1.0) mg/dL 07/16/17 Range/Units 06:51 WBC (4.23-9.07) K/mm3 RBC (4.63-6.08) M/mm3 Hgb (13.7-17.5) gm/L Hct (40.1-51.0) % MCV (79.0-92.2) fl MCH (25.7-32.2) pg MCHC (32.2-35.5) g/dl RDW Std Deviation (35.1-43.9) fL Plt Count (163-337) K/mm3 MPV (9.4-12.3) fl Neut % (Auto) (34.0-67.9) % Lymph % (Auto) (21.8-53.1) % Latimer % (Auto) (5.3-12.2) % Eos % (Auto) (0.8-7.0) Baso % (Auto) (0.1-1.2) % Neut # (Auto) (1.78-5.38) K/mm3 Lymph # (Auto) (1.32-3.57) K/mm3 Latimer # (Auto) (0.30-0.82) K/mm3 Eos # (Auto) (0.04-0.54) K/mm3 Baso # (Auto) (0.01-0.08) K/mm3 Sodium (136-145) mEq/L Potassium (3.5-5.1) mEq/L Chloride (98-107) mEq/L Carbon Dioxide (21-32) mEq/L Anion Gap (5-15) BUN (7-18) mg/dL Creatinine (0.7-1.3) mg/dL Est Cr Clr Drug Dosing mL/min Estimated GFR (MDRD) (>60) mL/min BUN/Creatinine Ratio (14-18) Glucose (80-115) mg/dL POC Glucose 198 H (80-115) mg/dL Calcium (8.5-10.1) mg/dL Magnesium (1.8-2.4) mg/dl C-Reactive Protein (<1.0) mg/dL Result Diagrams: 07/16/17 06:05 07/16/17 06:05 Consult PN Assessment/Plan Procedures: Procedures AGENT NOS ASSAY W/OPTIC (02/25/17) AIRWAY INHALATION TREATMENT (02/25/17) ANTINUCLEAR ANTIBODIES (09/30/16) ASSAY OF LACTIC ACID (11/18/15) ASSAY OF LIPASE (02/08/16) ASSAY OF MAGNESIUM (02/25/17) ASSAY OF NATRIURETIC PEPTIDE (02/25/17) ASSAY OF TROPONIN QUANT (05/18/17) ASSAY THYROID STIM HORMONE (06/23/17) BLOOD CULTURE FOR BACTERIA (02/25/17) C-REACTIVE PROTEIN (02/25/17) CARDIOVASCULAR STRESS TEST (05/25/17) CCP ANTIBODY (09/30/16) CHEST X-RAY 1 VIEW FRONTAL (02/25/17) CHEST X-RAY 2VW FRONTAL&LATL (02/25/17) CHYLMD PNEUM DNA AMP PROBE (02/25/17) COLONOSCOPY AND BIOPSY (06/24/17) COMPLETE CBC W/AUTO DIFF WBC (05/18/17) COMPREHEN METABOLIC PANEL (06/23/17) CREATINE MB FRACTION (02/25/17) CT ABD & PELV W/CONTRAST (11/24/13) CT LUMBAR SPINE W/O DYE (01/10/15) CT PELVIS W/O DYE (01/10/15) CT THORAX W/DYE (02/25/17) CULTURE OTHR SPECIMN AEROBIC (02/25/17) DETECT AGENT NOS DNA AMP (02/25/17) DRUG TEST PRSMV INSTRMNT (06/09/17) ELECTROCARDIOGRAM TRACING (05/18/17) EMERGENCY DEPT VISIT (02/25/17) EMERGENCY DEPT VISIT (09/14/16) EMERGENCY DEPT VISIT (02/08/16) EMERGENCY DEPT VISIT (02/02/16) EMERGENCY DEPT VISIT (01/13/16) EMERGENCY DEPT VISIT (11/18/15) EMERGENCY DEPT VISIT (12/12/14) EMERGENCY DEPT VISIT (10/29/14) EVALUATION OF WHEEZING (02/25/17) FIBRIN DEGRADATION QUANT (02/25/17) GAIT TRAINING THERAPY (02/25/17) GLUCOSE BLOOD TEST (06/24/17) GLYCOSYLATED HEMOGLOBIN TEST (06/23/17) HEP B SURFACE ANTIBODY (06/23/17) HEPATITIS B SURFACE AG IA (06/23/17) HEPATITIS C AB TEST (06/23/17) HT MUSCLE IMAGE SPECT MULT (05/25/17) HYDRATE IV INFUSION ADD-ON (02/25/17) HYDRATION IV INFUSION INIT (09/29/16) INSERT TEMP BLADDER CATH (09/29/16) LIPID PANEL (06/23/17) M.PNEUMON DNA AMP PROBE (02/25/17) MEASURE BLOOD OXYGEN LEVEL (02/25/17) MEASURE BLOOD OXYGEN LEVEL (02/25/17) MEDICAL NUTRITION INDIV IN (06/05/17) METABOLIC PANEL TOTAL CA (02/25/17) MRI CHEST SPINE W/O DYE (08/28/15) MRI LUMBAR SPINE W/O DYE (08/03/15) MRI NECK SPINE W/O DYE (08/03/15) MYCOPLASMA ANTIBODY (02/25/17) OFFICE/OUTPATIENT VISIT EST (06/09/17) OFFICE/OUTPATIENT VISIT NEW (05/18/17) OT EVAL HIGH COMPLEX 60 MIN (02/25/17) POS AIRWAY PRESSURE CPAP (02/25/17) PROTHROMBIN TIME (09/29/16) PT EVAL MOD COMPLEX 30 MIN (02/25/17) RBC SED RATE AUTOMATED (09/30/16) RESP VIRUS 12-25 TARGETS (02/25/17) RHEUMATOID FACTOR TEST QUAL (09/30/16) ROUTINE VENIPUNCTURE (06/23/17) SMEAR GRAM STAIN (02/25/17) THER/PROPH/DIAG INJ IV PUSH (02/08/16) THER/PROPH/DIAG IV INF ADDON (02/02/16) THER/PROPH/DIAG IV INF INIT (02/25/17) THERAPEUTIC ACTIVITIES (02/25/17) THERAPEUTIC EXERCISES (02/25/17) THROMBOPLASTIN TIME PARTIAL (01/13/16) TX/PRO/DX INJ NEW DRUG ADDON (02/25/17) TX/PRO/DX INJ SAME DRUG IT SERVICE CONTINUITY SUPERVISOR (07/27/15) UR ALBUMIN QUANTITATIVE (06/23/17) URINALYSIS AUTO W/SCOPE (09/29/16) US URINE CAPACITY MEASURE (09/29/16) X-RAY EXAM L-S SPINE 2/3 VWS (02/02/16) X-RAY EXAM OF SHOULDER (01/13/16) X-RAY EXAM RIBS UNI 2 VIEWS (12/12/14) X-RAY EXAM THORAC SPINE 2VWS (01/13/16) X-RAY EXAM UNILAT RIBS/CHEST (02/02/16) Problem List Initiated/Reviewed/Updated: Yes Plan: A: Left proximal humerus fracture with anterior glenoid rim fracture P: I had a long discussion with the patient with this being his only upper extremity this is a difficult problem. A CT scan was ordered of the left shoulder and it showed almost no displacement of the proximal humerus fracture at this time. I discussed both operative and non-operative management at this time and the risks and benefits of both. The patient is apprehensive about surgery if it is not guaranteed secondary to this being his only arm. I did also discuss with him the significant risk of arthrofibrosis as well as infection secondary to his poorly controlled diabetes at this time. After discussing this with him he would like to try non-operative management and we will have the patient follow up in 1 week with radiographs. I did discuss with the patient that if it displaces at all we should consider operative management. He is in agreement with this plan.
[2017-07-16] MEDS: Insulin Aspart 100 Units/ML 3 ML Pen SUBCUT SCH (08:29)
[2017-07-16] MEDS: Insulin Detemir 100 Units/ML 3 ML Pen SUBCUT SCH (08:29)
[2017-07-16] MEDS: Lisinopril 20 MG Tab PO SCH (08:30)
[2017-07-16] MEDS: Metoprolol Succinate 50 MG Tab.ER PO SCH (08:30)
[2017-07-16] MEDS: Orphenadrine 100 MG Tab.ER PO SCH (08:35)
[2017-07-16] MEDS: Gabapentin 600 MG Tab PO SCH (08:35)
[2017-07-16] MEDS: Ascorbic Acid 500 MG Tab PO SCH (08:35)
[2017-07-16 08:36] VITALS: BP 143/83
[2017-07-16] MEDS: Enoxaparin 40 MG/0.4 ML Syringe SUBCUT SCH (08:36)
[2017-07-16] MEDS: Fenofibrate Nanocrystallized 145 MG Tab PO SCH (08:36)
--- NOTE | 2017-07-16 11:29 | PCM.DCSUM1 ---
Discharge Summary - Hospital Course Free Text/Narrative:: 62 year old male with a moderately displaced fracture of left humerus will be admitted for intractable pain. He will acutely require SNF, he has a history of a RUE amputation; the injured limb is the LUE. Thus he will be unable to use his one remaining UE until the pain is more manageable. An otho consult has been made, however another provider was notified, Dr Toledo assessed the patient and made non surgical recommendations. He has been accepted at [facility] for recovery from his traumatic injury. The patient is considering another location, but will be DCd to the current facility. He may or may not choose to leave for the other facility if accepted. - Discharge Data Discharge Date: 07/16/17 Discharge Disposition: Home, Self-Care 01 Condition: Good - Discharge Diagnosis/Problem(s) (1) Left humeral fracture SNOMED Code(s): 07267695 ICD Code: S42.302A - UNSP FRACTURE OF SHAFT OF HUMERUS, LEFT ARM, INIT Status: Acute Current Visit: Yes (2) Adjustment disorder with anxiety SNOMED Code(s): 99953166 ICD Code: F43.22 - ADJUSTMENT DISORDER WITH ANXIETY Status: Acute Current Visit: No (3) Back pain SNOMED Code(s): 510400009 ICD Code: M54.9 - DORSALGIA, UNSPECIFIED Status: Acute Current Visit: No (4) COPD (chronic obstructive pulmonary disease) SNOMED Code(s): 35682227 ICD Code: J44.9 - CHRONIC OBSTRUCTIVE PULMONARY DISEASE, UNSPECIFIED Status : Acute Current Visit: No (5) Diverticulosis of colon SNOMED Code(s): 458716904 ICD Code: K57.30 - DVRTCLOS OF LG INT W/O PERFORATION OR ABSCESS W/O BLEEDING Status: Chronic Priority: Low Current Visit: No (6) Type 2 diabetes mellitus SNOMED Code(s): 90065390 ICD Code: E11.9 - TYPE 2 DIABETES MELLITUS WITHOUT COMPLICATIONS Status: Chronic Priority: Low Current Visit: No Qualifiers: Diabetes mellitus complication status: with unspecified complications Diabetes mellitus joint terminal attack controller insulin use: unspecified longterm insulin use status Qualified Code(s): E11.8 - Type 2 diabetes mellitus with unspecified complications - Patient Summary/Data Consults: Consultations 07/12/17 12:10 Consult to Dietary [Consult to Manager Coding] [CONS] Routine 07/12/17 12:11 Consult to Occupational Therapy [OT Evaluation and Treatment] [CONS] Routine Consult to Physical Therapy [PT Evaluation and Treatment] [CONS] Routine 07/12/17 12:12 Consult to Software Technical Lead [CONS] Routine 07/14/17 11:03 Consult to Physician [CONS] Routine - Patient Instructions Diet: Usual Diet as Tolerated Activity: As Tolerated Driving: Do Not Drive Showering/Bathing: May Shower Notify Provider of: Fever, Increased Pain, Nausea and/or Vomiting - Discharge Plan Prescriptions/Med Rec: fentaNYL [Duragesic] 25 mcg TRDERM Q72H #3 patch Gabapentin [Neurontin] 600 mg PO TIDAC #90 capsule Home Medications: Home Meds Metoprolol Succinate [Toprol XL] 100 mg PO DAILY 10/29/14 [History] Pravastatin [Pravachol] 40 mg PO DAILY 10/29/14 [History] Multivitamin [Multi-Vitamin Daily] 1 tab PO DAILY 01/13/16 [History] Potassium Chloride 20 meq PO DAILY #30 tablet.er 09/29/16 [Rx] Fenofibric Acid (Choline) [Fenofibric Acid] 135 mg PO DAILY 02/24/17 [History] Tamsulosin [Flomax] 0.4 mg PO BEDTIME 02/24/17 [History] oxyCODONE HCl/Acetaminophen [Percocet 10-325 mg Tablet] 1 each PO Q6HR PRN 02/24 [History] Acai Valle Extract [Acai] 500 mg PO DAILY 06/23/17 [History] Ascorbate Calcium [Vitamin C] 500 mg PO DAILY 06/23/17 [History] Bee Pollen 550 mg PO DAILY 06/23/17 [History] Beta-Carotene [Beta Carotene] 25,000 unit PO DAILY 06/23/17 [History] Cinnamon Bark [Cinnamon] 500 mg PO DAILY 06/23/17 [History] Cranberry 500 mg PO DAILY 06/23/17 [History] Fish Oil/[place]-3 Fatty Acids [Fish Oil 1,000 MG] 1 gm PO DAILY 06/23/17 [History ] Garlic 1 tab PO DAILY 06/23/17 [History] Insulin Lispro [Humalog] 1 dose SQ TID 06/23/17 [History] Lisinopril 40 mg PO DAILY 06/23/17 [History] Omeprazole Magnesium [Prilosec Otc] 40 mg PO DAILY 06/23/17 [History] Orphenadrine Citrate 100 mg PO BID 06/23/17 [History] Tresiba 64 units SQ ASDIRECTED 06/23/17 [History] Ubidecarenone [Coq-10] 100 mg PO DAILY 06/23/17 [History] Vitamin B Complex [B Complex] 1 tab PO DAILY 06/23/17 [History] Gabapentin [Neurontin] 600 mg PO TIDAC #90 capsule 07/16/17 [Rx] Temazepam 7.5 mg PO BEDTIME PRN #30 07/16/17 [Rx] fentaNYL [Duragesic] 25 mcg TRDERM Q72H #3 patch 07/16/17 [Rx] Referrals: Solomon Toledo MD [Physician] - (Make appointment to follow-up in 1 week. Patient will need x-rays/CT scan of left shoulder and left humerus prior to appointment.) Curtis Henao [Primary Care Provider] - (Follow-up as needed.) - Discharge Summary/Plan Comment DC Time >30 min.: No Discharge Summary/Plan Comment: Impression: Acute traumatic LUE injury with displaced fracture at the humeral neck. S/P fall 07/12/17. Requested ortho consult, changed providers today. Will have radiographi study for possible surgical intervention--->non surgical RUE amputation Multiple orthopedic procedures including spinal fusion, lumbar Chronic pain with dependence on narcotics; adjusted non narcotic pain mgt increased Neurontin 600 mg TID. History of WPW S/P ablation Diabetes Mellitus, poor control, Hgb A1C>9.0, continue home meds and increase SS to high level Chronic DM type II Obesity HLD Hx of pancreatitis Plan: LUE sling and swath Pain mgt Home meds Daily labs Correct electrolytes as needed. Consult PT/OT/SW DVT/GI prophylaxis LOS>96 hours with placement needed. Consult snapshot with Dr Toledo during hospitalization A: Left proximal humerus fracture with anterior glenoid rim fracture P: I had a long discussion with the patient with this being his only upper extremity this is a difficult problem. A CT scan was ordered of the left shoulder and it showed almost no displacement of the proximal humerus fracture at this time. I discussed both operative and non-operative management at this time and the risks and benefits of both. The patient is apprehensive about surgery if it is not guaranteed secondary to this being his only arm. I did also discuss with him the significant risk of arthrofibrosis as well as infection secondary to his poorly controlled diabetes at this time. After discussing this with him he would like to try non-operative management and we will have the patient follow up in 1 week with radiographs. I did discuss with the patient that if it displaces at all we should consider operative management. He is in agreement with this plan. - General Info Date of Service: 07/12/17 Functional Status: Reports: Pain Controlled, Tolerating Diet, Ambulating, Urinating - Review of Systems General: Reports: No Symptoms HEENT: Reports: No Symptoms Pulmonary: Reports: No Symptoms Cardiovascular: Reports: No Symptoms Gastrointestinal: Reports: No Symptoms Genitourinary: Reports: No Symptoms Musculoskeletal: Reports: No Symptoms Skin: Reports: No Symptoms Neurological: Reports: No Symptoms Psychiatric: Reports: No Symptoms - Patient Data Vitals - Most Recent: Last Vital Signs Temp 36.7 C 07/16/17 08:33 Pulse 85 07/16/17 08:33 Resp 18 07/16/17 08:33 BP 143/83 H 07/16/17 08:33 Pulse Ox 92 L 07/16/17 08:33 Weight - Most Recent: 110.903 kg I&O - Last 24 hours: Intake & Output 07/15/17 07/16/17 07/16/17 22:59 06:59 14:59 Intake Total 1490 200 300 Output Total 1250 950 Balance 240 -750 300 Lab Results - Last 24 hrs: Laboratory Results - last 24 hr 07/15/17 07/15/17 07/15/17 Range/Units 11:25 16:26 21:54 WBC (4.23-9.07) K/mm3 RBC (4.63-6.08) M/mm3 Hgb (13.7-17.5) gm/L Hct (40.1-51.0) % MCV (79.0-92.2) fl MCH (25.7-32.2) pg MCHC (32.2-35.5) g/dl RDW Std Deviation (35.1-43.9) fL Plt Count (163-337) K/mm3 MPV (9.4-12.3) fl Neut % (Auto) (34.0-67.9) % Lymph % (Auto) (21.8-53.1) % [place] % (Auto) (5.3-12.2) % Eos % (Auto) (0.8-7.0) Baso % (Auto) (0.1-1.2) % Neut # (Auto) (1.78-5.38) K/mm3 Lymph # (Auto) (1.32-3.57) K/mm3 [place] # (Auto) (0.30-0.82) K/mm3 Eos # (Auto) (0.04-0.54) K/mm3 Baso # (Auto) (0.01-0.08) K/mm3 Sodium (136-145) mEq/L Potassium (3.5-5.1) mEq/L Chloride (98-107) mEq/L Carbon Dioxide (21-32) mEq/L Anion Gap (5-15) BUN (7-18) mg/dL Creatinine (0.7-1.3) mg/dL Est Cr Clr Drug Dosing mL/min Estimated GFR (MDRD) (>60) mL/min BUN/Creatinine Ratio (14-18) Glucose (80-115) mg/dL POC Glucose 173 H 211 H 208 H (80-115) mg/dL Calcium (8.5-10.1) mg/dL Magnesium (1.8-2.4) mg/dl C-Reactive Protein (<1.0) mg/dL 07/16/17 07/16/17 07/16/17 Range/Units 06:05 06:05 06:51 WBC 5.74 (4.23-9.07) K/mm3 RBC 4.81 (4.63-6.08) M/mm3 Hgb 13.9 (13.7-17.5) gm/L Hct 43.2 (40.1-51.0) % MCV 89.8 (79.0-92.2) fl MCH 28.9 (25.7-32.2) pg MCHC 32.2 (32.2-35.5) g/dl RDW Std Deviation 50.1 H (35.1-43.9) fL Plt Count 188 (163-337) K/mm3 MPV 10.2 (9.4-12.3) fl Neut % (Auto) 58.7 (34.0-67.9) % Lymph % (Auto) 20.4 L (21.8-53.1) % [place] % (Auto) 12.4 H (5.3-12.2) % Eos % (Auto) 7.5 H (0.8-7.0) Baso % (Auto) 0.7 (0.1-1.2) % Neut # (Auto) 3.37 (1.78-5.38) K/mm3 Lymph # (Auto) 1.17 L (1.32-3.57) K/mm3 [place] # (Auto) 0.71 (0.30-0.82) K/mm3 Eos # (Auto) 0.43 (0.04-0.54) K/mm3 Baso # (Auto) 0.04 (0.01-0.08) K/mm3 Sodium 139 (136-145) mEq/L Potassium 3.9 (3.5-5.1) mEq/L Chloride 104 (98-107) mEq/L Carbon Dioxide 27 (21-32) mEq/L Anion Gap 11.9 (5-15) BUN 21 H (7-18) mg/dL Creatinine 0.7 (0.7-1.3) mg/dL Est Cr Clr Drug Dosing 118.03 mL/min Estimated GFR (MDRD) > 60 (>60) mL/min BUN/Creatinine Ratio 30.0 H (14-18) Glucose 207 H (80-115) mg/dL POC Glucose 198 H (80-115) mg/dL Calcium 8.7 (8.5-10.1) mg/dL Magnesium 1.7 L (1.8-2.4) mg/dl C-Reactive Protein 3.9 H* (<1.0) mg/dL Med Orders - Current: Current Medications Ascorbic Acid (Vitamin C) 500 mg PO DAILY [facility] Last Admin: 07/16/17 08:35 Dose: 500 mg Benzocaine/Menthol (Cepacol Sore Throat) 1 lozenge MUCMEM Q2H PRN PRN Reason: throat irritation, dry mouth Last Admin: 07/15/17 01:01 Dose: 1 lozenge Enoxaparin Sodium (Lovenox) 40 mg SUBCUT DAILY [facility] Last Admin: 07/16/17 08:36 Dose: 40 mg Fenofibrate (Tricor) 145 mg PO DAILY [facility] Last Admin: 07/16/17 08:36 Dose: 145 mg Fentanyl (Duragesic) 25 mcg TRDERM Q72H [facility] Last Admin: 07/15/17 13:05 Dose: 25 mcg Gabapentin (Neurontin) 600 mg PO TID [facility] Last Admin: 07/16/17 08:35 Dose: 600 mg Hydralazine HCl (Apresoline) 20 mg IVPUSH Q6H PRN PRN Reason: Hypertension Last Admin: 07/15/17 19:39 Dose: 20 mg Hydromorphone HCl (Dilaudid) 1 mg IVPUSH Q6H PRN PRN Reason: Pain (moderate 4-6) Last Admin: 07/13/17 06:28 Dose: 1 mg Insulin Aspart (Novolog) 0 unit SUBCUT QIDACANDBED [facility] PRN Reason: Protocol Last Admin: 07/16/17 08:29 Dose: 3 units Insulin Detemir (Levemir) 32 unit SUBCUT BID [facility] Last Admin: 07/16/17 08:29 Dose: 32 units Lisinopril (Prinivil) 40 mg PO DAILY [facility] Last Admin: 07/16/17 08:30 Dose: 40 mg Metoprolol Succinate (Toprol Xl) 100 mg PO DAILY [facility] Last Admin: 07/16/17 08:30 Dose: 100 mg Miscellaneous Information (Remove Patch) 1 ea TRDERM Q72H [facility] Last Admin: 07/15/17 13:06 Dose: 1 ea Orphenadrine Citrate (Norflex) 100 mg PO BID [facility] Last Admin: 07/16/17 08:35 Dose: 100 mg Oxycodone HCl (Oxycodone) 5 mg PO Q6H PRN PRN Reason: PAIN Last Admin: 07/16/17 06:52 Dose: 5 mg Oxycodone/Acetaminophen (Percocet 325-5 Mg) 1 tab PO Q6H PRN PRN Reason: PAIN Last Admin: 07/16/17 06:51 Dose: 1 tab Pantoprazole Sodium (Protonix) 40 mg PO DAILY@0700 [facility] Last Admin: 07/16/17 06:52 Dose: 40 mg Simvastatin (Zocor) 20 mg PO BEDTIME [facility] Last Admin: 07/15/17 21:57 Dose: 20 mg Tamsulosin HCl (Flomax) 0.4 mg PO BEDTIME [facility] Last Admin: 07/15/17 21:56 Dose: 0.4 mg Temazepam (Restoril) 30 mg PO BEDTIME [facility] Last Admin: 07/15/17 21:55 Dose: 30 mg Discontinued Medications Enoxaparin Sodium (Lovenox) 30 mg SUBCUT DAILY [facility] Last Admin: 07/13/17 09:00 Dose: 30 mg Gabapentin (Neurontin) 300 mg PO DAILY [facility] Gabapentin (Neurontin) 600 mg PO BID [facility] Last Admin: 07/14/17 10:24 Dose: 600 mg Hydromorphone HCl (Dilaudid) 1 mg IM ONETIME ONE Stop: 07/12/17 09:02 Last Admin: 07/12/17 09:39 Dose: Not Given Hydromorphone HCl (Dilaudid) 1 mg IM ONETIME STA Stop: 07/12/17 09:08 Last Admin: 07/12/17 09:14 Dose: 1 mg Hydromorphone HCl (Dilaudid) 1 mg IVPUSH ONETIME STA Stop: 07/12/17 10:16 Last Admin: 07/12/17 10:21 Dose: 1 mg Hydromorphone HCl (Dilaudid) 1 mg IVPUSH Q6H PRN PRN Reason: Pain (moderate 4-6) Lactated Ringer's (Ringers, Lactated) 1,000 mls @ 75 mls/hr IV ASDIRECTED [facility] Last Admin: 07/14/17 06:06 Dose: 75 mls/hr Magnesium Sulfate 2 gm/ Premix 50 mls @ 25 mls/hr IV Q2H [facility] Stop: 07/13/17 15:44 Last Admin: 07/13/17 15:12 Dose: 25 mls/hr Magnesium Sulfate 4 gm/ Premix 100 mls @ 50 mls/hr IV ONETIME ONE Stop: 07/13/17 17:17 Last Admin: 07/13/17 17:56 Dose: Not Given Magnesium Oxide (Magnesium Oxide) 400 mg PO ONETIME ONE Stop: 07/15/17 18:06 Last Admin: 07/15/17 18:25 Dose: 400 mg Naloxone HCl (Narcan) 0.4 mg IVPUSH ONETIME ONE Stop: 07/13/17 12:46 Last Admin: 07/13/17 12:48 Dose: 0.4 mg Non-Formulary Medication (Insulin Lispro [Humalog]) 1 dose SQ TID [facility] Non-Formulary Medication (Ubidecarenone) 100 mg PO DAILY [facility] - Exam Quality Assessment: Reports: DVT Prophylaxis General: Reports: Alert, Oriented, Cooperative, No Acute Distress HEENT: Reports: Pupils Equal, Pupils Reactive, EOMI Neck: Reports: Trachea Midline, No JVD Lungs: Reports: Normal Respiratory Effort GI/Abdominal Exam: Normal Bowel Sounds, Soft, Non-Tender, No Organomegaly, No Distention (Male) Exam: Deferred Rectal (Males) Exam: Deferred Back Exam: Reports: Normal Inspection Extremities: Normal Inspection Skin: Reports: Warm Neurological: Reports: No New Focal Deficit Psy/Mental Status: Reports: Alert, Anxious, Depressed *Q Meaningful Use (DIS) - VTE *Q VTE Criteria *Q: - Stroke *Q Stroke Criteria *Q: - AMI *Q AMI Criteria *Q:
--- NOTE | 2017-07-16 11:29 | PCM.PN ---
- General Info Date of Service: 07/16/17 - Patient Data Vitals - Most Recent: Last Vital Signs Temp 36.7 C 07/16/17 08:33 Pulse 85 07/16/17 08:33 Resp 18 07/16/17 08:33 BP 143/83 H 07/16/17 08:33 Pulse Ox 92 L 07/16/17 08:33 Weight - Most Recent: 110.903 kg I&O - Last 24 Hours: Intake & Output 07/15/17 07/16/17 07/16/17 22:59 06:59 14:59 Intake Total 1490 200 300 Output Total 1250 950 Balance 240 -750 300 Lab Results Last 24 Hours: Laboratory Results - last 24 hr 07/15/17 07/15/17 07/15/17 Range/Units 11:25 16:26 21:54 WBC (4.23-9.07) K/mm3 RBC (4.63-6.08) M/mm3 Hgb (13.7-17.5) gm/L Hct (40.1-51.0) % MCV (79.0-92.2) fl MCH (25.7-32.2) pg MCHC (32.2-35.5) g/dl RDW Std Deviation (35.1-43.9) fL Plt Count (163-337) K/mm3 MPV (9.4-12.3) fl Neut % (Auto) (34.0-67.9) % Lymph % (Auto) (21.8-53.1) % [place] % (Auto) (5.3-12.2) % Eos % (Auto) (0.8-7.0) Baso % (Auto) (0.1-1.2) % Neut # (Auto) (1.78-5.38) K/mm3 Lymph # (Auto) (1.32-3.57) K/mm3 [place] # (Auto) (0.30-0.82) K/mm3 Eos # (Auto) (0.04-0.54) K/mm3 Baso # (Auto) (0.01-0.08) K/mm3 Sodium (136-145) mEq/L Potassium (3.5-5.1) mEq/L Chloride (98-107) mEq/L Carbon Dioxide (21-32) mEq/L Anion Gap (5-15) BUN (7-18) mg/dL Creatinine (0.7-1.3) mg/dL Est Cr Clr Drug Dosing mL/min Estimated GFR (MDRD) (>60) mL/min BUN/Creatinine Ratio (14-18) Glucose (80-115) mg/dL POC Glucose 173 H 211 H 208 H (80-115) mg/dL Calcium (8.5-10.1) mg/dL Magnesium (1.8-2.4) mg/dl C-Reactive Protein (<1.0) mg/dL 07/16/17 07/16/17 07/16/17 Range/Units 06:05 06:05 06:51 WBC 5.74 (4.23-9.07) K/mm3 RBC 4.81 (4.63-6.08) M/mm3 Hgb 13.9 (13.7-17.5) gm/L Hct 43.2 (40.1-51.0) % MCV 89.8 (79.0-92.2) fl MCH 28.9 (25.7-32.2) pg MCHC 32.2 (32.2-35.5) g/dl RDW Std Deviation 50.1 H (35.1-43.9) fL Plt Count 188 (163-337) K/mm3 MPV 10.2 (9.4-12.3) fl Neut % (Auto) 58.7 (34.0-67.9) % Lymph % (Auto) 20.4 L (21.8-53.1) % [place] % (Auto) 12.4 H (5.3-12.2) % Eos % (Auto) 7.5 H (0.8-7.0) Baso % (Auto) 0.7 (0.1-1.2) % Neut # (Auto) 3.37 (1.78-5.38) K/mm3 Lymph # (Auto) 1.17 L (1.32-3.57) K/mm3 [place] # (Auto) 0.71 (0.30-0.82) K/mm3 Eos # (Auto) 0.43 (0.04-0.54) K/mm3 Baso # (Auto) 0.04 (0.01-0.08) K/mm3 Sodium 139 (136-145) mEq/L Potassium 3.9 (3.5-5.1) mEq/L Chloride 104 (98-107) mEq/L Carbon Dioxide 27 (21-32) mEq/L Anion Gap 11.9 (5-15) BUN 21 H (7-18) mg/dL Creatinine 0.7 (0.7-1.3) mg/dL Est Cr Clr Drug Dosing 118.03 mL/min Estimated GFR (MDRD) > 60 (>60) mL/min BUN/Creatinine Ratio 30.0 H (14-18) Glucose 207 H (80-115) mg/dL POC Glucose 198 H (80-115) mg/dL Calcium 8.7 (8.5-10.1) mg/dL Magnesium 1.7 L (1.8-2.4) mg/dl C-Reactive Protein 3.9 H* (<1.0) mg/dL Med Orders - Current: Current Medications Ascorbic Acid (Vitamin C) 500 mg PO DAILY [facility] Last Admin: 07/16/17 08:35 Dose: 500 mg Benzocaine/Menthol (Cepacol Sore Throat) 1 lozenge MUCMEM Q2H PRN PRN Reason: throat irritation, dry mouth Last Admin: 07/15/17 01:01 Dose: 1 lozenge Enoxaparin Sodium (Lovenox) 40 mg SUBCUT DAILY [facility] Last Admin: 07/16/17 08:36 Dose: 40 mg Fenofibrate (Tricor) 145 mg PO DAILY [facility] Last Admin: 07/16/17 08:36 Dose: 145 mg Fentanyl (Duragesic) 25 mcg TRDERM Q72H [facility] Last Admin: 07/15/17 13:05 Dose: 25 mcg Gabapentin (Neurontin) 600 mg PO TID [facility] Last Admin: 07/16/17 08:35 Dose: 600 mg Hydralazine HCl (Apresoline) 20 mg IVPUSH Q6H PRN PRN Reason: Hypertension Last Admin: 07/15/17 19:39 Dose: 20 mg Hydromorphone HCl (Dilaudid) 1 mg IVPUSH Q6H PRN PRN Reason: Pain (moderate 4-6) Last Admin: 07/13/17 06:28 Dose: 1 mg Insulin Aspart (Novolog) 0 unit SUBCUT QIDACANDBED [facility] PRN Reason: Protocol Last Admin: 07/16/17 08:29 Dose: 3 units Insulin Detemir (Levemir) 32 unit SUBCUT BID [facility] Last Admin: 07/16/17 08:29 Dose: 32 units Lisinopril (Prinivil) 40 mg PO DAILY [facility] Last Admin: 07/16/17 08:30 Dose: 40 mg Metoprolol Succinate (Toprol Xl) 100 mg PO DAILY [facility] Last Admin: 07/16/17 08:30 Dose: 100 mg Miscellaneous Information (Remove Patch) 1 ea TRDERM Q72H [facility] Last Admin: 07/15/17 13:06 Dose: 1 ea Orphenadrine Citrate (Norflex) 100 mg PO BID [facility] Last Admin: 07/16/17 08:35 Dose: 100 mg Oxycodone HCl (Oxycodone) 5 mg PO Q6H PRN PRN Reason: PAIN Last Admin: 07/16/17 06:52 Dose: 5 mg Oxycodone/Acetaminophen (Percocet 325-5 Mg) 1 tab PO Q6H PRN PRN Reason: PAIN Last Admin: 07/16/17 06:51 Dose: 1 tab Pantoprazole Sodium (Protonix) 40 mg PO DAILY@0700 [facility] Last Admin: 07/16/17 06:52 Dose: 40 mg Simvastatin (Zocor) 20 mg PO BEDTIME [facility] Last Admin: 07/15/17 21:57 Dose: 20 mg Tamsulosin HCl (Flomax) 0.4 mg PO BEDTIME [facility] Last Admin: 07/15/17 21:56 Dose: 0.4 mg Temazepam (Restoril) 30 mg PO BEDTIME [facility] Last Admin: 07/15/17 21:55 Dose: 30 mg Discontinued Medications Enoxaparin Sodium (Lovenox) 30 mg SUBCUT DAILY [facility] Last Admin: 07/13/17 09:00 Dose: 30 mg Gabapentin (Neurontin) 300 mg PO DAILY [facility] Gabapentin (Neurontin) 600 mg PO BID [facility] Last Admin: 07/14/17 10:24 Dose: 600 mg Hydromorphone HCl (Dilaudid) 1 mg IM ONETIME ONE Stop: 07/12/17 09:02 Last Admin: 07/12/17 09:39 Dose: Not Given Hydromorphone HCl (Dilaudid) 1 mg IM ONETIME STA Stop: 07/12/17 09:08 Last Admin: 07/12/17 09:14 Dose: 1 mg Hydromorphone HCl (Dilaudid) 1 mg IVPUSH ONETIME STA Stop: 07/12/17 10:16 Last Admin: 07/12/17 10:21 Dose: 1 mg Hydromorphone HCl (Dilaudid) 1 mg IVPUSH Q6H PRN PRN Reason: Pain (moderate 4-6) Lactated Ringer's (Ringers, Lactated) 1,000 mls @ 75 mls/hr IV ASDIRECTED [facility] Last Admin: 07/14/17 06:06 Dose: 75 mls/hr Magnesium Sulfate 2 gm/ Premix 50 mls @ 25 mls/hr IV Q2H [facility] Stop: 07/13/17 15:44 Last Admin: 07/13/17 15:12 Dose: 25 mls/hr Magnesium Sulfate 4 gm/ Premix 100 mls @ 50 mls/hr IV ONETIME ONE Stop: 07/13/17 17:17 Last Admin: 07/13/17 17:56 Dose: Not Given Magnesium Oxide (Magnesium Oxide) 400 mg PO ONETIME ONE Stop: 07/15/17 18:06 Last Admin: 07/15/17 18:25 Dose: 400 mg Naloxone HCl (Narcan) 0.4 mg IVPUSH ONETIME ONE Stop: 07/13/17 12:46 Last Admin: 07/13/17 12:48 Dose: 0.4 mg Non-Formulary Medication (Insulin Lispro [Humalog]) 1 dose SQ TID [facility] Non-Formulary Medication (Ubidecarenone) 100 mg PO DAILY [facility] - Problem List & Annotations (1) Left humeral fracture SNOMED Code(s): 54068148 Code(s): S42.302A - UNSP FRACTURE OF SHAFT OF HUMERUS, LEFT ARM, INIT Status: Acute Current Visit: Yes (2) Adjustment disorder with anxiety SNOMED Code(s): 31705219 Code(s): F43.22 - ADJUSTMENT DISORDER WITH ANXIETY Status: Acute Current Visit: No (3) Back pain SNOMED Code(s): 974185162 Code(s): M54.9 - DORSALGIA, UNSPECIFIED Status: Acute Current Visit: No (4) COPD (chronic obstructive pulmonary disease) SNOMED Code(s): 65657212 Code(s): J44.9 - CHRONIC OBSTRUCTIVE PULMONARY DISEASE, UNSPECIFIED Status : Acute Current Visit: No (5) Diverticulosis of colon SNOMED Code(s): 278425538 Code(s): K57.30 - DVRTCLOS OF LG INT W/O PERFORATION OR ABSCESS W/O BLEEDING Status: Chronic Priority: Low Current Visit: No (6) Type 2 diabetes mellitus SNOMED Code(s): 74628023 Code(s): E11.9 - TYPE 2 DIABETES MELLITUS WITHOUT COMPLICATIONS Status: Chronic Priority: Low Current Visit: No Qualifiers: Diabetes mellitus complication status: with unspecified complications Diabetes mellitus terminologist insulin use: unspecified detention insulin use status Qualified Code(s): E11.8 - Type 2 diabetes mellitus with unspecified complications - My Orders Last 24 Hours: My Active Orders 07/15/17 14:00 Remove Patch 1 ea [id number] [id number] 07/16/17 11:28 Ready for Discharge [RC] PER UNIT ROUTINE - Plan Plan:: Impression: Acute traumatic LUE injury with displaced fracture at the humeral neck. S/P fall 07/12/17. Requested ortho consult, changed providers today. Will have radiographi study for possible surgical intervention--->non surgical RUE amputation Multiple orthopedic procedures including spinal fusion, lumbar Chronic pain with dependence on narcotics; adjusted non narcotic pain mgt increased Neurontin 600 mg TID. History of WPW S/P ablation Diabetes Mellitus, poor control, Hgb A1C>9.0, continue home meds and increase SS to high level Chronic DM type II Obesity HLD Hx of pancreatitis Plan: LUE sling and swath Pain mgt Home meds Daily labs Correct electrolytes as needed. Consult PT/OT/SW DVT/GI prophylaxis LOS>96 hours with placement needed.
== END 2017-07-16 12:12 | disposition home or self-care (01) | DRG 563 ==
LOC: JD.ED 08:43 → JD.MS 10:23
PROVIDERS: ADMIT Internal Medicine Cardiovascular Disease; ATTEND Internal Medicine Cardiovascular Disease
DX: S42.292A Other displaced fracture of upper end of left humerus, initial encounter for closed fracture (principal); W00.0XXA Fall on same level due to ice and snow, initial encounter; E11.65 Type 2 diabetes mellitus with hyperglycemia; E78.00 Pure hypercholesterolemia, unspecified; I10 Essential (primary) hypertension; F43.22 Adjustment disorder with anxiety; M54.9 Dorsalgia, unspecified; F41.9 Anxiety disorder, unspecified; J44.9 Chronic obstructive pulmonary disease, unspecified; K57.30 Diverticulosis of large intestine without perforation or abscess without bleeding; E11.42 Type 2 diabetes mellitus with diabetic polyneuropathy; Z79.4 Long term (current) use of insulin; Z89.201 Acquired absence of right upper limb, unspecified level; G89.29 Other chronic pain; E66.9 Obesity, unspecified; E78.5 Hyperlipidemia, unspecified; K21.9 Gastro-esophageal reflux disease without esophagitis; G47.30 Sleep apnea, unspecified; N40.0 Benign prostatic hyperplasia without lower urinary tract symptoms; H54.7 Unspecified visual loss; Z91.010 Allergy to peanuts; Z88.8 Allergy status to other drugs, medicaments and biological substances; Z91.048 Other nonmedicinal substance allergy status; Z79.899 Other long term (current) drug therapy; Z68.34 Body mass index [BMI] 34.0-34.9, adult
CPT/HCPCS: 73060; 96372; 96374; 99285; J1170 ×2; 36415; 73030-26-LT; 73030-LT; 73200-26-LT; 73200-LT; 76376-26; 76377; 80048; 82962; 83036; 83735; 85025; 86140; 97110-GP; 97116-GP; 97162-GP; 97167-GO; 97530-GO; 97530-GP; 99222; 99231; 99232; 99238; 99284; A9270-GY; J0360; J1650; J1815-GY; J2310; J3475; J7120

== ENCOUNTER 2017-09-04 13:21 | Emergency (ER) | payer MEDICARE, OTHER ==
--- NOTE | 2017-09-04 13:53 | EDM.PDOC ---
<Aury Canales - Last Filed: 09/04/17 13:45> ED HPI GENERAL MEDICAL PROBLEM - General Chief Complaint: Respiratory Problem Stated Complaint: CHEST CONGESTION Time Seen by Provider: 09/04/17 13:42 Source of Information: Reports: Patient History Limitations: Reports: No Limitations - History of Present Illness INITIAL COMMENTS - FREE TEXT/NARRATIVE: Patient is a 62 YO male who presents today with shortness of breath. He recently broke his left humerus and was in the senior living for assistance with care because he does not have a right arm. He was discharged from there 2 weeks ago and has been taking care of his mother who passed and was buried yesterday. He has been under a lot of stress. He states he is also living with someone who has been diagnosed with pneumonia. He reports cough and shortness of breath that started 4 days ago. He has been coughing up green mucus. He has felt very tired and states he is "weak all over ". He does reports some nausea and loose stools. He denies hemoptysis. He states that he felt good when he was discharged from the senior living. He denies chest pain or abdominal pain. Chest Pain Score (Numeric/FACES): 5 Generalized Pain Score (Numeric/FACES): 5 - Related Data Allergies Allergy/AdvReac Type Severity Reaction Status Date / Time cat dander Allergy Airway Verified 09/04/17 13:34 Tightness Corticosteroids Allergy Cannot Verified 09/04/17 13:34 (Glucocorticoids) Remember lorazepam Allergy Cannot Verified 09/04/17 13:34 Remember peanut Allergy Anaphylactic Verified 09/04/17 13:34 Shock levofloxacin AdvReac Other Verified 09/04/17 13:34 metformin AdvReac Diarrhea Verified 09/04/17 13:34 Home Meds: Home Meds Metoprolol Succinate [Toprol XL] 100 mg PO DAILY 10/29/14 [History] Pravastatin [Pravachol] 40 mg PO DAILY 10/29/14 [History] Multivitamin [Multi-Vitamin Daily] 1 tab PO DAILY 01/13/16 [History] Potassium Chloride 20 meq PO DAILY #30 tablet.er 09/29/16 [Rx] Fenofibric Acid (Choline) [Fenofibric Acid] 135 mg PO DAILY 02/24/17 [History] Tamsulosin [Flomax] 0.4 mg PO BEDTIME 02/24/17 [History] oxyCODONE HCl/Acetaminophen [Percocet 10-325 mg Tablet] 1 each PO Q6HR PRN 02/24 [History] Acai Valle Extract [Acai] 500 mg PO DAILY 06/23/17 [History] Ascorbate Calcium [Vitamin C] 500 mg PO DAILY 06/23/17 [History] Bee Pollen 550 mg PO DAILY 06/23/17 [History] Beta-Carotene [Beta Carotene] 25,000 unit PO DAILY 06/23/17 [History] Cinnamon Bark [Cinnamon] 500 mg PO DAILY 06/23/17 [History] Cranberry 500 mg PO DAILY 06/23/17 [History] Fish Oil/[place]-3 Fatty Acids [Fish Oil 1,000 MG] 1 gm PO DAILY 06/23/17 [History ] Garlic 1 tab PO DAILY 06/23/17 [History] Insulin Lispro [Humalog] 1 dose SQ TID 06/23/17 [History] Lisinopril 40 mg PO DAILY 06/23/17 [History] Omeprazole Magnesium [Prilosec Otc] 40 mg PO DAILY 06/23/17 [History] Orphenadrine Citrate 100 mg PO BID 06/23/17 [History] Tresiba 64 units SQ ASDIRECTED 06/23/17 [History] Ubidecarenone [Coq-10] 100 mg PO DAILY 06/23/17 [History] Vitamin B Complex [B Complex] 1 tab PO DAILY 06/23/17 [History] Gabapentin [Neurontin] 600 mg PO TIDAC #90 capsule 07/16/17 [Rx] Temazepam 7.5 mg PO BEDTIME PRN #30 07/16/17 [Rx] Albuterol [Proventil HFA] 2 puff INH Q4H PRN #1 inhaler 09/04/17 [Rx] Azithromycin [IJD: Azithromycin] 250 mg PO DAILY #6 tab 09/04/17 [Rx] Codeine/Promethazine [Phenergan with Codeine] 5 - 10 ml PO Q6HR PRN #300 ml [Rx] Past Medical History HEENT History: Reports: Impaired Vision Other HEENT History: Wears glasses, loss portion of vision in left eye Cardiovascular History: Reports: Arrhythmia (Pcqao-Crshjvzhp-Fjusa, s/p ablation ), High Cholesterol, Hypertension Other Cardiovascular History: hx of more parkinsons syndrome-surgery was done. Respiratory History: Reports: Sleep Apnea Other Respiratory History: hemothorax with chest tube Gastrointestinal History: Reports: Diverticulosis, GERD, Pancreatitis Other Gastrointestinal History: rectal bleeding, dysphagia Genitourinary History: Reports: Acute Renal Failure (s/p transient HD), BPH Other Genitourinary History: hemodyalysis for 2mo. 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 Dermatologic History: Reports: Cellulitis, Other (See Below) Other Dermatologic History: boils - Infectious Disease History Infectious Disease History: Reports: Influenza - Past Surgical History HEENT Surgical History: Reports: Adenoidectomy, Tonsillectomy GI Surgical History: Reports: Colonoscopy, Hernia, Inguinal, Other (See Below) ( Repair of testicular torsion) Neurological Surgical History: Reports: Lumbar Spine (Fusion) Musculoskeletal Surgical History: Reports: Knee Replacement (bilateral), Other ( See Below) (RUE amputation) Social & Family History - Family History Family Medical History: Noncontributory - Tobacco Use Smoking Status *Q: Never Smoker Second Hand Smoke Exposure: No - Caffeine Use Caffeine Use: Reports: Coffee - Recreational Drug Use Recreational Drug Use: No - Living Situation & Occupation Living situation: Reports: Single, Alone Occupation: Disabled ED ROS GENERAL - Review of Systems Review Of Systems: See Below Constitutional: Reports: Malaise, Weakness, Fatigue, Decreased Appetite. Denies : Fever HEENT: Reports: No Symptoms Respiratory: Reports: Shortness of Breath, Cough, Sputum. Denies: Wheezing, Pleuritic Chest Pain, Hemoptysis Cardiovascular: Reports: No Symptoms GI/Abdominal: Reports: Decreased Appetite, Nausea. Denies: Constipation, Diarrhea, Vomiting Musculoskeletal: Reports: Other (left arm is tungsten tender from previous fracture of the humerus, back pain from previous back surgery) Skin: Reports: No Symptoms Neurological: Reports: No Symptoms Psychiatric: Reports: No Symptoms ED EXAM, GENERAL - Physical Exam Exam: See Below Exam Limited By: No Limitations General Appearance: Alert, WD/WN, Mild Distress Eye Exam: Bilateral Eye: EOMI, PERRL Throat/Mouth: Normal Inspection, Normal Gums, Normal Oropharynx Respiratory/Chest: No Respiratory Distress, Wheezing (all lung feilds ). No: Crackles, Splinting Cardiovascular: Normal Peripheral Pulses, Regular Rate, Rhythm, No Edema, No Murmur GI/Abdominal: Normal Bowel Sounds, Soft, Non-Tender Neurological: Alert, Oriented, CN II-XII Intact, Normal Cognition, No Motor/ Sensory Deficits Psychiatric: Normal Affect, Depressed Mood Skin Exam: Warm, Dry, Intact, Normal Color, No Rash Course - Vital Signs Last Recorded V/S: Last Vital Signs Temp 99.3 F 09/04/17 13:25 Pulse 94 09/04/17 13:25 Resp 20 09/04/17 13:25 BP 152/98 H 09/04/17 13:25 Pulse Ox 95 09/04/17 14:00 - Orders/Labs/Meds Orders: Active Orders 24 hr Category Date Time Status EKG Documentation Completion [RC] ASDIRECTED Care 09/04/17 14:00 Active RT Aerosol Therapy [RC] ASDIRECTED Care 09/04/17 13:58 Active CBC WITH MANUAL DIFF [HEME] Stat Lab 09/04/17 14:05 Results INFLUENZA A+B AG SCREEN [RM] Stat Lab 09/04/17 13:50 Ordered EKG 12 Lead [EK] Stat Ther 09/04/17 13:59 Ordered Labs: Laboratory Tests 09/04/17 09/04/17 Range/Units 14:05 14:05 WBC 6.00 (4.23-9.07) K/mm3 RBC 5.36 (4.63-6.08) M/mm3 Hgb 15.4 (13.7-17.5) gm/L Hct 46.8 (40.1-51.0) % MCV 87.3 (79.0-92.2) fl MCH 28.7 (25.7-32.2) pg MCHC 32.9 (32.2-35.5) g/dl RDW Std Deviation 46.9 H (35.1-43.9) fL Plt Count 205 (163-337) K/mm3 MPV 10.7 (9.4-12.3) fl Sodium 145 (136-145) mEq/L Potassium 3.6 (3.5-5.1) mEq/L Chloride 106 (98-107) mEq/L Carbon Dioxide 28 (21-32) mEq/L Anion Gap 14.6 (5-15) BUN 15 (7-18) mg/dL Creatinine 0.8 (0.7-1.3) mg/dL Est Cr Clr Drug Dosing 100.12 mL/min Estimated GFR (MDRD) > 60 (>60) mL/min BUN/Creatinine Ratio 18.8 H (14-18) Glucose 300 H (80-115) mg/dL Calcium 9.4 (8.5-10.1) mg/dL Total Bilirubin 0.5 (0.2-1.0) mg/dL AST 18 (15-37) U/L ALT 32 (16-63) U/L Alkaline Phosphatase 95 (46-116) U/L C-Reactive Protein 1.6 H* (<1.0) mg/dL Total Protein 7.2 (6.4-8.2) g/dl Albumin 3.8 (3.4-5.0) g/dl Globulin 3.4 gm/dL Albumin/Globulin Ratio 1.1 (1-2) Meds: Medications Discontinued Medications Generic Name Dose Route Start Last Admin Trade Name Freq PRN Reason Stop Dose Admin Albuterol/Ipratropium 3 ml 09/04/17 13:58 09/04/17 14:28 Duoneb 3.0-0.5 Mg/3 Ml NEB 09/04/17 13:59 3 ml ONETIME ONE Administration Departure - Departure Disposition: Home, Self-Care 01 Clinical Impression: Bronchitis - Discharge Information Prescriptions: Codeine/Promethazine [Phenergan with Codeine] 5 - 10 ml PO Q6HR PRN #300 ml PRN Reason: Cough Albuterol [Proventil HFA] 2 puff INH Q4H PRN #1 inhaler PRN Reason: Shortness Of Breath Azithromycin [IJD: Azithromycin] 250 mg PO DAILY #6 tab Referrals: Curtis Henao [Primary Care Provider] - 1 Week Forms: ED Department Discharge Additional Instructions: Take azithromycin 2 pills on day 1 and 1 pill on day 2 through 5. Use the albuterol 2 puffs every 4 to 6 hours as needed for shortness of breath or wheezing. Take the phenergan with codeine 5 to 10mls every 6 hours as needed for cough. Drink plenty of fluids and get some rest. Please return if you are worse. <Jr Mondragon - Last Filed: 09/04/17 15:19> EKG INTERPRETATION EKG Date: 09/04/17 Time: 14:36 Rhythm: NSR Rate (Beats/Min): 93 [place]: Normal P-Wave: Present QRS: Normal ST-T: Normal QT: Prolonged Course - Re-Assessments/Exams Free Text/Narrative Re-Assessment/Exam: 09/04/17 15:12 I ordered an IV saline lock, EKG, CXR, labs and a duoneb. His EKG shows a NSR with slight prolonged QT interval. His CXR does not show an infiltrate. The CXR was read by Dr Ellis. His CBC looks good. His blood sugar was elevated at 300. His influenza was negative. He is breathing better. I feel he has bronchitis so I will get him on some azithromycin, phenergan with codeine and albuterol inhaler. Departure - Departure Time of Disposition: 15:15 Condition: Good
[2017-09-04] MEDS ORDERED: Albuterol/Ipratropium 3.0-0.5 MG/3 ML Neb Soln NEB ONE (13:58)
--- NOTE | 2017-09-04 14:52 | CR ---
Chest: Two views of the chest were obtained. Comparison: Prior chest x-ray of 02/27/17. Heart size is normal. Tortuous thoracic aorta is seen. Multiple healed left-sided rib fractures are seen. Minimal atelectasis is noted within the right lateral costophrenic angle. Lungs otherwise are clear with no acute parenchymal densities. Previous lumbar spine surgery is noted. Mild compression deformity is seen within the lower thoracic spine which is old. Impression: 1. Incidental findings. Nothing acute is appreciated on two-view chest x-ray. Diagnostic code #2
[2017-09-04 15:51] VITALS: BP 146/95
== END 2017-09-04 15:45 | disposition home or self-care (01) ==
LOC: JD.ED 13:21 → SUPCPDRO 13:21 → JD.ED 15:45
DX: J40 Bronchitis, not specified as acute or chronic (principal); E11.42 Type 2 diabetes mellitus with diabetic polyneuropathy; Z91.048 Other nonmedicinal substance allergy status; Z88.1 Allergy status to other antibiotic agents; Z88.8 Allergy status to other drugs, medicaments and biological substances; Z91.010 Allergy to peanuts; Z79.899 Other long term (current) drug therapy; Z79.4 Long term (current) use of insulin
CPT/HCPCS: 36415; 71046; 71046-26; 80053; 85025; 86140; 87804; 93005; 94640; 99283; 99285-25

== ENCOUNTER 2018-05-26 19:16 | Inpatient (IN) | payer MEDICARE, OTHER ==
[2018-05-26] MEDS ORDERED: Metoclopramide 10 MG/2 ML SDV IVPUSH STA (19:39)
[2018-05-26] MEDS: Sodium Chloride 0.9% 1,000 ML IV SCH (19:46)
--- NOTE | 2018-05-26 19:51 | EDM.PDOC ---
ED HPI GENERAL MEDICAL PROBLEM - General Chief Complaint: General Stated Complaint: [facility] Time Seen by Provider: 05/26/18 19:18 Source of Information: Reports: Patient, RN Notes Reviewed History Limitations: Reports: No Limitations - History of Present Illness INITIAL COMMENTS - FREE TEXT/NARRATIVE: Upon entering the patient's room, the patient began yelling and swearing at me, because he had just vomited. The patient states that he developed the sensation of the room spinning, along with nausea and emesis around 17:30. He is unable to determine if it is positional or not. No decreased hearing, tinnitus, or ear pain in either ear. 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 He states that he has dyspnea when he is vomiting, but not otherwise. No associated chest pain or palpitations. No prior similar symptoms. Due to the patient's vertigo and vomiting, I am not able to ambulate him, however, he tells me that he has ambulated since 17:30, and that he did not have any difficulty (beyond his usual physical difficulties). He denies having a headache at this time, although he states that he has been experiencing brief, stabbing left-sided head pain for more than a week. He states that he was seen in this ER, offered a MRI, which he declined. Review of the medical records indicates that the patient was seen in this ED not a few days ago, but on 04/23/2018. At that time, he was complaining of sharp left-sided head pain, felt just above his left ear, and at that time he had indicated that it been going on for 3 months, and possibly as far back as July 12, 2017, which is when he fell, hitting his head and breaking his left humerus. The patient told the ED provider on 04/23/2018 that he had undergone a CT can of the head, which was negative, followed by a MRI of the head, which was also negative, although I cannot find a record of either of those imaging studies. The patient was instructed to follow-up with his PCP, Yari Perez, to arrange for a Neurology consultation, however, the patient has not followed up with Ms. Perez. - Related Data Allergies Allergy/AdvReac Type Severity Reaction Status Date / Time cat dander Allergy Airway Verified 05/26/18 19:25 Tightness Corticosteroids Allergy Cannot Verified 05/26/18 19:25 (Glucocorticoids) Remember lorazepam Allergy Cannot Verified 05/26/18 19:25 Remember peanut Allergy Anaphylactic Verified 05/26/18 19:25 Shock levofloxacin AdvReac Other Verified 05/26/18 19:25 metformin AdvReac Diarrhea Verified 05/26/18 19:25 Home Meds: Home Meds Metoprolol Succinate [Toprol XL] 100 mg PO DAILY 10/29/14 [History] Pravastatin [Pravachol] 40 mg PO DAILY 10/29/14 [History] Multivitamin [Multi-Vitamin Daily] 1 tab PO DAILY 01/13/16 [History] Potassium Chloride 20 meq PO DAILY #30 tablet.er 09/29/16 [Rx] Fenofibric Acid (Choline) [Fenofibric Acid] 135 mg PO DAILY 02/24/17 [History] Lisinopril 40 mg PO DAILY 06/23/17 [History] Omeprazole Magnesium [Prilosec Otc] 40 mg PO DAILY 06/23/17 [History] Orphenadrine Citrate [Orphenadrine Citrate ER] 100 mg PO BID 06/23/17 [History] Tresiba 86 units SQ ASDIRECTED 06/23/17 [History] Insulin Aspart [NovoLOG] 18 units SQ ACBREAKFAST 05/26/18 [History] Insulin Aspart [NovoLOG] 18 units SQ ACDINNER 05/26/18 [History] Insulin Aspart [NovoLOG] 24 units SQ ACLUNCH 05/26/18 [History] Meloxicam [Mobic] 15 mg PO DAILY 05/26/18 [History] Tacrolimus 1 dose TOP BID 05/26/18 [History] Temazepam 30 mg PO BEDTIME PRN 05/26/18 [History] traZODone HCl [Trazodone HCl] 50 mg PO DAILY 05/26/18 [History] Past Medical History HEENT History: Reports: Impaired Vision (partial blindness left eye) Other HEENT History: Wears glasses Cardiovascular History: Reports: Arrhythmia (Xvxbn-Onhnyvsbd-Fjotv syndrome), High Cholesterol, Hypertension Respiratory History: Reports: Sleep Apnea (wears CPAP some nights) Gastrointestinal History: Reports: Diverticulosis, GERD, GI Bleed (rectal), Pancreatitis Genitourinary History: Reports: Acute Renal Failure, BPH, Dialysis (temporary, for 2 months) Musculoskeletal History: Reports: Fracture (left humerus, lumbar spine) Neurological History: Reports: Neuropathy, Diabetic Psychiatric History: Reports: Anxiety Endocrine/Metabolic History: Reports: Diabetes, Type II, Obesity/BMI 30+ - Infectious Disease History Infectious Disease History: Reports: Influenza - Past Surgical History HEENT Surgical History: Reports: Adenoidectomy, Tonsillectomy Cardiovascular Surgical History: Reports: Cardiac Ablation (for WPW) Respiratory Surgical History: Reports: Thoracotomy (for hemothorax) GI Surgical History: Reports: Colonoscopy, Hernia, Inguinal Male Surgical History: Reports: Other (See Below) (repair of testicular torsion) Neurological Surgical History: Reports: Spinal Fusion (lumbar) Musculoskeletal Surgical History: Reports: Knee Replacement (bilateral), Shoulder Surgery Social & Family History - Family History Family Medical History: Noncontributory - Tobacco Use Smoking Status *Q: Never Smoker - Caffeine Use Caffeine Use: Reports: Coffee - Alcohol Use Alcohol Use History: No - Recreational Drug Use Recreational Drug Use: No - Living Situation & Occupation Living situation: Reports: Single, Assisted Living ([facility]) Occupation: Disabled ED ROS GENERAL - Review of Systems Review Of Systems: ROS reveals no pertinent complaints other than HPI. ED EXAM, DIZZINESS - Physical Exam Exam: See Below Exam Limited By: No Limitations General Appearance: Alert, WD/WN, Mild Distress (recent emesis) Eye Exam: Bilateral Eye: EOMI, Nystagmus (fast component to left with leftward gaze only), PERRL Ears: Normal External Exam, Normal Canal, Hearing Grossly Normal, Normal TMs Nose: Normal Inspection, Normal Mucosa, No Blood Throat/Mouth: Normal Inspection, Normal Lips, Normal Teeth, Normal Gums, Normal Oropharynx, Normal Voice, No Airway Compromise Head Exam: Atraumatic, Normocephalic Neck: Normal Inspection, Supple, Non-Tender, Full Range of Motion Respiratory/Chest: No Respiratory Distress, Lungs Clear, Normal Breath Sounds, No Accessory Muscle Use Cardiovascular: Normal Peripheral Pulses, Regular Rate, Rhythm, No Gallop, No JVD, No Murmur, No Rub GI/Abdominal: Normal Bowel Sounds, Soft, Non-Tender, No Organomegaly, No Distention, No Abnormal Bruit, No Mass, Other (Obese) (Male) Exam: Deferred Rectal (Males) Exam: Deferred Neurological: Alert, Normal Dorsiflexion, CN II-XII Intact, Normal Plantar Flexion, No Motor/Sensory Deficits, Oriented x 3, Other (Unable to perform the Tyrel-Hallpike maneuver on the patient due to his current condition. Had difficulty following the instructions for finger-nose - he kept re-touching my finger - and heel-barcenas - poor effort, wrong heel and barcenas - but no apparent discoordination.) Extremities: Normal Range of Motion, Normal Capillary Refill, Other (S/P proximal RUE amputation) Psychiatric: Other (Hostile, swearing frequently) Skin Exam: Warm, Intact, Normal Color, No Rash, Diaphoretic Course - Vital Signs Last Recorded V/S: Last Vital Signs Temp 36.4 C 05/26/18 19:18 Pulse 64 05/26/18 19:18 Resp 16 05/26/18 19:18 BP 149/101 H 05/26/18 19:18 Pulse Ox 92 L 05/26/18 19:18 - Orders/Labs/Meds Orders: Active Orders 24 hr Category Date Time Status Bladder Scan [RC] ASDIRECTED Care 05/26/18 23:14 Active Mayo Catheter Insertion [Insert Urinary Catheter] [OM. Care 05/26/18 23:15 Ordered PC] Q24H Urinary Catheter Assessment [RC] ASDIRECTED Care 05/26/18 23:15 Active Ang Head [CT] Stat Exams 05/26/18 21:11 Taken CTA Neck W & W/O Contrast [Ang Neck] [CT] Stat Exams 05/26/18 21:12 Taken Sodium Chloride 0.9% [Normal Saline] 1,000 ml Med 05/26/18 19:45 Active IV ASDIRECTED Medication Orders Sodium Chloride (Normal Saline) 1,000 mls @ 100 mls/hr IV ASDIRECTED WANDA Last Admin: 05/26/18 19:46 Dose: 100 mls/hr Labs: Laboratory Tests 05/26/18 05/26/18 Range/Units 19:57 19:57 WBC 8.45 (4.23-9.07) K/mm3 RBC 5.65 (4.63-6.08) M/mm3 Hgb 16.5 (13.7-17.5) gm/L Hct 49.7 (40.1-51.0) % MCV 88.0 (79.0-92.2) fl MCH 29.2 (25.7-32.2) pg MCHC 33.2 (32.2-35.5) g/dl RDW Std Deviation 45.1 H (35.1-43.9) fL Plt Count 240 (163-337) K/mm3 MPV 10.4 (9.4-12.3) fl Neutrophils % (Manual) 63 H (40-60) % Band Neutrophils % 0 (0-10) % Lymphocytes % (Manual) 29 (20-40) % Atypical Lymphs % 0 % Monocytes % (Manual) 4 (2-10) % Eosinophils % (Manual) 3 (0.8-7.0) % Basophils % (Manual) 1 (0.2-1.2) Platelet Estimate Adequate RBC Morph Comment Normal Sodium 141 (136-145) mEq/L Potassium 3.7 (3.5-5.1) mEq/L Chloride 104 (98-107) mEq/L Carbon Dioxide 27 (21-32) mEq/L Anion Gap 13.7 (5-15) BUN 21 H (7-18) mg/dL Creatinine 0.8 (0.7-1.3) mg/dL Est Cr Clr Drug Dosing 105.08 mL/min Estimated GFR (MDRD) > 60 (>60) mL/min BUN/Creatinine Ratio 26.3 H (14-18) Glucose 186 H (80-115) mg/dL Calcium 9.2 (8.5-10.1) mg/dL Magnesium 1.8 (1.8-2.4) mg/dl Total Bilirubin 0.3 (0.2-1.0) mg/dL AST 13 L (15-37) U/L ALT 33 (16-63) U/L Alkaline Phosphatase 67 (46-116) U/L Total Protein 7.5 (6.4-8.2) g/dl Albumin 3.9 (3.4-5.0) g/dl Globulin 3.6 gm/dL Albumin/Globulin Ratio 1.1 (1-2) Meds: Medications Generic Name Dose Route Start Last Admin Trade Name Freq PRN Reason Stop Dose Admin Sodium Chloride 1,000 mls @ 100 mls/hr 05/26/18 19:45 05/26/18 19:46 Normal Saline IV 100 mls/hr ASDIRECTED WANDA Administration Discontinued Medications Generic Name Dose Route Start Last Admin Trade Name Freq PRN Reason Stop Dose Admin Meclizine HCl 25 mg 05/26/18 23:32 05/26/18 23:38 Antivert PO 05/26/18 23:33 25 mg ONETIME STA Administration Metoclopramide HCl 10 mg 05/26/18 19:39 05/26/18 19:49 Reglan IVPUSH 05/26/18 19:40 10 mg ONETIME STA Administration - Re-Assessments/Exams Free Text/Narrative Re-Assessment/Exam: 05/26/18 20:05 The cause of the patient's vertigo is unclear. If it is positional, it is most likely due to BPPV, however, if it is truly not positional, then a brainstem infarct is a possibility. I have ordered a CT scan of his head as well as some blood work. The patient was given Zofran by EMS; I have ordered 10 mg of IV Reglan and some IV fluid. By description, the stabbing pain on the left side of the patient's head is most likely due to trigeminal neuralgia, and is unlikely related to his current vertigo. 05/26/18 20:29 CT of the head without contrast is read by Dr. Ellis as: 1. Slight senescent change. 2. No acute intracranial abnormality is identified. 05/26/18 20:37 I reevaluated the patient. He is less hostile than he was earlier, but I was still unable to perform the Tyrel-Hallpike maneuver, as he states that he is extremely dizzy, even while lying perfectly still. 05/26/18 21:[address] [facility] at 20:41. Case then discussed with Dr. Dale, Stroke Neurologist at [facility], at 20: 46. She, in turn, consulted two of her colleagues. Both of them recommended against the patient receiving t-PA. They feel that without any other symptoms, this is most likely viral. In cases of isolated vertigo, less than 1% turn sewer to be due to a stroke. Typically, with brainstem infarcts, the nystagmus is bidirectional, not unidirectional, as with this patient. Dr. Dale recommended that we obtain a CT angiogram of the patient's head and neck to look for basilar artery stenosis, tonight, if possible. I am to call her back if there is significant stenosis. She then recommended a MRI non-emergently tomorrow. 05/26/18 23:15 Notified by Suzan ROMAN that the patient had been up to go to the bathroom several times, but had minimal urine output. She bladder scanned him, finding 699 mL of urine. I have therefore ordered a Mayo catheter to be placed. 05/26/18 23:23 CT angiogram of the head is read by [facility] as "No acute findings." CT angiogram of the neck is read by [facility] as "No acute findings." 05/26/18 23:[address] Zepeda at 23:26. He accepted the patient for placement into observation. He asked that I write bridge orders. With the negative CT angiograms, I will order meclizine for the patient. Departure - Departure Time of Disposition: 23:29 Disposition: Refer to Observation Condition: Fair Clinical Impression: Vertigo, Urinary retention Nausea & vomiting Qualifiers: Vomiting type: unspecified Vomiting Intractability: non-intractable Qualified Code(s): R11.2 - Nausea with vomiting, unspecified - Discharge Information *PRESCRIPTION DRUG MONITORING PROGRAM REVIEWED*: Not Applicable *COPY OF PRESCRIPTION DRUG MONITORING REPORT IN PATIENT RENATE: Not Applicable - My Orders Last 24 Hours: My Active Orders 05/26/18 19:45 Sodium Chloride 0.9% [Normal Saline] 1,000 ml IV ASDIRECTED 05/26/18 21:11 Ang Head [CT] Stat 05/26/18 21:12 CTA Neck W & W/O Contrast [Ang Neck] [CT] Stat 05/26/18 23:14 Bladder Scan [RC] ASDIRECTED 05/26/18 23:15 Mayo Catheter Insertion [Insert Urinary Catheter] [OM.PC] Q24H Urinary Catheter Assessment [RC] ASDIRECTED - Assessment/Plan Last 24 Hours: My Active Orders 05/26/18 19:45 Sodium Chloride 0.9% [Normal Saline] 1,000 ml IV ASDIRECTED 05/26/18 21:11 Ang Head [CT] Stat 05/26/18 21:12 CTA Neck W & W/O Contrast [Ang Neck] [CT] Stat 05/26/18 23:14 Bladder Scan [RC] ASDIRECTED 05/26/18 23:15 Mayo Catheter Insertion [Insert Urinary Catheter] [OM.PC] Q24H Urinary Catheter Assessment [RC] ASDIRECTED
--- NOTE | 2018-05-26 20:26 | CT ---
Head CT Technique: Multiple axial sections through the brain were obtained. Intravenous contrast was not utilized. Comparison: No prior intracranial imaging. Findings: Ventricles along with basal cisterns and sulci over convexities are within normal limits for the patient's age. Old lacunar infarcts are noted within the basal ganglia. Old small infarct is noted inferiorly within the right cerebellar hemisphere. No other abnormal parenchymal densities are seen. No evidence of intracranial hemorrhage. No midline shift or mass effect is seen. Bone window settings were reviewed which shows the visualized sinuses to appear clear. No acute calvarial abnormality is seen. Impression: 1. Slight senescent change. 2. No acute intracranial abnormality is identified. Diagnostic code #2
[2018-05-27] MEDS ORDERED: Scopolamine 1.5 MG Transdermal Patch TOP ONE (01:00)
[2018-05-27] MEDS ORDERED: Ondansetron 4 MG/2 ML SDV ONE (01:23)
[2018-05-27] MEDS: Ondansetron 4 MG/2 ML SDV IVPUSH PRN ×3 (01:25→20:12)
[2018-05-27] MEDS: Sodium Chloride 0.9% 1,000 ML IV SCH ×2 (05:36→18:41)
--- NOTE | 2018-05-27 06:35 | PCM.HP ---
H&P History of Present Illness - General Date of Service: 05/27/18 Admit Problem/Dx: Admission Diagnosis/Problem Admission Diagnosis/Problem Vertigo Source of Information: Patient, Provider, RN, RN Notes Reviewed - History of Present Illness Initial Comments - Free Text/Narative: Melvin Kelly is a 63 yo male who presented to our ED yesterday evening via [facility] with the sensation of room spinning, nausea and vomiting. He was apparently quite angry in the ED and was yelling and swearing at the provider due to his symptoms. Reports nausea and vomiting that started that day around 1730. Denies any decreased hearing, tinnitus, ear pain, or any other hearing symptoms bilaterally. 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 Ports dyspnea 1 vomiting. Denies chest pain, palpitations, or prior similar symptoms. Denies a headache while in the ED although reports occasional brief stabbing left-sided pain for more than a week. He had been seen in the ED for this and offered an MRI but declined at that time. Prior medical records show that he was in our ED on with sharp left-sided head pain just above his left ear which had been ongoing for 3 months. This is believed to be secondary to a fall in which he hit his head and broke his left humerus. He reportedly underwent a CT scan of the head and an MRI although no records of either of these studies are available here. He was instructed to follow up with his PCP for neurology consultation although he never did. In the ED Was 36.4C. Pulse 64. Respirations 16. Blood pressure 149/101. Pulse ox 92%. Labs are obtained: WBC is 8.45. Hemoglobin 16.5. Hematocrit 49.7. He is normocytic. Blister 240,000. Neutrophils are elevated at 63%. There is no bandemia. Sodium is 141. Potassium 3.7. Chloride 104. Carbon dioxide 27. Anion gap 13.7. BUN is 21. Creatinine 0.8. EGFR is greater than 60. Glucose is high at 186. Calcium was 9.2. Magnesium 1.8. Bilirubin 0.3. AST is 13, ALT 33, alkaline phosphatase 67. Protein 7.5. Albumin 3.9. 100 mils an hour normal saline and given 25 mg of meclizine along with 10 mg of Reglan. He'll be given Zofran by EMS prior. Attempt was made to perform a Tyrel- Hallpike maneuver however the patient said he is extremely dizzy and was unable to perform. CT of the head without contrast is obtained and interpreted by Dr. Ellis as "1. Slight senescent change. 2. No acute intracranial abnormality is identified." Chito a stroke neurologist at [facility] in [place] contacted by the ED provider who in turn discussed the case with to her colleagues. They recommend against the patient receiving TPA and feel that without symptoms he is most likely having a viral illness. It is noted that in cases of isolated vertigo, less than 1% cuff turner to be due to a stroke. Typically with brainstem infarcts denies statements is bidirectional not unidirectional as with this patient. Dr. Dale recommended we obtain a CT angiogram of the patient's neck and head to look for basal artery stenosis and a nonemergent MRI tomorrow. Patient was up multiple times to use the restroom but had minimal urine output. Bladder scan was obtained showing 699 mL of urine and a Velazquez catheter was placed. CT angiogram of the neck was obtained and interpreted by Dr. Ellis as "one dominant left vertebral artery as an incidental note. Scattered calcified plaque. 2. No focal stenosis or occlusion is seen within the carotid arteries were within the vertebral arteries." CT angiogram of the brain is obtained and interpreted by Dr. Ellis as "one. 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 He was never a smoker. He lives at [facility]. His PCP is Sridevi Perze. He subsequently admitted to the medical floor observation status on telemetry. He is a full code. - Related Data Allergies/Adverse Reactions: Allergies Allergy/AdvReac Type Severity Reaction Status Date / Time cat dander Allergy Airway Verified 05/26/18 19:25 Tightness Corticosteroids Allergy Cannot Verified 05/26/18 19:25 (Glucocorticoids) Remember lorazepam Allergy Itching Verified 05/27/18 09:07 peanut Allergy Anaphylactic Verified 05/26/18 19:25 Shock levofloxacin AdvReac Other Verified 05/26/18 19:25 metformin AdvReac Diarrhea Verified 05/26/18 19:25 Home Medications: Home Meds Metoprolol Succinate [Toprol XL] 100 mg PO DAILY 10/29/14 [History] Pravastatin [Pravachol] 40 mg PO DAILY 10/29/14 [History] Multivitamin [Multi-Vitamin Daily] 1 tab PO DAILY 01/13/16 [History] Potassium Chloride 20 meq PO DAILY #30 tablet.er 09/29/16 [Rx] Fenofibric Acid (Choline) [Fenofibric Acid] 135 mg PO DAILY 02/24/17 [History] Lisinopril 40 mg PO DAILY 06/23/17 [History] Omeprazole Magnesium [Prilosec Otc] 40 mg PO DAILY 06/23/17 [History] Orphenadrine Citrate [Orphenadrine Citrate ER] 100 mg PO BID 06/23/17 [History] Tresiba 86 units SQ DAILY 06/23/17 [History] Insulin Aspart [NovoLOG] 18 units SQ ACBREAKFAST 05/26/18 [History] Insulin Aspart [NovoLOG] 18 units SQ ACDINNER 05/26/18 [History] Insulin Aspart [NovoLOG] 24 units SQ ACLUNCH 05/26/18 [History] Meloxicam [Mobic] 15 mg PO DAILY 05/26/18 [History] Tacrolimus 1 dose TOP BID 05/26/18 [History] Temazepam 30 mg PO BEDTIME 05/26/18 [History] traZODone HCl [Trazodone HCl] 50 mg PO DAILY 05/26/18 [History] Tacrolimus [Protopic] 1 applic TOP BID 05/27/18 [History] guaiFENesin/Codeine Phosphate [Cheratussin AC Syrup] 5 ml PO Q4HR PRN 05/27/18 [ History] Past Medical History HEENT History: Reports: Impaired Vision Other HEENT History: Wears glasses Cardiovascular History: Reports: Arrhythmia, High Cholesterol, Hypertension Other Cardiovascular History: hx of more parkinsons syndrome-surgery was done. Respiratory History: Reports: Sleep Apnea Other Respiratory History: hemothorax with chest tube Gastrointestinal History: Reports: Diverticulosis, GERD, GI Bleed, Pancreatitis Other Gastrointestinal History: rectal bleeding, dysphagia Genitourinary History: Reports: Acute Renal Failure, BPH, Dialysis Other Genitourinary History: hemodyalysis for 2mo. ACID CLEANER History: Reports: None Musculoskeletal History: Reports: Fracture Other Musculoskeletal History: R shoulder Neurological History: Reports: Neuropathy, Diabetic Psychiatric History: Reports: Anxiety Endocrine/Metabolic History: Reports: Diabetes, Type II, Obesity/BMI 30+ Other Endocrine/Metabolic History: diabetic Hematologic History: Reports: Other (See Below) Other Hematologic History: Hypopotassemia Immunologic History: Reports: None Oncologic (Cancer) History: Reports: Other (See Below) Other Oncologic History: preliminary skin cancer, removed and biopsy, froze the area. Dermatologic History: Reports: Cellulitis, Other (See Below) Other Dermatologic History: boils - Infectious Disease History Infectious Disease History: Reports: Influenza - Past Surgical History HEENT Surgical History: Reports: Adenoidectomy, Tonsillectomy Cardiovascular Surgical History: Reports: Cardiac Ablation Respiratory Surgical History: Reports: Thoracotomy GI Surgical History: Reports: Colonoscopy, Hernia, Inguinal Neurological Surgical History: Reports: Spinal Fusion Musculoskeletal Surgical History: Reports: Knee Replacement, Shoulder Surgery Social & Family History - Family History Family Medical History: Noncontributory - Tobacco Use Smoking Status *Q: Never Smoker Second Hand Smoke Exposure: No - Caffeine Use Caffeine Use: Reports: Coffee - Recreational Drug Use Recreational Drug Use: No - Living Situation & Occupation Living situation: Reports: Single, Assisted Living ([facility]) Occupation: Disabled H&P Review of Systems - Review of Systems: Review Of Systems: See Below General: Reports: Malaise, Weakness, Fatigue, Decreased Appetite. Denies: Fever , Chills HEENT: Reports: Ear Pain, Vertigo, Other (chronic left eye blindness ). Denies : Dysphasia, Eye Pain, Headaches, Hearing Changes, Sinus Congestion, Sore Throat , Visual Changes Pulmonary: Reports: Cough (has reportedly recenly been treated for "cold" and still has residual cough ). Denies: Shortness of Breath, Wheezing, Pleuritic Chest Pain, Sputum Cardiovascular: Denies: Chest Pain, Palpitations, Dyspnea on Exertion, Edema, Lightheadedness, Syncope, Claudication Gastrointestinal: Reports: Decreased Appetite, Nausea. Denies: Abdominal Pain, Constipation, Diarrhea, Vomiting Genitourinary: Reports: Retention Musculoskeletal: Reports: Back Pain, Foot Pain (left 2/2 diabetic neuropathy) Skin: Reports: No Symptoms Psychiatric: Reports: No Symptoms Neurological: Reports: Dizziness, Pre-Existing Deficit, Difficulty Walking, Weakness, Gait Disturbance. Denies: Headache, Numbness, Seizure, Syncope, Tingling, Trouble Speaking, Change in Speech Hematologic/Lymphatic: Reports: No Symptoms Immunologic: Reports: No Symptoms Exam - Exam Exam: See Below - Vital Signs Vital Signs: Last Vital Signs Temp 97.3 F 05/27/18 03:18 Pulse 69 05/27/18 03:18 Resp 16 05/27/18 03:18 BP 159/88 H 05/27/18 03:18 Pulse Ox 94 L 05/27/18 03:18 Weight: 248 lb - Exam Quality Assessment: Urinary Catheter, DVT Prophylaxis General: Alert, Oriented, Cooperative. No: Mild Distress HEENT: Conjunctiva Clear, EACs Clear, EOMI, Hearing Intact, Mucosa Moist & [place] , Nares Patent, Posterior Pharynx Clear, Other (Rapid 1-2 beat left-sided nystagmus on physical exam), PERRLA Neck: Supple, Trachea Midline Lungs: Clear to Auscultation, Normal Respiratory Effort Cardiovascular: Regular Rate, Regular Rhythm GI/Abdominal Exam: Normal Bowel Sounds, Soft, Non-Tender, No Organomegaly, No Distention, No Abnormal Bruit, No Mass, Pelvis Stable (Male) Exam: Deferred Rectal (Males) Exam: Deferred Extremities: Normal Inspection, Normal Range of Motion, Non-Tender, No Pedal Edema, Normal Capillary Refill, Other (S/P right arm amputation ) Peripheral Pulses: 2+: Radial (L), Dorsalis Pedis (L), Dorsalis Pedis (R) Neurological: Cranial Nerves Intact, Strength Equal Bilateral, Normal Tone, Sensation Intact Neuro Extensive - Mental Status: Alert, Oriented x3, Normal Mood/Affect Neuro Extensive - Motor, Sensory, Reflexes: No: Ataxia, Tongue Deviation (L), Tongue Deviation (R), Receptive Aphasia, Expressive Aphasia, Facial palsy (L), Facial Palsy (R) Psychiatric: Alert, Normal Affect, Normal Mood - Patient Data Lab Results Last 24 hrs: Laboratory Results - last 24 hr 05/26/18 05/26/18 05/27/18 Range/Units 19:57 19:57 00:42 WBC 8.45 (4.23-9.07) K/mm3 RBC 5.65 (4.63-6.08) M/mm3 Hgb 16.5 (13.7-17.5) gm/L Hct 49.7 (40.1-51.0) % MCV 88.0 (79.0-92.2) fl MCH 29.2 (25.7-32.2) pg MCHC 33.2 (32.2-35.5) g/dl RDW Std Deviation 45.1 H (35.1-43.9) fL Plt Count 240 (163-337) K/mm3 MPV 10.4 (9.4-12.3) fl Neutrophils % (Manual) 63 H (40-60) % Band Neutrophils % 0 (0-10) % Lymphocytes % (Manual) 29 (20-40) % Atypical Lymphs % 0 % Monocytes % (Manual) 4 (2-10) % Eosinophils % (Manual) 3 (0.8-7.0) % Basophils % (Manual) 1 (0.2-1.2) Platelet Estimate Adequate RBC Morph Comment Normal Sodium 141 (136-145) mEq/L Potassium 3.7 (3.5-5.1) mEq/L Chloride 104 (98-107) mEq/L Carbon Dioxide 27 (21-32) mEq/L Anion Gap 13.7 (5-15) BUN 21 H (7-18) mg/dL Creatinine 0.8 (0.7-1.3) mg/dL Est Cr Clr Drug Dosing 105.08 mL/min Estimated GFR (MDRD) > 60 (>60) mL/min BUN/Creatinine Ratio 26.3 H (14-18) Glucose 186 H (80-115) mg/dL POC Glucose (80-115) mg/dL Calcium 9.2 (8.5-10.1) mg/dL Magnesium 1.8 (1.8-2.4) mg/dl Total Bilirubin 0.3 (0.2-1.0) mg/dL AST 13 L (15-37) U/L ALT 33 (16-63) U/L Alkaline Phosphatase 67 (46-116) U/L Total Protein 7.5 (6.4-8.2) g/dl Albumin 3.9 (3.4-5.0) g/dl Globulin 3.6 gm/dL Albumin/Globulin Ratio 1.1 (1-2) MRSA (PCR) Negative 05/27/18 Range/Units 06:06 WBC (4.23-9.07) K/mm3 RBC (4.63-6.08) M/mm3 Hgb (13.7-17.5) gm/L Hct (40.1-51.0) % MCV (79.0-92.2) fl MCH (25.7-32.2) pg MCHC (32.2-35.5) g/dl RDW Std Deviation (35.1-43.9) fL Plt Count (163-337) K/mm3 MPV (9.4-12.3) fl Neutrophils % (Manual) (40-60) % Band Neutrophils % (0-10) % Lymphocytes % (Manual) (20-40) % Atypical Lymphs % % Monocytes % (Manual) (2-10) % Eosinophils % (Manual) (0.8-7.0) % Basophils % (Manual) (0.2-1.2) Platelet Estimate RBC Morph Comment Sodium (136-145) mEq/L Potassium (3.5-5.1) mEq/L Chloride (98-107) mEq/L Carbon Dioxide (21-32) mEq/L Anion Gap (5-15) BUN (7-18) mg/dL Creatinine (0.7-1.3) mg/dL Est Cr Clr Drug Dosing mL/min Estimated GFR (MDRD) (>60) mL/min BUN/Creatinine Ratio (14-18) Glucose (80-115) mg/dL POC Glucose 226 H (80-115) mg/dL Calcium (8.5-10.1) mg/dL Magnesium (1.8-2.4) mg/dl Total Bilirubin (0.2-1.0) mg/dL AST (15-37) U/L ALT (16-63) U/L Alkaline Phosphatase (46-116) U/L Total Protein (6.4-8.2) g/dl Albumin (3.4-5.0) g/dl Globulin gm/dL Albumin/Globulin Ratio (1-2) MRSA (PCR) Result Diagrams: 05/27/18 09:00 05/27/18 09:00 - Problem List (1) Vertigo SNOMED Code(s): 069957327 ICD Code: R42 - DIZZINESS AND GIDDINESS Status: Acute Priority: High Current Visit: Yes (2) Nausea & vomiting SNOMED Code(s): 45785257 ICD Code: R11.2 - NAUSEA WITH VOMITING, UNSPECIFIED Status: Acute Priority: High Current Visit: Yes Qualifiers: Vomiting type: unspecified Vomiting Intractability: non-intractable Qualified Code(s): R11.2 - Nausea with vomiting, unspecified (3) Urinary retention SNOMED Code(s): 614232952 ICD Code: R33.9 - RETENTION OF URINE, UNSPECIFIED Status: Acute Priority : High Current Visit: Yes Problem List Initiated/Reviewed/Updated: Yes Orders Last 24hrs: Active Orders 24 hr Category Date Time Status Patient Status [ADT] Routine ADT 05/27/18 00:30 Active Bladder Scan [RC] ASDIRECTED Care 05/26/18 23:14 Active Velazquez Catheter Insertion [Insert Urinary Catheter] [OM. Care 05/26/18 23:15 Ordered PC] Q24H Up With Assistance [RC] DAILY Care 05/27/18 01:14 Active Urinary Catheter Assessment [RC] ASDIRECTED Care 05/26/18 23:15 Active NPO [Nothing Per Oral Diet] [DIET] Diet 05/27/18 Breakfast Active Ang Head [CT] Stat Exams 05/26/18 21:11 Taken CTA Neck W & W/O Contrast [Ang Neck] [CT] Stat Exams 05/26/18 21:12 Taken Meclizine [Antivert] Med 05/27/18 01:15 Active 25 mg PO Q6H PRN Ondansetron [Zofran] Med 05/27/18 01:15 Active 4 mg IVPUSH Q6HR PRN Remove Patch Med 05/30/18 01:00 Once 1 ea TRDERM ONETIME ONE Sodium Chloride 0.9% [Normal Saline] 1,000 ml Med 05/26/18 19:45 Active IV ASDIRECTED Resuscitation Status Routine Resus Stat 05/27/18 00:43 Ordered Medication Orders Sodium Chloride (Normal Saline) 1,000 mls @ 100 mls/hr IV ASDIRECTED WANDA Last Admin: 05/27/18 05:36 Dose: 100 mls/hr Infusion: 05/27/18 05:36 Dose: 100 mls/hr Admin: 05/26/18 19:46 Dose: 100 mls/hr Meclizine HCl (Antivert) 25 mg PO Q6H PRN PRN Reason: Dizziness Miscellaneous Information (Remove Patch) 1 ea PALMERM ONETIME ONE Stop: 05/30/18 01:01 Ondansetron HCl (Zofran) 4 mg IVPUSH Q6HR PRN PRN Reason: Nausea/Vomiting Last Admin: 05/27/18 01:25 Dose: 4 mg Assessment/Plan Comment:: I/P: Vertigo with nausea and vomiting -Sudden onset of sensation of room spinning starting around 1730 on 05/26/17 -Accompanied with nausea and vomiting -Hx/o partial left eye blindness -Reports occasional left sided stabbing pain - was seen in ED on 04/23/19 and refused MRI -Unable to performed [place]-Hallpike maneuver in ED, reattempt on floor -Fast nystagmus noted in ED to left with leftward gaze only -No leukocytosis -Electrolytes normal -CT of head without contrast in ED shows slight senescent change with no acute abnormality -CTA of neck in ED shows scattererd calcified plaque, no focal stenosis or occlusion seen -CTA of head in ED show no abnormality -IV fluids as ordered -Meclizine as ordered -Consult PT for vestibular exam -PRN Zofran -MRI of brain ordered -Echo ordered -Lipid panel in AM -PT/OT consult starting 05/28/18 -Clear liquid diet for now Urinary retention -Has history of urinary issues in past -Hx/o BPH -Had difficulty with urination in ED -Bladder scan in ED showed 699 of residual urine and velazquez catheter was placed -Continue velazquez care -Will need urology consult - case management to attempt -Obtain old records. 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
--- NOTE | 2018-05-27 06:57 | CT ---
CT brain Technique: Multiple axial sections through the brain were obtained. Intravenous contrast was utilized. Study performed as a CT angiogram protocol. Findings: Carotid siphon is patent. Middle cerebral arteries and anterior cerebral arteries appear patent. Dominant left vertebral artery over the right vertebral artery as an incidental note. Basilar artery is patent. Proximal posterior cerebral arteries appear patent. Impression: 1. No abnormality is seen on CT angiogram study of the brain. Diagnostic code #1 I agree with preliminary report from [facility], finalized on 05/27/18, 12:17 AM Central Time
--- NOTE | 2018-05-27 07:31 | CT ---
CT neck Technique: Multiple axial sections through the neck were obtained. Intravenous contrast was utilized. Study performed as a CT neck angiogram. Findings: Dominant left vertebral artery over the right vertebral artery is seen which is a normal variant. Common carotid arteries on both sides show no stenosis. Scattered calcified plaque is seen within the arteries. Carotid bulb appears without stenosis. Internal carotid arteries appear without stenosis. Proximal external carotid arteries also appear within normal limits. Scoliosis noted within the spine. Impression: 1. Dominant left vertebral artery has an incidental note. Scattered calcified plaque. 2. No focal stenosis or occlusion is seen within the carotid arteries or within the vertebral arteries. Diagnostic code #2 I agree with preliminary report from [facility], finalized on 05/27/18, 12:17 AM Central Time
[2018-05-27] MEDS ORDERED: Polyethylene Glycol 3350 Powder 17 GM Packet PO PRN (08:49)
[2018-05-27] MEDS ORDERED: Acetaminophen/HYDROcodone 325-5 MG Tab PO PRN (08:49)
[2018-05-27] MEDS ORDERED: Bisacodyl 5 MG Tab PO PRN (08:49)
[2018-05-27] MEDS ORDERED: Ondansetron 4 MG Tab.DIS PO PRN (08:49)
[2018-05-27] MEDS ORDERED: Albuterol/Ipratropium 3.0-0.5 MG/3 ML Neb Soln NEB PRN (08:49)
[2018-05-27] MEDS ORDERED: Docusate Sodium 100 MG Cap PO PRN (08:49)
[2018-05-27] MEDS ORDERED: TRAZODONE 50 MG PO SCH (09:00)
[2018-05-27] MEDS ORDERED: TACROLIMUS TOP SCH (09:00)
[2018-05-27] MEDS ORDERED: Insulin Glarg,Human.Rec.Analog 100 UNIT/ML ML SUBCUT SCH (09:00)
[2018-05-27] MEDS ORDERED: Metoprolol Succinate 50 MG Tab.ER PO SCH (09:00)
[2018-05-27] MEDS ORDERED: hydrALAZINE 20 MG/ML SDV IVPUSH PRN (09:05)
[2018-05-27] MEDS ORDERED: Metoprolol Tartrate 5 MG/5 ML SDV IVPUSH PRN (09:05)
[2018-05-27] MEDS ORDERED: Pantoprazole 40 MG Tab.CR PO SCH (09:30)
[2018-05-27] MEDS ORDERED: Metoprolol Succinate 100 MG Tab.ER PO SCH (10:59)
[2018-05-27] MEDS ORDERED: OMEPRAZOLE 40 MG PO SCH (11:00)
[2018-05-27] MEDS ORDERED: Potassium Chloride 20 MEQ Tab.ER PO SCH (11:00)
[2018-05-27] MEDS ORDERED: Insulin Lispro 100 Unit/ML 3 ML KwikPen SUBCUT SCH (11:00)
[2018-05-27] MEDS ORDERED: TRESIBA INSULIN SUBCUT SCH (11:30)
[2018-05-27] MEDS ORDERED: NOVOLOG 100 UNIT/ML SUBCUT SCH (11:45)
[2018-05-27] MEDS: Orphenadrine 100 MG Tab.ER PO SCH ×2 (11:49→20:13)
[2018-05-27] MEDS: Multivitamins,Therapeutic Tab PO SCH (11:52)
[2018-05-27] MEDS: TACROLIMUS 0.1% TOP SCH ×2 (12:07→20:11)
[2018-05-27] MEDS: Potassium Chloride 20 MEQ Tab.ER PO SCH (12:32)
[2018-05-27] MEDS: TRESIBA INSULIN SUBCUT SCH (12:32)
--- NOTE | 2018-05-27 14:27 | MR ---
MRI brain Technique: T1 sagittal; T2, T2 FLAIR, T1 and diffusion axial; T1-weighted coronal images were obtained. Comparison: Prior head CT exam of 05/26/18. Findings: Diffusion abnormality is identified within the left cerebellar hemisphere involving a portion of the left cerebellar tonsil. Additional area of diffusion abnormality is seen within the right basal ganglia extending into the centrum semi-ovale next to the right ventricle. The cerebellar defect shows increased signal on the T2 and FLAIR sequence. Increased signal also seen within the basal ganglia and centrum semi-ovale lesion. These findings are compatible with fairly recent infarcts which are irreversible due to the increased signal on FLAIR sequence. There is an old infarct being seen within the right cerebellar hemisphere. Mild areas of increased signal are seen within the periventricular and subcortical white matter compatible with small vessel ischemic demyelination change. Normal signal void is seen within the major cerebral arteries within the skull base. Impression: 1. Irreversible and fairly acute infarct within the left cerebellar hemisphere extending into the left cerebellar tonsil. Old small right cerebellar infarct. 2. Small irreversible inferiorly acute infarct within the right basal ganglia extending into the centrum semi-ovale on the right side. 3. Small vessel ischemic demyelination change. Diagnostic code #3
[2018-05-27] MEDS ORDERED: Aspirin 325 MG Tab.EC PO ONE (15:08)
--- NOTE | 2018-05-27 15:24 | PCM.SN ---
- Free Text/Narrative Note: MRI results are back and interpreted by Dr. Ellis as "1. Reversible and fairly acute infarct within the left cerebellar hemisphere extending into left cerebellar tonsil. Old small right cerebellar infarct. 2. Small irreversible inferiorly acute infarct within the right basal ganglia extending into the centrum semi-ovale; [place] on the right side. 3. Small vessel ischemic demyelination change." 325 mg aspirin ordered to be given now with 81 mg starting daily tomorrow morning. Patient is outside of treatment window for TPA. Discussed case with Dr. Zepeda. A1c and lipid panel ordered for tomorrow AM. Every 6 hours neurological checks ordered. Echo was obtained today. GEOSCIENCE PROFESSOR for both cognitive and swallow evaluation ordered along with PT and OT evaluation starting tomorrow. Will consult social work for placement issues as he may benefit from rehabilitation. Updated Doni on findings and treatment plan. Answered all questions the patient had.
[2018-05-27] MEDS: Acetaminophen 325 MG Tab PO PRN (16:50)
[2018-05-27] MEDS: Insulin Lispro 100 Unit/ML 3 ML KwikPen SUBCUT SCH ×2 (17:59→22:32)
[2018-05-27] MEDS: Benzonatate 100 MG Cap PO SCH (20:13)
[2018-05-27] MEDS: Temazepam 30 MG Cap PO SCH (20:13)
[2018-05-27] MEDS: traZODone 50 MG Tab PO SCH (20:13)
[2018-05-28] MEDS: Sodium Chloride 0.9% 1,000 ML IV SCH (04:48)
[2018-05-28] MEDS: Insulin Lispro 100 Unit/ML 3 ML KwikPen SUBCUT SCH ×4 (06:24→22:34)
[2018-05-28] MEDS: Pantoprazole 40 MG Tab.CR PO SCH (06:24)
--- NOTE | 2018-05-28 06:32 | PCM.PN ---
- General Info Date of Service: 05/28/18 Admission Dx/Problem (Free Text): Admission Diagnosis/Problem Admission Diagnosis/Problem Vertigo Subjective Update: In to see Doni. He is lying in bed. He feels ok. His velazquez catheter will be removed today and will start flomax. He was seen by [employer] UP WORK[employer] who reported mild cognitive impairment. He is working with PT/OT and doing fairly well per their report. Vitals and labs have been stable. He is hopeful for a return to [facility]. Functional Status: Reports: Pain Controlled, Tolerating Diet, Ambulating, Urinating. Denies: New Symptoms - Review of Systems General: Reports: Weakness (improved ). Denies: Fever, Fatigue, Malaise, Chills HEENT: Denies: Ear Pain, Eye Pain, Headaches (had one this am which has resolved ), Sore Throat, Visual Changes Pulmonary: Reports: No Symptoms. Denies: Shortness of Breath, Cough, Sputum, Wheezing Cardiovascular: Reports: No Symptoms. Denies: Chest Pain, Palpitations, Dyspnea on Exertion, Lightheadedness Gastrointestinal: Reports: No Symptoms. Denies: Abdominal Pain, Constipation, Diarrhea, Nausea, Vomiting Genitourinary: Reports: No Symptoms. 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 Denies: Confusion , Headache, Seizure, Syncope, Tingling, Trouble Speaking, Change in Speech Psychiatric: Reports: No Symptoms - Patient Data Vitals - Most Recent: Last Vital Signs Temp 97.3 F 05/27/18 23:49 Pulse 84 05/27/18 23:49 Resp 20 05/27/18 23:49 BP 157/91 H 05/27/18 23:49 Pulse Ox 94 L 05/27/18 23:49 Weight - Most Recent: 247 lb 9.6 oz I&O - Last 24 Hours: Intake & Output 05/27/18 05/27/18 05/28/18 14:59 22:59 06:59 Intake Total 1406 1340 Output Total 600 950 Balance 806 390 Lab Results Last 24 Hours: Laboratory Results - last 24 hr 05/27/18 05/27/18 05/27/18 Range/Units 09:00 09:00 11:07 WBC 9.80 H (4.23-9.07) K/mm3 RBC 5.49 (4.63-6.08) M/mm3 Hgb 16.1 (13.7-17.5) gm/L Hct 47.9 (40.1-51.0) % MCV 87.2 (79.0-92.2) fl MCH 29.3 (25.7-32.2) pg MCHC 33.6 (32.2-35.5) g/dl RDW Std Deviation 45.1 H (35.1-43.9) fL Plt Count 203 (163-337) K/mm3 MPV 10.6 (9.4-12.3) fl Neut % (Auto) 78.3 H (34.0-67.9) % Lymph % (Auto) 14.6 L (21.8-53.1) % [place] % (Auto) 6.3 (5.3-12.2) % Eos % (Auto) 0.4 L (0.8-7.0) Baso % (Auto) 0.2 (0.1-1.2) % Neut # (Auto) 7.67 H (1.78-5.38) K/mm3 Lymph # (Auto) 1.43 (1.32-3.57) K/mm3 [place] # (Auto) 0.62 (0.30-0.82) K/mm3 Eos # (Auto) 0.04 (0.04-0.54) K/mm3 Baso # (Auto) 0.02 (0.01-0.08) K/mm3 Sodium 141 (136-145) mEq/L Potassium 4.3 (3.5-5.1) mEq/L Chloride 106 (98-107) mEq/L Carbon Dioxide 23 (21-32) mEq/L Anion Gap 16.3 H (5-15) BUN 16 (7-18) mg/dL Creatinine 0.7 (0.7-1.3) mg/dL Est Cr Clr Drug Dosing 120.10 mL/min Estimated GFR (MDRD) > 60 (>60) mL/min BUN/Creatinine Ratio 22.9 H (14-18) Glucose 194 H (80-115) mg/dL POC Glucose 184 H (80-115) mg/dL Calcium 8.7 (8.5-10.1) mg/dL Magnesium 1.8 (1.8-2.4) mg/dl 05/27/18 05/27/18 05/28/18 Range/Units 17:24 21:58 06:09 WBC (4.23-9.07) K/mm3 RBC (4.63-6.08) M/mm3 Hgb (13.7-17.5) gm/L Hct (40.1-51.0) % MCV (79.0-92.2) fl MCH (25.7-32.2) pg MCHC (32.2-35.5) g/dl RDW Std Deviation (35.1-43.9) fL Plt Count (163-337) K/mm3 MPV (9.4-12.3) fl Neut % (Auto) (34.0-67.9) % Lymph % (Auto) (21.8-53.1) % [place] % (Auto) (5.3-12.2) % Eos % (Auto) (0.8-7.0) Baso % (Auto) (0.1-1.2) % Neut # (Auto) (1.78-5.38) K/mm3 Lymph # (Auto) (1.32-3.57) K/mm3 [place] # (Auto) (0.30-0.82) K/mm3 Eos # (Auto) (0.04-0.54) K/mm3 Baso # (Auto) (0.01-0.08) K/mm3 Sodium (136-145) mEq/L Potassium (3.5-5.1) mEq/L Chloride (98-107) mEq/L Carbon Dioxide (21-32) mEq/L Anion Gap (5-15) BUN (7-18) mg/dL Creatinine (0.7-1.3) mg/dL Est Cr Clr Drug Dosing mL/min Estimated GFR (MDRD) (>60) mL/min BUN/Creatinine Ratio (14-18) Glucose (80-115) mg/dL POC Glucose 232 H 209 H 161 H (80-115) mg/dL Calcium (8.5-10.1) mg/dL Magnesium (1.8-2.4) mg/dl Med Orders - Current: Current Medications Acetaminophen (Tylenol) 650 mg PO Q4H PRN PRN Reason: Pain (Mild 1-3)/fever Last Admin: 05/27/18 16:50 Dose: 650 mg Hydrocodone Bitart/Acetaminophen ([place] 325-5 Mg) 1 tab PO Q4H PRN PRN Reason: Pain (moderate 4-6) Last Admin: 05/27/18 20:12 Dose: 1 tab Albuterol/Ipratropium (Duoneb 3.0-0.5 Mg/3 Ml) 3 ml NEB Q4H PRN PRN Reason: Shortness Of Breath/wheezing Aspirin (Aspirin) 81 mg PO DAILY [facility] Benzonatate (Tessalon Perles) 100 mg PO BID [facility] Last Admin: 05/27/18 20:13 Dose: 100 mg Bisacodyl (Dulcolax) 5 mg PO DAILY PRN PRN Reason: Constipation Docusate Sodium (Colace) 100 mg PO BID PRN PRN Reason: Constipation Enoxaparin Sodium (Lovenox) 40 mg SUBCUT DAILY [facility] Hydralazine HCl (Apresoline) 20 mg IVPUSH Q4H PRN PRN Reason: Hypertension Sodium Chloride (Normal Saline) 1,000 mls @ 100 mls/hr IV ASDIRECTED [facility] Last Admin: 05/28/18 04:48 Dose: 100 mls/hr Insulin Human Lispro (Humalog) 0 unit SUBCUT QIDACANDBED [facility]; Protocol Last Admin: 05/28/18 06:24 Dose: 3 units Magnesium Sulfate (Pharmacy To Dose - Magnesium Replacement) 0 dose .XX ASDIRECTED PRN PRN Reason: RX TO WATCH MAG LEVELS Meclizine HCl (Antivert) 25 mg PO Q6H PRN PRN Reason: Dizziness Last Admin: 05/27/18 18:01 Dose: 25 mg Metoprolol Succinate (Toprol Xl) 100 mg PO DAILY [facility] Metoprolol Tartrate (Lopressor) 5 mg IVPUSH Q4H PRN PRN Reason: Tachycardia Miscellaneous Information (Remove Patch) 1 ea TRDERM ONETIME ONE Stop: 05/30/18 01:01 Multivitamins (Thera) 1 each PO DAILY [facility] Last Admin: 05/27/18 11:52 Dose: 1 each Ondansetron HCl (Zofran) 4 mg IVPUSH Q6HR PRN PRN Reason: Nausea/Vomiting Last Admin: 05/27/18 20:12 Dose: 4 mg Ondansetron HCl (Zofran Odt) 4 mg PO Q6H PRN PRN Reason: nausea, able to take PO Orphenadrine Citrate (Norflex) 100 mg PO BID [facility] Last Admin: 05/27/18 20:13 Dose: 100 mg Pantoprazole Sodium (Protonix) 40 mg PO DAILY@0700 [facility] Last Admin: 05/28/18 06:24 Dose: 40 mg Meloxicam 15 Mg 0 each PO DAILY [facility] Last Admin: 05/27/18 11:50 Dose: 1 each Tacrolimus [Protopic (] Ointment) 0 each TOP BID [facility] Last Admin: 05/27/18 20:11 Dose: Not Given Tresiba Insulin Pen (200 Units/Ml) 0 each SUBCUT DAILY [facility] Last Admin: 05/27/18 12:32 Dose: 86 each Polyethylene Glycol (Miralax) 17 gm PO DAILY PRN PRN Reason: Constipation Potassium Chloride (Klor-Con M20) 20 meq PO DAILY [facility] Last Admin: 05/27/18 12:32 Dose: Not Given Potassium Chloride (Pharmacy To Dose - Potassium Replacement) 0 dose .XX ASDIRECTED PRN PRN Reason: RX TO WATCH K LEVELS Senna/Docusate Sodium (Senna Plus) 1 tab PO BID PRN PRN Reason: Constipation Simvastatin (Zocor) 20 mg PO DAILY [facility] Temazepam (Restoril) 30 mg PO BEDTIME [facility] Last Admin: 05/27/18 20:13 Dose: 30 mg Trazodone HCl (Trazodone) 50 mg PO BEDTIME [facility] Last Admin: 05/27/18 20:13 Dose: 50 mg Discontinued Medications Aspirin (Ecotrin) 325 mg PO ONETIME ONE Stop: 05/27/18 15:09 Last Admin: 05/27/18 15:27 Dose: 325 mg Insulin Glargine (Lantus) 86 unit SUBCUT DAILY [facility] Last Admin: 05/27/18 14:05 Dose: Not Given Insulin Human Lispro (Humalog) 0 unit SUBCUT QIDACANDBED [facility]; Protocol Last Admin: 05/27/18 14:07 Dose: Not Given Meclizine HCl (Antivert) 25 mg PO ONETIME STA Stop: 05/26/18 23:33 Last Admin: 05/26/18 23:38 Dose: 25 mg Metoclopramide HCl (Reglan) 10 mg IVPUSH ONETIME STA Stop: 05/26/18 19:40 Last Admin: 05/26/18 19:49 Dose: 10 mg Metoprolol Succinate (Toprol Xl) 100 mg PO DAILY [facility] Last Admin: 05/27/18 14:07 Dose: Not Given Non-Formulary Medication (Tacrolimus [Tacrolimus]) 1 dose TOP BID [facility] Last Admin: 05/27/18 09:34 Dose: Not Given Ondansetron HCl (Zofran) Confirm Administered Dose 4 mg .ROUTE .STK-MED ONE Stop: 05/27/18 01:24 Last Admin: 05/27/18 01:28 Dose: Not Given Pantoprazole Sodium (Protonix) 40 mg PO DAILY@0700 [facility] Last Admin: 05/27/18 14:07 Dose: Not Given Omeprazole 40 Mg 0 each PO DAILY@0700 [facility] Last Admin: 05/27/18 11:53 Dose: 40 each Metoprolol Succinate (100 Mg Tab.Er) 0 each PO DAILY [facility] Tresiba Insulin Pen (200 Units/Ml) 86 each SUBCUT DAILY [facility] Novolog Flexpen 100 (Units/Ml) 0 each SUBCUT QIDACANDBED [facility]; Protocol Potassium Chloride (Klor-Con M20) 40 meq PO Q4H [facility] Stop: 05/27/18 15:01 Last Admin: 05/27/18 11:49 Dose: 20 meq Scopolamine (Transderm-Scop) 1.5 mg TOP ONETIME ONE Stop: 05/27/18 01:01 Last Admin: 05/27/18 01:20 Dose: 1.5 mg Trazodone HCl (Trazodone) 50 mg PO DAILY [facility] Last Admin: 05/27/18 14:07 Dose: Not Given - Exam Quality Assessment: Urine Catheter (will discontinue today), DVT Prophylaxis General: Alert, Oriented, Cooperative, No Acute Distress HEENT: Pupils Equal, Pupils Reactive, EOMI, Mucous Membr. Moist/[place] Neck: Supple, Trachea Midline, No JVD Lungs: Clear to Auscultation, Normal Respiratory Effort Cardiovascular: Regular Rate, Regular Rhythm GI/Abdominal Exam: Normal Bowel Sounds, Soft, Non-Tender, No Distention, No Abnormal Bruit (Male) Exam: Deferred Extremities: Normal Inspection, Normal Range of Motion, Non-Tender, No Pedal Edema, Normal Capillary Refill, Other (S/P right arm amputation ) Peripheral Pulses: 2+: Dorsalis Pedis (L), Dorsalis Pedis (R), 3+: Radial (L), Radial (R) Skin: Warm, Dry, Intact Neurological: No New Focal Deficit, Normal Speech, Normal Tone, Strength Equal Bilateral, Sensation Intact, Cranial Nerves Intact. No: Normal Gait Psy/Mental Status: Alert, Normal Affect, Normal Mood - Problem List & Annotations (1) CVA (cerebral vascular accident) SNOMED Code(s): 997498642 Code(s): I63.9 - CEREBRAL INFARCTION, UNSPECIFIED Status: Acute Priority : High Current Visit: Yes Qualifiers: CVA mechanism: unspecified Qualified Code(s): I63.9 - Cerebral infarction, unspecified (2) Vertigo SNOMED Code(s): 785457806 Code(s): R42 - DIZZINESS AND GIDDINESS Status: Acute Priority: High Current Visit: Yes (3) Nausea & vomiting SNOMED Code(s): 92283860 Code(s): R11.2 - NAUSEA WITH VOMITING, UNSPECIFIED Status: Acute Priority : High Current Visit: Yes Qualifiers: Vomiting type: unspecified Vomiting Intractability: non-intractable Qualified Code(s): R11.2 - Nausea with vomiting, unspecified (4) Urinary retention SNOMED Code(s): 701374925 Code(s): R33.9 - RETENTION OF URINE, UNSPECIFIED Status: Acute Priority: High Current Visit: Yes - Problem List Review Problem List Initiated/Reviewed/Updated: Yes - My Orders Last 24 Hours: My Active Orders 05/27/18 08:42 Consult to Physical Therapy [PT Evaluation and Treatment] [CONS] Routine 05/27/18 08:49 Height and Weight [RC] 04 Oxygen Therapy [RC] PRN VTE/DVT Education [RC] DAILY Vital Signs [RC] Q4HR Acetaminophen [Tylenol] 650 mg PO Q4H PRN Acetaminophen/HYDROcodone [[place] 325-5 MG] 1 tab PO Q4H PRN Albuterol/Ipratropium [DuoNeb 3.0-0.5 MG/3 ML] 3 ml NEB Q4H PRN Bisacodyl [Dulcolax] 5 mg PO DAILY PRN Docusate Sodium [Colace] 100 mg PO BID PRN Docusate Sodium/Sennosides [Senna Plus] 1 tab PO BID PRN Ondansetron [Zofran ODT] 4 mg PO Q6H PRN Polyethylene Glycol 3350 [MiraLAX] 17 gm PO DAILY PRN 05/27/18 08:51 Intake and Output [RC] 04,16 Pulse Oximetry [RC] PRN 05/27/18 08:53 RT Aerosol Therapy [RC] ASDIRECTED 05/27/18 09:00 Multivitamins,Therapeutic [Thera] 1 each PO DAILY Orphenadrine [Norflex] 100 mg PO BID Patient's Own Medication [Ptom] 0 each PO DAILY Patient's Own Medication [Ptom] 0 each TOP BID Potassium Chloride [Klor-Con M20] 20 meq PO DAILY 05/27/18 09:05 Metoprolol Tartrate [Lopressor] 5 mg IVPUSH Q4H PRN hydrALAZINE [Apresoline] 20 mg IVPUSH Q4H PRN 05/27/18 09:15 Pharmacy to Dose - Magnesium R [Pharmacy to Dose - Magnesium Replacement] 0 dose .XX ASDIRECTED PRN Pharmacy to Dose - Potassium R [Pharmacy to Dose - Potassium Replacement] 0 dose .XX ASDIRECTED PRN 05/27/18 11:30 Patient's Own Medication [Ptom] 0 each SUBCUT DAILY 05/27/18 14:55 Consult to Speech Language Pathology [[employer] WORK[employer] Evaluation and Treatment] [CONS] Routine 05/27/18 15:07 Consult to Speech Language Pathology [[employer] WORKER Evaluation and Treatment] [CONS] Routine 05/27/18 15:09 Neuro Check [RC] Q6HR 05/27/18 15:12 Precautions [COMM] Routine 05/27/18 15:24 Consult to Health And Social Care Teacher [Consult to Diabetic Nurse Specialist] [CONS] Routine 05/27/18 15:25 Consult to Case Management/Group Insurance Special Agent [CONS] Routine 05/27/18 15:29 Metoprolol Succinate [Toprol XL] 100 mg PO DAILY 05/27/18 15:30 Insulin Lispro [HumaLOG] 0 unit SUBCUT QIDACANDBED 05/27/18 15:31 Pantoprazole [ProTONIX] 40 mg PO DAILY@0700 01/17/19 16:14 Aspiration Precautions [RC] ASDIRECTED 05/27/18 21:00 Temazepam [Restoril] 30 mg PO BEDTIME traZODone 50 mg PO BEDTIME 05/27/18 Dinner ADA Diabetic [[place] [employer] Diet] [DIET] 05/28/18 05:11 A1C [GLYCOSYLATED HEMOGLOBIN,HGBA1C] [CHEM] Routine BASIC METABOLIC PANEL,BMP [CHEM] AM CBC WITH AUTO DIFF [HEME] AM LIPID PANEL [CHEM] Routine MAGNESIUM [CHEM] AM 05/28/18 08:00 Consult to Physical Therapy [PT Evaluation and Treatment] [CONS] Routine OT Evaluation and Treatment [CONS] Routine 05/28/18 09:00 Aspirin 81 mg PO DAILY Enoxaparin [Lovenox] 40 mg SUBCUT DAILY Simvastatin [Zocor] 20 mg PO DAILY 05/29/18 05:11 BASIC METABOLIC PANEL,BMP [CHEM] AM CBC WITH AUTO DIFF [HEME] AM MAGNESIUM [CHEM] AM 05/30/18 05:11 BASIC METABOLIC PANEL,BMP [CHEM] AM CBC WITH AUTO DIFF [HEME] AM MAGNESIUM [CHEM] AM 05/31/18 05:11 BASIC METABOLIC PANEL,BMP [CHEM] AM CBC WITH AUTO DIFF [HEME] AM MAGNESIUM [CHEM] AM - Plan Plan:: I/P: Acute: CVA -Reported to ED with Vertigo with nausea and vomiting -Sudden onset of sensation of room spinning starting around 1730 on 05/26/17 -Hx/o partial left eye blindness -Reports occasional left sided stabbing pain - was seen in ED on 04/23/19 and refused MRI -Unable to performed Tyrel-Hallpike maneuver in ED, reattempt on floor -Fast nystagmus noted in ED to left with leftward gaze only -[place] neurology consulted in ED - recommended MRI and believed symptoms unlikely for stroke -No leukocytosis -Electrolytes normal -CT of head without contrast in ED shows slight senescent change with no acute abnormality -CTA of neck in ED shows scattererd calcified plaque, no focal stenosis or occlusion seen -CTA of head in ED show no abnormality -IV fluids as ordered -Meclizine as ordered -Consult PT for vestibular exam -> cancel -PRN Zofran -MRI of brain 05/27/17: * 1. Reversible and fairly acute infarct within the left cerebellar hemisphere extending into left cerebellar tonsil. Old small right cerebellar infarct. * 2. Small irreversible inferiorly acute infarct within the right basal ganglia extending into the centrum semi-ovale; [place] on the right side. * 3. Small vessel ischemic demyelination change. -He is unfortunately outside treatment window for tPA -Echo obtained 05/27/17 * 1. LVEF, by visual estimation, is 60-65% * 2. Normal left ventricular systolic function * 3. Mild concentric left ventricular hypertrophy * 4. Boderline dilation of the left atrium * 5. No significant change from 11/10/11 * 6. No regional wall motion abnormalities. -Lipid panel: Triglycerides 156, Total cholesterol 176, LDL 122, HDL 32.0 -Increase zocor from 20mg to 40mg (formulary for pravastatin) -Resume fenofibrate -PT/OT consult today -Hgb A1C 8.00 -[employer] WORKER swallow evaluation -> No concerns -Cognitive evaluation-> mild cognitive impairment -325mg ASA given 05/27/18 with 81 mg daily thereafter -Aspiration precautions -Q6hr neuro checks Urinary retention -Has history of urinary issues in past -Hx/o BPH -Had difficulty with urination in ED -Bladder scan in ED showed 699 of residual urine and velazquez catheter was placed -Continue velazquez care -> Discontinue velazquez (patient is requesting not to DC with velazquez if possible) -Will need urology consult - case management scheduled in middle June -Obtain old records -Start flomax 0.4mg daily 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
[2018-05-28] MEDS ORDERED: Simvastatin 20 MG Tab PO SCH (09:00)
[2018-05-28] MEDS: Orphenadrine 100 MG Tab.ER PO SCH ×2 (10:05→22:25)
[2018-05-28] MEDS: Aspirin 81 MG Tab.Chew PO SCH (10:05)
[2018-05-28] MEDS: Benzonatate 100 MG Cap PO SCH ×2 (10:05→22:25)
[2018-05-28] MEDS: Multivitamins,Therapeutic Tab PO SCH (10:05)
[2018-05-28] MEDS: Potassium Chloride 20 MEQ Tab.ER PO SCH (10:05)
[2018-05-28] MEDS: Metoprolol Succinate 100 MG Tab.ER PO SCH (10:06)
[2018-05-28] MEDS: Enoxaparin 40 MG/0.4 ML Syringe SUBCUT SCH (10:14)
[2018-05-28] MEDS: TACROLIMUS 0.1% TOP SCH ×2 (10:15→22:26)
[2018-05-28] MEDS: TRESIBA INSULIN SUBCUT SCH (10:15)
[2018-05-28] MEDS: Acetaminophen 325 MG Tab PO PRN (10:40)
[2018-05-28] MEDS ORDERED: Tamsulosin 0.4 MG Cap.ER PO ONE (14:30)
[2018-05-28] MEDS: Simvastatin 40 MG Tab PO SCH (22:25)
[2018-05-28] MEDS: traZODone 50 MG Tab PO SCH (22:26)
[2018-05-28] MEDS: Temazepam 30 MG Cap PO SCH (22:28)
[2018-05-29] MEDS: Pantoprazole 40 MG Tab.CR PO SCH (06:24)
[2018-05-29] MEDS ORDERED: Magnesium Oxide 400 MG Tab PO ONE (09:00)
[2018-05-29] MEDS ORDERED: Potassium Chloride 20 MEQ Tab.ER PO ONE (09:00)
[2018-05-29] MEDS: Insulin Lispro 100 Unit/ML 3 ML KwikPen SUBCUT SCH ×4 (09:18→22:17)
[2018-05-29] MEDS: Metoprolol Succinate 100 MG Tab.ER PO SCH (09:21)
[2018-05-29] MEDS: Multivitamins,Therapeutic Tab PO SCH (09:25)
[2018-05-29] MEDS: Aspirin 81 MG Tab.Chew PO SCH (09:25)
[2018-05-29] MEDS: Benzonatate 100 MG Cap PO SCH ×3 (09:25→21:56)
[2018-05-29] MEDS: Fenofibrate Nanocrystallized 145 MG Tab PO SCH (09:29)
[2018-05-29] MEDS: Potassium Chloride 20 MEQ Tab.ER PO SCH (09:29)
[2018-05-29] MEDS: Orphenadrine 100 MG Tab.ER PO SCH ×2 (09:30→21:52)
[2018-05-29] MEDS: Enoxaparin 40 MG/0.4 ML Syringe SUBCUT SCH (09:34)
[2018-05-29] MEDS: TACROLIMUS 0.1% TOP SCH ×2 (09:37→21:58)
[2018-05-29] MEDS: TRESIBA INSULIN SUBCUT SCH (09:38)
[2018-05-29] MEDS: Tamsulosin 0.4 MG Cap.ER PO SCH (09:43)
--- NOTE | 2018-05-29 12:59 | PCM.PN ---
- General Info Date of Service: 05/29/18 Functional Status: Reports: Pain Controlled, Tolerating Diet, Ambulating ( minimal, avoids participation in PT) - Review of Systems General: Reports: No Symptoms HEENT: Reports: No Symptoms Pulmonary: Reports: No Symptoms Cardiovascular: Reports: No Symptoms Gastrointestinal: Reports: No Symptoms Genitourinary: Reports: No Symptoms Musculoskeletal: Reports: No Symptoms Skin: Reports: No Symptoms Neurological: Reports: No Symptoms Psychiatric: Reports: No Symptoms - Patient Data Vitals - Most Recent: Last Vital Signs Temp 36.6 C 05/29/18 07:59 Pulse 88 05/29/18 09:21 Resp 16 05/29/18 07:59 BP 155/74 H 05/29/18 09:21 Pulse Ox 93 L 05/29/18 08:00 Weight - Most Recent: 111.674 kg I&O - Last 24 Hours: Intake & Output 05/28/18 05/29/18 05/29/18 22:59 06:59 14:59 Intake Total 1150 300 120 Output Total 950 950 Balance 200 -650 120 Lab Results Last 24 Hours: Laboratory Results - last 24 hr 05/28/18 05/28/18 05/28/18 Range/Units 12:00 16:52 22:32 WBC (4.23-9.07) K/mm3 RBC (4.63-6.08) M/mm3 Hgb (13.7-17.5) gm/L Hct (40.1-51.0) % MCV (79.0-92.2) fl MCH (25.7-32.2) pg MCHC (32.2-35.5) g/dl RDW Std Deviation (35.1-43.9) fL Plt Count (163-337) K/mm3 MPV (9.4-12.3) fl Neut % (Auto) (34.0-67.9) % Lymph % (Auto) (21.8-53.1) % [place] % (Auto) (5.3-12.2) % Eos % (Auto) (0.8-7.0) Baso % (Auto) (0.1-1.2) % Neut # (Auto) (1.78-5.38) K/mm3 Lymph # (Auto) (1.32-3.57) K/mm3 [place] # (Auto) (0.30-0.82) K/mm3 Eos # (Auto) (0.04-0.54) K/mm3 Baso # (Auto) (0.01-0.08) K/mm3 Sodium (136-145) mEq/L Potassium (3.5-5.1) mEq/L Chloride (98-107) mEq/L Carbon Dioxide (21-32) mEq/L Anion Gap (5-15) BUN (7-18) mg/dL Creatinine (0.7-1.3) mg/dL Est Cr Clr Drug Dosing mL/min Estimated GFR (MDRD) (>60) mL/min BUN/Creatinine Ratio (14-18) Glucose (80-115) mg/dL POC Glucose 180 H 157 H 187 H (80-115) mg/dL Calcium (8.5-10.1) mg/dL Magnesium (1.8-2.4) mg/dl 05/29/18 05/29/18 05/29/18 Range/Units 05:45 05:45 06:23 WBC 6.68 (4.23-9.07) K/mm3 RBC 5.23 (4.63-6.08) M/mm3 Hgb 15.3 (13.7-17.5) gm/L Hct 46.6 (40.1-51.0) % MCV 89.1 (79.0-92.2) fl MCH 29.3 (25.7-32.2) pg MCHC 32.8 (32.2-35.5) g/dl RDW Std Deviation 45.6 H (35.1-43.9) fL Plt Count 204 (163-337) K/mm3 MPV 10.7 (9.4-12.3) fl Neut % (Auto) 54.3 (34.0-67.9) % Lymph % (Auto) 30.1 (21.8-53.1) % [place] % (Auto) 8.4 (5.3-12.2) % Eos % (Auto) 6.7 (0.8-7.0) Baso % (Auto) 0.4 (0.1-1.2) % Neut # (Auto) 3.62 (1.78-5.38) K/mm3 Lymph # (Auto) 2.01 (1.32-3.57) K/mm3 [place] # (Auto) 0.56 (0.30-0.82) K/mm3 Eos # (Auto) 0.45 (0.04-0.54) K/mm3 Baso # (Auto) 0.03 (0.01-0.08) K/mm3 Sodium 142 (136-145) mEq/L Potassium 3.2 L (3.5-5.1) mEq/L Chloride 106 (98-107) mEq/L Carbon Dioxide 29 (21-32) mEq/L Anion Gap 10.2 (5-15) BUN 21 H (7-18) mg/dL Creatinine 0.7 (0.7-1.3) mg/dL Est Cr Clr Drug Dosing 120.26 mL/min Estimated GFR (MDRD) > 60 (>60) mL/min BUN/Creatinine Ratio 30.0 H (14-18) Glucose 128 H (80-115) mg/dL POC Glucose 121 H (80-115) mg/dL Calcium 8.7 (8.5-10.1) mg/dL Magnesium 1.7 L (1.8-2.4) mg/dl 05/29/18 Range/Units 11:06 WBC (4.23-9.07) K/mm3 RBC (4.63-6.08) M/mm3 Hgb (13.7-17.5) gm/L Hct (40.1-51.0) % MCV (79.0-92.2) fl MCH (25.7-32.2) pg MCHC (32.2-35.5) g/dl RDW Std Deviation (35.1-43.9) fL Plt Count (163-337) K/mm3 MPV (9.4-12.3) fl Neut % (Auto) (34.0-67.9) % Lymph % (Auto) (21.8-53.1) % [place] % (Auto) (5.3-12.2) % Eos % (Auto) (0.8-7.0) Baso % (Auto) (0.1-1.2) % Neut # (Auto) (1.78-5.38) K/mm3 Lymph # (Auto) (1.32-3.57) K/mm3 [place] # (Auto) (0.30-0.82) K/mm3 Eos # (Auto) (0.04-0.54) K/mm3 Baso # (Auto) (0.01-0.08) K/mm3 Sodium (136-145) mEq/L Potassium (3.5-5.1) mEq/L Chloride (98-107) mEq/L Carbon Dioxide (21-32) mEq/L Anion Gap (5-15) BUN (7-18) mg/dL Creatinine (0.7-1.3) mg/dL Est Cr Clr Drug Dosing mL/min Estimated GFR (MDRD) (>60) mL/min BUN/Creatinine Ratio (14-18) Glucose (80-115) mg/dL POC Glucose 187 H (80-115) mg/dL Calcium (8.5-10.1) mg/dL Magnesium (1.8-2.4) mg/dl Med Orders - Current: Current Medications Acetaminophen (Tylenol) 650 mg PO Q4H PRN PRN Reason: Pain (Mild 1-3)/fever Last Admin: 05/28/18 10:40 Dose: 650 mg Hydrocodone Bitart/Acetaminophen (Williams 325-5 Mg) 1 tab PO Q4H PRN PRN Reason: Pain (moderate 4-6) Last Admin: 05/27/18 20:12 Dose: 1 tab Albuterol/Ipratropium (Duoneb 3.0-0.5 Mg/3 Ml) 3 ml NEB Q4H PRN PRN Reason: Shortness Of Breath/wheezing Aspirin (Aspirin) 81 mg PO DAILY [facility] Last Admin: 05/29/18 09:25 Dose: 81 mg Benzonatate (Tessalon Perles) 100 mg PO BID [facility] Last Admin: 05/29/18 09:25 Dose: 100 mg Bisacodyl (Dulcolax) 5 mg PO DAILY PRN PRN Reason: Constipation Last Admin: 05/29/18 06:24 Dose: 5 mg Docusate Sodium (Colace) 100 mg PO BID PRN PRN Reason: Constipation Enoxaparin Sodium (Lovenox) 40 mg SUBCUT DAILY [facility] Last Admin: 05/29/18 09:34 Dose: 40 mg Fenofibrate (Tricor) 145 mg PO DAILY [facility] Last Admin: 05/29/18 09:29 Dose: 145 mg Hydralazine HCl (Apresoline) 20 mg IVPUSH Q4H PRN PRN Reason: Hypertension Insulin Human Lispro (Humalog) 0 unit SUBCUT QIDACANDBED [facility]; Protocol Last Admin: 05/29/18 11:08 Dose: 3 units Meclizine HCl (Antivert) 25 mg PO Q6H PRN PRN Reason: Dizziness Last Admin: 05/27/18 18:01 Dose: 25 mg Metoprolol Succinate (Toprol Xl) 100 mg PO DAILY [facility] Last Admin: 05/29/18 09:21 Dose: 100 mg Metoprolol Tartrate (Lopressor) 5 mg IVPUSH Q4H PRN PRN Reason: Tachycardia Miscellaneous Information (Remove Patch) 1 ea TRDERM ONETIME ONE Stop: 05/30/18 01:01 Multivitamins (Thera) 1 each PO DAILY [facility] Last Admin: 05/29/18 09:25 Dose: 1 each Ondansetron HCl (Zofran) 4 mg IVPUSH Q6HR PRN PRN Reason: Nausea/Vomiting Last Admin: 05/27/18 20:12 Dose: 4 mg Ondansetron HCl (Zofran Odt) 4 mg PO Q6H PRN PRN Reason: nausea, able to take PO Orphenadrine Citrate (Norflex) 100 mg PO BID [facility] Last Admin: 05/29/18 09:30 Dose: 100 mg Pantoprazole Sodium (Protonix) 40 mg PO DAILY@0700 [facility] Last Admin: 05/29/18 06:24 Dose: 40 mg Meloxicam 15 Mg 0 each PO DAILY [facility] Last Admin: 05/29/18 09:37 Dose: 1 each Tacrolimus [Protopic (] Ointment) 0 each TOP BID [facility] Last Admin: 05/29/18 09:37 Dose: Not Given Tresiba Insulin Pen (200 Units/Ml) 0 each SUBCUT DAILY [facility] Last Admin: 05/29/18 09:38 Dose: 86 each Polyethylene Glycol (Miralax) 17 gm PO DAILY PRN PRN Reason: Constipation Potassium Chloride (Klor-Con M20) 20 meq PO DAILY [facility] Last Admin: 05/29/18 09:29 Dose: 20 meq Senna/Docusate Sodium (Senna Plus) 1 tab PO BID PRN PRN Reason: Constipation Simvastatin (Zocor) 40 mg PO BEDTIME [facility] Last Admin: 05/28/18 22:25 Dose: 40 mg Tamsulosin HCl (Flomax) 0.4 mg PO PCBREAKFAST [facility] Last Admin: 05/29/18 09:43 Dose: 0.4 mg Temazepam (Restoril) 30 mg PO BEDTIME [facility] Last Admin: 05/28/18 22:28 Dose: Not Given Trazodone HCl (Trazodone) 50 mg PO BEDTIME [facility] Last Admin: 05/28/18 22:26 Dose: 50 mg Discontinued Medications Aspirin (Ecotrin) 325 mg PO ONETIME ONE Stop: 05/27/18 15:09 Last Admin: 05/27/18 15:27 Dose: 325 mg Sodium Chloride (Normal Saline) 1,000 mls @ 100 mls/hr IV ASDIRECTED [facility] Last Admin: 05/28/18 04:48 Dose: 100 mls/hr Insulin Glargine (Lantus) 86 unit SUBCUT DAILY [facility] Last Admin: 05/27/18 14:05 Dose: Not Given Insulin Human Lispro (Humalog) 0 unit SUBCUT QIDACANDBED [facility]; Protocol Last Admin: 05/27/18 14:07 Dose: Not Given Magnesium Oxide (Magnesium Oxide) 800 mg PO ONETIME ONE Stop: 05/29/18 09:01 Last Admin: 05/29/18 09:20 Dose: 800 mg Magnesium Sulfate (Pharmacy To Dose - Magnesium Replacement) 0 dose .XX ASDIRECTED PRN PRN Reason: RX TO WATCH MAG LEVELS Meclizine HCl (Antivert) 25 mg PO ONETIME STA Stop: 05/26/18 23:33 Last Admin: 05/26/18 23:38 Dose: 25 mg Metoclopramide HCl (Reglan) 10 mg IVPUSH ONETIME STA Stop: 05/26/18 19:40 Last Admin: 05/26/18 19:49 Dose: 10 mg Metoprolol Succinate (Toprol Xl) 100 mg PO DAILY [facility] Last Admin: 05/27/18 14:07 Dose: Not Given Non-Formulary Medication (Tacrolimus [Tacrolimus]) 1 dose TOP BID [facility] Last Admin: 05/27/18 09:34 Dose: Not Given Ondansetron HCl (Zofran) Confirm Administered Dose 4 mg .ROUTE .STK-MED ONE Stop: 05/27/18 01:24 Last Admin: 05/27/18 01:28 Dose: Not Given Pantoprazole Sodium (Protonix) 40 mg PO DAILY@0700 [facility] Last Admin: 05/27/18 14:07 Dose: Not Given Omeprazole 40 Mg 0 each PO DAILY@0700 [facility] Last Admin: 05/27/18 11:53 Dose: 40 each Metoprolol Succinate (100 Mg Tab.Er) 0 each PO DAILY [facility] Tresiba Insulin Pen (200 Units/Ml) 86 each SUBCUT DAILY [facility] Novolog Flexpen 100 (Units/Ml) 0 each SUBCUT QIDACANDBED [facility]; Protocol Potassium Chloride (Pharmacy To Dose - Potassium Replacement) 0 dose .XX ASDIRECTED PRN PRN Reason: RX TO WATCH K LEVELS Potassium Chloride (Klor-Con M20) 40 meq PO Q4H [facility] Stop: 05/27/18 15:01 Last Admin: 05/27/18 11:49 Dose: 20 meq Potassium Chloride (Klor-Con M20) 40 meq PO ONETIME ONE Stop: 05/29/18 09:01 Last Admin: 05/29/18 09:27 Dose: 40 meq Scopolamine (Transderm-Scop) 1.5 mg TOP ONETIME ONE Stop: 05/27/18 01:01 Last Admin: 05/27/18 01:20 Dose: 1.5 mg Simvastatin (Zocor) 20 mg PO DAILY [facility] Last Admin: 05/28/18 10:05 Dose: 20 mg Tamsulosin HCl (Flomax) 0.4 mg PO ONETIME ONE Stop: 05/28/18 14:31 Last Admin: 05/28/18 14:49 Dose: 0.4 mg Trazodone HCl (Trazodone) 50 mg PO DAILY [facility] Last Admin: 05/27/18 14:07 Dose: Not Given - Exam Quality Assessment: DVT Prophylaxis General: Alert, Oriented, Cooperative, No Acute Distress HEENT: Pupils Equal, Pupils Reactive, EOMI Neck: Trachea Midline, No JVD Lungs: Normal Respiratory Effort Cardiovascular: Regular Rate, Regular Rhythm GI/Abdominal Exam: Normal Bowel Sounds, Soft, Non-Tender, No Organomegaly, No Distention (Male) Exam: Deferred Back Exam: Normal Inspection Extremities: Normal Inspection, Normal Capillary Refill Skin: Warm Neurological: No New Focal Deficit Psy/Mental Status: Alert, Depressed - Problem List & Annotations (1) CVA (cerebral vascular accident) SNOMED Code(s): 548074922 Code(s): I63.9 - CEREBRAL INFARCTION, UNSPECIFIED Status: Acute Priority : High Current Visit: Yes Qualifiers: CVA mechanism: unspecified Qualified Code(s): I63.9 - Cerebral infarction, unspecified (2) Adjustment disorder with anxiety SNOMED Code(s): 52678194 Code(s): F43.22 - ADJUSTMENT DISORDER WITH ANXIETY Status: Acute Current Visit: No (3) Urinary retention due to benign prostatic hyperplasia SNOMED Code(s): 805152119 Code(s): N40.1 - BENIGN PROSTATIC HYPERPLASIA WITH LOWER URINARY TRACT SYMP; R33.8 - OTHER RETENTION OF URINE Status: Acute Current Visit: No (4) Type 2 diabetes mellitus SNOMED Code(s): 74327465 Code(s): E11.9 - TYPE 2 DIABETES MELLITUS WITHOUT COMPLICATIONS Status: Chronic Priority: Low Current Visit: No Qualifiers: Diabetes mellitus manager long term care insulin use: unspecified residential insulin use status Diabetes mellitus complication status: with unspecified complications Qualified Code(s): E11.8 - Type 2 diabetes mellitus with unspecified complications - Problem List Review Problem List Initiated/Reviewed/Updated: Yes - Plan Plan:: I/P: Acute: CVA -Reported to ED with Vertigo with nausea and vomiting -Sudden onset of sensation of room spinning starting around 1730 on 05/26/17 -Hx/o partial left eye blindness -Reports occasional left sided stabbing pain - was seen in ED on 04/23/19 and refused MRI -Unable to performed [place]-Hallpike maneuver in ED, reattempt on floor -Fast nystagmus noted in ED to left with leftward gaze only -[place] neurology consulted in ED - recommended MRI and believed symptoms unlikely for stroke -No leukocytosis -Electrolytes normal -CT of head without contrast in ED shows slight senescent change with no acute abnormality -CTA of neck in ED shows scattererd calcified plaque, no focal stenosis or occlusion seen -CTA of head in ED show no abnormality -IV fluids as ordered -Meclizine as ordered -Consult PT for vestibular exam -> cancel -PRN Zofran -MRI of brain 05/27/17: * 1. Reversible and fairly acute infarct within the left cerebellar hemisphere extending into left cerebellar tonsil. Old small right cerebellar infarct. * 2. Small irreversible inferiorly acute infarct within the right basal ganglia extending into the centrum semi-ovale; [place] on the right side. * 3. Small vessel ischemic demyelination change. -He is unfortunately outside treatment window for tPA -Echo obtained 05/27/17 * 1. LVEF, by visual estimation, is 60-65% * 2. Normal left ventricular systolic function * 3. Mild concentric left ventricular hypertrophy * 4. Boderline dilation of the left atrium * 5. No significant change from 11/10/11 * 6. No regional wall motion abnormalities. -Lipid panel: Triglycerides 156, Total cholesterol 176, LDL 122, HDL 32.0 -Increase zocor from 20mg to 40mg (formulary for pravastatin) -Resume fenofibrate -PT/OT consult today -Hgb A1C 8.00 -[employer] swallow evaluation -> No concerns -Cognitive evaluation-> mild cognitive impairment -325mg ASA given 05/27/18 with 81 mg daily thereafter -Aspiration precautions -Q6hr neuro checks Urinary retention -Has history of urinary issues in past -Hx/o BPH -Had difficulty with urination in ED -Bladder scan in ED showed 699 of residual urine and velazquez catheter was placed -Continue velazquez care -> Discontinue velazquez (patient is requesting not to DC with velazquez if possible); tolerated removal -Will need urology consult - case management scheduled in middle June -Obtain old records -Start flomax 0.4mg daily 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 Diverticulosis GERD BPH Hx/o acute renal failure Hx/o Temporary dialysis for 2 months Diabetic neuropathy Anxiety Type II DM Obesity Plan: Medical floor on telemetry; post CVA rehab at OP vs IP, has refused SNF at this time. Other orders as indicated above Routine AM labs Home medications as ordered CM/SW for discharge planning Outpatient it portfolio manager follow-up with Santy From [facility] - Staff there notes worsening confusion since admission there DVT/PE prophylaxis: Lovenox Code status: Full code; PCP: Liang Perez NP
[2018-05-29] MEDS: traZODone 50 MG Tab PO SCH (21:52)
[2018-05-29] MEDS: Simvastatin 40 MG Tab PO SCH (21:52)
[2018-05-29] MEDS: Temazepam 30 MG Cap PO SCH (21:58)
[2018-05-30] MEDS: Pantoprazole 40 MG Tab.CR PO SCH (06:03)
[2018-05-30] MEDS: Insulin Lispro 100 Unit/ML 3 ML KwikPen SUBCUT SCH ×5 (07:32→21:27)
[2018-05-30] MEDS: Orphenadrine 100 MG Tab.ER PO SCH ×2 (09:22→21:17)
[2018-05-30] MEDS: Multivitamins,Therapeutic Tab PO SCH (09:22)
[2018-05-30] MEDS: Benzonatate 100 MG Cap PO SCH ×2 (09:22→21:16)
[2018-05-30] MEDS: Metoprolol Succinate 100 MG Tab.ER PO SCH (09:22)
[2018-05-30] MEDS: Fenofibrate Nanocrystallized 145 MG Tab PO SCH (09:22)
[2018-05-30] MEDS: Aspirin 81 MG Tab.Chew PO SCH (09:23)
[2018-05-30] MEDS: Enoxaparin 40 MG/0.4 ML Syringe SUBCUT SCH (09:24)
[2018-05-30] MEDS: Potassium Chloride 20 MEQ Tab.ER PO SCH (09:24)
[2018-05-30] MEDS: Tamsulosin 0.4 MG Cap.ER PO SCH (09:24)
[2018-05-30] MEDS: TACROLIMUS 0.1% TOP SCH ×2 (09:25→21:17)
[2018-05-30] MEDS: TRESIBA INSULIN SUBCUT SCH (09:27)
--- NOTE | 2018-05-30 14:31 | PCM.PN ---
- General Info Date of Service: 05/30/18 Functional Status: Reports: Pain Controlled, Tolerating Diet, Ambulating, Urinating - Review of Systems General: Reports: No Symptoms HEENT: Reports: No Symptoms Pulmonary: Reports: No Symptoms Cardiovascular: Reports: No Symptoms Gastrointestinal: Reports: No Symptoms Genitourinary: Reports: No Symptoms Musculoskeletal: Reports: No Symptoms Skin: Reports: No Symptoms Neurological: Reports: No Symptoms Psychiatric: Reports: No Symptoms - Patient Data Vitals - Most Recent: Last Vital Signs Temp 36.5 C 05/30/18 11:46 Pulse 79 05/30/18 11:46 Resp 18 05/30/18 11:46 BP 138/85 05/30/18 11:46 Pulse Ox 94 L 05/30/18 11:46 Weight - Most Recent: 110.903 kg I&O - Last 24 Hours: Intake & Output 05/29/18 05/30/18 05/30/18 22:59 06:59 14:59 Intake Total 300 550 Output Total 300 825 Balance 0 -275 Lab Results Last 24 Hours: Laboratory Results - last 24 hr 05/29/18 05/29/18 05/30/18 Range/Units 16:27 22:13 05:47 WBC (4.23-9.07) K/mm3 RBC (4.63-6.08) M/mm3 Hgb (13.7-17.5) gm/L Hct (40.1-51.0) % MCV (79.0-92.2) fl MCH (25.7-32.2) pg MCHC (32.2-35.5) g/dl RDW Std Deviation (35.1-43.9) fL Plt Count (163-337) K/mm3 MPV (9.4-12.3) fl Neut % (Auto) (34.0-67.9) % Lymph % (Auto) (21.8-53.1) % [place] % (Auto) (5.3-12.2) % Eos % (Auto) (0.8-7.0) Baso % (Auto) (0.1-1.2) % Neut # (Auto) (1.78-5.38) K/mm3 Lymph # (Auto) (1.32-3.57) K/mm3 [place] # (Auto) (0.30-0.82) K/mm3 Eos # (Auto) (0.04-0.54) K/mm3 Baso # (Auto) (0.01-0.08) K/mm3 Sodium (136-145) mEq/L Potassium (3.5-5.1) mEq/L Chloride (98-107) mEq/L Carbon Dioxide (21-32) mEq/L Anion Gap (5-15) BUN (7-18) mg/dL Creatinine (0.7-1.3) mg/dL Est Cr Clr Drug Dosing mL/min Estimated GFR (MDRD) (>60) mL/min BUN/Creatinine Ratio (14-18) Glucose (80-115) mg/dL POC Glucose 148 H 153 H 124 H (80-115) mg/dL Calcium (8.5-10.1) mg/dL Magnesium (1.8-2.4) mg/dl 05/30/18 05/30/18 05/30/18 Range/Units 05:50 05:50 11:53 WBC 7.09 (4.23-9.07) K/mm3 RBC 5.50 (4.63-6.08) M/mm3 Hgb 16.2 (13.7-17.5) gm/L Hct 48.7 (40.1-51.0) % MCV 88.5 (79.0-92.2) fl MCH 29.5 (25.7-32.2) pg MCHC 33.3 (32.2-35.5) g/dl RDW Std Deviation 45.7 H (35.1-43.9) fL Plt Count 191 (163-337) K/mm3 MPV 10.6 (9.4-12.3) fl Neut % (Auto) 52.2 (34.0-67.9) % Lymph % (Auto) 28.5 (21.8-53.1) % [place] % (Auto) 10.4 (5.3-12.2) % Eos % (Auto) 8.0 H (0.8-7.0) Baso % (Auto) 0.6 (0.1-1.2) % Neut # (Auto) 3.70 (1.78-5.38) K/mm3 Lymph # (Auto) 2.02 (1.32-3.57) K/mm3 [place] # (Auto) 0.74 (0.30-0.82) K/mm3 Eos # (Auto) 0.57 H (0.04-0.54) K/mm3 Baso # (Auto) 0.04 (0.01-0.08) K/mm3 Sodium 143 (136-145) mEq/L Potassium 3.6 (3.5-5.1) mEq/L Chloride 107 (98-107) mEq/L Carbon Dioxide 26 (21-32) mEq/L Anion Gap 13.6 (5-15) BUN 26 H (7-18) mg/dL Creatinine 0.7 (0.7-1.3) mg/dL Est Cr Clr Drug Dosing 120.26 mL/min Estimated GFR (MDRD) > 60 (>60) mL/min BUN/Creatinine Ratio 37.1 H (14-18) Glucose 123 H (80-115) mg/dL POC Glucose 136 H (80-115) mg/dL Calcium 8.9 (8.5-10.1) mg/dL Magnesium 2.1 (1.8-2.4) mg/dl Med Orders - Current: Current Medications Acetaminophen (Tylenol) 650 mg PO Q4H PRN PRN Reason: Pain (Mild 1-3)/fever Last Admin: 05/28/18 10:40 Dose: 650 mg Hydrocodone Bitart/Acetaminophen ([place] 325-5 Mg) 1 tab PO Q4H PRN PRN Reason: Pain (moderate 4-6) Last Admin: 05/27/18 20:12 Dose: 1 tab Albuterol/Ipratropium (Duoneb 3.0-0.5 Mg/3 Ml) 3 ml NEB Q4H PRN PRN Reason: Shortness Of Breath/wheezing Aspirin (Aspirin) 81 mg PO DAILY [facility] Last Admin: 05/30/18 09:23 Dose: 81 mg Benzonatate (Tessalon Perles) 100 mg PO BID [facility] Last Admin: 05/30/18 09:22 Dose: 100 mg Bisacodyl (Dulcolax) 5 mg PO DAILY PRN PRN Reason: Constipation Last Admin: 05/29/18 06:24 Dose: 5 mg Docusate Sodium (Colace) 100 mg PO BID PRN PRN Reason: Constipation Enoxaparin Sodium (Lovenox) 40 mg SUBCUT DAILY [facility] Last Admin: 05/30/18 09:24 Dose: 40 mg Fenofibrate (Tricor) 145 mg PO DAILY [facility] Last Admin: 05/30/18 09:22 Dose: 145 mg Hydralazine HCl (Apresoline) 20 mg IVPUSH Q4H PRN PRN Reason: Hypertension Insulin Human Lispro (Humalog) 0 unit SUBCUT QIDACANDBED [facility]; Protocol Last Admin: 05/30/18 11:54 Dose: Not Given Meclizine HCl (Antivert) 25 mg PO Q6H PRN PRN Reason: Dizziness Last Admin: 05/27/18 18:01 Dose: 25 mg Metoprolol Succinate (Toprol Xl) 100 mg PO DAILY [facility] Last Admin: 05/30/18 09:22 Dose: 100 mg Metoprolol Tartrate (Lopressor) 5 mg IVPUSH Q4H PRN PRN Reason: Tachycardia Multivitamins (Thera) 1 each PO DAILY [facility] Last Admin: 05/30/18 09:22 Dose: 1 each Ondansetron HCl (Zofran) 4 mg IVPUSH Q6HR PRN PRN Reason: Nausea/Vomiting Last Admin: 05/27/18 20:12 Dose: 4 mg Ondansetron HCl (Zofran Odt) 4 mg PO Q6H PRN PRN Reason: nausea, able to take PO Orphenadrine Citrate (Norflex) 100 mg PO BID [facility] Last Admin: 05/30/18 09:22 Dose: 100 mg Pantoprazole Sodium (Protonix) 40 mg PO DAILY@0700 [facility] Last Admin: 05/30/18 06:03 Dose: 40 mg Meloxicam 15 Mg 0 each PO DAILY [facility] Last Admin: 05/30/18 09:24 Dose: 1 each Tacrolimus [Protopic ] Ointment 0.1% Pt Own 0 each TOP BID [facility] Last Admin: 05/30/18 09:25 Dose: 1 each Tresiba Insulin Pen (200 Units/Ml) 0 each SUBCUT DAILY [facility] Last Admin: 05/30/18 09:27 Dose: 86 each Polyethylene Glycol (Miralax) 17 gm PO DAILY PRN PRN Reason: Constipation Potassium Chloride (Klor-Con M20) 20 meq PO DAILY [facility] Last Admin: 05/30/18 09:24 Dose: 20 meq Senna/Docusate Sodium (Senna Plus) 1 tab PO BID PRN PRN Reason: Constipation Simvastatin (Zocor) 40 mg PO BEDTIME [facility] Last Admin: 05/29/18 21:52 Dose: 40 mg Tamsulosin HCl (Flomax) 0.4 mg PO PCBREAKFAST [facility] Last Admin: 05/30/18 09:24 Dose: 0.4 mg Temazepam (Restoril) 30 mg PO BEDTIME [facility] Last Admin: 05/29/18 21:58 Dose: Not Given Trazodone HCl (Trazodone) 50 mg PO BEDTIME [facility] Last Admin: 05/29/18 21:52 Dose: 50 mg Discontinued Medications Aspirin (Ecotrin) 325 mg PO ONETIME ONE Stop: 05/27/18 15:09 Last Admin: 05/27/18 15:27 Dose: 325 mg Sodium Chloride (Normal Saline) 1,000 mls @ 100 mls/hr IV ASDIRECTED [facility] Last Admin: 05/28/18 04:48 Dose: 100 mls/hr Insulin Glargine (Lantus) 86 unit SUBCUT DAILY [facility] Last Admin: 05/27/18 14:05 Dose: Not Given Insulin Human Lispro (Humalog) 0 unit SUBCUT QIDACANDBED [facility]; Protocol Last Admin: 05/27/18 14:07 Dose: Not Given Magnesium Oxide (Magnesium Oxide) 800 mg PO ONETIME ONE Stop: 05/29/18 09:01 Last Admin: 05/29/18 09:20 Dose: 800 mg Magnesium Sulfate (Pharmacy To Dose - Magnesium Replacement) 0 dose .XX ASDIRECTED PRN PRN Reason: RX TO WATCH MAG LEVELS Meclizine HCl (Antivert) 25 mg PO ONETIME STA Stop: 05/26/18 23:33 Last Admin: 05/26/18 23:38 Dose: 25 mg Metoclopramide HCl (Reglan) 10 mg IVPUSH ONETIME STA Stop: 05/26/18 19:40 Last Admin: 05/26/18 19:49 Dose: 10 mg Metoprolol Succinate (Toprol Xl) 100 mg PO DAILY [facility] Last Admin: 05/27/18 14:07 Dose: Not Given Miscellaneous Information (Remove Patch) 1 ea TRDERM ONETIME ONE Stop: 05/30/18 01:01 Last Admin: 05/30/18 06:02 Dose: 1 ea Non-Formulary Medication (Tacrolimus [Tacrolimus]) 1 dose TOP BID [facility] Last Admin: 05/27/18 09:34 Dose: Not Given Ondansetron HCl (Zofran) Confirm Administered Dose 4 mg .ROUTE .STK-MED ONE Stop: 05/27/18 01:24 Last Admin: 05/27/18 01:28 Dose: Not Given Pantoprazole Sodium (Protonix) 40 mg PO DAILY@0700 [facility] Last Admin: 05/27/18 14:07 Dose: Not Given Omeprazole 40 Mg 0 each PO DAILY@0700 [facility] Last Admin: 05/27/18 11:53 Dose: 40 each Metoprolol Succinate (100 Mg Tab.Er) 0 each PO DAILY [facility] Tresiba Insulin Pen (200 Units/Ml) 86 each SUBCUT DAILY [facility] Novolog Flexpen 100 (Units/Ml) 0 each SUBCUT QIDACANDBED [facility]; Protocol Potassium Chloride (Pharmacy To Dose - Potassium Replacement) 0 dose .XX ASDIRECTED PRN PRN Reason: RX TO WATCH K LEVELS Potassium Chloride (Klor-Con M20) 40 meq PO Q4H [facility] Stop: 05/27/18 15:01 Last Admin: 05/27/18 11:49 Dose: 20 meq Potassium Chloride (Klor-Con M20) 40 meq PO ONETIME ONE Stop: 05/29/18 09:01 Last Admin: 05/29/18 09:27 Dose: 40 meq Scopolamine (Transderm-Scop) 1.5 mg TOP ONETIME ONE Stop: 05/27/18 01:01 Last Admin: 05/27/18 01:20 Dose: 1.5 mg Simvastatin (Zocor) 20 mg PO DAILY [facility] Last Admin: 05/28/18 10:05 Dose: 20 mg Tamsulosin HCl (Flomax) 0.4 mg PO ONETIME ONE Stop: 05/28/18 14:31 Last Admin: 05/28/18 14:49 Dose: 0.4 mg Trazodone HCl (Trazodone) 50 mg PO DAILY [facility] Last Admin: 05/27/18 14:07 Dose: Not Given - Exam Quality Assessment: DVT Prophylaxis General: Alert, Oriented, Cooperative, No Acute Distress HEENT: Pupils Equal, Pupils Reactive, EOMI Neck: Trachea Midline, No JVD Lungs: Normal Respiratory Effort Cardiovascular: Regular Rate, Regular Rhythm GI/Abdominal Exam: Normal Bowel Sounds, Soft, Non-Tender, No Organomegaly, No Distention (Male) Exam: Deferred Back Exam: Normal Inspection Extremities: Normal Inspection, Normal Capillary Refill Skin: Warm Neurological: No New Focal Deficit Psy/Mental Status: Alert, Normal Affect, Normal Mood - Problem List & Annotations (1) CVA (cerebral vascular accident) SNOMED Code(s): 996930519 Code(s): I63.9 - CEREBRAL INFARCTION, UNSPECIFIED Status: Acute Priority : High Current Visit: Yes Qualifiers: CVA mechanism: unspecified Qualified Code(s): I63.9 - Cerebral infarction, unspecified (2) Adjustment disorder with anxiety SNOMED Code(s): 40533979 Code(s): F43.22 - ADJUSTMENT DISORDER WITH ANXIETY Status: Acute Current Visit: No (3) Urinary retention due to benign prostatic hyperplasia SNOMED Code(s): 115999692 Code(s): N40.1 - BENIGN PROSTATIC HYPERPLASIA WITH LOWER URINARY TRACT SYMP; R33.8 - OTHER RETENTION OF URINE Status: Acute Current Visit: No (4) Type 2 diabetes mellitus SNOMED Code(s): 44885576 Code(s): E11.9 - TYPE 2 DIABETES MELLITUS WITHOUT COMPLICATIONS Status: Chronic Priority: Low Current Visit: No Qualifiers: Diabetes mellitus assisted insulin use: 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 status Diabetes mellitus complication status: with unspecified complications Qualified Code(s): E11.8 - Type 2 diabetes mellitus with unspecified complications - Problem List Review Problem List Initiated/Reviewed/Updated: Yes - Plan Plan:: I/P: Acute: CVA improved physical exam -Reported to ED with Vertigo with nausea and vomiting -Sudden onset of sensation of room spinning starting around 1730 on 05/26/17 -Hx/o partial left eye blindness -Reports occasional left sided stabbing pain - was seen in ED on 04/23/19 and refused MRI -Unable to performed Tolar-Hallpike maneuver in ED, reattempt on floor -Fast nystagmus noted in ED to left with leftward gaze only -Nitesh neurology consulted in ED - recommended MRI and believed symptoms unlikely for stroke -No leukocytosis -Electrolytes normal -CT of head without contrast in ED shows slight senescent change with no acute abnormality -CTA of neck in ED shows scattererd calcified plaque, no focal stenosis or occlusion seen -CTA of head in ED show no abnormality -IV fluids as ordered -Meclizine as ordered -Consult PT for vestibular exam -> cancel -PRN Zofran -MRI of brain 05/27/17: * 1. Reversible and fairly acute infarct within the left cerebellar hemisphere extending into left cerebellar tonsil. Old small right cerebellar infarct. * 2. Small irreversible inferiorly acute infarct within the right basal ganglia extending into the centrum semi-ovale; [place] on the right side. * 3. Small vessel ischemic demyelination change. -He is unfortunately outside treatment window for tPA -Echo obtained 05/27/17 * 1. LVEF, by visual estimation, is 60-65% * 2. Normal left ventricular systolic function * 3. Mild concentric left ventricular hypertrophy * 4. Boderline dilation of the left atrium * 5. No significant change from 11/10/11 * 6. No regional wall motion abnormalities. 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 -Cognitive evaluation-> mild cognitive impairment -325mg ASA given 05/27/18 with 81 mg daily thereafter -Aspiration precautions -Q6hr neuro checks Urinary retention>>>improved on Flomax -Has history of urinary issues in past -Hx/o BPH -Had difficulty with urination in ED -Bladder scan in ED showed 699 of residual urine and velazquez catheter was placed -Continue velazquez care -> Discontinue velazquez (patient is requesting not to DC with velazquez if possible); tolerated removal -Will need urology consult - case management scheduled in middle June -Obtain old records -Start flomax 0.4mg daily 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 Diverticulosis GERD BPH Hx/o acute renal failure Hx/o Temporary dialysis for 2 months Diabetic neuropathy Anxiety Type II DM Obesity Plan: Medical floor on telemetry; post CVA rehab at OP vs IP, has refused SNF at this time. Other orders as indicated above Routine AM labs Home medications as ordered CM/SW for discharge planning>>>will likely benefit from HH at assisted living. Outpatient patient educator follow-up with [facility] - Staff there notes worsening confusion since admission there DVT/PE prophylaxis: Lovenox Code status: Full code; PCP: Liang Perez NP
[2018-05-30] MEDS: diphenhydrAMINE 25 MG Cap PO PRN (17:57)
[2018-05-30] MEDS ORDERED: Sodium Chloride 0.9% 500 ML ONE (18:47)
[2018-05-30] MEDS ORDERED: Sodium Chloride 0.9% 500 ML IV ONE (18:48)
[2018-05-30] MEDS ORDERED: hydrALAZINE 20 MG/ML SDV IVPUSH PRN (19:34)
[2018-05-30] MEDS: Simvastatin 40 MG Tab PO SCH (21:16)
[2018-05-30] MEDS: Temazepam 30 MG Cap PO SCH (21:17)
[2018-05-31] MEDS: Multivitamins,Therapeutic Tab PO SCH (08:05)
[2018-05-31] MEDS: Orphenadrine 100 MG Tab.ER PO SCH ×2 (08:05→20:28)
[2018-05-31] MEDS: Metoprolol Succinate 100 MG Tab.ER PO SCH (08:05)
[2018-05-31] MEDS: Potassium Chloride 20 MEQ Tab.ER PO SCH (08:06)
[2018-05-31] MEDS: Aspirin 81 MG Tab.Chew PO SCH (08:06)
[2018-05-31] MEDS: Pantoprazole 40 MG Tab.CR PO SCH (08:07)
[2018-05-31] MEDS: Enoxaparin 40 MG/0.4 ML Syringe SUBCUT SCH (08:07)
[2018-05-31] MEDS: Insulin Lispro 100 Unit/ML 3 ML KwikPen SUBCUT SCH ×4 (08:07→21:47)
[2018-05-31] MEDS: Fenofibrate Nanocrystallized 145 MG Tab PO SCH (08:07)
[2018-05-31] MEDS: Tamsulosin 0.4 MG Cap.ER PO SCH ×2 (08:07→09:35)
[2018-05-31] MEDS: TACROLIMUS 0.1% TOP SCH ×2 (08:09→20:37)
[2018-05-31] MEDS: Benzonatate 100 MG Cap PO SCH ×2 (08:10→20:28)
[2018-05-31] MEDS: TRESIBA INSULIN SUBCUT SCH (08:10)
--- NOTE | 2018-05-31 09:54 | PCM.DCSUM1 ---
Discharge Summary - Hospital Course Diagnosis: Stroke: Yes Modified Ottoniel Scale: Slight Disable;Unable to Carry Out Prev Act.Able to Look After Affairs Modified Sargent Scale Score: 2 - Discharge Data Discharge Date: 05/31/18 (Admit date: 05/27/18) Discharge Disposition: DC/Tfer to Other 70 Condition: Good - Discharge Diagnosis/Problem(s) (1) CVA (cerebral vascular accident) SNOMED Code(s): 241928734 ICD Code: I63.9 - CEREBRAL INFARCTION, UNSPECIFIED Status: Acute Priority : High Current Visit: Yes Qualifiers: CVA mechanism: unspecified Qualified Code(s): I63.9 - Cerebral infarction, unspecified (2) Vertigo SNOMED Code(s): 663559256 ICD Code: R42 - DIZZINESS AND GIDDINESS Status: Acute Priority: High Current Visit: Yes (3) Nausea & vomiting SNOMED Code(s): 71470834 ICD Code: R11.2 - NAUSEA WITH VOMITING, UNSPECIFIED Status: Resolved Priority: High Current Visit: Yes Qualifiers: Vomiting type: unspecified Vomiting Intractability: non-intractable Qualified Code(s): R11.2 - Nausea with vomiting, unspecified (4) Urinary retention SNOMED Code(s): 636604648 ICD Code: R33.9 - RETENTION OF URINE, UNSPECIFIED Status: Acute Priority : High Current Visit: Yes - Patient Summary/Data Consults: Consultations 05/27/18 08:42 Consult to Physical Therapy [PT Evaluation and Treatment] [CONS] Routine 05/27/18 14:55 Consult to Speech Language Pathology [TAILOR FITTER Evaluation and Treatment] [CONS] Routine 05/27/18 15:07 Consult to Speech Language Pathology [TAILOR FITTER Evaluation and Treatment] [CONS] Routine 05/27/18 15:24 Consult to Coiled Tubing Operator [Consult to Diabetic Nurse Specialist] [CONS] Routine 05/27/18 15:25 Consult to Case Management/Car Builder [CONS] Routine 05/28/18 08:00 Consult to Physical Therapy [PT Evaluation and Treatment] [CONS] Routine OT Evaluation and Treatment [CONS] Routine Hospital Course: I/P: Acute: CVA improved physical exam -Reported to ED with Vertigo with nausea and vomiting -Sudden onset of sensation of room spinning starting around 1730 on 05/26/17 -Hx/o partial left eye blindness -Reports occasional left sided stabbing pain - was seen in ED on 04/23/19 and refused MRI -Unable to performed Tyrel-Hallpike maneuver in ED, reattempt on floor -Fast nystagmus noted in ED to left with leftward gaze only -[place] neurology consulted in ED - recommended MRI and believed symptoms unlikely for stroke -No leukocytosis -Electrolytes normal -CT of head without contrast in ED shows slight senescent change with no acute abnormality -CTA of neck in ED shows scattererd calcified plaque, no focal stenosis or occlusion seen -CTA of head in ED show no abnormality -IV fluids as ordered -Meclizine as ordered -Consult PT for vestibular exam -> cancel -PRN Zofran -MRI of brain 05/27/17: * 1. Reversible and fairly acute infarct within the left cerebellar hemisphere extending into left cerebellar tonsil. Old small right cerebellar infarct. * 2. Small irreversible inferiorly acute infarct within the right basal ganglia extending into the centrum semi-ovale; [place] on the right side. * 3. Small vessel ischemic demyelination change. -He is unfortunately outside treatment window for tPA -Echo obtained 05/27/17 * 1. LVEF, by visual estimation, is 60-65% * 2. Normal left ventricular systolic function * 3. Mild concentric left ventricular hypertrophy * 4. Boderline dilation of the left atrium * 5. No significant change from 11/10/11 * 6. No regional wall motion abnormalities. -Lipid panel: Triglycerides 156, Total cholesterol 176, LDL 122, HDL 32.0 -Increase zocor from 20mg to 40mg (formulary for pravastatin) -Resume fenofibrate -PT/OT consult today -Hgb A1C 8.00 -TAILOR FITTER swallow evaluation -> No concerns -Cognitive evaluation-> mild cognitive impairment -325mg ASA given 05/27/18 with 81 mg daily thereafter -Aspiration precautions -Q6hr neuro checks Urinary retention>>>improved on Flomax -Has history of urinary issues in past -Hx/o BPH -Had difficulty with urination in ED -Bladder scan in ED showed 699 of residual urine and velazquez catheter was placed -Continue velazquez care -> Discontinue velazquez (patient is requesting not to DC with velazquez if possible); tolerated removal -Will need urology consult - case management scheduled in middle June -Obtain old records -Start flomax 0.4mg daily 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 Diverticulosis GERD BPH Hx/o acute renal failure Hx/o Temporary dialysis for 2 months Diabetic neuropathy Anxiety Type II DM Obesity Plan: Medical floor on telemetry; post CVA rehab at OP vs IP, has refused SNF at this time. Other orders as indicated above Routine AM labs Home medications as ordered CM/SW for discharge planning>>>will likely benefit from HH at assisted living. Outpatient community educator follow-up with Santy From [facility] - Staff there notes worsening confusion since admission there DVT/PE prophylaxis: Lovenox Code status: Full code; PCP: Yari Perez, UTILITY SYSTEMS REPAIRER OPERATOR - Patient Instructions Diet: Diabetic Diet Activity: As Tolerated Driving: Do Not Drive Showering/Bathing: May Shower Notify Provider of: Fever, Increased Pain, Nausea and/or Vomiting - Discharge Plan *PRESCRIPTION DRUG MONITORING PROGRAM REVIEWED*: Not Applicable *COPY OF PRESCRIPTION DRUG MONITORING REPORT IN PATIENT RENATE: Not Applicable Home Medications: Home Meds Metoprolol Succinate [Toprol XL] 100 mg PO DAILY 10/29/14 [History] Pravastatin [Pravachol] 40 mg PO DAILY 10/29/14 [History] Multivitamin [Multi-Vitamin Daily] 1 tab PO DAILY 01/13/16 [History] Potassium Chloride 20 meq PO DAILY #30 tablet.er 09/29/16 [Rx] Fenofibric Acid (Choline) [Fenofibric Acid] 135 mg PO DAILY 02/24/17 [History] Lisinopril 40 mg PO DAILY 06/23/17 [History] Omeprazole Magnesium [Prilosec Otc] 40 mg PO DAILY 06/23/17 [History] Orphenadrine Citrate [Orphenadrine Citrate ER] 100 mg PO BID 06/23/17 [History] Tresiba 86 units SQ DAILY 06/23/17 [History] Insulin Aspart [NovoLOG] 18 units SQ ACBREAKFAST 05/26/18 [History] Insulin Aspart [NovoLOG] 18 units SQ ACDINNER 05/26/18 [History] Insulin Aspart [NovoLOG] 24 units SQ ACLUNCH 05/26/18 [History] Meloxicam [Mobic] 15 mg PO DAILY 05/26/18 [History] Tacrolimus 1 dose TOP BID 05/26/18 [History] Temazepam 30 mg PO BEDTIME 05/26/18 [History] traZODone HCl [Trazodone HCl] 50 mg PO DAILY 05/26/18 [History] Tacrolimus [Protopic] 1 applic TOP BID 05/27/18 [History] guaiFENesin/Codeine Phosphate [Cheratussin AC Syrup] 5 ml PO Q4HR PRN 05/27/18 [ History] Oxygen Therapy Mode: Room Air Patient Handouts: Ischemic Stroke, [id number], Rehabilitation After a Stroke , Adult Referrals: Doreen Lopez [Other] - 06/15/18 9:00 am (nursing educator. Please ask about assistance with paying for insulin.) Emily Williamson MD [Ordering Only Provider] - 06/29/18 2:00 pm (Urologist. Appointment is at 2:00 pm SUPERVISOR ROD PLACING, 1:00 pm MST.) Yari Perez NP [Primary Care Provider] - - Discharge Summary/Plan Comment DC Time >30 min.: Yes (45 mins ) - Patient Data Vitals - Most Recent: Last Vital Signs Temp 98.2 F 05/31/18 03:43 Pulse 79 05/31/18 08:05 Resp 18 05/31/18 03:43 BP 142/92 H 05/31/18 08:05 Pulse Ox 94 L 05/31/18 03:43 Weight - Most Recent: 243 lb 8 oz I&O - Last 24 hours: Intake & Output 05/30/18 05/31/18 05/31/18 22:59 06:59 14:59 Intake Total 1320 400 Output Total 700 1800 Balance 620 -1400 Lab Results - Last 24 hrs: Laboratory Results - last 24 hr 05/30/18 05/30/18 05/30/18 Range/Units 05:47 11:53 16:37 WBC (4.23-9.07) K/mm3 RBC (4.63-6.08) M/mm3 Hgb (13.7-17.5) gm/L Hct (40.1-51.0) % MCV (79.0-92.2) fl MCH (25.7-32.2) pg MCHC (32.2-35.5) g/dl RDW Std Deviation (35.1-43.9) fL Plt Count (163-337) K/mm3 MPV (9.4-12.3) fl Neut % (Auto) (34.0-67.9) % Lymph % (Auto) (21.8-53.1) % [place]al[place] % (Auto) (5.3-12.2) % Eos % (Auto) (0.8-7.0) Baso % (Auto) (0.1-1.2) % Neut # (Auto) (1.78-5.38) K/mm3 Lymph # (Auto) (1.32-3.57) K/mm3 [place] # (Auto) (0.30-0.82) K/mm3 Eos # (Auto) (0.04-0.54) K/mm3 Baso # (Auto) (0.01-0.08) K/mm3 Sodium (136-145) mEq/L Potassium (3.5-5.1) mEq/L Chloride (98-107) mEq/L Carbon Dioxide (21-32) mEq/L Anion Gap (5-15) BUN (7-18) mg/dL Creatinine (0.7-1.3) mg/dL Est Cr Clr Drug Dosing mL/min Estimated GFR (MDRD) (>60) mL/min BUN/Creatinine Ratio (14-18) Glucose (80-115) mg/dL POC Glucose 124 H 136 H 212 H (80-115) mg/dL Calcium (8.5-10.1) mg/dL Magnesium (1.8-2.4) mg/dl 05/30/18 05/31/18 05/31/18 Range/Units 21:27 06:04 06:15 WBC 8.02 (4.23-9.07) K/mm3 RBC 5.46 (4.63-6.08) M/mm3 Hgb 16.1 (13.7-17.5) gm/L Hct 48.4 (40.1-51.0) % MCV 88.6 (79.0-92.2) fl MCH 29.5 (25.7-32.2) pg MCHC 33.3 (32.2-35.5) g/dl RDW Std Deviation 46.0 H (35.1-43.9) fL Plt Count 200 (163-337) K/mm3 MPV 10.3 (9.4-12.3) fl Neut % (Auto) 66.1 (34.0-67.9) % Lymph % (Auto) 20.7 L (21.8-53.1) % [place]alier % (Auto) 7.7 (5.3-12.2) % Eos % (Auto) 5.1 (0.8-7.0) Baso % (Auto) 0.2 (0.1-1.2) % Neut # (Auto) 5.29 (1.78-5.38) K/mm3 Lymph # (Auto) 1.66 (1.32-3.57) K/mm3 Cavalier # (Auto) 0.62 (0.30-0.82) K/mm3 Eos # (Auto) 0.41 (0.04-0.54) K/mm3 Baso # (Auto) 0.02 (0.01-0.08) K/mm3 Sodium (136-145) mEq/L Potassium (3.5-5.1) mEq/L Chloride (98-107) mEq/L Carbon Dioxide (21-32) mEq/L Anion Gap (5-15) BUN (7-18) mg/dL Creatinine (0.7-1.3) mg/dL Est Cr Clr Drug Dosing mL/min Estimated GFR (MDRD) (>60) mL/min BUN/Creatinine Ratio (14-18) Glucose (80-115) mg/dL POC Glucose 156 H 161 H (80-115) mg/dL Calcium (8.5-10.1) mg/dL Magnesium (1.8-2.4) mg/dl 05/31/18 Range/Units 06:15 WBC (4.23-9.07) K/mm3 RBC (4.63-6.08) M/mm3 Hgb (13.7-17.5) gm/L Hct (40.1-51.0) % MCV (79.0-92.2) fl MCH (25.7-32.2) pg MCHC (32.2-35.5) g/dl RDW Std Deviation (35.1-43.9) fL Plt Count (163-337) K/mm3 MPV (9.4-12.3) fl Neut % (Auto) (34.0-67.9) % Lymph % (Auto) (21.8-53.1) % [place] % (Auto) (5.3-12.2) % Eos % (Auto) (0.8-7.0) Baso % (Auto) (0.1-1.2) % Neut # (Auto) (1.78-5.38) K/mm3 Lymph # (Auto) (1.32-3.57) K/mm3 [place] # (Auto) (0.30-0.82) K/mm3 Eos # (Auto) (0.04-0.54) K/mm3 Baso # (Auto) (0.01-0.08) K/mm3 Sodium 143 (136-145) mEq/L Potassium 3.7 (3.5-5.1) mEq/L Chloride 110 H (98-107) mEq/L Carbon Dioxide 25 (21-32) mEq/L Anion Gap 11.7 (5-15) BUN 25 H (7-18) mg/dL Creatinine 0.7 (0.7-1.3) mg/dL Est Cr Clr Drug Dosing 120.26 mL/min Estimated GFR (MDRD) > 60 (>60) mL/min BUN/Creatinine Ratio 35.7 H (14-18) Glucose 159 H (80-115) mg/dL POC Glucose (80-115) mg/dL Calcium 8.8 (8.5-10.1) mg/dL Magnesium 1.9 (1.8-2.4) mg/dl Med Orders - Current: Current Medications Acetaminophen (Tylenol) 650 mg PO Q4H PRN PRN Reason: Pain (Mild 1-3)/fever Last Admin: 05/28/18 10:40 Dose: 650 mg Hydrocodone Bitart/Acetaminophen (Leola 325-5 Mg) 1 tab PO Q4H PRN PRN Reason: Pain (moderate 4-6) Last Admin: 05/27/18 20:12 Dose: 1 tab Albuterol/Ipratropium (Duoneb 3.0-0.5 Mg/3 Ml) 3 ml NEB Q4H PRN PRN Reason: Shortness Of Breath/wheezing Aspirin (Aspirin) 81 mg PO DAILY [facility] Last Admin: 05/31/18 08:06 Dose: 81 mg Benzonatate (Tessalon Perles) 100 mg PO BID [facility] Last Admin: 05/31/18 08:10 Dose: 100 mg Bisacodyl (Dulcolax) 5 mg PO DAILY PRN PRN Reason: Constipation Last Admin: 05/29/18 06:24 Dose: 5 mg Diphenhydramine HCl (Benadryl) 25 mg PO Q6H PRN PRN Reason: Itching Last Admin: 05/30/18 17:57 Dose: 25 mg Docusate Sodium (Colace) 100 mg PO BID PRN PRN Reason: Constipation Enoxaparin Sodium (Lovenox) 40 mg SUBCUT DAILY [facility] Last Admin: 05/31/18 08:07 Dose: 40 mg Fenofibrate (Tricor) 145 mg PO DAILY [facility] Last Admin: 05/31/18 08:07 Dose: 145 mg Hydralazine HCl (Apresoline) 10 mg IVPUSH Q4H PRN PRN Reason: Hypertension Insulin Human Lispro (Humalog) 0 unit SUBCUT QIDACANDBED [facility]; Protocol Last Admin: 05/31/18 08:07 Dose: 3 units Meclizine HCl (Antivert) 25 mg PO Q6H PRN PRN Reason: Dizziness Last Admin: 05/31/18 08:27 Dose: 25 mg Metoprolol Succinate (Toprol Xl) 100 mg PO DAILY [facility] Last Admin: 05/31/18 08:05 Dose: 100 mg Metoprolol Tartrate (Lopressor) 5 mg IVPUSH Q4H PRN PRN Reason: Tachycardia Multivitamins (Thera) 1 each PO DAILY [facility] Last Admin: 05/31/18 08:05 Dose: 1 each Ondansetron HCl (Zofran) 4 mg IVPUSH Q6HR PRN PRN Reason: Nausea/Vomiting Last Admin: 05/27/18 20:12 Dose: 4 mg Ondansetron HCl (Zofran Odt) 4 mg PO Q6H PRN PRN Reason: nausea, able to take PO Orphenadrine Citrate (Norflex) 100 mg PO BID [facility] Last Admin: 05/31/18 08:05 Dose: 100 mg Pantoprazole Sodium (Protonix) 40 mg PO DAILY@0700 [facility] Last Admin: 05/31/18 08:07 Dose: 40 mg Meloxicam 15 Mg 0 each PO DAILY [facility] Last Admin: 05/31/18 08:09 Dose: 1 each Tacrolimus [Protopic ] Ointment 0.1% Pt Own 0 each TOP BID [facility] Last Admin: 05/31/18 08:09 Dose: 1 each Tresiba Insulin Pen (200 Units/Ml) 0 each SUBCUT DAILY [facility] Last Admin: 05/31/18 08:10 Dose: 86 each Polyethylene Glycol (Miralax) 17 gm PO DAILY PRN PRN Reason: Constipation Potassium Chloride (Klor-Con M20) 20 meq PO DAILY [facility] Last Admin: 05/31/18 08:06 Dose: 20 meq Senna/Docusate Sodium (Senna Plus) 1 tab PO BID PRN PRN Reason: Constipation Simvastatin (Zocor) 40 mg PO BEDTIME [facility] Last Admin: 05/30/18 21:16 Dose: 40 mg Tamsulosin HCl (Flomax) 0.4 mg PO DAILY [facility] Last Admin: 05/31/18 09:35 Dose: Not Given Temazepam (Restoril) 30 mg PO BEDTIME [facility] Last Admin: 05/30/18 21:17 Dose: 30 mg Discontinued Medications Aspirin (Ecotrin) 325 mg PO ONETIME ONE Stop: 05/27/18 15:09 Last Admin: 05/27/18 15:27 Dose: 325 mg Hydralazine HCl (Apresoline) 20 mg IVPUSH Q4H PRN PRN Reason: Hypertension Last Admin: 05/30/18 18:11 Dose: 20 mg Sodium Chloride (Normal Saline) 1,000 mls @ 100 mls/hr IV ASDIRECTED [facility] Last Admin: 05/28/18 04:48 Dose: 100 mls/hr Sodium Chloride (Normal Saline) 500 mls @ 999 mls/hr IV .BOLUS ONE Stop: 05/30/18 19:18 Last Admin: 05/30/18 19:03 Dose: Not Given Sodium Chloride (Normal Saline) Confirm Administered Dose 500 mls @ as directed .ROUTE .STK-MED ONE Stop: 05/30/18 18:48 Last Admin: 05/30/18 18:52 Dose: 999 mls/hr Insulin Glargine (Lantus) 86 unit SUBCUT DAILY [facility] Last Admin: 05/27/18 14:05 Dose: Not Given Insulin Human Lispro (Humalog) 0 unit SUBCUT QIDACANDBED [facility]; Protocol Last Admin: 05/27/18 14:07 Dose: Not Given Magnesium Oxide (Magnesium Oxide) 800 mg PO ONETIME ONE Stop: 05/29/18 09:01 Last Admin: 05/29/18 09:20 Dose: 800 mg Magnesium Sulfate (Pharmacy To Dose - Magnesium Replacement) 0 dose .XX ASDIRECTED PRN PRN Reason: RX TO WATCH MAG LEVELS Meclizine HCl (Antivert) 25 mg PO ONETIME STA Stop: 05/26/18 23:33 Last Admin: 05/26/18 23:38 Dose: 25 mg Metoclopramide HCl (Reglan) 10 mg IVPUSH ONETIME STA Stop: 05/26/18 19:40 Last Admin: 05/26/18 19:49 Dose: 10 mg Metoprolol Succinate (Toprol Xl) 100 mg PO DAILY [facility] Last Admin: 05/27/18 14:07 Dose: Not Given Miscellaneous Information (Remove Patch) 1 ea TRDERM ONETIME ONE Stop: 05/30/18 01:01 Last Admin: 05/30/18 06:02 Dose: 1 ea Non-Formulary Medication (Tacrolimus [Tacrolimus]) 1 dose TOP BID [facility] Last Admin: 05/27/18 09:34 Dose: Not Given Ondansetron HCl (Zofran) Confirm Administered Dose 4 mg .ROUTE .STK-MED ONE Stop: 05/27/18 01:24 Last Admin: 05/27/18 01:28 Dose: Not Given Pantoprazole Sodium (Protonix) 40 mg PO DAILY@0700 [facility] Last Admin: 05/27/18 14:07 Dose: Not Given Omeprazole 40 Mg 0 each PO DAILY@0700 [facility] Last Admin: 05/27/18 11:53 Dose: 40 each Metoprolol Succinate (100 Mg Tab.Er) 0 each PO DAILY [facility] Tresiba Insulin Pen (200 Units/Ml) 86 each SUBCUT DAILY [facility] Novolog Flexpen 100 (Units/Ml) 0 each SUBCUT QIDACANDBED [facility]; Protocol Potassium Chloride (Pharmacy To Dose - Potassium Replacement) 0 dose .XX ASDIRECTED PRN PRN Reason: RX TO WATCH K LEVELS Potassium Chloride (Klor-Con M20) 40 meq PO Q4H [facility] Stop: 05/27/18 15:01 Last Admin: 05/27/18 11:49 Dose: 20 meq Potassium Chloride (Klor-Con M20) 40 meq PO ONETIME ONE Stop: 05/29/18 09:01 Last Admin: 05/29/18 09:27 Dose: 40 meq Scopolamine (Transderm-Scop) 1.5 mg TOP ONETIME ONE Stop: 05/27/18 01:01 Last Admin: 05/27/18 01:20 Dose: 1.5 mg Simvastatin (Zocor) 20 mg PO DAILY [facility] Last Admin: 05/28/18 10:05 Dose: 20 mg Tamsulosin HCl (Flomax) 0.4 mg PO PCBREAKFAST [facility] Last Admin: 05/31/18 08:07 Dose: 0.4 mg Tamsulosin HCl (Flomax) 0.4 mg PO ONETIME ONE Stop: 05/28/18 14:31 Last Admin: 05/28/18 14:49 Dose: 0.4 mg Trazodone HCl (Trazodone) 50 mg PO DAILY [facility] Last Admin: 05/27/18 14:07 Dose: Not Given Trazodone HCl (Trazodone) 50 mg PO BEDTIME [facility] Last Admin: 05/29/18 21:52 Dose: 50 mg
--- NOTE | 2018-05-31 11:48 | PCM.PN ---
- General Info Date of Service: 05/31/18 Admission Dx/Problem (Free Text): Admission Diagnosis/Problem Admission Diagnosis/Problem Vertigo Subjective Update: In to see Doni. He is lying in bed after working with PT. He started to get somewhat dizzy in the halls while walking today. Will check orthostatics. We had a long discussion about his past and present medical situation. He refused psychiatry but is willing to try an antidepressant. Will start prozac. Will continue working with PT/OT today and tomorrow. Hopeful for tomorrow discharge. Functional Status: Reports: Pain Controlled, Tolerating Diet, Ambulating, Urinating. Denies: New Symptoms - Review of Systems General: Reports: Weakness, Fatigue. Denies: Fever, Malaise, Chills HEENT: Reports: No Symptoms. Denies: Eye Pain, Headaches, Sinus Congestion, Sore Throat, Visual Changes Pulmonary: Reports: No Symptoms. Denies: Shortness of Breath, Cough, Sputum, Wheezing Cardiovascular: Reports: No Symptoms. Denies: Chest Pain, Palpitations, Dyspnea on Exertion, Lightheadedness Gastrointestinal: Reports: No Symptoms. Denies: Abdominal Pain, Constipation, Diarrhea, Nausea, Vomiting Genitourinary: Reports: No Symptoms Musculoskeletal: Reports: No Symptoms Skin: Reports: No Symptoms Neurological: Reports: Dizziness, Numbness (left leg 2/2 diabetic neuropathy ), Difficulty Walking, Weakness, Gait Disturbance. Denies: Headache, Seizure, Trouble Speaking, Change in Speech Psychiatric: Reports: No Symptoms - Patient Data Vitals - Most Recent: Last Vital Signs Temp 98.2 F 05/31/18 03:43 Pulse 79 05/31/18 08:05 Resp 18 05/31/18 03:43 BP 142/92 H 05/31/18 08:05 Pulse Ox 94 L 05/31/18 03:43 Weight - Most Recent: 243 lb 8 oz I&O - Last 24 Hours: Intake & Output 05/30/18 05/31/18 05/31/18 22:59 06:59 14:59 Intake Total 1320 400 180 Output Total 700 1800 Balance 620 -1400 180 Lab Results Last 24 Hours: Laboratory Results - last 24 hr 05/30/18 05/30/18 05/30/18 Range/Units 05:47 11:53 16:37 WBC (4.23-9.07) K/mm3 RBC (4.63-6.08) M/mm3 Hgb (13.7-17.5) gm/L Hct (40.1-51.0) % MCV (79.0-92.2) fl MCH (25.7-32.2) pg MCHC (32.2-35.5) g/dl RDW Std Deviation (35.1-43.9) fL Plt Count (163-337) K/mm3 MPV (9.4-12.3) fl Neut % (Auto) (34.0-67.9) % Lymph % (Auto) (21.8-53.1) % [place] % (Auto) (5.3-12.2) % Eos % (Auto) (0.8-7.0) Baso % (Auto) (0.1-1.2) % Neut # (Auto) (1.78-5.38) K/mm3 Lymph # (Auto) (1.32-3.57) K/mm3 [place] # (Auto) (0.30-0.82) K/mm3 Eos # (Auto) (0.04-0.54) K/mm3 Baso # (Auto) (0.01-0.08) K/mm3 Sodium (136-145) mEq/L Potassium (3.5-5.1) mEq/L Chloride (98-107) mEq/L Carbon Dioxide (21-32) mEq/L Anion Gap (5-15) BUN (7-18) mg/dL Creatinine (0.7-1.3) mg/dL Est Cr Clr Drug Dosing mL/min Estimated GFR (MDRD) (>60) mL/min BUN/Creatinine Ratio (14-18) Glucose (80-115) mg/dL POC Glucose 124 H 136 H 212 H (80-115) mg/dL Calcium (8.5-10.1) mg/dL Magnesium (1.8-2.4) mg/dl 05/30/18 05/31/18 05/31/18 Range/Units 21:27 06:04 06:15 WBC 8.02 (4.23-9.07) K/mm3 RBC 5.46 (4.63-6.08) M/mm3 Hgb 16.1 (13.7-17.5) gm/L Hct 48.4 (40.1-51.0) % MCV 88.6 (79.0-92.2) fl MCH 29.5 (25.7-32.2) pg MCHC 33.3 (32.2-35.5) g/dl RDW Std Deviation 46.0 H (35.1-43.9) fL Plt Count 200 (163-337) K/mm3 MPV 10.3 (9.4-12.3) fl Neut % (Auto) 66.1 (34.0-67.9) % Lymph % (Auto) 20.7 L (21.8-53.1) % [place] % (Auto) 7.7 (5.3-12.2) % Eos % (Auto) 5.1 (0.8-7.0) Baso % (Auto) 0.2 (0.1-1.2) % Neut # (Auto) 5.29 (1.78-5.38) K/mm3 Lymph # (Auto) 1.66 (1.32-3.57) K/mm3 [place] # (Auto) 0.62 (0.30-0.82) K/mm3 Eos # (Auto) 0.41 (0.04-0.54) K/mm3 Baso # (Auto) 0.02 (0.01-0.08) K/mm3 Sodium (136-145) mEq/L Potassium (3.5-5.1) mEq/L Chloride (98-107) mEq/L Carbon Dioxide (21-32) mEq/L Anion Gap (5-15) BUN (7-18) mg/dL Creatinine (0.7-1.3) mg/dL Est Cr Clr Drug Dosing mL/min Estimated GFR (MDRD) (>60) mL/min BUN/Creatinine Ratio (14-18) Glucose (80-115) mg/dL POC Glucose 156 H 161 H (80-115) mg/dL Calcium (8.5-10.1) mg/dL Magnesium (1.8-2.4) mg/dl 05/31/18 05/31/18 Range/Units 06:15 11:08 WBC (4.23-9.07) K/mm3 RBC (4.63-6.08) M/mm3 Hgb (13.7-17.5) gm/L Hct (40.1-51.0) % MCV (79.0-92.2) fl MCH (25.7-32.2) pg MCHC (32.2-35.5) g/dl RDW Std Deviation (35.1-43.9) fL Plt Count (163-337) K/mm3 MPV (9.4-12.3) fl Neut % (Auto) (34.0-67.9) % Lymph % (Auto) (21.8-53.1) % [place] % (Auto) (5.3-12.2) % Eos % (Auto) (0.8-7.0) Baso % (Auto) (0.1-1.2) % Neut # (Auto) (1.78-5.38) K/mm3 Lymph # (Auto) (1.32-3.57) K/mm3 [place] # (Auto) (0.30-0.82) K/mm3 Eos # (Auto) (0.04-0.54) K/mm3 Baso # (Auto) (0.01-0.08) K/mm3 Sodium 143 (136-145) mEq/L Potassium 3.7 (3.5-5.1) mEq/L Chloride 110 H (98-107) mEq/L Carbon Dioxide 25 (21-32) mEq/L Anion Gap 11.7 (5-15) BUN 25 H (7-18) mg/dL Creatinine 0.7 (0.7-1.3) mg/dL Est Cr Clr Drug Dosing 120.26 mL/min Estimated GFR (MDRD) > 60 (>60) mL/min BUN/Creatinine Ratio 35.7 H (14-18) Glucose 159 H (80-115) mg/dL POC Glucose 180 H (80-115) mg/dL Calcium 8.8 (8.5-10.1) mg/dL Magnesium 1.9 (1.8-2.4) mg/dl Med Orders - Current: Current Medications Acetaminophen (Tylenol) 650 mg PO Q4H PRN PRN Reason: Pain (Mild 1-3)/fever Last Admin: 05/28/18 10:40 Dose: 650 mg Hydrocodone Bitart/Acetaminophen ([place] 325-5 Mg) 1 tab PO Q4H PRN PRN Reason: Pain (moderate 4-6) Last Admin: 05/27/18 20:12 Dose: 1 tab Albuterol/Ipratropium (Duoneb 3.0-0.5 Mg/3 Ml) 3 ml NEB Q4H PRN PRN Reason: Shortness Of Breath/wheezing Aspirin (Aspirin) 81 mg PO DAILY [facility] Last Admin: 05/31/18 08:06 Dose: 81 mg Benzonatate (Tessalon Perles) 100 mg PO BID [facility] Last Admin: 05/31/18 08:10 Dose: 100 mg Bisacodyl (Dulcolax) 5 mg PO DAILY PRN PRN Reason: Constipation Last Admin: 05/29/18 06:24 Dose: 5 mg Diphenhydramine HCl (Benadryl) 25 mg PO Q6H PRN PRN Reason: Itching Last Admin: 05/30/18 17:57 Dose: 25 mg Docusate Sodium (Colace) 100 mg PO BID PRN PRN Reason: Constipation Enoxaparin Sodium (Lovenox) 40 mg SUBCUT DAILY [facility] Last Admin: 05/31/18 08:07 Dose: 40 mg Fenofibrate (Tricor) 145 mg PO DAILY [facility] Last Admin: 05/31/18 08:07 Dose: 145 mg Hydralazine HCl (Apresoline) 10 mg IVPUSH Q4H PRN PRN Reason: Hypertension Insulin Human Lispro (Humalog) 0 unit SUBCUT QIDACANDBED [facility]; Protocol Last Admin: 05/31/18 08:07 Dose: 3 units Meclizine HCl (Antivert) 25 mg PO Q6H PRN PRN Reason: Dizziness Last Admin: 05/31/18 08:27 Dose: 25 mg Metoprolol Succinate (Toprol Xl) 100 mg PO DAILY [facility] Last Admin: 05/31/18 08:05 Dose: 100 mg Metoprolol Tartrate (Lopressor) 5 mg IVPUSH Q4H PRN PRN Reason: Tachycardia Multivitamins (Thera) 1 each PO DAILY [facility] Last Admin: 05/31/18 08:05 Dose: 1 each Ondansetron HCl (Zofran) 4 mg IVPUSH Q6HR PRN PRN Reason: Nausea/Vomiting Last Admin: 05/27/18 20:12 Dose: 4 mg Ondansetron HCl (Zofran Odt) 4 mg PO Q6H PRN PRN Reason: nausea, able to take PO Orphenadrine Citrate (Norflex) 100 mg PO BID [facility] Last Admin: 05/31/18 08:05 Dose: 100 mg Pantoprazole Sodium (Protonix) 40 mg PO DAILY@0700 [facility] Last Admin: 05/31/18 08:07 Dose: 40 mg Meloxicam 15 Mg 0 each PO DAILY [facility] Last Admin: 05/31/18 08:09 Dose: 1 each Tacrolimus [Protopic ] Ointment 0.1% Pt Own 0 each TOP BID [facility] Last Admin: 05/31/18 08:09 Dose: 1 each Tresiba Insulin Pen (200 Units/Ml) 0 each SUBCUT DAILY [facility] Last Admin: 05/31/18 08:10 Dose: 86 each Polyethylene Glycol (Miralax) 17 gm PO DAILY PRN PRN Reason: Constipation Potassium Chloride (Klor-Con M20) 20 meq PO DAILY [facility] Last Admin: 05/31/18 08:06 Dose: 20 meq Senna/Docusate Sodium (Senna Plus) 1 tab PO BID PRN PRN Reason: Constipation Simvastatin (Zocor) 40 mg PO BEDTIME [facility] Last Admin: 05/30/18 21:16 Dose: 40 mg Tamsulosin HCl (Flomax) 0.4 mg PO DAILY [facility] Last Admin: 05/31/18 09:35 Dose: Not Given Temazepam (Restoril) 30 mg PO BEDTIME [facility] Last Admin: 05/30/18 21:17 Dose: 30 mg Discontinued Medications Aspirin (Ecotrin) 325 mg PO ONETIME ONE Stop: 05/27/18 15:09 Last Admin: 05/27/18 15:27 Dose: 325 mg Hydralazine HCl (Apresoline) 20 mg IVPUSH Q4H PRN PRN Reason: Hypertension Last Admin: 05/30/18 18:11 Dose: 20 mg Sodium Chloride (Normal Saline) 1,000 mls @ 100 mls/hr IV ASDIRECTED [facility] Last Admin: 05/28/18 04:48 Dose: 100 mls/hr Sodium Chloride (Normal Saline) 500 mls @ 999 mls/hr IV .BOLUS ONE Stop: 05/30/18 19:18 Last Admin: 05/30/18 19:03 Dose: Not Given Sodium Chloride (Normal Saline) Confirm Administered Dose 500 mls @ as directed .ROUTE .STK-MED ONE Stop: 05/30/18 18:48 Last Admin: 05/30/18 18:52 Dose: 999 mls/hr Insulin Glargine (Lantus) 86 unit SUBCUT DAILY [facility] Last Admin: 05/27/18 14:05 Dose: Not Given Insulin Human Lispro (Humalog) 0 unit SUBCUT QIDACANDBED [facility]; Protocol Last Admin: 05/27/18 14:07 Dose: Not Given Magnesium Oxide (Magnesium Oxide) 800 mg PO ONETIME ONE Stop: 05/29/18 09:01 Last Admin: 05/29/18 09:20 Dose: 800 mg Magnesium Sulfate (Pharmacy To Dose - Magnesium Replacement) 0 dose .XX ASDIRECTED PRN PRN Reason: RX TO WATCH MAG LEVELS Meclizine HCl (Antivert) 25 mg PO ONETIME STA Stop: 05/26/18 23:33 Last Admin: 05/26/18 23:38 Dose: 25 mg Metoclopramide HCl (Reglan) 10 mg IVPUSH ONETIME STA Stop: 05/26/18 19:40 Last Admin: 05/26/18 19:49 Dose: 10 mg Metoprolol Succinate (Toprol Xl) 100 mg PO DAILY [facility] Last Admin: 05/27/18 14:07 Dose: Not Given Miscellaneous Information (Remove Patch) 1 ea TRDERM ONETIME ONE Stop: 05/30/18 01:01 Last Admin: 05/30/18 06:02 Dose: 1 ea Non-Formulary Medication (Tacrolimus [Tacrolimus]) 1 dose TOP BID [facility] Last Admin: 05/27/18 09:34 Dose: Not Given Ondansetron HCl (Zofran) Confirm Administered Dose 4 mg .ROUTE .STK-MED ONE Stop: 05/27/18 01:24 Last Admin: 05/27/18 01:28 Dose: Not Given Pantoprazole Sodium (Protonix) 40 mg PO DAILY@0700 [facility] Last Admin: 05/27/18 14:07 Dose: Not Given Omeprazole 40 Mg 0 each PO DAILY@0700 [facility] Last Admin: 05/27/18 11:53 Dose: 40 each Metoprolol Succinate (100 Mg Tab.Er) 0 each PO DAILY [facility] Tresiba Insulin Pen (200 Units/Ml) 86 each SUBCUT DAILY [facility] Novolog Flexpen 100 (Units/Ml) 0 each SUBCUT QIDACANDBED [facility]; Protocol Potassium Chloride (Pharmacy To Dose - Potassium Replacement) 0 dose .XX ASDIRECTED PRN PRN Reason: RX TO WATCH K LEVELS Potassium Chloride (Klor-Con M20) 40 meq PO Q4H [facility] Stop: 05/27/18 15:01 Last Admin: 05/27/18 11:49 Dose: 20 meq Potassium Chloride (Klor-Con M20) 40 meq PO ONETIME ONE Stop: 05/29/18 09:01 Last Admin: 05/29/18 09:27 Dose: 40 meq Scopolamine (Transderm-Scop) 1.5 mg TOP ONETIME ONE Stop: 05/27/18 01:01 Last Admin: 05/27/18 01:20 Dose: 1.5 mg Simvastatin (Zocor) 20 mg PO DAILY [facility] Last Admin: 05/28/18 10:05 Dose: 20 mg Tamsulosin HCl (Flomax) 0.4 mg PO PCBREAKFAST [facility] Last Admin: 05/31/18 08:07 Dose: 0.4 mg Tamsulosin HCl (Flomax) 0.4 mg PO ONETIME ONE Stop: 05/28/18 14:31 Last Admin: 05/28/18 14:49 Dose: 0.4 mg Trazodone HCl (Trazodone) 50 mg PO DAILY [facility] Last Admin: 05/27/18 14:07 Dose: Not Given Trazodone HCl (Trazodone) 50 mg PO BEDTIME [facility] Last Admin: 05/29/18 21:52 Dose: 50 mg - Exam Quality Assessment: DVT Prophylaxis General: Alert, Oriented, Cooperative, No Acute Distress HEENT: Pupils Equal, Pupils Reactive, EOMI, Mucous Membr. Moist/[place] Neck: Supple, Trachea Midline, No JVD Lungs: Clear to Auscultation, Normal Respiratory Effort Cardiovascular: Regular Rate, Regular Rhythm GI/Abdominal Exam: Normal Bowel Sounds, Soft, Non-Tender, No Distention, No Abnormal Bruit (Male) Exam: Deferred Back Exam: Normal Inspection, Full Range of Motion Extremities: Normal Range of Motion, Non-Tender, No Pedal Edema, Normal Capillary Refill Peripheral Pulses: 2+: Radial (L), Radial (R), Dorsalis Pedis (L), Dorsalis Pedis (R) Skin: Warm, Dry, Intact Neurological: No New Focal Deficit Psy/Mental Status: Alert, Depressed - Problem List & Annotations (1) CVA (cerebral vascular accident) SNOMED Code(s): 390872110 Code(s): I63.9 - CEREBRAL INFARCTION, UNSPECIFIED Status: Acute Priority : High Current Visit: Yes Qualifiers: CVA mechanism: unspecified Qualified Code(s): I63.9 - Cerebral infarction, unspecified (2) Vertigo SNOMED Code(s): 817753442 Code(s): R42 - DIZZINESS AND GIDDINESS Status: Acute Priority: High Current Visit: Yes (3) Nausea & vomiting SNOMED Code(s): 62591839 Code(s): R11.2 - NAUSEA WITH VOMITING, UNSPECIFIED Status: Resolved Priority: High Current Visit: Yes Qualifiers: Vomiting type: unspecified Vomiting Intractability: non-intractable Qualified Code(s): R11.2 - Nausea with vomiting, unspecified (4) Urinary retention SNOMED Code(s): 930286817 Code(s): R33.9 - RETENTION OF URINE, UNSPECIFIED Status: Acute Priority: High Current Visit: Yes - Problem List Review Problem List Initiated/Reviewed/Updated: Yes - My Orders Last 24 Hours: My Active Orders 05/31/18 09:00 Tamsulosin [Flomax] 0.4 mg PO DAILY - Plan Plan:: I/P: Acute: CVA improved physical exam -Reported to ED with Vertigo with nausea and vomiting -Sudden onset of sensation of room spinning starting around 1730 on 05/26/17 -Hx/o partial left eye blindness -Reports occasional left sided stabbing pain - was seen in ED on 04/23/19 and refused MRI -Unable to performed Ytrel-Hallpike maneuver in ED, reattempt on floor -Fast nystagmus noted in ED to left with leftward gaze only -Nitesh neurology consulted in ED - recommended MRI and believed symptoms unlikely for stroke -No leukocytosis -Electrolytes normal -CT of head without contrast in ED shows slight senescent change with no acute abnormality -CTA of neck in ED shows scattererd calcified plaque, no focal stenosis or occlusion seen -CTA of head in ED show no abnormality -IV fluids as ordered -Meclizine as ordered -Consult PT for vestibular exam -> cancel -PRN Zofran -MRI of brain 05/27/17: * 1. Reversible and fairly acute infarct within the left cerebellar hemisphere extending into left cerebellar tonsil. Old small right cerebellar infarct. * 2. Small irreversible inferiorly acute infarct within the right basal ganglia extending into the centrum semi-ovale; [place] on the right side. * 3. Small vessel ischemic demyelination change. -He is unfortunately outside treatment window for tPA -Echo obtained 05/27/17 * 1. LVEF, by visual estimation, is 60-65% * 2. Normal left ventricular systolic function * 3. Mild concentric left ventricular hypertrophy * 4. Boderline dilation of the left atrium * 5. No significant change from 11/10/11 * 6. No regional wall motion abnormalities. 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 swallow evaluation -> No concerns -Cognitive evaluation-> mild cognitive impairment -325mg ASA given 05/27/18 with 81 mg daily thereafter -Aspiration precautions -Q6hr neuro checks Urinary retention>>>improved on Flomax -Has history of urinary issues in past -Hx/o BPH -Had difficulty with urination in ED -Bladder scan in ED showed 699 of residual urine and velazquez catheter was placed -Continue velazquez care -> Discontinue velazquez (patient is requesting not to DC with velazquez if possible); tolerated removal -Will need urology consult - case management scheduled in middle June -Obtain old records -Start flomax 0.4mg daily 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 Diverticulosis GERD BPH Hx/o acute renal failure Hx/o Temporary dialysis for 2 months Diabetic neuropathy Anxiety Type II DM Obesity Plan: Medical floor on telemetry; post CVA rehab at OP vs IP, has refused SNF at this time. Other orders as indicated above Routine AM labs Start Prozac 20mg at bedtime Home medications as ordered CM/SW for discharge planning>>>will likely benefit from HH at assisted living. Outpatient outreach educator follow-up with Santy From [facility] - Staff there notes worsening confusion since admission there DVT/PE prophylaxis: Lovenox Code status: Full code; PCP: Liang Perez NP LOS >96 HR for continued CVA rehab
[2018-05-31] MEDS: Temazepam 30 MG Cap PO SCH (20:28)
[2018-05-31] MEDS: Simvastatin 40 MG Tab PO SCH (20:28)
[2018-05-31] MEDS: diphenhydrAMINE 25 MG Cap PO PRN (20:28)
[2018-05-31] MEDS ORDERED: FLUoxetine 20 MG Cap PO SCH (21:00)
[2018-06-01] MEDS: Pantoprazole 40 MG Tab.CR PO SCH (06:00)
[2018-06-01] MEDS: Insulin Lispro 100 Unit/ML 3 ML KwikPen SUBCUT SCH ×2 (06:11→11:06)
[2018-06-01] MEDS: Enoxaparin 40 MG/0.4 ML Syringe SUBCUT SCH (08:47)
[2018-06-01] MEDS: Tamsulosin 0.4 MG Cap.ER PO SCH (08:47)
[2018-06-01] MEDS: Potassium Chloride 20 MEQ Tab.ER PO SCH (08:47)
[2018-06-01] MEDS: Multivitamins,Therapeutic Tab PO SCH (08:47)
[2018-06-01] MEDS: Aspirin 81 MG Tab.Chew PO SCH (08:47)
[2018-06-01] MEDS: Fenofibrate Nanocrystallized 145 MG Tab PO SCH (08:47)
[2018-06-01] MEDS: Benzonatate 100 MG Cap PO SCH (08:47)
[2018-06-01] MEDS: Orphenadrine 100 MG Tab.ER PO SCH (08:47)
[2018-06-01] MEDS: TACROLIMUS 0.1% TOP SCH (08:48)
[2018-06-01] MEDS: TRESIBA INSULIN SUBCUT SCH (08:49)
[2018-06-01 08:53] VITALS: BP 138/97
[2018-06-01] MEDS: Metoprolol Succinate 100 MG Tab.ER PO SCH (08:53)
--- NOTE | 2018-06-01 11:58 | PCM.DCSUM1 ---
Discharge Summary - Hospital Course HPI Initial Comments: Melvin Kelly is a 63 yo male who presented to our ED yesterday evening via [facility] with the sensation of room spinning, nausea and vomiting. He was apparently quite angry in the ED and was yelling and swearing at the provider due to his symptoms. Reports nausea and vomiting that started that day around 1730. Denies any decreased hearing, tinnitus, ear pain, or any other hearing symptoms bilaterally. 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 Ports dyspnea 1 vomiting. Denies chest pain, palpitations, or prior similar symptoms. Denies a headache while in the ED although reports occasional brief stabbing left-sided pain for more than a week. He had been seen in the ED for this and offered an MRI but declined at that time. Prior medical records show that he was in our ED on with sharp left-sided head pain just above his left ear which had been ongoing for 3 months. This is believed to be secondary to a fall in which he hit his head and broke his left humerus. He reportedly underwent a CT scan of the head and an MRI although no records of either of these studies are available here. He was instructed to follow up with his PCP for neurology consultation although he never did. In the ED Was 36.4C. Pulse 64. Respirations 16. Blood pressure 149/101. Pulse ox 92%. Labs are obtained: WBC is 8.45. Hemoglobin 16.5. Hematocrit 49.7. He is normocytic. Blister 240,000. Neutrophils are elevated at 63%. There is no bandemia. Sodium is 141. Potassium 3.7. Chloride 104. Carbon dioxide 27. Anion gap 13.7. BUN is 21. Creatinine 0.8. EGFR is greater than 60. Glucose is high at 186. Calcium was 9.2. Magnesium 1.8. Bilirubin 0.3. AST is 13, ALT 33, alkaline phosphatase 67. Protein 7.5. Albumin 3.9. 100 mils an hour normal saline and given 25 mg of meclizine along with 10 mg of Reglan. He'll be given Zofran by EMS prior. Attempt was made to perform a Tyrel- Hallpike maneuver however the patient said he is extremely dizzy and was unable to perform. CT of the head without contrast is obtained and interpreted by Dr. Ellis as "1. Slight senescent change. 2. No acute intracranial abnormality is identified." Chito a stroke neurologist at [facility] in [place] contacted by the ED provider who in turn discussed the case with to her colleagues. They recommend against the patient receiving TPA and feel that without symptoms he is most likely having a viral illness. It is noted that in cases of isolated vertigo, less than 1% necktie turner to be due to a stroke. Typically with brainstem infarcts denies statements is bidirectional not unidirectional as with this patient. Dr. Dale recommended we obtain a CT angiogram of the patient's neck and head to look for basal artery stenosis and a nonemergent MRI tomorrow. Patient was up multiple times to use the restroom but had minimal urine output. Bladder scan was obtained showing 699 mL of urine and a Velazquez catheter was placed. CT angiogram of the neck was obtained and interpreted by Dr. Ellis as "one dominant left vertebral artery as an incidental note. Scattered calcified plaque. 2. No focal stenosis or occlusion is seen within the carotid arteries were within the vertebral arteries." CT angiogram of the brain is obtained and interpreted by Dr. Ellis as "one. 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 He was never a smoker. He lives at [facility] assisted living. His PCP is Sridevi Perez. He subsequently admitted to the medical floor observation status on telemetry. He is a full code. Diagnosis: Stroke: Yes Modified Niagara Scale: Slight Disable;Unable to Carry Out Prev Act.Able to Look After Affairs Modified Niagara Scale Score: 2 - Discharge Data Discharge Date: 06/01/18 (Admit date: 05/27/18) Discharge Disposition: DC/Tfer to Other 70 Condition: Good - Discharge Diagnosis/Problem(s) (1) CVA (cerebral vascular accident) SNOMED Code(s): 295227350 ICD Code: I63.9 - CEREBRAL INFARCTION, UNSPECIFIED Status: Acute Priority : High Current Visit: Yes Qualifiers: CVA mechanism: unspecified Qualified Code(s): I63.9 - Cerebral infarction, unspecified (2) Vertigo SNOMED Code(s): 701896197 ICD Code: R42 - DIZZINESS AND GIDDINESS Status: Acute Priority: High Current Visit: Yes (3) Nausea & vomiting SNOMED Code(s): 29714117 ICD Code: R11.2 - NAUSEA WITH VOMITING, UNSPECIFIED Status: Resolved Priority: High Current Visit: Yes Qualifiers: Vomiting type: unspecified Vomiting Intractability: non-intractable Qualified Code(s): R11.2 - Nausea with vomiting, unspecified (4) Urinary retention SNOMED Code(s): 002949304 ICD Code: R33.9 - RETENTION OF URINE, UNSPECIFIED Status: Acute Priority : High Current Visit: Yes - Patient Summary/Data Consults: Consultations 05/27/18 08:42 Consult to Physical Therapy [PT Evaluation and Treatment] [CONS] Routine 05/27/18 14:55 Consult to Speech Language Pathology [PROTOTYPE FABRICATOR Evaluation and Treatment] [CONS] Routine 05/27/18 15:07 Consult to Speech Language Pathology [PROTOTYPE FABRICATOR Evaluation and Treatment] [CONS] Routine 05/27/18 15:24 Consult to Adolescent Psychiatrist [Consult to Diabetic Nurse Specialist] [CONS] Routine 05/27/18 15:25 Consult to Case Management/Straightening Press Operator [CONS] Routine 05/28/18 08:00 Consult to Physical Therapy [PT Evaluation and Treatment] [CONS] Routine OT Evaluation and Treatment [CONS] Routine Labs Pending at D/C: None Recommended Follow-up Testing/Procedures: Recommend follow-up with PCP within 7-10 days, sooner if needed. Recommend re-check lipid panel, CPK and CMP within 90 days. Crestor dose may need to be increased. soft work wrapper layer and examiner and urology appointments have been scheduled outpatient. Continue outpatient PT evaluations and treatments. Hospital Course: I/P: Acute: CVA improved physical exam -Reported to ED with Vertigo with nausea and vomiting -Sudden onset of sensation of room spinning starting around 1730 on 05/26/17 -Hx/o partial left eye blindness -Reports occasional left sided stabbing pain - was seen in ED on 04/23/19 and refused MRI -Unable to performed Tyrel-Hallpike maneuver in ED, reattempt on floor -Fast nystagmus noted in ED to left with leftward gaze only -[facility] neurology consulted in ED - recommended MRI and believed symptoms unlikely for stroke -No leukocytosis -Electrolytes normal -CT of head without contrast in ED shows slight senescent change with no acute abnormality -CTA of neck in ED shows scattererd calcified plaque, no focal stenosis or occlusion seen -CTA of head in ED show no abnormality -IV fluids as ordered -Meclizine as ordered -Consult PT for vestibular exam -> cancel -PRN Zofran -MRI of brain 05/27/17: * 1. Reversible and fairly acute infarct within the left cerebellar hemisphere extending into left cerebellar tonsil. Old small right cerebellar infarct. * 2. Small irreversible inferiorly acute infarct within the right basal ganglia extending into the centrum semi-ovale; [place] on the right side. * 3. Small vessel ischemic demyelination change. -He is unfortunately outside treatment window for tPA -Echo obtained 05/27/17 * 1. LVEF, by visual estimation, is 60-65% * 2. Normal left ventricular systolic function * 3. Mild concentric left ventricular hypertrophy * 4. Boderline dilation of the left atrium * 5. No significant change from 11/10/11 * 6. No regional wall motion abnormalities. -Lipid panel: Triglycerides 156, Total cholesterol 176, LDL 122, HDL 32.0 -Increase zocor from 20mg to 40mg (formulary for pravastatin) -Resume fenofibrate -PT/OT consults -Hgb A1C 8.00 -PROTOTYPE FABRICATOR swallow evaluation -> No concerns -Cognitive evaluation-> mild cognitive impairment -325mg ASA given 05/27/18 with 81 mg daily thereafter -Aspiration precautions -Q6hr neuro checks Urinary retention>>>improved on Flomax -Has history of urinary issues in past -Hx/o BPH -Had difficulty with urination in ED -Bladder scan in ED showed 699 of residual urine and velazquez catheter was placed -Continue velazquez care -> Discontinue velazquez (patient is requesting not to DC with velazquez if possible); tolerated removal -Will need urology consult - case management scheduled in middle June -Obtain old records -Start flomax 0.4mg daily Chronic: 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 Diverticulosis GERD BPH Hx/o acute renal failure Hx/o Temporary dialysis for 2 months Diabetic neuropathy Anxiety Type II DM Obesity Plan: Medical floor on telemetry; post CVA rehab OP - has refused SNF at this time. Other orders as indicated above Routine AM labs Start Prozac 20mg at bedtime Home medications as ordered CM/SW for discharge planning Outpatient radio rigger follow-up with [facility] scheduled [facility] [place] - Staff there notes worsening confusion since admission there DVT/PE prophylaxis: Lovenox Code status: Full code; PCP: Yari Perez NP LOS >96 HR for continued CVA rehab Overall Doni did ok. He presented to our ED with vertigo/dizziness and both head/ neck CT angiogram and non-contrast head CT were grossly negative. He was also found to have a significant amount of urine in his bladder and difficulty with urination so a velazquez was placed. The ED provider did contact [facility] and unfortunately they suggested non-emergent MRI and described an unlikely stroke. MRI was obtained with results as above. He was then started on Q6HR neuro checks. 325mg ASA was given with 81mg continued. He has been receiving meclizine with fair response. This will be continued PRN at discharge. His lipid panel was obtained as above. He is on a statin already and after discussion with pharmacy and Dr. Campuzano the decision was made to switch him to crestor 10mg daily. He is already on fenofibrate and this was continued. He has been working with PT/OT and doing well. He should continue outpatient PT on discharge. He did see our radio rigger and has an appointment for this outpatient after discharge. A1C was obtained at was 8.0 which is improved over his last visit, which was 8.3. He was evaluated by PROTOTYPE FABRICATOR and no concerns were noted. We discussed his mental status and although he did refuse to see psychiatry he was willing to start a 20mg daily dose of prozac. His velazquez was discontinued and he was started on daily flomax with good response. At discharge his home medications were continued with the exception of his statin. This was changed to Crestor 10mg daily and he will likely need this increased if he tolerates it well. He was started on 81mg daily ASA, PRN meclazine, and daily flomax as mentioned above. He as consults scheduled with urology and diabetic ed outpatient. He will also have outpatient PT ordered. He was instructed to follow-up with his PCP within 7-10 days, sooner if needed. Recommend re-check lipid panel and CPK in 90 days with PCP. She will be discharged back to [facility] today. - Patient Instructions Diet: Diabetic Diet Activity: As Tolerated Driving: Do Not Drive Showering/Bathing: May Shower Notify Provider of: Fever, Increased Pain, Nausea and/or Vomiting Other/Special Instructions: Check blood sugars per your prior routine. Continue with CPAP at home as before. Follow-up with Ely Perez within 7- 10 days of discharge, sooner if needed. Out patient Physical Therapy at discharge with [facility] at [facility]. superintendent transmission [facility] [employer]ane at [facility] and use per instructions of Therapy at hospital. Resume home medications as directed. Your statin dose was increased. Take all new medications as prescribed. Follow-up with urology at scheduled appointment Jun 29 at 2 PM Central Time in [place]. Follow-up with diabetic education at scheduled appointment with Doreen Jun 15 at [facility] in [place]. Should symptoms return or worsen, contact PCP or return to the ED - Discharge Plan *PRESCRIPTION DRUG MONITORING PROGRAM REVIEWED*: Not Applicable *COPY OF PRESCRIPTION DRUG MONITORING REPORT IN PATIENT RENATE: Not Applicable Prescriptions/Med Rec: Meclizine [Antivert] 25 mg PO Q8HR PRN #20 tab.chew PRN Reason: Dizziness Aspirin 81 mg PO DAILY #30 tab.chew FLUoxetine [PROzac] 20 mg PO BEDTIME #40 cap Rosuvastatin [Crestor] 10 mg PO DAILY #20 tab Tamsulosin [Flomax] 0.4 mg PO DAILY #20 cap.er Home Medications: Home Meds Metoprolol Succinate [Toprol XL] 100 mg PO DAILY 10/29/14 [History] Multivitamin [Multi-Vitamin Daily] 1 tab PO DAILY 01/13/16 [History] Potassium Chloride 20 meq PO DAILY #30 tablet.er 09/29/16 [Rx] Fenofibric Acid (Choline) [Fenofibric Acid] 135 mg PO DAILY 02/24/17 [History] Lisinopril 40 mg PO DAILY 06/23/17 [History] Omeprazole Magnesium [Prilosec Otc] 40 mg PO DAILY 06/23/17 [History] Orphenadrine Citrate [Orphenadrine Citrate ER] 100 mg PO BID 06/23/17 [History] Tresiba 86 units SQ DAILY 02/13/18 [History] Insulin Aspart [NovoLOG] 18 units SQ ACBREAKFAST 05/26/18 [History] Insulin Aspart [NovoLOG] 18 units SQ ACDINNER 05/26/18 [History] Insulin Aspart [NovoLOG] 24 units SQ ACLUNCH 05/26/18 [History] Meloxicam [Mobic] 15 mg PO DAILY 05/26/18 [History] Tacrolimus 1 dose TOP BID 05/26/18 [History] Temazepam 30 mg PO BEDTIME 05/26/18 [History] traZODone HCl [Trazodone HCl] 50 mg PO DAILY 05/26/18 [History] Tacrolimus [Protopic] 1 applic TOP BID 05/27/18 [History] guaiFENesin/Codeine Phosphate [Cheratussin AC Syrup] 5 ml PO Q4HR PRN 05/27/18 [ History] Aspirin 81 mg PO DAILY #30 tab.chew 06/01/18 [Rx] FLUoxetine [PROzac] 20 mg PO BEDTIME #40 cap 06/01/18 [Rx] Meclizine [Antivert] 25 mg PO Q8HR PRN #20 tab.chew 06/01/18 [Rx] Rosuvastatin [Crestor] 10 mg PO DAILY #20 tab 06/01/18 [Rx] Tamsulosin [Flomax] 0.4 mg PO DAILY #20 cap.er 06/01/18 [Rx] Oxygen Therapy Mode: Room Air Patient Handouts: Ischemic Stroke, [id number]-[id number], Rehabilitation After a Stroke , Adult Referrals: Doreen Lopez [Other] - 06/15/18 9:00 am (soft work wrapper layer and examiner. Please ask about assistance with paying for insulin.) Emily Williamson MD [Ordering Only Provider] - 06/29/18 2:00 pm (Urologist. Appointment is at 2:00 pm QUALITY ASSURANCE SPECIALIST, 1:00 pm MST.) Yari Perez NP [Primary Care Provider] - - Discharge Summary/Plan Comment DC Time >30 min.: Yes (45 mins ) - General Info Date of Service: 06/01/18 Admission Dx/Problem (Free Text: Admission Diagnosis/Problem Admission Diagnosis/Problem Vertigo Subjective Update: In to see Doni. He is lying in bed. He complaints of mild dizziness but walked with PT today and did pretty well. No patient or nursing concerns. His labs look good. He will be cleared for discharge to [facility]. Functional Status: Reports: Pain Controlled, Tolerating Diet, Ambulating, Urinating. Denies: New Symptoms - Review of Systems General: Reports: Weakness (greatly improved ). Denies: Fever, Fatigue, Malaise , Chills HEENT: Reports: No Symptoms. Denies: Dysphasia, Eye Pain, Headaches, Sore Throat Pulmonary: Reports: No Symptoms. Denies: Shortness of Breath, Pleuritic Chest Pain, Cough, Sputum, Wheezing Cardiovascular: Reports: No Symptoms. Denies: Chest Pain, Palpitations, Dyspnea on Exertion, Edema, Lightheadedness Gastrointestinal: Reports: No Symptoms. Denies: Abdominal Pain, Constipation, Diarrhea, Difficulty Swallowing, Nausea, Vomiting Genitourinary: Reports: No Symptoms. Denies: Dysuria, Pain Musculoskeletal: Reports: No Symptoms Skin: Reports: No Symptoms Neurological: Reports: Dizziness, Gait Disturbance. Denies: Headache, Numbness , Seizure, Syncope, Tingling, Trouble Speaking, Difficulty Walking, Weakness, Change in Speech Psychiatric: Reports: No Symptoms - Patient Data Vitals - Most Recent: Last Vital Signs Temp 98.1 F 06/01/18 08:51 Pulse 74 06/01/18 08:53 Resp 18 06/01/18 08:51 BP 138/97 H 06/01/18 08:53 Pulse Ox 93 L 06/01/18 08:51 Weight - Most Recent: 245 lb I&O - Last 24 hours: Intake & Output 05/31/18 06/01/18 06/01/18 22:59 06:59 14:59 Intake Total 1120 400 240 Output Total 900 300 Balance 220 100 240 Lab Results - Last 24 hrs: Laboratory Results - last 24 hr 05/31/18 05/31/18 06/01/18 Range/Units 16:58 21:47 06:00 Sodium 144 (136-145) mEq/L Potassium 3.5 (3.5-5.1) mEq/L Chloride 109 H (98-107) mEq/L Carbon Dioxide 24 (21-32) mEq/L Anion Gap 14.5 (5-15) BUN 25 H (7-18) mg/dL Creatinine 0.7 (0.7-1.3) mg/dL Est Cr Clr Drug Dosing 120.26 mL/min Estimated GFR (MDRD) > 60 (>60) mL/min BUN/Creatinine Ratio 35.7 H (14-18) Glucose 107 (80-115) mg/dL POC Glucose 182 H 175 H (80-115) mg/dL Calcium 8.8 (8.5-10.1) mg/dL Magnesium 2.0 (1.8-2.4) mg/dl 06/01/18 06/01/18 Range/Units 06:00 11:00 Sodium (136-145) mEq/L Potassium (3.5-5.1) mEq/L Chloride (98-107) mEq/L Carbon Dioxide (21-32) mEq/L Anion Gap (5-15) BUN (7-18) mg/dL Creatinine (0.7-1.3) mg/dL Est Cr Clr Drug Dosing mL/min Estimated GFR (MDRD) (>60) mL/min BUN/Creatinine Ratio (14-18) Glucose (80-115) mg/dL POC Glucose 106 170 H (80-115) mg/dL Calcium (8.5-10.1) mg/dL Magnesium (1.8-2.4) mg/dl Med Orders - Current: Current Medications Acetaminophen (Tylenol) 650 mg PO Q4H PRN PRN Reason: Pain (Mild 1-3)/fever Last Admin: 05/28/18 10:40 Dose: 650 mg Hydrocodone Bitart/Acetaminophen ([place] 325-5 Mg) 1 tab PO Q4H PRN PRN Reason: Pain (moderate 4-6) Last Admin: 05/27/18 20:12 Dose: 1 tab Albuterol/Ipratropium (Duoneb 3.0-0.5 Mg/3 Ml) 3 ml NEB Q4H PRN PRN Reason: Shortness Of Breath/wheezing Aspirin (Aspirin) 81 mg PO DAILY [facility] Last Admin: 06/01/18 08:47 Dose: 81 mg Benzonatate (Tessalon Perles) 100 mg PO BID [facility] Last Admin: 06/01/18 08:47 Dose: 100 mg Bisacodyl (Dulcolax) 5 mg PO DAILY PRN PRN Reason: Constipation Last Admin: 05/29/18 06:24 Dose: 5 mg Diphenhydramine HCl (Benadryl) 25 mg PO Q6H PRN PRN Reason: Itching Last Admin: 05/31/18 20:28 Dose: 25 mg Docusate Sodium (Colace) 100 mg PO BID PRN PRN Reason: Constipation Enoxaparin Sodium (Lovenox) 40 mg SUBCUT DAILY [facility] Last Admin: 06/01/18 08:47 Dose: 40 mg Fenofibrate (Tricor) 145 mg PO DAILY [facility] Last Admin: 06/01/18 08:47 Dose: 145 mg Fluoxetine HCl (Prozac) 20 mg PO BEDTIME [facility] Last Admin: 05/31/18 20:28 Dose: 20 mg Hydralazine HCl (Apresoline) 10 mg IVPUSH Q4H PRN PRN Reason: Hypertension Insulin Human Lispro (Humalog) 0 unit SUBCUT QIDACANDBED [facility]; Protocol Last Admin: 06/01/18 11:06 Dose: 3 units Meclizine HCl (Antivert) 25 mg PO Q6HR [facility] Last Admin: 06/01/18 11:06 Dose: 25 mg Metoprolol Succinate (Toprol Xl) 100 mg PO DAILY [facility] Last Admin: 06/01/18 08:53 Dose: 100 mg Metoprolol Tartrate (Lopressor) 5 mg IVPUSH Q4H PRN PRN Reason: Tachycardia Multivitamins (Thera) 1 each PO DAILY [facility] Last Admin: 06/01/18 08:47 Dose: 1 each Ondansetron HCl (Zofran) 4 mg IVPUSH Q6HR PRN PRN Reason: Nausea/Vomiting Last Admin: 05/27/18 20:12 Dose: 4 mg Ondansetron HCl (Zofran Odt) 4 mg PO Q6H PRN PRN Reason: nausea, able to take PO Orphenadrine Citrate (Norflex) 100 mg PO BID [facility] Last Admin: 06/01/18 08:47 Dose: 100 mg Pantoprazole Sodium (Protonix) 40 mg PO DAILY@0700 [facility] Last Admin: 06/01/18 06:00 Dose: 40 mg Meloxicam 15 Mg 0 each PO DAILY [facility] Last Admin: 06/01/18 08:48 Dose: 1 each Tacrolimus [Protopic ] Ointment 0.1% Pt Own 0 each TOP BID [facility] Last Admin: 06/01/18 08:48 Dose: 1 each Tresiba Insulin Pen (200 Units/Ml) 0 each SUBCUT DAILY [facility] Last Admin: 06/01/18 08:49 Dose: 86 each Polyethylene Glycol (Miralax) 17 gm PO DAILY PRN PRN Reason: Constipation Potassium Chloride (Klor-Con M20) 20 meq PO DAILY [facility] Last Admin: 06/01/18 08:47 Dose: 20 meq Senna/Docusate Sodium (Senna Plus) 1 tab PO BID PRN PRN Reason: Constipation Simvastatin (Zocor) 40 mg PO BEDTIME [facility] Last Admin: 05/31/18 20:28 Dose: 40 mg Tamsulosin HCl (Flomax) 0.4 mg PO DAILY [facility] Last Admin: 06/01/18 08:47 Dose: 0.4 mg Temazepam (Restoril) 30 mg PO BEDTIME [facility] Last Admin: 05/31/18 20:28 Dose: 30 mg Discontinued Medications Aspirin (Ecotrin) 325 mg PO ONETIME ONE Stop: 05/27/18 15:09 Last Admin: 05/27/18 15:27 Dose: 325 mg Hydralazine HCl (Apresoline) 20 mg IVPUSH Q4H PRN PRN Reason: Hypertension Last Admin: 05/30/18 18:11 Dose: 20 mg Sodium Chloride (Normal Saline) 1,000 mls @ 100 mls/hr IV ASDIRECTED [facility] Last Admin: 05/28/18 04:48 Dose: 100 mls/hr Sodium Chloride (Normal Saline) 500 mls @ 999 mls/hr IV .BOLUS ONE Stop: 05/30/18 19:18 Last Admin: 05/30/18 19:03 Dose: Not Given Sodium Chloride (Normal Saline) Confirm Administered Dose 500 mls @ as directed .ROUTE .STK-MED ONE Stop: 05/30/18 18:48 Last Admin: 05/30/18 18:52 Dose: 999 mls/hr Insulin Glargine (Lantus) 86 unit SUBCUT DAILY [facility] Last Admin: 05/27/18 14:05 Dose: Not Given Insulin Human Lispro (Humalog) 0 unit SUBCUT QIDACANDBED [facility]; Protocol Last Admin: 05/27/18 14:07 Dose: Not Given Magnesium Oxide (Magnesium Oxide) 800 mg PO ONETIME ONE Stop: 05/29/18 09:01 Last Admin: 05/29/18 09:20 Dose: 800 mg Magnesium Sulfate (Pharmacy To Dose - Magnesium Replacement) 0 dose .XX ASDIRECTED PRN PRN Reason: RX TO WATCH MAG LEVELS Meclizine HCl (Antivert) 25 mg PO ONETIME STA Stop: 05/26/18 23:33 Last Admin: 05/26/18 23:38 Dose: 25 mg Meclizine HCl (Antivert) 25 mg PO Q6H PRN PRN Reason: Dizziness Last Admin: 05/31/18 14:45 Dose: 25 mg Metoclopramide HCl (Reglan) 10 mg IVPUSH ONETIME STA Stop: 05/26/18 19:40 Last Admin: 05/26/18 19:49 Dose: 10 mg Metoprolol Succinate (Toprol Xl) 100 mg PO DAILY [facility] Last Admin: 05/27/18 14:07 Dose: Not Given Miscellaneous Information (Remove Patch) 1 ea TRDERM ONETIME ONE Stop: 05/30/18 01:01 Last Admin: 05/30/18 06:02 Dose: 1 ea Non-Formulary Medication (Tacrolimus [Tacrolimus]) 1 dose TOP BID [facility] Last Admin: 05/27/18 09:34 Dose: Not Given Ondansetron HCl (Zofran) Confirm Administered Dose 4 mg .ROUTE .STK-MED ONE Stop: 05/27/18 01:24 Last Admin: 05/27/18 01:28 Dose: Not Given Pantoprazole Sodium (Protonix) 40 mg PO DAILY@0700 [facility] Last Admin: 05/27/18 14:07 Dose: Not Given Omeprazole 40 Mg 0 each PO DAILY@0700 [facility] Last Admin: 05/27/18 11:53 Dose: 40 each Metoprolol Succinate (100 Mg Tab.Er) 0 each PO DAILY [facility] Tresiba Insulin Pen (200 Units/Ml) 86 each SUBCUT DAILY [facility] Novolog Flexpen 100 (Units/Ml) 0 each SUBCUT QIDACANDBED [facility]; Protocol Potassium Chloride (Pharmacy To Dose - Potassium Replacement) 0 dose .XX ASDIRECTED PRN PRN Reason: RX TO WATCH K LEVELS Potassium Chloride (Klor-Con M20) 40 meq PO Q4H [facility] Stop: 05/27/18 15:01 Last Admin: 05/27/18 11:49 Dose: 20 meq Potassium Chloride (Klor-Con M20) 40 meq PO ONETIME ONE Stop: 05/29/18 09:01 Last Admin: 05/29/18 09:27 Dose: 40 meq Scopolamine (Transderm-Scop) 1.5 mg TOP ONETIME ONE Stop: 05/27/18 01:01 Last Admin: 05/27/18 01:20 Dose: 1.5 mg Simvastatin (Zocor) 20 mg PO DAILY [facility] Last Admin: 05/28/18 10:05 Dose: 20 mg Tamsulosin HCl (Flomax) 0.4 mg PO PCBREAKFAST [facility] Last Admin: 05/31/18 08:07 Dose: 0.4 mg Tamsulosin HCl (Flomax) 0.4 mg PO ONETIME ONE Stop: 05/28/18 14:31 Last Admin: 05/28/18 14:49 Dose: 0.4 mg Trazodone HCl (Trazodone) 50 mg PO DAILY [facility] Last Admin: 05/27/18 14:07 Dose: Not Given Trazodone HCl (Trazodone) 50 mg PO BEDTIME [facility] Last Admin: 05/29/18 21:52 Dose: 50 mg - Exam Quality Assessment: Reports: DVT Prophylaxis. Denies: Urine Catheter General: Reports: Alert, Oriented, Cooperative, No Acute Distress HEENT: Reports: Pupils Equal, Pupils Reactive, EOMI, Mucous Membr. Moist/[place] Neck: Reports: Supple, Trachea Midline, No JVD Lungs: Reports: Clear to Auscultation, Normal Respiratory Effort Cardiovascular: Reports: Regular Rate, Regular Rhythm GI/Abdominal Exam: Normal Bowel Sounds, Soft, Non-Tender, No Distention, No Abnormal Bruit (Male) Exam: Deferred Rectal (Males) Exam: Deferred Back Exam: Reports: Normal Inspection, Full Range of Motion Extremities: Normal Range of Motion, Non-Tender, No Pedal Edema, Normal Capillary Refill Skin: Reports: Warm, Dry, Intact Neurological: Reports: No New Focal Deficit, Normal Speech, Normal Tone, Strength Equal Bilateral, Sensation Intact, Cranial Nerves Intact Psy/Mental Status: Reports: Alert
== END 2018-06-01 14:00 | disposition other institution (70) | DRG 66 ==
LOC: JD.ED 19:16 → JD.MS 05-27 00:12 → OBSVTOIN 05-27 14:52 → JD.MS 05-28 06:15
PROVIDERS: ADMIT Internal Medicine; ATTEND Internal Medicine
DX: I63.9 Cerebral infarction, unspecified (principal); R42 Dizziness and giddiness; N40.1 Benign prostatic hyperplasia with lower urinary tract symptoms; R33.8 Other retention of urine; H54.7 Unspecified visual loss; E78.00 Pure hypercholesterolemia, unspecified; I45.6 Pre-excitation syndrome; I10 Essential (primary) hypertension; H91.90 Unspecified hearing loss, unspecified ear; K57.90 Diverticulosis of intestine, part unspecified, without perforation or abscess without bleeding; G47.30 Sleep apnea, unspecified; K21.9 Gastro-esophageal reflux disease without esophagitis; F41.9 Anxiety disorder, unspecified; E11.40 Type 2 diabetes mellitus with diabetic neuropathy, unspecified; E66.9 Obesity, unspecified; F43.22 Adjustment disorder with anxiety; Z98.1 Arthrodesis status; Z96.653 Presence of artificial knee joint, bilateral; Z88.1 Allergy status to other antibiotic agents; Z91.010 Allergy to peanuts; Z88.8 Allergy status to other drugs, medicaments and biological substances; Z91.048 Other nonmedicinal substance allergy status; R51 Headache; R11.2 Nausea with vomiting, unspecified; R06.00 Dyspnea, unspecified; Z79.899 Other long term (current) drug therapy; Z79.4 Long term (current) use of insulin; Z85.828 Personal history of other malignant neoplasm of skin; Z68.33 Body mass index [BMI] 33.0-33.9, adult
CPT/HCPCS: 36415 ×2; 51702; 70450; 70496; 70498; 70551; 80048; 80053; 82962 ×2; 83735 ×2; 85007; 85025; 85027; 87641; 96361; 96374; 99285; A9270 ×6; J1815; J2405 ×2; J2765; J7040 ×2; 80061; 83036; 92507-GN; 92523-GN; 92610-GN; 93306; 97110-GP; 97116-GP; 97162-GP; 97165-GO; 99284; J0360; J1650

== ENCOUNTER 2018-10-13 15:52 | Emergency (ER) | payer MEDICARE, OTHER ==
[2018-10-13 16:09] VITALS: BP 153/111
[2018-10-13] MEDS ORDERED: Furosemide 40 MG/4 ML VIAL IVPUSH ONE (17:22)
--- NOTE | 2018-10-13 17:23 | EDM.PDOC ---
ED HPI GENERAL MEDICAL PROBLEM - General Chief Complaint: Respiratory Problem Stated Complaint: SOB,LEGS SWOLLEN Time Seen by Provider: 10/13/18 16:32 Source of Information: Reports: Patient, RN Notes Reviewed History Limitations: Reports: No Limitations - History of Present Illness INITIAL COMMENTS - FREE TEXT/NARRATIVE: The patient states that he has had a dry cough for about 2 weeks. No recent fever. He states that he has been short of breath for about 10 hours. He reports bilateral lower extremity edema today, but acknowledges that he ate schimdt late last night. When asked about positional dyspnea, he states that he cannot lie flat, because it causes him to "panic", but it is not clear that his dyspnea is worse when supine, per se. He states that he has had expiratory wheezes since about noon. He denies having chest pain or palpitations. He reports an approximately 40 pound weight gain over the past 6 months. The patient has a history of obstructive sleep apnea, but states that he wears his CPAP only "some nights". The patient's PCP is Yari Perez NP. - Related Data Allergies Allergy/AdvReac Type Severity Reaction Status Date / Time cat dander Allergy Airway Verified 10/13/18 16:09 Tightness Corticosteroids Allergy Cannot Verified 10/13/18 16:09 (Glucocorticoids) Remember lorazepam Allergy Itching Verified 10/13/18 16:09 peanut Allergy Anaphylactic Verified 10/13/18 16:09 Shock levofloxacin AdvReac Other Verified 10/13/18 16:09 metformin AdvReac Diarrhea Verified 10/13/18 16:09 Home Meds: Home Meds Metoprolol Succinate [Toprol XL] 200 mg PO DAILY 10/29/14 [History] Multivitamin [Multi-Vitamin Daily] 1 tab PO DAILY 01/13/16 [History] Potassium Chloride 20 meq PO DAILY #30 tablet.er 09/29/16 [Rx] Fenofibric Acid (Choline) [Fenofibric Acid] 145 mg PO DAILY 02/24/17 [History] Lisinopril 40 mg PO DAILY 06/23/17 [History] Omeprazole Magnesium [Prilosec Otc] 40 mg PO DAILY 06/23/17 [History] Orphenadrine Citrate [Orphenadrine Citrate ER] 100 mg PO BID 06/23/17 [History] Tresiba 90 units SQ DAILY 06/23/17 [History] Insulin Aspart [NovoLOG] 20 units SQ ACDINNER 05/26/18 [History] Insulin Aspart [NovoLOG] 24 units SQ ACBREAKFAST 05/26/18 [History] Insulin Aspart [NovoLOG] 26 units SQ ACLUNCH 05/26/18 [History] Meloxicam [Mobic] 15 mg PO DAILY 05/26/18 [History] Temazepam 22.5 mg PO BEDTIME 05/26/18 [History] traZODone HCl [Trazodone HCl] 50 mg PO DAILY 05/26/18 [History] Aspirin 81 mg PO DAILY #30 tab.chew 06/01/18 [Rx] FLUoxetine [PROzac] 20 mg PO BEDTIME #40 cap 06/01/18 [Rx] Meclizine [Antivert] 25 mg PO Q8HR PRN #20 tab.chew 06/01/18 [Rx] Rosuvastatin [Crestor] 10 mg PO DAILY #20 tab 06/01/18 [Rx] Tamsulosin [Flomax] 0.4 mg PO DAILY #20 cap.er 06/01/18 [Rx] Areds 2 Plus. 1 tab PO DAILY 10/13/18 [History] amLODIPine [Norvasc] 5 mg PO DAILY 10/13/18 [History] Past Medical History HEENT History: Reports: Allergic Rhinitis, Impaired Vision (partially blind left eye) Other HEENT History: Wears glasses Cardiovascular History: Reports: Arrhythmia (WPW, s/p ablation), High Cholesterol, Hypertension Respiratory History: Reports: Sleep Apnea (wears CPAP "some nights") Gastrointestinal History: Reports: Diverticulosis, GERD, GI Bleed (rectal), Pancreatitis Genitourinary History: Reports: Acute Renal Failure, BPH, Dialysis (x 2 months) Musculoskeletal History: Reports: Amputation (RUE), Arthritis, Fracture (left humerus) Neurological History: Reports: CVA, Neuropathy, Diabetic Psychiatric History: Reports: Anxiety Endocrine/Metabolic History: Reports: Diabetes, Type II, Obesity/BMI 30+ - Infectious Disease History Infectious Disease History: Reports: Influenza - Past Surgical History HEENT Surgical History: Reports: Adenoidectomy, Tonsillectomy Cardiovascular Surgical History: Reports: Cardiac Ablation (for WPW) Respiratory Surgical History: Reports: Thoracotomy (for hemothorax) GI Surgical History: Reports: Colonoscopy (x 3 or 4), Hernia, Inguinal Male Surgical History: Reports: Other (See Below) (Repair of testicular torsion) Neurological Surgical History: Reports: Lumbar Spine (fusion) Musculoskeletal Surgical History: Reports: Amputation (RUL below the shoulder), Knee Replacement (bilateral) Social & Family History - Family History Family Medical History: Noncontributory - Tobacco Use Smoking Status *Q: Never Smoker Second Hand Smoke Exposure: No - Caffeine Use Caffeine Use: Reports: Coffee - Alcohol Use Alcohol Use History: No - Recreational Drug Use Recreational Drug Use: No - Living Situation & Occupation Living situation: Reports: Single, Assisted Living ([facility] [place]) Occupation: Disabled ED ROS GENERAL - Review of Systems Review Of Systems: ROS reveals no pertinent complaints other than HPI. ED EXAM, GENERAL - Physical Exam Exam: See Below Exam Limited By: No Limitations General Appearance: Alert, WD/WN, No Apparent Distress Eye Exam: Bilateral Eye: EOMI, Normal Inspection Ears: Normal External Exam, Hearing Grossly Normal Nose: Normal Inspection Throat/Mouth: Normal Inspection, Normal Lips, Normal Voice, No Airway Compromise Head: Atraumatic, Normocephalic Neck: Normal Inspection, Full Range of Motion Respiratory/Chest: No Respiratory Distress, Lungs Clear, No Accessory Muscle Use , Decreased Breath Sounds (bibasilar). No: Crackles, Rhonchi, Wheezing, Prolonged Expiration Cardiovascular: Normal Peripheral Pulses, Regular Rate, Rhythm, No Gallop, No JVD, No Murmur, No Rub Peripheral Pulses: 4+: Radial (L), Radial (R) GI/Abdominal: Normal Bowel Sounds, Soft, Non-Tender, No Organomegaly, No Distention, No Abnormal Bruit, No Mass, Other (Obese) (Male) Exam: Deferred Rectal (Males) Exam: Deferred Back Exam: Normal Inspection, Full Range of Motion, NT Extremities: Normal Capillary Refill, Other (Right below the shoulder amputation. 2-3+ pitting pretibial edema bilaterally.) Neurological: Alert, Oriented, Normal Cognition, No Motor/Sensory Deficits Psychiatric: Anxious Skin Exam: Warm, Dry, Intact, Normal Color, No Rash EKG INTERPRETATION EKG Date: 10/13/18 Time: 16:22 Rhythm: NSR Rate (Beats/Min): 70 [place]: Normal P-Wave: Present (1 AVB) QRS: Normal ST-T: Normal QT: Prolonged (QTc 474 ms) Comparison: No Change (09/04/2017) Course - Vital Signs Last Recorded V/S: Last Vital Signs Temp 36.9 C 10/13/18 16:05 Pulse 73 10/13/18 16:05 Resp 21 H 10/13/18 16:05 BP 153/111 H 10/13/18 16:05 Pulse Ox 96 10/13/18 16:10 - Orders/Labs/Meds Labs: Laboratory Tests 10/13/18 10/13/18 10/13/18 Range/Units 18:35 18:35 18:35 WBC 9.51 H (4.23-9.07) K/mm3 RBC 5.50 (4.63-6.08) M/mm3 Hgb 16.1 (13.7-17.5) gm/L Hct 48.9 (40.1-51.0) % MCV 88.9 (79.0-92.2) fl MCH 29.3 (25.7-32.2) pg MCHC 32.9 (32.2-35.5) g/dl RDW Std Deviation 47.3 H (35.1-43.9) fL Plt Count 198 (163-337) K/mm3 MPV 10.7 (9.4-12.3) fl Neutrophils % (Manual) 64 H (40-60) % Band Neutrophils % 0 (0-10) % Lymphocytes % (Manual) 24 (20-40) % Atypical Lymphs % 0 % Monocytes % (Manual) 4 (2-10) % Eosinophils % (Manual) 8 H (0.8-7.0) % Basophils % (Manual) 0 L (0.2-1.2) Platelet Estimate Adequate Plt Morphology Comment Normal RBC Morph Comment Normal D-Dimer, Quantitative 0.26 (0.19-0.50) mg/L Sodium 143 (136-145) mEq/L Potassium 3.7 (3.5-5.1) mEq/L Chloride 106 (98-107) mEq/L Carbon Dioxide 28 (21-32) mEq/L Anion Gap 12.7 (5-15) BUN 25 H (7-18) mg/dL Creatinine 0.9 (0.7-1.3) mg/dL Est Cr Clr Drug Dosing TNP Estimated GFR (MDRD) > 60 (>60) mL/min BUN/Creatinine Ratio 27.8 H (14-18) Glucose 171 H (80-115) mg/dL Calcium 9.4 (8.5-10.1) mg/dL Total Bilirubin 0.5 (0.2-1.0) mg/dL AST 15 (15-37) U/L ALT 32 (16-63) U/L Alkaline Phosphatase 50 (46-116) U/L Troponin I < 0.017 (0.00-0.056) ng/mL NT-Pro-B Natriuret Pep (0-125) pg/mL Total Protein 7.4 (6.4-8.2) g/dl Albumin 4.1 (3.4-5.0) g/dl Globulin 3.3 gm/dL Albumin/Globulin Ratio 1.2 (1-2) 10/13/18 Range/Units 18:35 WBC (4.23-9.07) K/mm3 RBC (4.63-6.08) M/mm3 Hgb (13.7-17.5) gm/L Hct (40.1-51.0) % MCV (79.0-92.2) fl MCH (25.7-32.2) pg MCHC (32.2-35.5) g/dl RDW Std Deviation (35.1-43.9) fL Plt Count (163-337) K/mm3 MPV (9.4-12.3) fl Neutrophils % (Manual) (40-60) % Band Neutrophils % (0-10) % Lymphocytes % (Manual) (20-40) % Atypical Lymphs % % Monocytes % (Manual) (2-10) % Eosinophils % (Manual) (0.8-7.0) % Basophils % (Manual) (0.2-1.2) Platelet Estimate Plt Morphology Comment RBC Morph Comment D-Dimer, Quantitative (0.19-0.50) mg/L Sodium (136-145) mEq/L Potassium (3.5-5.1) mEq/L Chloride (98-107) mEq/L Carbon Dioxide (21-32) mEq/L Anion Gap (5-15) BUN (7-18) mg/dL Creatinine (0.7-1.3) mg/dL Est Cr Clr Drug Dosing Estimated GFR (MDRD) (>60) mL/min BUN/Creatinine Ratio (14-18) Glucose (80-115) mg/dL Calcium (8.5-10.1) mg/dL Total Bilirubin (0.2-1.0) mg/dL AST (15-37) U/L ALT (16-63) U/L Alkaline Phosphatase (46-116) U/L Troponin I (0.00-0.056) ng/mL NT-Pro-B Natriuret Pep 120 (0-125) pg/mL Total Protein (6.4-8.2) g/dl Albumin (3.4-5.0) g/dl Globulin gm/dL Albumin/Globulin Ratio (1-2) Meds: Medications Discontinued Medications Generic Name Dose Route Start Last Admin Trade Name Freq PRN Reason Stop Dose Admin Furosemide 40 mg 10/13/18 17:22 10/13/18 17:29 Lasix IVPUSH 10/13/18 17:23 40 mg NOW ONE Administration - Re-Assessments/Exams Free Text/Narrative Re-Assessment/Exam: 10/13/18 17:23 By history, the patient is likely suffering from somewhat decompensated congestive heart failure and fluid overload. I have ordered a workup that includes blood work, a chest x-ray, and an ECG. I have ordered empiric IV Lasix. 10/13/18 17:52 2-view chest radiograph reviewed. The cardiac silhouette is within normal limits. No pulmonary vascular congestion. No pleural effusions. No focal infiltrate. No pneumothorax. Multilevel lumbar fusion hardware incidentally noted. Formal read per the Radiologist pending. 10/13/18 19:49 The patient states that he feels much better after receiving IV Lasix, but it is unclear why. His workup did not find evidence for congestive heart failure, indeed, his BNP was only 120. It is possible that his dyspnea was psychogenic. I will discharge him home with no new prescriptions, and have him follow-up with his PCP. Departure - Departure Time of Disposition: 19:50 Disposition: Home, Self-Care 01 Condition: Good Clinical Impression: Dyspnea - Discharge Information *PRESCRIPTION DRUG MONITORING PROGRAM REVIEWED*: Not Applicable *COPY OF PRESCRIPTION DRUG MONITORING REPORT IN PATIENT RENATE: Not Applicable Instructions: Shortness of Breath, Adult, [id number] Referrals: Yari Perez NP [Primary Care Provider] - Forms: ED Department Discharge Additional Instructions: You were seen in the emergency room for shortness of breath and lower extremity edema (swelling). Workup in the ER included blood work, a chest x-ray, and an ECG. Your entire workup was unremarkable, and the cause of your shortness of breath is not known. You do not have pneumonia. You have not had a heart attack. You do not have a blood clot in your lungs. You were not suffering from an asthma or COPD exacerbation. Your shortness of breath improved after you were given IV Lasix (a diuretic), indicating that your shortness of breath was related to congestive heart failure , however, your workup was negative for congestive heart failure. We recommend that if your symptoms return, that you follow-up with your PCP, Yari Perez NP. If any other problems, please do not hesitate to return to the ER.
--- NOTE | 2018-10-14 08:57 | CR ---
Chest: Two views of the chest were obtained. Comparison: Previous chest x-ray of 09/04/17. Heart size is normal. Tortuous thoracic aorta is seen. Pleural thickening is noted along the lateral left chest wall in area of old healed rib fractures. Lungs show no acute parenchymal change. Previous spine surgery is noted. Impression: 1. Findings as described above. Nothing acute is appreciated. Diagnostic code #2
== END 2018-10-13 20:01 | disposition home or self-care (01) ==
LOC: JD.ED 15:52
DX: R06.00 Dyspnea, unspecified (principal); F41.9 Anxiety disorder, unspecified; E11.40 Type 2 diabetes mellitus with diabetic neuropathy, unspecified; K21.9 Gastro-esophageal reflux disease without esophagitis; E78.00 Pure hypercholesterolemia, unspecified; Z79.4 Long term (current) use of insulin; Z79.899 Other long term (current) drug therapy; Z88.1 Allergy status to other antibiotic agents; Z88.8 Allergy status to other drugs, medicaments and biological substances; Z91.09 Other allergy status, other than to drugs and biological substances; Z91.010 Allergy to peanuts
CPT/HCPCS: 36415; 71046; 80053; 83880; 84484; 85007; 85027; 85379; 93005; 96374; 99285; J1940

== ENCOUNTER 2021-02-20 13:53 | Emergency (ER) | payer MEDICARE, OTHER ==
[2021-02-20 14:10] VITALS: BP 160/101; PULSE 63
--- NOTE | 2021-02-20 15:16 | EDM.PDOC ---
<Liberty George V - Last Filed: 02/20/21 17:02> ED HPI GENERAL MEDICAL PROBLEM - General Chief Complaint: Chest Pain Stated Complaint: STERNUM PAIN Time Seen by Provider: 02/20/21 14:59 - Related Data Allergies Allergy/AdvReac Type Severity Reaction Status Date / Time cat dander Allergy Severe Airway Verified 02/20/21 14:10 Tightness Corticosteroids Allergy Severe Cannot Verified 02/20/21 14:10 (Glucocorticoids) Remember lorazepam Allergy Severe Itching Verified 02/20/21 14:10 peanut Allergy Severe Anaphylactic Verified 02/20/21 14:10 Shock levofloxacin AdvReac Severe Other Verified 02/20/21 14:10 metformin AdvReac Severe Diarrhea Verified 02/20/21 14:10 Home Meds: Home Meds Metoprolol Succinate [Toprol XL] 200 mg PO DAILY 10/29/14 [History] Multivitamin [Multi-Vitamin Daily] 1 tab PO DAILY 01/13/16 [History] Potassium Chloride 20 meq PO DAILY #30 tablet.er 09/29/16 [Rx] Fenofibric Acid (Choline) [Fenofibric Acid] 145 mg PO DAILY 02/24/17 [History] Lisinopril 40 mg PO DAILY 06/23/17 [History] Omeprazole Magnesium [Prilosec Otc] 40 mg PO DAILY 06/23/17 [History] Orphenadrine Citrate [Orphenadrine Citrate ER] 100 mg PO BID 06/23/17 [History] Tresiba 90 units SQ DAILY 06/23/17 [History] Insulin Aspart [NovoLOG] 20 units SQ ACDINNER 05/26/18 [History] Insulin Aspart [NovoLOG] 24 units SQ ACBREAKFAST 05/26/18 [History] Insulin Aspart [NovoLOG] 26 units SQ ACLUNCH 05/26/18 [History] Meloxicam [Mobic] 15 mg PO DAILY 05/26/18 [History] Temazepam 22.5 mg PO BEDTIME 05/26/18 [History] traZODone HCl [Trazodone HCl] 50 mg PO DAILY 05/26/18 [History] Aspirin 81 mg PO DAILY #30 tab.chew 06/01/18 [Rx] FLUoxetine [PROzac] 20 mg PO BEDTIME #40 cap 06/01/18 [Rx] Meclizine [Antivert] 25 mg PO Q8HR PRN #20 tab.chew 06/01/18 [Rx] Rosuvastatin [Crestor] 10 mg PO DAILY #20 tab 06/01/18 [Rx] Tamsulosin [Flomax] 0.4 mg PO DAILY #20 cap.er 06/01/18 [Rx] Areds 2 Plus. 1 tab PO DAILY 10/13/18 [History] amLODIPine [Norvasc] 5 mg PO DAILY 10/13/18 [History] Course - Re-Assessments/Exams Free Text/Narrative Re-Assessment/Exam: 02/20/21 17:02 I did get report from Howard Dowd, and have reviewed the patient's labs, chest x- ray findings and everything is unremarkable. The patient will be discharged home with conservative recommendations. Departure - Departure Time of Disposition: 17:03 Disposition: Home, Self-Care 01 Condition: Good Clinical Impression: Chest wall pain Acid reflux Qualifiers: Esophagitis presence: without esophagitis Qualified Code(s): K21.9 - Gastro- esophageal reflux disease without esophagitis Instructions: Food Choices for Gastroesophageal Reflux Disease, Adult, [id number], Chest Wall Pain Referrals: Greg Kelly MD [Primary Care Provider] - Forms: ED Department Discharge Additional Instructions: You were evaluated in the ER today for your chest pain. Your EKG, chest x-ray, and laboratory evaluation are all unremarkable. The chest pain is thought likely due to musculoskeletal etiology. You been given a few medications in the ER, this did seem to help relieve some of your pain. Recommend you [id number] mg Tylenol every 6 hours as needed for ongoing pain or discomfort in your chest. You may also take a medication called Prilosec (omeprazole) for ongoing reflux issues that you are experiencing. This is a medication you can take daily, and can take up to 72 hours to start providing full benefit. This is a [id number] medication that you get in the local retailer. Please follow-up with your regular provider for ongoing management of your health. Please return to the ER at any time if symptoms change or worsen. <Howard Augustin - Last Filed: 02/21/21 08:11> ED HPI GENERAL MEDICAL PROBLEM - General Source of Information: Reports: Patient History Limitations: Reports: No Limitations - History of Present Illness INITIAL COMMENTS - FREE TEXT/NARRATIVE: 66-year-old male presents the emergency department today with complaints of "sternum" pain. Patient is a right arm amputee. He states that he sleeps on his couch and about 3 to 4 days ago he states he fell off of his couch. He states yesterday he developed pain in his sternum and right pectoralis area. He also states that yesterday he developed terrible heartburn and had to take about 5 Tums to relieve that discomfort. He denies taking any Tylenol or ibuprofen to relieve the discomfort located in his sternum. He states that his primary care provider is Yrai Perez however he was trying to switch to have Dr. Kelly be his primary care provider, however Leticia has been out of the office. Middle Chest Pain Score (Numeric/FACES): 8 Past Medical History HEENT History: Reports: Allergic Rhinitis, Impaired Vision Other HEENT History: Wears glasses Cardiovascular History: Reports: Arrhythmia, High Cholesterol, Hypertension Other Cardiovascular History: hx of more parkinsons syndrome-surgery was done. Respiratory History: Reports: Sleep Apnea Other Respiratory History: hemothorax with chest tube Gastrointestinal History: Reports: Diverticulosis, GERD, GI Bleed, Pancreatitis Other Gastrointestinal History: rectal bleeding, dysphagia Genitourinary History: Reports: Acute Renal Failure, BPH, Dialysis Other Genitourinary History: hemodialysis for 2mo. 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 Musculoskeletal History: Reports: Amputation, Arthritis, Fracture Other Musculoskeletal History: R shoulder Neurological History: Reports: CVA, Neuropathy, Diabetic Other Neuro History: neck fracture Psychiatric History: Reports: Anxiety Endocrine/Metabolic History: Reports: Diabetes, Type II, Obesity/BMI 30+ Other Endocrine/Metabolic History: diabetic Hematologic History: Reports: Other (See Below) Other Hematologic History: Hypopotassemia Immunologic History: Reports: None Oncologic (Cancer) History: Reports: Other (See Below) Other Oncologic History: preliminary skin cancer, removed and biopsy, froze the area. Dermatologic History: Reports: Cellulitis, Other (See Below) Other Dermatologic History: boils - Infectious Disease History Infectious Disease History: Reports: Influenza - Past Surgical History HEENT Surgical History: Reports: Adenoidectomy, Tonsillectomy Cardiovascular Surgical History: Reports: Cardiac Ablation Respiratory Surgical History: Reports: Thoracotomy GI Surgical History: Reports: Colonoscopy, Hernia, Inguinal Male Surgical History: Reports: Other (See Below) Other Male Surgeries/Procedures: surgery on testicles Neurological Surgical History: Reports: Lumbar Spine Musculoskeletal Surgical History: Reports: Amputation, Knee Replacement Other Musculoskeletal Surgeries/Procedures:: right arm amputation at 6 years old after farm accident, bilateral knee replacements. Dermatological Surgical History: Reports: Skin Biopsy Social & Family History - Family History Family Medical History: No Pertinent Family History - Tobacco Use Tobacco Use Status *Q: Never Tobacco User - Caffeine Use Caffeine Use: Reports: Coffee - Recreational Drug Use Recreational Drug Use: No - Living Situation & Occupation Living situation: Reports: Single, Assisted Living ([facility]) Occupation: Disabled ED ROS GENERAL - Review of Systems Review Of Systems: Comprehensive ROS is negative, except as noted in HPI. ED EXAM, GENERAL - Physical Exam Exam: See Below Exam Limited By: No Limitations General Appearance: Alert, WD/WN, No Apparent Distress Ears: Normal External Exam, Hearing Grossly Normal Nose: Normal Inspection Throat/Mouth: Normal Inspection, Normal Lips, Normal Voice, No Airway Compromise Head: Atraumatic, Normocephalic Neck: Normal Inspection, Supple, Non-Tender Respiratory/Chest: No Respiratory Distress, Lungs Clear, Normal Breath Sounds, No Accessory Muscle Use. No: Chest Non-Tender (Right pectoralis tenderness; right lateral sternal wall tenderness; Increased discomfort with deep inspiration) Cardiovascular: Normal Peripheral Pulses, Regular Rate, Rhythm, No Edema, No Murmur Peripheral Pulses: 2+: Radial (L) GI/Abdominal: Normal Bowel Sounds, Soft, Non-Tender, No Distention (Male) Exam: Deferred Rectal (Males) Exam: Deferred Back Exam: Normal Inspection Extremities: Other (Patient is a right arm amputation;) Neurological: Alert, Oriented, Normal Cognition Psychiatric: Normal Affect, Normal Mood Skin Exam: Warm, Dry, Intact, Normal Color, No Rash Lymphatic: No Adenopathy #1 Interpretation EKG Date: 02/20/21 Time: 14:09 Rhythm: NSR Rate (Beats/Min): 68 Kyle: Normal P-Wave: Present QRS: Normal ST-T: Normal QT: Normal Comparison: NA - No Prior EKG EKG Interpretation Comments: Per Dr. Valenzuela interpretation: Normal sinus rhythm at a rate of 68; Q waves lead III; no ST changes Course - Vital Signs Text/Narrative:: As stated above, patient presents with complaints of "sternal" pain after falling off a couch 3 to 4 days ago. Also has complaints of horrible acid reflux that occurred yesterday. Upon exam, the patient is hemodynamically stable. He does have significant tenderness to the right pectoralis as well as right side of the sternum with palpation. Right pectoralis muscle is significantly more firm than the left. Due to the patient having "heartburn" I am going to do cardiac work-up to include a CBC, CMP, magnesium and troponin level. We will also obtain an EKG and a portable chest x-ray. Last Recorded V/S: Last Vital Signs Temp 97.4 F 02/20/21 14:07 Pulse 63 02/20/21 14:07 Resp 18 02/20/21 14:07 BP 160/101 H 02/20/21 14:07 Pulse Ox 93 L 02/20/21 14:07 - Orders/Labs/Meds Labs: Laboratory Tests 02/20/21 02/20/21 Range/Units 16:13 16:13 WBC 7.78 (4.23-9.07) K/mm3 RBC 5.70 (4.63-6.08) M/mm3 Hgb 16.5 (13.7-17.5) gm/dl Hct 51.5 H (40.1-51.0) % MCV 90.4 (79.0-92.2) fl MCH 28.9 (25.7-32.2) pg MCHC 32.0 L (32.2-35.5) g/dl RDW Std Deviation 48.8 H (35.1-43.9) fL Plt Count 204 (163-337) K/mm3 MPV 10.3 (9.4-12.3) fl Neut % (Auto) 61.4 (34.0-67.9) % Lymph % (Auto) 20.8 L (21.8-53.1) % Harney % (Auto) 11.8 (5.3-12.2) % Eos % (Auto) 5.0 (0.8-7.0) Baso % (Auto) 0.6 (0.1-1.2) % Neut # (Auto) 4.77 (1.78-5.38) K/mm3 Lymph # (Auto) 1.62 (1.32-3.57) K/mm3 Harney # (Auto) 0.92 H (0.30-0.82) K/mm3 Eos # (Auto) 0.39 (0.04-0.54) K/mm3 Baso # (Auto) 0.05 (0.01-0.08) K/mm3 Sodium 146 H (136-145) mEq/L Potassium 4.0 (3.5-5.1) mEq/L Chloride 105 (98-107) mEq/L Carbon Dioxide 34 H (21-32) mEq/L Anion Gap 11.0 (5-15) BUN 24 H (7-18) mg/dL Creatinine 1.0 (0.7-1.3) mg/dL Est Cr Clr Drug Dosing 80.83 mL/min Estimated GFR (MDRD) > 60 (>60) mL/min BUN/Creatinine Ratio 24.0 H (14-18) Glucose 149 H (70-99) mg/dL Calcium 9.2 (8.5-10.1) mg/dL Magnesium 1.9 (1.8-2.4) mg/dL Total Bilirubin 0.3 (0.2-1.0) mg/dL AST 19 (15-37) U/L ALT 33 (16-63) U/L Alkaline Phosphatase 41 L (46-116) U/L Troponin I < 0.017 (0.00-0.056) ng/mL Total Protein 7.4 (6.4-8.2) g/dl Albumin 3.8 (3.4-5.0) g/dl Globulin 3.6 gm/dL Albumin/Globulin Ratio 1.1 (1-2) Meds: Medications Discontinued Medications Generic Name Dose Route Start Last Admin Trade Name Freq PRN Reason Stop Dose Admin Acetaminophen 975 mg 02/20/21 15:34 02/20/21 15:50 Acetaminophen 325 Mg Tab PO 02/20/21 15:35 975 mg NOW ONE Administration - Re-Assessments/Exams Free Text/Narrative Re-Assessment/Exam: 02/20/21 16:16 Radiologist impression frontal view of the chest: Nothing acute is seen on portable chest x-ray. 02/20/21 16:25 I have reported off to [facility]. Sepsis Event Note (ED) - Evaluation Sepsis Screening Result: No Definite Risk
[2021-02-20] MEDS ORDERED: Acetaminophen 325 MG Tab PO ONE (15:34)
--- NOTE | 2021-02-20 15:59 | CR ---
Chest: Portable view of the chest was obtained. Comparison: Prior chest x-ray of 10/13/18. Heart is somewhat enlarged but felt to be due to portable technique. Tortuous thoracic aorta is seen. Lungs are clear with no acute parenchymal change. Multiple old healed left-sided rib fractures are noted. Impression: 1. Nothing acute is seen on portable chest x-ray. Diagnostic code #2
== END 2021-02-20 17:13 | disposition home or self-care (01) ==
LOC: JD.ED 13:53
DX: R07.2 Precordial pain (principal); R07.89 Other chest pain; K21.9 Gastro-esophageal reflux disease without esophagitis; E78.00 Pure hypercholesterolemia, unspecified; I10 Essential (primary) hypertension; E11.40 Type 2 diabetes mellitus with diabetic neuropathy, unspecified; E66.9 Obesity, unspecified; N40.1 Benign prostatic hyperplasia with lower urinary tract symptoms; Z91.010 Allergy to peanuts; Z86.73 Personal history of transient ischemic attack (TIA), and cerebral infarction without residual deficits; Z68.39 Body mass index [BMI] 39.0-39.9, adult; Z91.09 Other allergy status, other than to drugs and biological substances; Z88.5 Allergy status to narcotic agent; Z88.1 Allergy status to other antibiotic agents; Z88.8 Allergy status to other drugs, medicaments and biological substances; Z79.4 Long term (current) use of insulin; Z79.899 Other long term (current) drug therapy; Z79.82 Long term (current) use of aspirin
CPT/HCPCS: 36415; 71045; 71045-26; 80053; 83735; 84484; 85025; 93005; 99285-25; A9270-GY

== ENCOUNTER 2022-03-04 05:34 | Emergency (ER) | payer MEDICARE, OTHER ==
[2022-03-04] MEDS ORDERED: Sodium Chloride 0.9% 1,000 ML IV ONE (06:14)
[2022-03-04] MEDS ORDERED: Iopamidol 612 MG/ML 100 ML Bottle IVPUSH ONE (07:32)
[2022-03-04] MEDS ORDERED: Sodium Chloride 0.9% 10 ML Syringe FLUSH PRN (07:32)
[2022-03-04 07:34] LABS: CORONAVIRUS COVID-19 NAA NEGATIVE (NEGATIVE)
[2022-03-04 10:43] VITALS: BP 107/67; PULSE 75
== END 2022-03-04 10:00 | disposition home or self-care (01) ==
LOC: JD.ED 05:34
DX: R53.1 Weakness (principal); N28.9 Disorder of kidney and ureter, unspecified; I10 Essential (primary) hypertension; E11.9 Type 2 diabetes mellitus without complications; E66.9 Obesity, unspecified; Z68.37 Body mass index [BMI] 37.0-37.9, adult; Z91.048 Other nonmedicinal substance allergy status; Z88.8 Allergy status to other drugs, medicaments and biological substances; Z91.010 Allergy to peanuts; Z88.1 Allergy status to other antibiotic agents; Z79.899 Other long term (current) drug therapy; Z79.4 Long term (current) use of insulin; Z20.822 Contact with and (suspected) exposure to COVID-19
CPT/HCPCS: 0241U; 36415; 71045; 71260; 80053; 83605; 83735; 83880; 84145; 84484; 85007; 85027; 85379; 85610; 85730; 86140; 93005; 96360; 99285; J3490; J7030; Q9967

== ENCOUNTER 2022-03-18 14:38 | Inpatient (IN) | payer MEDICARE, OTHER ==
[2022-03-19] MEDS ORDERED: ALPRAZolam 0.25 MG Tab PO PRN (09:21)
[2022-03-19] MEDS ORDERED: Docusate Sodium 100 MG Cap PO PRN (09:28)
[2022-03-19] MEDS ORDERED: Albuterol 0.083% 2.5 MG/3 ML Neb Soln NEB PRN (09:28)
[2022-03-19] MEDS ORDERED: Acetaminophen 325 MG Tab PO PRN (09:28)
[2022-03-19] MEDS ORDERED: Ondansetron 4 MG Tab.DIS PO PRN (09:28)
[2022-03-19] MEDS ORDERED: FLU Vacc QS2022(65UP)/MF59C/PF 60 MCG/0.5 ML Syringe IM ONE (10:00)
[2022-03-19] MEDS ORDERED: Albuterol/Ipratropium 3.0-0.5 MG/3 ML Neb Soln NEB PRN (10:00)
[2022-03-19] MEDS ORDERED: Aspirin 81 MG Tab.Chew PO SCH (10:30)
[2022-03-19] MEDS ORDERED: traZODone 50 MG Tab PO SCH ×2 (10:30→13:00)
[2022-03-19] MEDS ORDERED: Tamsulosin 0.4 MG Cap.ER PO SCH ×2 (10:30→13:00)
[2022-03-19] MEDS ORDERED: Torsemide 20 MG Tab PO SCH ×2 (10:30→13:00)
[2022-03-19] MEDS ORDERED: Potassium Chloride 20 MEQ Tab.ER PO SCH ×2 (10:30→13:00)
[2022-03-19] MEDS ORDERED: Rosuvastatin 10 MG Tab PO SCH ×2 (10:30→13:00)
[2022-03-19] MEDS ORDERED: Calcium Carbonate 600 MG Tab PO SCH ×2 (10:30→13:00)
[2022-03-19] MEDS ORDERED: Carboxymethylcellulose Sodium 1% Ophth Gel 15 ML Bottle EYEBOTH SCH ×2 (10:30→13:00)
[2022-03-19] MEDS ORDERED: Lisinopril 20 MG Tab PO SCH ×2 (10:30→13:00)
[2022-03-19] MEDS ORDERED: Meloxicam 7.5 MG Tab PO SCH ×2 (10:30→13:00)
[2022-03-19] MEDS ORDERED: Metoprolol Succinate 50 MG Tab.ER PO SCH ×2 (10:30→13:00)
[2022-03-19] MEDS ORDERED: busPIRone 15 MG Tab PO SCH ×2 (10:30→13:00)
[2022-03-19] MEDS ORDERED: Enoxaparin 40 MG/0.4 ML Syringe SUBCUT SCH ×2 (10:30→13:00)
[2022-03-19] MEDS ORDERED: Fenofibrate Nanocrystallized 145 MG Tab PO SCH ×2 (10:30→13:00)
[2022-03-19] MEDS ORDERED: Sertraline 50 MG Tab PO SCH (12:00)
[2022-03-19] MEDS ORDERED: Dexamethasone/Neomycin/Polymyxin B Ophth Oint 3.5 GM Tube EYEBOTH SCH (12:00)
[2022-03-19] MEDS ORDERED: ZEASORB AF TOP SCH (12:00)
[2022-03-19] MEDS ORDERED: Dorzolamide 2% Ophth Soln 10 ML Bottle EYEBOTH SCH (12:00)
[2022-03-19] MEDS ORDERED: OLOPATADINE EYEBOTH SCH (12:00)
[2022-03-19] MEDS ORDERED: Insulin Glargine,Human Rec. Analog 100 Units/ML 3 ML Pen SUBCUT SCH (12:00)
[2022-03-19] MEDS ORDERED: Aspirin 81 MG Tab.EC PO SCH (13:00)
[2022-03-19] MEDS ORDERED: CROMOLYN EYEBOTH SCH (13:00)
[2022-03-19 14:31] VITALS: BP 126/71; PULSE 81
[2022-03-19] MEDS ORDERED: Gabapentin 100 MG Cap PO SCH (18:00)
[2022-03-19] MEDS ORDERED: Cetirizine 10 MG Tab PO SCH (18:00)
[2022-03-19] MEDS ORDERED: Trospium 20 MG Tab PO SCH (21:00)
[2022-03-19] MEDS ORDERED: Temazepam 15 MG Cap PO SCH (21:00)
[2022-03-19] MEDS ORDERED: FLUoxetine 20 MG Cap PO SCH (21:00)
[2022-03-20] MEDS ORDERED: Bacitracin/Neomycin/Polymyxin B Ophth Oint 3.5 GM Tube EYERT SCH (09:00)
== END 2022-03-19 15:29 | disposition other institution (70) | DRG 291 ==
LOC: JD.ED 14:38 → JD.MS 21:00
PROVIDERS: ADMIT Internal Medicine; ATTEND Internal Medicine
DX: R09.02 Hypoxemia (principal); I13.0 Hypertensive heart and chronic kidney disease with heart failure and stage 1 through stage 4 chronic kidney disease, or unspecified chronic kidney disease; E11.9 Type 2 diabetes mellitus without complications; I10 Essential (primary) hypertension; I50.33 Acute on chronic diastolic (congestive) heart failure; E66.9 Obesity, unspecified; Z68.41 Body mass index [BMI] 40.0-44.9, adult; N40.0 Benign prostatic hyperplasia without lower urinary tract symptoms; J96.11 Chronic respiratory failure with hypoxia; Z79.82 Long term (current) use of aspirin; E78.5 Hyperlipidemia, unspecified; G47.30 Sleep apnea, unspecified; Z89.221 Acquired absence of right upper limb above elbow; K57.50 Diverticulosis of both small and large intestine without perforation or abscess without bleeding; N40.1 Benign prostatic hyperplasia with lower urinary tract symptoms; R35.0 Frequency of micturition; E11.42 Type 2 diabetes mellitus with diabetic polyneuropathy; F41.9 Anxiety disorder, unspecified; E66.01 Morbid (severe) obesity due to excess calories; R33.8 Other retention of urine; E78.00 Pure hypercholesterolemia, unspecified; K21.9 Gastro-esophageal reflux disease without esophagitis; M19.90 Unspecified osteoarthritis, unspecified site; H54.7 Unspecified visual loss; Z96.653 Presence of artificial knee joint, bilateral; N18.31 Chronic kidney disease, stage 3a; J41.1 Mucopurulent chronic bronchitis; F41.8 Other specified anxiety disorders; Z79.4 Long term (current) use of insulin; Z86.73 Personal history of transient ischemic attack (TIA), and cerebral infarction without residual deficits; Z88.1 Allergy status to other antibiotic agents; Z99.81 Dependence on supplemental oxygen; Z89.9 Acquired absence of limb, unspecified; Z88.8 Allergy status to other drugs, medicaments and biological substances; Z91.09 Other allergy status, other than to drugs and biological substances; Z79.899 Other long term (current) drug therapy
CPT/HCPCS: 36415; 71045; 71045-26; 80053; 81001; 82947; 83605; 83735; 83880; 84145; 84484; 85025; 85610; 93005; 97162-GP; 97166-GO; 97535-GO; 99285; A9270-GY; G0008

== ENCOUNTER 2022-05-07 11:40 | Inpatient (IN) | payer MEDICARE, OTHER ==
[2022-05-07] MEDS ORDERED: Sodium Chloride 0.9% 10 ML Syringe FLUSH PRN (12:34)
[2022-05-07 14:46] LABS: CORONAVIRUS COVID-19 NAA NEGATIVE (NEGATIVE)
[2022-05-07] MEDS: Heparin Sodium 5,000 Units/ML Vial SUBCUT SCH (19:36)
[2022-05-08] MEDS: Heparin Sodium 5,000 Units/ML Vial SUBCUT SCH ×3 (04:15→19:10)
[2022-05-08] MEDS: Albuterol/Ipratropium 3.0-0.5 MG/3 ML Neb Soln NEB PRN (08:32)
[2022-05-08] MEDS: oxyCODONE 5 MG Tab PO PRN ×3 (10:53→21:51)
[2022-05-08] MEDS ORDERED: Benzonatate 100 MG Cap PO PRN (12:46)
[2022-05-08] MEDS: Acetaminophen 325 MG Tab PO PRN ×2 (13:12→19:10)
[2022-05-08] MEDS: Insulin Regular, Human 100 Units/ML 3 ML Vial SUBCUT SCH (20:02)
[2022-05-09] MEDS: oxyCODONE 5 MG Tab PO PRN (01:07)
[2022-05-09] MEDS: Heparin Sodium 5,000 Units/ML Vial SUBCUT SCH ×4 (01:07→18:01)
[2022-05-09] MEDS: Albuterol/Ipratropium 3.0-0.5 MG/3 ML Neb Soln NEB PRN (06:03)
[2022-05-09] MEDS ORDERED: MICONAZOLE TOP PRN (07:01)
[2022-05-09] MEDS ORDERED: Albuterol/Ipratropium 3.0-0.5 MG/3 ML Neb Soln INH PRN (07:01)
[2022-05-09] MEDS ORDERED: Albuterol 6.7 GM Inhaler INH PRN (07:31)
[2022-05-09] MEDS ORDERED: INSULIN DEGLUDEC SQ SCH (08:00)
[2022-05-09 08:18] LABS: HEMOGLOBIN A1C 6.5 %
[2022-05-09] MEDS: Aspirin 81 MG Tab.EC PO SCH (08:57)
[2022-05-09] MEDS: Tamsulosin 0.4 MG Cap.ER PO SCH (08:57)
[2022-05-09] MEDS: Potassium Chloride 20 MEQ Tab.ER PO SCH ×2 (08:57→21:30)
[2022-05-09] MEDS: Meloxicam 7.5 MG Tab PO SCH (08:58)
[2022-05-09] MEDS: Sertraline 50 MG Tab PO SCH (08:58)
[2022-05-09] MEDS: busPIRone 15 MG Tab PO SCH ×2 (08:59→21:29)
[2022-05-09] MEDS: Fenofibrate Nanocrystallized 145 MG Tab PO SCH (08:59)
[2022-05-09] MEDS: Lisinopril 20 MG Tab PO SCH (09:00)
[2022-05-09] MEDS: Trospium 20 MG Tab PO SCH ×2 (09:03→21:32)
[2022-05-09] MEDS: ALPRAZolam 0.25 MG Tab PO SCH ×2 (09:04→21:33)
[2022-05-09] MEDS: Metoprolol Succinate 50 MG Tab.ER PO SCH (09:04)
[2022-05-09] MEDS: Torsemide 20 MG Tab PO SCH ×2 (09:05→21:30)
[2022-05-09] MEDS: CYANOCOBALAMIN PO SCH (09:10)
[2022-05-09] MEDS: FOLIC ACID PO SCH (09:10)
[2022-05-09] MEDS: TERBINAFINE HCL 250 MG PO SCH (09:11)
[2022-05-09] MEDS: Insulin Regular, Human 100 Units/ML 3 ML Vial SUBCUT SCH ×3 (09:22→18:37)
[2022-05-09] MEDS: Insulin Glargine,Human Rec. Analog 100 Units/ML 3 ML Pen SUBCUT SCH (09:25)
[2022-05-09] MEDS ORDERED: guaiFENesin/Dextromethorphan 100-10 MG/5 ML Soln 5 ML Cup PO ONE (09:45)
[2022-05-09] MEDS ORDERED: FLU Vacc QS2022(65UP)/MF59C/PF 60 MCG/0.5 ML Syringe IM ONE (10:00)
[2022-05-09] MEDS: Diclofenac Sodium 1% Gel 100 GM Tube TOP PRN (10:36)
[2022-05-09] MEDS: guaiFENesin/Dextromethorphan 100-10 MG/5 ML Soln 5 ML Cup PO SCH ×2 (13:32→21:32)
[2022-05-09] MEDS ORDERED: Non-Formulary Medication 1 Each (Insulin Aspart 100 UNIT/ML Pen) SQ SCH (17:00)
[2022-05-09] MEDS: Rosuvastatin 10 MG Tab PO SCH (21:30)
[2022-05-09] MEDS: Gabapentin 100 MG Cap PO SCH (21:30)
[2022-05-09] MEDS: FLUoxetine 20 MG Cap PO SCH (21:31)
[2022-05-09] MEDS: traZODone 50 MG Tab PO SCH (21:33)
[2022-05-09] MEDS: Cetirizine 10 MG Tab PO SCH (21:33)
[2022-05-10] MEDS: Heparin Sodium 5,000 Units/ML Vial SUBCUT SCH ×4 (02:43→17:44)
[2022-05-10] MEDS ORDERED: Non-Formulary Medication 1 Each (Insulin Aspart 100 UNIT/ML Pen) SQ SCH (06:00)
[2022-05-10] MEDS: guaiFENesin/Dextromethorphan 100-10 MG/5 ML Soln 5 ML Cup PO SCH ×3 (06:58→20:38)
[2022-05-10] MEDS: Insulin Glargine,Human Rec. Analog 100 Units/ML 3 ML Pen SUBCUT SCH (08:35)
[2022-05-10] MEDS: Metoprolol Succinate 50 MG Tab.ER PO SCH (08:37)
[2022-05-10] MEDS: Fenofibrate Nanocrystallized 145 MG Tab PO SCH (08:37)
[2022-05-10] MEDS: Meloxicam 7.5 MG Tab PO SCH (08:37)
[2022-05-10] MEDS: Aspirin 81 MG Tab.EC PO SCH (08:41)
[2022-05-10] MEDS: Lisinopril 20 MG Tab PO SCH (08:41)
[2022-05-10] MEDS: Trospium 20 MG Tab PO SCH ×2 (08:41→20:39)
[2022-05-10] MEDS: Tamsulosin 0.4 MG Cap.ER PO SCH (08:41)
[2022-05-10] MEDS: Torsemide 20 MG Tab PO SCH ×2 (08:43→20:39)
[2022-05-10] MEDS: Potassium Chloride 20 MEQ Tab.ER PO SCH ×2 (08:43)
[2022-05-10] MEDS: Sertraline 50 MG Tab PO SCH (08:44)
[2022-05-10] MEDS: ALPRAZolam 0.25 MG Tab PO SCH ×2 (08:44→20:39)
[2022-05-10] MEDS: CYANOCOBALAMIN PO SCH (08:50)
[2022-05-10] MEDS: FOLIC ACID PO SCH (08:50)
[2022-05-10] MEDS: TERBINAFINE HCL 250 MG PO SCH (08:50)
[2022-05-10] MEDS: Insulin Regular, Human 100 Units/ML 3 ML Vial SUBCUT SCH ×3 (08:51→18:13)
[2022-05-10] MEDS: busPIRone 15 MG Tab PO SCH ×2 (08:52→20:41)
[2022-05-10] MEDS: Rosuvastatin 10 MG Tab PO SCH (20:39)
[2022-05-10] MEDS: FLUoxetine 20 MG Cap PO SCH (20:40)
[2022-05-10] MEDS: traZODone 50 MG Tab PO SCH (20:40)
[2022-05-10] MEDS: Gabapentin 100 MG Cap PO SCH (20:41)
[2022-05-10] MEDS: Cetirizine 10 MG Tab PO SCH (20:41)
[2022-05-11] MEDS: Heparin Sodium 5,000 Units/ML Vial SUBCUT SCH ×3 (04:31→19:04)
[2022-05-11] MEDS: guaiFENesin/Dextromethorphan 100-10 MG/5 ML Soln 5 ML Cup PO SCH ×3 (07:02→21:06)
[2022-05-11] MEDS: Insulin Glargine,Human Rec. Analog 100 Units/ML 3 ML Pen SUBCUT SCH (09:37)
[2022-05-11] MEDS: Potassium Chloride 20 MEQ Tab.ER PO SCH (09:38)
[2022-05-11] MEDS: ALPRAZolam 0.25 MG Tab PO SCH ×2 (09:38→21:06)
[2022-05-11] MEDS: Sertraline 50 MG Tab PO SCH (09:43)
[2022-05-11] MEDS: Lisinopril 20 MG Tab PO SCH (09:43)
[2022-05-11] MEDS: busPIRone 15 MG Tab PO SCH ×2 (09:43→21:06)
[2022-05-11] MEDS: Tamsulosin 0.4 MG Cap.ER PO SCH (09:44)
[2022-05-11] MEDS: Aspirin 81 MG Tab.EC PO SCH (09:44)
[2022-05-11] MEDS: Meloxicam 7.5 MG Tab PO SCH (09:44)
[2022-05-11] MEDS: Fenofibrate Nanocrystallized 145 MG Tab PO SCH (09:45)
[2022-05-11] MEDS: CYANOCOBALAMIN PO SCH (09:45)
[2022-05-11] MEDS: Trospium 20 MG Tab PO SCH ×2 (09:45→21:06)
[2022-05-11] MEDS: FOLIC ACID PO SCH (09:45)
[2022-05-11] MEDS: TERBINAFINE HCL 250 MG PO SCH (09:45)
[2022-05-11] MEDS: Torsemide 20 MG Tab PO SCH ×2 (09:46→21:07)
[2022-05-11] MEDS: Metoprolol Succinate 50 MG Tab.ER PO SCH (09:46)
[2022-05-11] MEDS: Insulin Regular, Human 100 Units/ML 3 ML Vial SUBCUT SCH ×3 (09:47→18:44)
[2022-05-11] MEDS ORDERED: 50% Dextrose in Water 50 ML Syringe ONE (17:01)
[2022-05-11] MEDS: Albuterol/Ipratropium 3.0-0.5 MG/3 ML Neb Soln NEB PRN (19:59)
[2022-05-11] MEDS ORDERED: 50% Dextrose in Water 50 ML Syringe IVPUSH PRN (20:57)
[2022-05-11] MEDS: Rosuvastatin 10 MG Tab PO SCH (21:04)
[2022-05-11] MEDS: traZODone 50 MG Tab PO SCH (21:05)
[2022-05-11] MEDS: FLUoxetine 20 MG Cap PO SCH (21:05)
[2022-05-11] MEDS: Cetirizine 10 MG Tab PO SCH (21:06)
[2022-05-11] MEDS: Gabapentin 100 MG Cap PO SCH (21:06)
[2022-05-12] MEDS: Codeine/Promethazine 10-6.25 MG/5 ML Syrup 5 ML UD Cup PO PRN (04:22)
[2022-05-12] MEDS: Heparin Sodium 5,000 Units/ML Vial SUBCUT SCH ×4 (04:22→20:16)
[2022-05-12] MEDS: guaiFENesin/Dextromethorphan 100-10 MG/5 ML Soln 5 ML Cup PO SCH ×3 (06:38→20:15)
[2022-05-12] MEDS: ALPRAZolam 0.25 MG Tab PO SCH ×2 (08:56→20:14)
[2022-05-12] MEDS: Trospium 20 MG Tab PO SCH ×2 (08:56→20:14)
[2022-05-12] MEDS: Meloxicam 7.5 MG Tab PO SCH (08:56)
[2022-05-12] MEDS: Metoprolol Succinate 50 MG Tab.ER PO SCH (08:56)
[2022-05-12] MEDS: Potassium Chloride 20 MEQ Tab.ER PO SCH (08:56)
[2022-05-12] MEDS: Insulin Glargine,Human Rec. Analog 100 Units/ML 3 ML Pen SUBCUT SCH (08:57)
[2022-05-12] MEDS: Tamsulosin 0.4 MG Cap.ER PO SCH (08:58)
[2022-05-12] MEDS: Aspirin 81 MG Tab.EC PO SCH (08:59)
[2022-05-12] MEDS: Torsemide 20 MG Tab PO SCH ×2 (08:59→20:14)
[2022-05-12] MEDS: Fenofibrate Nanocrystallized 145 MG Tab PO SCH (08:59)
[2022-05-12] MEDS: Lisinopril 20 MG Tab PO SCH (08:59)
[2022-05-12] MEDS: busPIRone 15 MG Tab PO SCH ×2 (08:59→20:14)
[2022-05-12] MEDS: Sertraline 50 MG Tab PO SCH (08:59)
[2022-05-12] MEDS: CYANOCOBALAMIN PO SCH (09:03)
[2022-05-12] MEDS: TERBINAFINE HCL 250 MG PO SCH (09:03)
[2022-05-12] MEDS: FOLIC ACID PO SCH (09:03)
[2022-05-12] MEDS: Insulin Regular, Human 100 Units/ML 3 ML Vial SUBCUT SCH ×3 (10:08→20:15)
[2022-05-12] MEDS: Docusate Sodium 100 MG Cap PO SCH ×2 (12:41→20:14)
[2022-05-12] MEDS: Polyethylene Glycol 3350 Powder 17 GM Packet PO SCH (12:41)
[2022-05-12] MEDS: Rosuvastatin 10 MG Tab PO SCH (20:05)
[2022-05-12] MEDS: FLUoxetine 20 MG Cap PO SCH (20:05)
[2022-05-12] MEDS: traZODone 50 MG Tab PO SCH (20:13)
[2022-05-12] MEDS: Gabapentin 100 MG Cap PO SCH (20:14)
[2022-05-12] MEDS: Cetirizine 10 MG Tab PO SCH (20:14)
[2022-05-13] MEDS: Heparin Sodium 5,000 Units/ML Vial SUBCUT SCH ×3 (02:30→17:25)
[2022-05-13] MEDS: Acetaminophen 325 MG Tab PO PRN (03:26)
[2022-05-13] MEDS: guaiFENesin/Dextromethorphan 100-10 MG/5 ML Soln 5 ML Cup PO SCH ×3 (06:11→21:54)
[2022-05-13] MEDS: Insulin Glargine,Human Rec. Analog 100 Units/ML 3 ML Pen SUBCUT SCH ×2 (08:17→09:21)
[2022-05-13] MEDS: Metoprolol Succinate 50 MG Tab.ER PO SCH (08:18)
[2022-05-13] MEDS: Meloxicam 7.5 MG Tab PO SCH (08:22)
[2022-05-13] MEDS: Sertraline 50 MG Tab PO SCH (08:23)
[2022-05-13] MEDS: Aspirin 81 MG Tab.EC PO SCH (08:23)
[2022-05-13] MEDS: Fenofibrate Nanocrystallized 145 MG Tab PO SCH (08:23)
[2022-05-13] MEDS: Lisinopril 20 MG Tab PO SCH (08:23)
[2022-05-13] MEDS: Docusate Sodium 100 MG Cap PO SCH ×2 (08:23→21:53)
[2022-05-13] MEDS: Trospium 20 MG Tab PO SCH ×2 (08:23→21:52)
[2022-05-13] MEDS: Tamsulosin 0.4 MG Cap.ER PO SCH (08:23)
[2022-05-13] MEDS: Torsemide 20 MG Tab PO SCH ×2 (08:23→21:51)
[2022-05-13] MEDS: ALPRAZolam 0.25 MG Tab PO SCH ×2 (08:23→21:53)
[2022-05-13] MEDS: Potassium Chloride 20 MEQ Tab.ER PO SCH (08:24)
[2022-05-13] MEDS: busPIRone 15 MG Tab PO SCH ×2 (08:24→22:00)
[2022-05-13] MEDS: CYANOCOBALAMIN PO SCH (08:28)
[2022-05-13] MEDS: FOLIC ACID PO SCH (08:28)
[2022-05-13] MEDS: TERBINAFINE HCL 250 MG PO SCH (08:28)
[2022-05-13] MEDS: Polyethylene Glycol 3350 Powder 17 GM Packet PO SCH (08:28)
[2022-05-13] MEDS: Insulin Regular, Human 100 Units/ML 3 ML Vial SUBCUT SCH ×3 (08:28→18:52)
[2022-05-13] MEDS: Rosuvastatin 10 MG Tab PO SCH (21:51)
[2022-05-13] MEDS: FLUoxetine 20 MG Cap PO SCH (21:52)
[2022-05-13] MEDS: Gabapentin 100 MG Cap PO SCH (21:53)
[2022-05-13] MEDS: Cetirizine 10 MG Tab PO SCH (21:53)
[2022-05-13] MEDS: traZODone 50 MG Tab PO SCH (21:53)
[2022-05-14] MEDS: Acetaminophen 325 MG Tab PO PRN (00:38)
[2022-05-14] MEDS: Heparin Sodium 5,000 Units/ML Vial SUBCUT SCH ×3 (02:10→18:54)
[2022-05-14] MEDS: guaiFENesin/Dextromethorphan 100-10 MG/5 ML Soln 5 ML Cup PO SCH ×4 (06:21→20:07)
[2022-05-14] MEDS: Insulin Glargine,Human Rec. Analog 100 Units/ML 3 ML Pen SUBCUT SCH (08:14)
[2022-05-14] MEDS: Metoprolol Succinate 50 MG Tab.ER PO SCH (08:15)
[2022-05-14] MEDS: Docusate Sodium 100 MG Cap PO SCH ×2 (08:16→20:06)
[2022-05-14] MEDS: Lisinopril 20 MG Tab PO SCH (08:17)
[2022-05-14] MEDS: Aspirin 81 MG Tab.EC PO SCH (08:17)
[2022-05-14] MEDS: Meloxicam 7.5 MG Tab PO SCH (08:17)
[2022-05-14] MEDS: Fenofibrate Nanocrystallized 145 MG Tab PO SCH (08:17)
[2022-05-14] MEDS: Torsemide 20 MG Tab PO SCH ×2 (08:17→20:05)
[2022-05-14] MEDS: Potassium Chloride 20 MEQ Tab.ER PO SCH (08:17)
[2022-05-14] MEDS: Trospium 20 MG Tab PO SCH ×2 (08:17→20:04)
[2022-05-14] MEDS: Tamsulosin 0.4 MG Cap.ER PO SCH (08:17)
[2022-05-14] MEDS: busPIRone 15 MG Tab PO SCH ×2 (08:18→20:03)
[2022-05-14] MEDS: ALPRAZolam 0.25 MG Tab PO SCH ×2 (08:18→20:07)
[2022-05-14] MEDS: Sertraline 50 MG Tab PO SCH (08:18)
[2022-05-14] MEDS: FOLIC ACID PO SCH (08:22)
[2022-05-14] MEDS: Insulin Regular, Human 100 Units/ML 3 ML Vial SUBCUT SCH ×3 (08:22→18:54)
[2022-05-14] MEDS: CYANOCOBALAMIN PO SCH (08:22)
[2022-05-14] MEDS: Polyethylene Glycol 3350 Powder 17 GM Packet PO SCH (08:22)
[2022-05-14] MEDS: TERBINAFINE HCL 250 MG PO SCH (08:22)
[2022-05-14] MEDS: Rosuvastatin 10 MG Tab PO SCH (20:03)
[2022-05-14] MEDS: FLUoxetine 20 MG Cap PO SCH (20:04)
[2022-05-14] MEDS: Gabapentin 100 MG Cap PO SCH (20:04)
[2022-05-14] MEDS: Cetirizine 10 MG Tab PO SCH (20:06)
[2022-05-14] MEDS: traZODone 50 MG Tab PO SCH (20:06)
[2022-05-15] MEDS: Heparin Sodium 5,000 Units/ML Vial SUBCUT SCH ×3 (01:23→18:57)
[2022-05-15] MEDS: guaiFENesin/Dextromethorphan 100-10 MG/5 ML Soln 5 ML Cup PO SCH ×3 (06:07→20:27)
[2022-05-15] MEDS: Sertraline 50 MG Tab PO SCH (08:26)
[2022-05-15] MEDS: Polyethylene Glycol 3350 Powder 17 GM Packet PO SCH (08:26)
[2022-05-15] MEDS: Potassium Chloride 20 MEQ Tab.ER PO SCH (08:27)
[2022-05-15] MEDS: Fenofibrate Nanocrystallized 145 MG Tab PO SCH (08:27)
[2022-05-15] MEDS: ALPRAZolam 0.25 MG Tab PO SCH ×2 (08:27→20:28)
[2022-05-15] MEDS: Trospium 20 MG Tab PO SCH ×2 (08:28→20:28)
[2022-05-15] MEDS: Tamsulosin 0.4 MG Cap.ER PO SCH (08:29)
[2022-05-15] MEDS: Docusate Sodium 100 MG Cap PO SCH ×2 (08:29→20:27)
[2022-05-15] MEDS: Aspirin 81 MG Tab.EC PO SCH (08:29)
[2022-05-15] MEDS: busPIRone 15 MG Tab PO SCH ×2 (08:30→20:28)
[2022-05-15] MEDS: Meloxicam 7.5 MG Tab PO SCH (08:30)
[2022-05-15] MEDS: Insulin Glargine,Human Rec. Analog 100 Units/ML 3 ML Pen SUBCUT SCH (08:31)
[2022-05-15] MEDS: Insulin Regular, Human 100 Units/ML 3 ML Vial SUBCUT SCH ×3 (08:32→18:28)
[2022-05-15] MEDS: Lisinopril 20 MG Tab PO SCH (08:46)
[2022-05-15] MEDS: Torsemide 20 MG Tab PO SCH ×2 (08:46→20:27)
[2022-05-15] MEDS: Metoprolol Succinate 50 MG Tab.ER PO SCH (08:47)
[2022-05-15] MEDS: TERBINAFINE HCL 250 MG PO SCH (10:01)
[2022-05-15] MEDS: CYANOCOBALAMIN PO SCH (10:02)
[2022-05-15] MEDS: FOLIC ACID PO SCH (10:02)
[2022-05-15] MEDS ORDERED: Lactated Ringers 1,000 ML IV SCH (10:15)
[2022-05-15] MEDS: FLUoxetine 20 MG Cap PO SCH (20:28)
[2022-05-15] MEDS: Cetirizine 10 MG Tab PO SCH (20:28)
[2022-05-15] MEDS: traZODone 50 MG Tab PO SCH (20:28)
[2022-05-15] MEDS: Gabapentin 100 MG Cap PO SCH (20:28)
[2022-05-15] MEDS: Rosuvastatin 10 MG Tab PO SCH (20:28)
[2022-05-16] MEDS: Heparin Sodium 5,000 Units/ML Vial SUBCUT SCH ×3 (03:20→21:00)
[2022-05-16] MEDS: guaiFENesin/Dextromethorphan 100-10 MG/5 ML Soln 5 ML Cup PO SCH ×3 (07:30→20:57)
[2022-05-16] MEDS: Insulin Glargine,Human Rec. Analog 100 Units/ML 3 ML Pen SUBCUT SCH (07:31)
[2022-05-16] MEDS: Tamsulosin 0.4 MG Cap.ER PO SCH (08:57)
[2022-05-16] MEDS: Aspirin 81 MG Tab.EC PO SCH (08:57)
[2022-05-16] MEDS: Polyethylene Glycol 3350 Powder 17 GM Packet PO SCH (08:57)
[2022-05-16] MEDS: Trospium 20 MG Tab PO SCH ×2 (08:57→20:59)
[2022-05-16] MEDS: Metoprolol Succinate 50 MG Tab.ER PO SCH (08:59)
[2022-05-16] MEDS: Lisinopril 20 MG Tab PO SCH (08:59)
[2022-05-16] MEDS: Meloxicam 7.5 MG Tab PO SCH (09:00)
[2022-05-16] MEDS: ALPRAZolam 0.25 MG Tab PO SCH ×2 (09:00→20:59)
[2022-05-16] MEDS: busPIRone 15 MG Tab PO SCH ×2 (09:00→20:59)
[2022-05-16] MEDS: Fenofibrate Nanocrystallized 145 MG Tab PO SCH (09:01)
[2022-05-16] MEDS: Docusate Sodium 100 MG Cap PO SCH ×2 (09:01→21:00)
[2022-05-16] MEDS: Torsemide 20 MG Tab PO SCH ×2 (09:01→21:00)
[2022-05-16] MEDS: Sertraline 50 MG Tab PO SCH (09:01)
[2022-05-16] MEDS: Potassium Chloride 20 MEQ Tab.ER PO SCH (09:02)
[2022-05-16] MEDS: FOLIC ACID PO SCH (09:02)
[2022-05-16] MEDS: CYANOCOBALAMIN PO SCH (09:02)
[2022-05-16] MEDS: TERBINAFINE HCL 250 MG PO SCH (09:04)
[2022-05-16] MEDS: Insulin Regular, Human 100 Units/ML 3 ML Vial SUBCUT SCH ×3 (09:05→18:56)
[2022-05-16] MEDS: Rosuvastatin 10 MG Tab PO SCH (21:00)
[2022-05-16] MEDS: FLUoxetine 20 MG Cap PO SCH (21:00)
[2022-05-16] MEDS: Cetirizine 10 MG Tab PO SCH (21:00)
[2022-05-16] MEDS: Gabapentin 100 MG Cap PO SCH (21:00)
[2022-05-16] MEDS: traZODone 50 MG Tab PO SCH (21:00)
[2022-05-17] MEDS: Heparin Sodium 5,000 Units/ML Vial SUBCUT SCH ×3 (05:34→21:26)
[2022-05-17] MEDS: Torsemide 20 MG Tab PO SCH ×2 (08:57→20:00)
[2022-05-17] MEDS: guaiFENesin/Dextromethorphan 100-10 MG/5 ML Soln 5 ML Cup PO SCH ×3 (08:57→20:00)
[2022-05-17] MEDS: Meloxicam 7.5 MG Tab PO SCH (08:58)
[2022-05-17] MEDS: Potassium Chloride 20 MEQ Tab.ER PO SCH (08:58)
[2022-05-17] MEDS: Fenofibrate Nanocrystallized 145 MG Tab PO SCH (08:58)
[2022-05-17] MEDS: ALPRAZolam 0.25 MG Tab PO SCH ×2 (08:58→20:01)
[2022-05-17] MEDS: Tamsulosin 0.4 MG Cap.ER PO SCH (08:59)
[2022-05-17] MEDS: Docusate Sodium 100 MG Cap PO SCH ×2 (08:59→20:01)
[2022-05-17] MEDS: Trospium 20 MG Tab PO SCH ×2 (08:59→20:00)
[2022-05-17] MEDS: busPIRone 15 MG Tab PO SCH ×2 (08:59→20:00)
[2022-05-17] MEDS: Aspirin 81 MG Tab.EC PO SCH (08:59)
[2022-05-17] MEDS: Insulin Glargine,Human Rec. Analog 100 Units/ML 3 ML Pen SUBCUT SCH (09:00)
[2022-05-17] MEDS: Sertraline 50 MG Tab PO SCH (09:00)
[2022-05-17] MEDS: Polyethylene Glycol 3350 Powder 17 GM Packet PO SCH (09:01)
[2022-05-17] MEDS: Insulin Regular, Human 100 Units/ML 3 ML Vial SUBCUT SCH ×4 (09:01→21:27)
[2022-05-17] MEDS: Lisinopril 20 MG Tab PO SCH (09:02)
[2022-05-17] MEDS: TERBINAFINE HCL 250 MG PO SCH (09:02)
[2022-05-17] MEDS: FOLIC ACID PO SCH (09:02)
[2022-05-17] MEDS: CYANOCOBALAMIN PO SCH (09:02)
[2022-05-17] MEDS: Metoprolol Succinate 50 MG Tab.ER PO SCH (09:03)
[2022-05-17] MEDS: Rosuvastatin 10 MG Tab PO SCH (20:01)
[2022-05-17] MEDS: Cetirizine 10 MG Tab PO SCH (20:01)
[2022-05-17] MEDS: Gabapentin 100 MG Cap PO SCH (20:01)
[2022-05-17] MEDS: traZODone 50 MG Tab PO SCH (20:01)
[2022-05-17] MEDS: FLUoxetine 20 MG Cap PO SCH (20:01)
[2022-05-17] MEDS ORDERED: Insulin Regular, Human 100 Units/ML 3 ML Vial SUBCUT SCH (21:30)
[2022-05-18] MEDS: Heparin Sodium 5,000 Units/ML Vial SUBCUT SCH ×4 (04:53→22:38)
[2022-05-18] MEDS: guaiFENesin/Dextromethorphan 100-10 MG/5 ML Soln 5 ML Cup PO SCH ×3 (06:49→20:40)
[2022-05-18] MEDS ORDERED: Insulin Regular, Human 100 Units/ML 3 ML Vial SUBCUT SCH (08:00)
[2022-05-18] MEDS: ALPRAZolam 0.25 MG Tab PO SCH ×2 (08:39→20:41)
[2022-05-18] MEDS: Torsemide 20 MG Tab PO SCH ×2 (08:39→20:41)
[2022-05-18] MEDS: Trospium 20 MG Tab PO SCH ×2 (08:39→20:41)
[2022-05-18] MEDS: Insulin Glargine,Human Rec. Analog 100 Units/ML 3 ML Pen SUBCUT SCH (08:39)
[2022-05-18] MEDS: Aspirin 81 MG Tab.EC PO SCH (08:40)
[2022-05-18] MEDS: Tamsulosin 0.4 MG Cap.ER PO SCH (08:40)
[2022-05-18] MEDS: Docusate Sodium 100 MG Cap PO SCH ×2 (08:40→20:41)
[2022-05-18] MEDS: Lisinopril 20 MG Tab PO SCH (08:40)
[2022-05-18] MEDS: Fenofibrate Nanocrystallized 145 MG Tab PO SCH (08:41)
[2022-05-18] MEDS: Potassium Chloride 20 MEQ Tab.ER PO SCH (08:41)
[2022-05-18] MEDS: Meloxicam 7.5 MG Tab PO SCH (08:42)
[2022-05-18] MEDS: Sertraline 50 MG Tab PO SCH (08:42)
[2022-05-18] MEDS: busPIRone 15 MG Tab PO SCH ×2 (08:42→20:41)
[2022-05-18] MEDS: Insulin Regular, Human 100 Units/ML 3 ML Vial SUBCUT SCH ×4 (08:43→22:39)
[2022-05-18] MEDS: Polyethylene Glycol 3350 Powder 17 GM Packet PO SCH (08:43)
[2022-05-18] MEDS: FOLIC ACID PO SCH (08:43)
[2022-05-18] MEDS: CYANOCOBALAMIN PO SCH (08:43)
[2022-05-18] MEDS: TERBINAFINE HCL 250 MG PO SCH (08:43)
[2022-05-18] MEDS: Metoprolol Succinate 50 MG Tab.ER PO SCH (08:44)
[2022-05-18] MEDS: traZODone 50 MG Tab PO SCH (20:41)
[2022-05-18] MEDS: Rosuvastatin 10 MG Tab PO SCH (20:41)
[2022-05-18] MEDS: Cetirizine 10 MG Tab PO SCH (20:41)
[2022-05-18] MEDS: FLUoxetine 20 MG Cap PO SCH (20:41)
[2022-05-18] MEDS: Gabapentin 100 MG Cap PO SCH (20:42)
[2022-05-18] MEDS ORDERED: diphenhydrAMINE 25 MG Cap PO ONE (22:51)
[2022-05-19] MEDS: Heparin Sodium 5,000 Units/ML Vial SUBCUT SCH ×3 (05:13→21:05)
[2022-05-19] MEDS: guaiFENesin/Dextromethorphan 100-10 MG/5 ML Soln 5 ML Cup PO SCH ×4 (05:13→21:02)
[2022-05-19] MEDS: Metoprolol Succinate 50 MG Tab.ER PO SCH (09:45)
[2022-05-19] MEDS: Tamsulosin 0.4 MG Cap.ER PO SCH (09:48)
[2022-05-19] MEDS: Potassium Chloride 20 MEQ Tab.ER PO SCH (09:48)
[2022-05-19] MEDS: Sertraline 50 MG Tab PO SCH (09:48)
[2022-05-19] MEDS: Trospium 20 MG Tab PO SCH ×2 (09:48→21:06)
[2022-05-19] MEDS: Lisinopril 20 MG Tab PO SCH (09:48)
[2022-05-19] MEDS: Fenofibrate Nanocrystallized 145 MG Tab PO SCH (09:48)
[2022-05-19] MEDS: Docusate Sodium 100 MG Cap PO SCH ×2 (09:48→21:03)
[2022-05-19] MEDS: Meloxicam 7.5 MG Tab PO SCH (09:49)
[2022-05-19] MEDS: Torsemide 20 MG Tab PO SCH ×2 (09:49→21:04)
[2022-05-19] MEDS: ALPRAZolam 0.25 MG Tab PO SCH ×2 (09:49→21:04)
[2022-05-19] MEDS: Polyethylene Glycol 3350 Powder 17 GM Packet PO SCH (09:49)
[2022-05-19] MEDS: busPIRone 15 MG Tab PO SCH ×2 (09:49→21:04)
[2022-05-19] MEDS: Aspirin 81 MG Tab.EC PO SCH (09:49)
[2022-05-19] MEDS: Insulin Glargine,Human Rec. Analog 100 Units/ML 3 ML Pen SUBCUT SCH (09:50)
[2022-05-19] MEDS: Insulin Regular, Human 100 Units/ML 3 ML Vial SUBCUT SCH ×4 (10:50→21:20)
[2022-05-19] MEDS: CYANOCOBALAMIN PO SCH (10:51)
[2022-05-19] MEDS: TERBINAFINE HCL 250 MG PO SCH (10:51)
[2022-05-19] MEDS: FOLIC ACID PO SCH (10:51)
[2022-05-19] MEDS: diphenhydrAMINE 25 MG Cap PO SCH ×2 (16:21→21:04)
[2022-05-19] MEDS: Nystatin Crm 30 GM Tube TOP SCH ×2 (17:46→21:07)
[2022-05-19] MEDS: Cetirizine 10 MG Tab PO SCH (21:03)
[2022-05-19] MEDS: FLUoxetine 20 MG Cap PO SCH (21:03)
[2022-05-19] MEDS: traZODone 50 MG Tab PO SCH (21:03)
[2022-05-19] MEDS: Rosuvastatin 10 MG Tab PO SCH (21:03)
[2022-05-19] MEDS: Gabapentin 100 MG Cap PO SCH (21:04)
[2022-05-20] MEDS: Heparin Sodium 5,000 Units/ML Vial SUBCUT SCH ×3 (06:29→21:20)
[2022-05-20] MEDS: guaiFENesin/Dextromethorphan 100-10 MG/5 ML Soln 5 ML Cup PO SCH ×3 (06:33→20:34)
[2022-05-20] MEDS: Aspirin 81 MG Tab.EC PO SCH (08:27)
[2022-05-20] MEDS: Polyethylene Glycol 3350 Powder 17 GM Packet PO SCH (08:27)
[2022-05-20] MEDS: Trospium 20 MG Tab PO SCH ×2 (08:28→20:34)
[2022-05-20] MEDS: ALPRAZolam 0.25 MG Tab PO SCH ×2 (08:28→20:34)
[2022-05-20] MEDS: Torsemide 20 MG Tab PO SCH ×2 (08:28→20:33)
[2022-05-20] MEDS: Tamsulosin 0.4 MG Cap.ER PO SCH (08:31)
[2022-05-20] MEDS: Lisinopril 20 MG Tab PO SCH (08:32)
[2022-05-20] MEDS: Docusate Sodium 100 MG Cap PO SCH ×2 (08:32→20:32)
[2022-05-20] MEDS: Fenofibrate Nanocrystallized 145 MG Tab PO SCH (08:32)
[2022-05-20] MEDS: Meloxicam 7.5 MG Tab PO SCH (08:32)
[2022-05-20] MEDS: Sertraline 50 MG Tab PO SCH (08:32)
[2022-05-20] MEDS: Potassium Chloride 20 MEQ Tab.ER PO SCH (08:32)
[2022-05-20] MEDS: busPIRone 15 MG Tab PO SCH ×2 (08:32→20:33)
[2022-05-20] MEDS: Insulin Regular, Human 100 Units/ML 3 ML Vial SUBCUT SCH ×4 (08:35→21:20)
[2022-05-20] MEDS: CYANOCOBALAMIN PO SCH (08:35)
[2022-05-20] MEDS: FOLIC ACID PO SCH (08:35)
[2022-05-20] MEDS: TERBINAFINE HCL 250 MG PO SCH (08:36)
[2022-05-20] MEDS: Insulin Glargine,Human Rec. Analog 100 Units/ML 3 ML Pen SUBCUT SCH (08:41)
[2022-05-20] MEDS: Metoprolol Succinate 50 MG Tab.ER PO SCH (11:09)
[2022-05-20] MEDS: Nystatin Crm 30 GM Tube TOP SCH ×3 (11:58→20:37)
[2022-05-20] MEDS: Dexamethasone/Neomycin/Polymyxin B Ophth Oint 3.5 GM Tube EYEBOTH PRN (16:06)
[2022-05-20] MEDS: Cetirizine 10 MG Tab PO SCH (20:32)
[2022-05-20] MEDS: Gabapentin 100 MG Cap PO SCH (20:32)
[2022-05-20] MEDS: FLUoxetine 20 MG Cap PO SCH (20:34)
[2022-05-20] MEDS: Rosuvastatin 10 MG Tab PO SCH (20:34)
[2022-05-20] MEDS: traZODone 50 MG Tab PO SCH (20:34)
[2022-05-21] MEDS: Heparin Sodium 5,000 Units/ML Vial SUBCUT SCH ×3 (06:04→21:07)
[2022-05-21] MEDS: guaiFENesin/Dextromethorphan 100-10 MG/5 ML Soln 5 ML Cup PO SCH (06:04)
[2022-05-21] MEDS: Insulin Glargine,Human Rec. Analog 100 Units/ML 3 ML Pen SUBCUT SCH (07:47)
[2022-05-21] MEDS: Insulin Regular, Human 100 Units/ML 3 ML Vial SUBCUT SCH ×5 (08:00→21:07)
[2022-05-21] MEDS: Polyethylene Glycol 3350 Powder 17 GM Packet PO SCH (08:01)
[2022-05-21] MEDS: Tamsulosin 0.4 MG Cap.ER PO SCH (08:01)
[2022-05-21] MEDS: Trospium 20 MG Tab PO SCH ×2 (08:01→20:35)
[2022-05-21] MEDS: Meloxicam 7.5 MG Tab PO SCH (08:02)
[2022-05-21] MEDS: Aspirin 81 MG Tab.EC PO SCH (08:02)
[2022-05-21] MEDS: Torsemide 20 MG Tab PO SCH ×2 (08:02→20:35)
[2022-05-21] MEDS: Fenofibrate Nanocrystallized 145 MG Tab PO SCH (08:02)
[2022-05-21] MEDS: ALPRAZolam 0.25 MG Tab PO SCH ×2 (08:02→20:34)
[2022-05-21] MEDS: busPIRone 15 MG Tab PO SCH ×2 (08:02→20:35)
[2022-05-21] MEDS: Sertraline 50 MG Tab PO SCH (08:02)
[2022-05-21] MEDS: Docusate Sodium 100 MG Cap PO SCH ×2 (08:03→20:37)
[2022-05-21] MEDS: Potassium Chloride 20 MEQ Tab.ER PO SCH (08:03)
[2022-05-21] MEDS: Dexamethasone/Neomycin/Polymyxin B Ophth Oint 3.5 GM Tube EYEBOTH PRN (08:04)
[2022-05-21] MEDS: Nystatin Crm 30 GM Tube TOP SCH ×3 (08:04→20:36)
[2022-05-21] MEDS: Diclofenac Sodium 1% Gel 100 GM Tube TOP PRN (08:05)
[2022-05-21] MEDS: Metoprolol Succinate 50 MG Tab.ER PO SCH (09:38)
[2022-05-21] MEDS: CYANOCOBALAMIN PO SCH (09:53)
[2022-05-21] MEDS: FOLIC ACID PO SCH (09:53)
[2022-05-21] MEDS: TERBINAFINE HCL 250 MG PO SCH (09:54)
[2022-05-21] MEDS ORDERED: guaiFENesin/Dextromethorphan 100-10 MG/5 ML Soln 5 ML Cup PO PRN (12:25)
[2022-05-21] MEDS ORDERED: Meclizine 25 MG Tab PO PRN (12:51)
[2022-05-21] MEDS: Nystatin Topical Powder 15 GM Bottle TOP SCH ×2 (14:34→20:35)
[2022-05-21] MEDS: Rosuvastatin 10 MG Tab PO SCH (20:34)
[2022-05-21] MEDS: Gabapentin 100 MG Cap PO SCH (20:34)
[2022-05-21] MEDS: FLUoxetine 20 MG Cap PO SCH (20:35)
[2022-05-21] MEDS: traZODone 50 MG Tab PO SCH (20:35)
[2022-05-21] MEDS: Cetirizine 10 MG Tab PO SCH (20:35)
[2022-05-22] MEDS: Heparin Sodium 5,000 Units/ML Vial SUBCUT SCH ×3 (05:16→21:02)
[2022-05-22] MEDS: Torsemide 20 MG Tab PO SCH ×2 (09:05→20:14)
[2022-05-22] MEDS: Tamsulosin 0.4 MG Cap.ER PO SCH (09:05)
[2022-05-22] MEDS: Potassium Chloride 20 MEQ Tab.ER PO SCH (09:05)
[2022-05-22] MEDS: Docusate Sodium 100 MG Cap PO SCH ×2 (09:06→20:14)
[2022-05-22] MEDS: Metoprolol Succinate 50 MG Tab.ER PO SCH (09:06)
[2022-05-22] MEDS: Aspirin 81 MG Tab.EC PO SCH (09:06)
[2022-05-22] MEDS: Trospium 20 MG Tab PO SCH ×2 (09:08→20:14)
[2022-05-22] MEDS: Nystatin Crm 30 GM Tube TOP SCH ×3 (09:08→20:41)
[2022-05-22] MEDS: ALPRAZolam 0.25 MG Tab PO SCH ×2 (09:08→20:14)
[2022-05-22] MEDS: Meloxicam 7.5 MG Tab PO SCH (09:08)
[2022-05-22] MEDS: Insulin Glargine,Human Rec. Analog 100 Units/ML 3 ML Pen SUBCUT SCH (09:08)
[2022-05-22] MEDS: Polyethylene Glycol 3350 Powder 17 GM Packet PO SCH (09:08)
[2022-05-22] MEDS: Insulin Regular, Human 100 Units/ML 3 ML Vial SUBCUT SCH ×4 (09:10→21:03)
[2022-05-22] MEDS: Dexamethasone/Neomycin/Polymyxin B Ophth Oint 3.5 GM Tube EYEBOTH PRN (09:12)
[2022-05-22] MEDS: Nystatin Topical Powder 15 GM Bottle TOP SCH ×3 (09:18→20:40)
[2022-05-22] MEDS: Fenofibrate Nanocrystallized 145 MG Tab PO SCH (09:19)
[2022-05-22] MEDS: TERBINAFINE HCL 250 MG PO SCH (09:20)
[2022-05-22] MEDS: CYANOCOBALAMIN PO SCH (09:21)
[2022-05-22] MEDS: FOLIC ACID PO SCH (09:21)
[2022-05-22] MEDS: busPIRone 15 MG Tab PO SCH ×2 (09:22→20:13)
[2022-05-22] MEDS: Sertraline 50 MG Tab PO SCH (09:47)
[2022-05-22] MEDS: traZODone 50 MG Tab PO SCH (20:14)
[2022-05-22] MEDS: Rosuvastatin 10 MG Tab PO SCH (20:14)
[2022-05-22] MEDS: Gabapentin 100 MG Cap PO SCH (20:14)
[2022-05-22] MEDS: Cetirizine 10 MG Tab PO SCH (20:14)
[2022-05-22] MEDS ORDERED: Acetaminophen/oxyCODONE 325-5 MG Tab ONE (20:17)
[2022-05-23] MEDS: Heparin Sodium 5,000 Units/ML Vial SUBCUT SCH ×3 (05:42→21:21)
[2022-05-23] MEDS: Metoprolol Succinate 50 MG Tab.ER PO SCH (10:00)
[2022-05-23] MEDS: Insulin Glargine,Human Rec. Analog 100 Units/ML 3 ML Pen SUBCUT SCH (10:00)
[2022-05-23] MEDS: Aspirin 81 MG Tab.EC PO SCH (10:00)
[2022-05-23] MEDS: busPIRone 15 MG Tab PO SCH ×2 (10:03→20:59)
[2022-05-23] MEDS: Fenofibrate Nanocrystallized 145 MG Tab PO SCH (10:03)
[2022-05-23] MEDS: Torsemide 20 MG Tab PO SCH ×2 (10:04→21:00)
[2022-05-23] MEDS: Tamsulosin 0.4 MG Cap.ER PO SCH (10:04)
[2022-05-23] MEDS: Docusate Sodium 100 MG Cap PO SCH ×3 (10:04→21:06)
[2022-05-23] MEDS: Polyethylene Glycol 3350 Powder 17 GM Packet PO SCH ×2 (10:05→10:10)
[2022-05-23] MEDS: ALPRAZolam 0.25 MG Tab PO SCH ×2 (10:05→21:00)
[2022-05-23] MEDS: Potassium Chloride 20 MEQ Tab.ER PO SCH (10:05)
[2022-05-23] MEDS: Trospium 20 MG Tab PO SCH ×2 (10:05→21:00)
[2022-05-23] MEDS: Meloxicam 7.5 MG Tab PO SCH (10:05)
[2022-05-23] MEDS: Nystatin Topical Powder 15 GM Bottle TOP SCH ×3 (10:05→21:10)
[2022-05-23] MEDS: FOLIC ACID PO SCH (10:06)
[2022-05-23] MEDS: CYANOCOBALAMIN PO SCH (10:06)
[2022-05-23] MEDS: Nystatin Crm 30 GM Tube TOP SCH ×3 (10:06→21:19)
[2022-05-23] MEDS: TERBINAFINE HCL 250 MG PO SCH (10:07)
[2022-05-23] MEDS: Insulin Regular, Human 100 Units/ML 3 ML Vial SUBCUT SCH ×4 (10:11→22:17)
[2022-05-23] MEDS ORDERED: hydrOXYzine HCl 25 MG Tab PO ONE (11:27)
[2022-05-23] MEDS: Cetirizine 10 MG Tab PO SCH (20:59)
[2022-05-23] MEDS: Rosuvastatin 10 MG Tab PO SCH (21:00)
[2022-05-23] MEDS: hydrOXYzine HCl 25 MG Tab PO SCH (21:00)
[2022-05-23] MEDS: traZODone 50 MG Tab PO SCH (21:01)
[2022-05-23] MEDS: Dexamethasone/Neomycin/Polymyxin B Ophth Oint 3.5 GM Tube EYEBOTH PRN (21:01)
[2022-05-23] MEDS: Gabapentin 100 MG Cap PO SCH (21:06)
[2022-05-24] MEDS: Heparin Sodium 5,000 Units/ML Vial SUBCUT SCH ×3 (05:34→22:09)
[2022-05-24] MEDS: Nystatin Topical Powder 15 GM Bottle TOP SCH ×4 (08:48→21:28)
[2022-05-24] MEDS: Insulin Regular, Human 100 Units/ML 3 ML Vial SUBCUT SCH ×4 (08:49→22:09)
[2022-05-24] MEDS: Nystatin Crm 30 GM Tube TOP SCH ×4 (08:49→21:27)
[2022-05-24] MEDS: Insulin Glargine,Human Rec. Analog 100 Units/ML 3 ML Pen SUBCUT SCH (08:50)
[2022-05-24] MEDS: Meloxicam 7.5 MG Tab PO SCH (08:50)
[2022-05-24] MEDS: Trospium 20 MG Tab PO SCH ×3 (08:51→21:28)
[2022-05-24] MEDS: Tamsulosin 0.4 MG Cap.ER PO SCH (08:52)
[2022-05-24] MEDS: Metoprolol Succinate 50 MG Tab.ER PO SCH (08:52)
[2022-05-24] MEDS: busPIRone 15 MG Tab PO SCH ×2 (08:53→21:27)
[2022-05-24] MEDS: Potassium Chloride 20 MEQ Tab.ER PO SCH (08:53)
[2022-05-24] MEDS: Torsemide 20 MG Tab PO SCH ×3 (08:53→21:27)
[2022-05-24] MEDS: Aspirin 81 MG Tab.EC PO SCH (08:54)
[2022-05-24] MEDS: hydrOXYzine HCl 25 MG Tab PO SCH ×3 (08:54→21:27)
[2022-05-24] MEDS: Fenofibrate Nanocrystallized 145 MG Tab PO SCH (08:54)
[2022-05-24] MEDS: Polyethylene Glycol 3350 Powder 17 GM Packet PO SCH (09:03)
[2022-05-24] MEDS: Docusate Sodium 100 MG Cap PO SCH ×3 (09:03→21:27)
[2022-05-24] MEDS: FOLIC ACID PO SCH (09:04)
[2022-05-24] MEDS: TERBINAFINE HCL 250 MG PO SCH (09:04)
[2022-05-24] MEDS: ALPRAZolam 0.25 MG Tab PO SCH ×3 (09:04→21:28)
[2022-05-24] MEDS: CYANOCOBALAMIN PO SCH (09:04)
[2022-05-24] MEDS: Sertraline 50 MG Tab PO SCH (09:50)
[2022-05-24] MEDS ORDERED: Magnesium Hydroxide 400 MG/5 ML Susp 30 ML Cup PO ONE (11:04)
[2022-05-24] MEDS: Dexamethasone/Neomycin/Polymyxin B Ophth Oint 3.5 GM Tube EYEBOTH PRN (11:41)
[2022-05-24] MEDS: Melatonin 3 MG Tab PO SCH ×2 (19:35→21:27)
[2022-05-24] MEDS: Cetirizine 10 MG Tab PO SCH ×2 (19:35→21:28)
[2022-05-24] MEDS: Rosuvastatin 10 MG Tab PO SCH ×2 (19:35→21:27)
[2022-05-24] MEDS: FLUoxetine 20 MG Cap PO SCH ×2 (19:36→21:28)
[2022-05-24] MEDS: traZODone 50 MG Tab PO SCH ×2 (19:36→21:28)
[2022-05-24] MEDS: Gabapentin 100 MG Cap PO SCH ×2 (19:36→21:27)
[2022-05-25] MEDS: Heparin Sodium 5,000 Units/ML Vial SUBCUT SCH ×3 (05:11→22:19)
[2022-05-25] MEDS: Insulin Glargine,Human Rec. Analog 100 Units/ML 3 ML Pen SUBCUT SCH (08:09)
[2022-05-25] MEDS: Metoprolol Succinate 50 MG Tab.ER PO SCH (09:04)
[2022-05-25] MEDS: Aspirin 81 MG Tab.EC PO SCH (09:05)
[2022-05-25] MEDS: Torsemide 20 MG Tab PO SCH ×3 (09:06→20:02)
[2022-05-25] MEDS: hydrOXYzine HCl 25 MG Tab PO SCH ×2 (09:06→19:59)
[2022-05-25] MEDS: busPIRone 15 MG Tab PO SCH ×3 (09:07→20:02)
[2022-05-25] MEDS: Sertraline 50 MG Tab PO SCH (09:07)
[2022-05-25] MEDS: Fenofibrate Nanocrystallized 145 MG Tab PO SCH (09:07)
[2022-05-25] MEDS: Meloxicam 7.5 MG Tab PO SCH (09:08)
[2022-05-25] MEDS: Potassium Chloride 20 MEQ Tab.ER PO SCH (09:08)
[2022-05-25] MEDS: ALPRAZolam 0.25 MG Tab PO SCH ×3 (09:08→20:02)
[2022-05-25] MEDS: Tamsulosin 0.4 MG Cap.ER PO SCH ×2 (09:09→18:17)
[2022-05-25] MEDS: Trospium 20 MG Tab PO SCH ×3 (09:09→20:02)
[2022-05-25] MEDS: Docusate Sodium 100 MG Cap PO SCH ×3 (09:10→20:02)
[2022-05-25] MEDS: Insulin Regular, Human 100 Units/ML 3 ML Vial SUBCUT SCH ×4 (09:10→22:20)
[2022-05-25] MEDS: Polyethylene Glycol 3350 Powder 17 GM Packet PO SCH (09:11)
[2022-05-25] MEDS: TERBINAFINE HCL 250 MG PO SCH (09:12)
[2022-05-25] MEDS: CYANOCOBALAMIN PO SCH (09:12)
[2022-05-25] MEDS: FOLIC ACID PO SCH (09:12)
[2022-05-25] MEDS: Nystatin Crm 30 GM Tube TOP SCH ×3 (10:11→20:02)
[2022-05-25] MEDS: Nystatin Topical Powder 15 GM Bottle TOP SCH ×3 (10:11→19:59)
[2022-05-25] MEDS: Dexamethasone/Neomycin/Polymyxin B Ophth Oint 3.5 GM Tube EYEBOTH PRN ×2 (10:12→19:59)
[2022-05-25] MEDS: FLUoxetine 20 MG Cap PO SCH ×2 (19:57→20:02)
[2022-05-25] MEDS: traZODone 50 MG Tab PO SCH ×2 (19:58→20:54)
[2022-05-25] MEDS: Cetirizine 10 MG Tab PO SCH ×2 (19:58→20:54)
[2022-05-25] MEDS: Gabapentin 100 MG Cap PO SCH ×2 (19:58→20:02)
[2022-05-25] MEDS: Melatonin 3 MG Tab PO SCH (19:59)
[2022-05-25] MEDS: Rosuvastatin 10 MG Tab PO SCH (19:59)
[2022-05-26] MEDS: Heparin Sodium 5,000 Units/ML Vial SUBCUT SCH ×3 (06:39→22:33)
[2022-05-26] MEDS: Insulin Glargine,Human Rec. Analog 100 Units/ML 3 ML Pen SUBCUT SCH (08:56)
[2022-05-26] MEDS: Polyethylene Glycol 3350 Powder 17 GM Packet PO SCH (08:57)
[2022-05-26] MEDS: Meloxicam 7.5 MG Tab PO SCH (08:57)
[2022-05-26] MEDS: Docusate Sodium 100 MG Cap PO SCH ×2 (08:58→20:13)
[2022-05-26] MEDS: Tamsulosin 0.4 MG Cap.ER PO SCH ×2 (08:58→18:04)
[2022-05-26] MEDS: hydrOXYzine HCl 25 MG Tab PO SCH ×3 (08:58→20:13)
[2022-05-26] MEDS: Torsemide 20 MG Tab PO SCH ×2 (08:58→20:13)
[2022-05-26] MEDS: Topiramate 25 MG Tab PO SCH ×3 (08:59→20:13)
[2022-05-26] MEDS: Fenofibrate Nanocrystallized 145 MG Tab PO SCH (08:59)
[2022-05-26] MEDS: ALPRAZolam 0.25 MG Tab PO SCH ×2 (08:59→20:14)
[2022-05-26] MEDS: Aspirin 81 MG Tab.EC PO SCH (08:59)
[2022-05-26] MEDS: Potassium Chloride 20 MEQ Tab.ER PO SCH (08:59)
[2022-05-26] MEDS: Trospium 20 MG Tab PO SCH ×2 (09:00→20:14)
[2022-05-26] MEDS: Insulin Regular, Human 100 Units/ML 3 ML Vial SUBCUT SCH ×4 (09:04→22:33)
[2022-05-26] MEDS: Metoprolol Succinate 50 MG Tab.ER PO SCH (09:05)
[2022-05-26] MEDS: Nystatin Topical Powder 15 GM Bottle TOP SCH ×3 (09:10→20:14)
[2022-05-26] MEDS: Dexamethasone/Neomycin/Polymyxin B Ophth Oint 3.5 GM Tube EYEBOTH PRN (09:10)
[2022-05-26] MEDS: CYANOCOBALAMIN PO SCH (09:11)
[2022-05-26] MEDS: FOLIC ACID PO SCH (09:11)
[2022-05-26] MEDS: TERBINAFINE HCL 250 MG PO SCH (09:11)
[2022-05-26] MEDS: Nystatin Crm 30 GM Tube TOP SCH ×3 (09:16→20:14)
[2022-05-26] MEDS: Albuterol/Ipratropium 3.0-0.5 MG/3 ML Neb Soln NEB PRN (16:10)
[2022-05-26] MEDS: FLUoxetine 20 MG Cap PO SCH (20:13)
[2022-05-26] MEDS: Cetirizine 10 MG Tab PO SCH (20:13)
[2022-05-26] MEDS: Gabapentin 100 MG Cap PO SCH (20:13)
[2022-05-26] MEDS: Melatonin 3 MG Tab PO SCH (20:14)
[2022-05-26] MEDS: traZODone 50 MG Tab PO SCH (20:14)
[2022-05-26] MEDS: Rosuvastatin 10 MG Tab PO SCH (20:14)
[2022-05-27] MEDS: Heparin Sodium 5,000 Units/ML Vial SUBCUT SCH ×3 (06:06→21:27)
[2022-05-27] MEDS: Insulin Glargine,Human Rec. Analog 100 Units/ML 3 ML Pen SUBCUT SCH (07:53)
[2022-05-27] MEDS: Metoprolol Succinate 50 MG Tab.ER PO SCH (08:02)
[2022-05-27] MEDS: Trospium 20 MG Tab PO SCH ×2 (08:04→20:57)
[2022-05-27] MEDS: Torsemide 20 MG Tab PO SCH ×2 (08:04→20:56)
[2022-05-27] MEDS: hydrOXYzine HCl 25 MG Tab PO SCH ×3 (08:04→20:57)
[2022-05-27] MEDS: ALPRAZolam 0.25 MG Tab PO SCH ×2 (08:04→20:57)
[2022-05-27] MEDS: Fenofibrate Nanocrystallized 145 MG Tab PO SCH (08:04)
[2022-05-27] MEDS: Meloxicam 7.5 MG Tab PO SCH (08:05)
[2022-05-27] MEDS: Tamsulosin 0.4 MG Cap.ER PO SCH ×2 (08:05→18:45)
[2022-05-27] MEDS: Potassium Chloride 20 MEQ Tab.ER PO SCH (08:05)
[2022-05-27] MEDS: Topiramate 25 MG Tab PO SCH ×3 (08:06→20:56)
[2022-05-27] MEDS: Polyethylene Glycol 3350 Powder 17 GM Packet PO SCH (08:06)
[2022-05-27] MEDS: Aspirin 81 MG Tab.EC PO SCH (08:06)
[2022-05-27] MEDS: Docusate Sodium 100 MG Cap PO SCH ×2 (08:06→20:57)
[2022-05-27] MEDS: Nystatin Crm 30 GM Tube TOP SCH ×3 (08:07→20:57)
[2022-05-27] MEDS: FOLIC ACID PO SCH (08:08)
[2022-05-27] MEDS: Nystatin Topical Powder 15 GM Bottle TOP SCH ×3 (08:08→21:03)
[2022-05-27] MEDS: TERBINAFINE HCL 250 MG PO SCH (08:08)
[2022-05-27] MEDS: CYANOCOBALAMIN PO SCH (08:08)
[2022-05-27] MEDS: Insulin Regular, Human 100 Units/ML 3 ML Vial SUBCUT SCH ×4 (08:13→21:21)
[2022-05-27] MEDS: Rosuvastatin 10 MG Tab PO SCH (20:56)
[2022-05-27] MEDS: Gabapentin 100 MG Cap PO SCH (20:56)
[2022-05-27] MEDS: traZODone 50 MG Tab PO SCH (20:56)
[2022-05-27] MEDS: Melatonin 3 MG Tab PO SCH (20:56)
[2022-05-27] MEDS: FLUoxetine 20 MG Cap PO SCH (20:56)
[2022-05-27] MEDS: Cetirizine 10 MG Tab PO SCH (21:08)
[2022-05-28] MEDS: Heparin Sodium 5,000 Units/ML Vial SUBCUT SCH ×3 (05:03→21:39)
[2022-05-28] MEDS: Acetaminophen 325 MG Tab PO PRN (07:18)
[2022-05-28] MEDS: Insulin Glargine,Human Rec. Analog 100 Units/ML 3 ML Pen SUBCUT SCH (10:07)
[2022-05-28] MEDS: Metoprolol Succinate 50 MG Tab.ER PO SCH (10:08)
[2022-05-28] MEDS: Aspirin 81 MG Tab.EC PO SCH (10:08)
[2022-05-28] MEDS: ALPRAZolam 0.25 MG Tab PO SCH ×2 (10:08→21:38)
[2022-05-28] MEDS: Topiramate 25 MG Tab PO SCH ×3 (10:08→21:38)
[2022-05-28] MEDS: Trospium 20 MG Tab PO SCH ×2 (10:08→21:38)
[2022-05-28] MEDS: Tamsulosin 0.4 MG Cap.ER PO SCH ×2 (10:08→18:19)
[2022-05-28] MEDS: Meloxicam 7.5 MG Tab PO SCH (10:08)
[2022-05-28] MEDS: Torsemide 20 MG Tab PO SCH ×2 (10:08→21:38)
[2022-05-28] MEDS: Polyethylene Glycol 3350 Powder 17 GM Packet PO SCH (10:09)
[2022-05-28] MEDS: Potassium Chloride 20 MEQ Tab.ER PO SCH (10:09)
[2022-05-28] MEDS: Fenofibrate Nanocrystallized 145 MG Tab PO SCH (10:09)
[2022-05-28] MEDS: Docusate Sodium 100 MG Cap PO SCH ×2 (10:09→21:38)
[2022-05-28] MEDS: Insulin Regular, Human 100 Units/ML 3 ML Vial SUBCUT SCH ×4 (10:09→21:40)
[2022-05-28] MEDS: hydrOXYzine HCl 25 MG Tab PO SCH ×3 (10:09→21:38)
[2022-05-28] MEDS: TERBINAFINE HCL 250 MG PO SCH (10:11)
[2022-05-28] MEDS: CYANOCOBALAMIN PO SCH (10:11)
[2022-05-28] MEDS: Nystatin Topical Powder 15 GM Bottle TOP SCH ×3 (10:11→21:39)
[2022-05-28] MEDS: FOLIC ACID PO SCH (10:11)
[2022-05-28] MEDS: Nystatin Crm 30 GM Tube TOP SCH ×3 (10:12→21:40)
[2022-05-28] MEDS: Melatonin 3 MG Tab PO SCH (21:38)
[2022-05-28] MEDS: FLUoxetine 20 MG Cap PO SCH (21:38)
[2022-05-28] MEDS: Gabapentin 100 MG Cap PO SCH (21:38)
[2022-05-28] MEDS: traZODone 50 MG Tab PO SCH (21:38)
[2022-05-28] MEDS: Cetirizine 10 MG Tab PO SCH (21:39)
[2022-05-28] MEDS: Rosuvastatin 10 MG Tab PO SCH (21:39)
[2022-05-29] MEDS: Heparin Sodium 5,000 Units/ML Vial SUBCUT SCH ×3 (05:04→21:01)
[2022-05-29] MEDS: Insulin Glargine,Human Rec. Analog 100 Units/ML 3 ML Pen SUBCUT SCH (09:02)
[2022-05-29] MEDS: Metoprolol Succinate 50 MG Tab.ER PO SCH (09:03)
[2022-05-29] MEDS: Topiramate 25 MG Tab PO SCH ×3 (09:06→20:49)
[2022-05-29] MEDS: Tamsulosin 0.4 MG Cap.ER PO SCH ×2 (09:06→17:57)
[2022-05-29] MEDS: Fenofibrate Nanocrystallized 145 MG Tab PO SCH (09:06)
[2022-05-29] MEDS: Docusate Sodium 100 MG Cap PO SCH ×2 (09:06→20:49)
[2022-05-29] MEDS: Aspirin 81 MG Tab.EC PO SCH (09:06)
[2022-05-29] MEDS: Meloxicam 7.5 MG Tab PO SCH (09:06)
[2022-05-29] MEDS: Potassium Chloride 20 MEQ Tab.ER PO SCH (09:06)
[2022-05-29] MEDS: Torsemide 20 MG Tab PO SCH ×2 (09:06→20:50)
[2022-05-29] MEDS: Trospium 20 MG Tab PO SCH ×2 (09:06→20:51)
[2022-05-29] MEDS: ALPRAZolam 0.25 MG Tab PO SCH ×2 (09:06→20:51)
[2022-05-29] MEDS: TERBINAFINE HCL 250 MG PO SCH (09:07)
[2022-05-29] MEDS: FOLIC ACID PO SCH (09:07)
[2022-05-29] MEDS: hydrOXYzine HCl 25 MG Tab PO SCH ×4 (09:07→20:52)
[2022-05-29] MEDS: CYANOCOBALAMIN PO SCH (09:07)
[2022-05-29] MEDS: Nystatin Topical Powder 15 GM Bottle TOP SCH ×4 (09:07→20:52)
[2022-05-29] MEDS: Nystatin Crm 30 GM Tube TOP SCH ×4 (09:07→20:52)
[2022-05-29] MEDS: Insulin Regular, Human 100 Units/ML 3 ML Vial SUBCUT SCH ×4 (09:08→21:00)
[2022-05-29] MEDS: Polyethylene Glycol 3350 Powder 17 GM Packet PO SCH (09:08)
[2022-05-29] MEDS: Carboxymethylcellulose Sodium 1% Ophth Gel 15 ML Bottle EYEBOTH PRN (18:19)
[2022-05-29] MEDS: FLUoxetine 20 MG Cap PO SCH (20:48)
[2022-05-29] MEDS: Gabapentin 100 MG Cap PO SCH (20:48)
[2022-05-29] MEDS: Cetirizine 10 MG Tab PO SCH (20:50)
[2022-05-29] MEDS: Rosuvastatin 10 MG Tab PO SCH (20:51)
[2022-05-29] MEDS: Melatonin 3 MG Tab PO SCH (20:51)
[2022-05-29] MEDS: traZODone 50 MG Tab PO SCH (20:51)
[2022-05-29] MEDS ORDERED: diphenhydrAMINE 50 MG Cap PO ONE (21:00)
[2022-05-30] MEDS: Aluminum Hydroxide/Magnesium Hydroxide/Simethicone Susp 30 ML Cup PO PRN ×2 (00:25→17:02)
[2022-05-30] MEDS: Heparin Sodium 5,000 Units/ML Vial SUBCUT SCH ×4 (05:57→22:09)
[2022-05-30] MEDS: Carboxymethylcellulose Sodium 1% Ophth Gel 15 ML Bottle EYEBOTH PRN (07:51)
[2022-05-30] MEDS: Insulin Glargine,Human Rec. Analog 100 Units/ML 3 ML Pen SUBCUT SCH (07:51)
[2022-05-30] MEDS: Insulin Regular, Human 100 Units/ML 3 ML Vial SUBCUT SCH ×4 (09:11→22:09)
[2022-05-30] MEDS: Nystatin Topical Powder 15 GM Bottle TOP SCH ×4 (09:13→20:11)
[2022-05-30] MEDS: Nystatin Crm 30 GM Tube TOP SCH ×4 (09:13→20:11)
[2022-05-30] MEDS: Topiramate 25 MG Tab PO SCH ×3 (09:14→20:10)
[2022-05-30] MEDS: Trospium 20 MG Tab PO SCH ×2 (09:14→20:11)
[2022-05-30] MEDS: Metoprolol Succinate 50 MG Tab.ER PO SCH (09:14)
[2022-05-30] MEDS: Aspirin 81 MG Tab.EC PO SCH (09:15)
[2022-05-30] MEDS: Docusate Sodium 100 MG Cap PO SCH ×2 (09:15→20:09)
[2022-05-30] MEDS: Tamsulosin 0.4 MG Cap.ER PO SCH ×2 (09:15→17:00)
[2022-05-30] MEDS: hydrOXYzine HCl 25 MG Tab PO SCH ×4 (09:15→20:08)
[2022-05-30] MEDS: Potassium Chloride 20 MEQ Tab.ER PO SCH (09:16)
[2022-05-30] MEDS: Torsemide 20 MG Tab PO SCH ×2 (09:16→20:10)
[2022-05-30] MEDS: ALPRAZolam 0.25 MG Tab PO SCH ×2 (09:16→20:10)
[2022-05-30] MEDS: Fenofibrate Nanocrystallized 145 MG Tab PO SCH (09:16)
[2022-05-30] MEDS: Meloxicam 7.5 MG Tab PO SCH (09:17)
[2022-05-30] MEDS: Polyethylene Glycol 3350 Powder 17 GM Packet PO SCH (09:18)
[2022-05-30] MEDS: FOLIC ACID PO SCH (09:18)
[2022-05-30] MEDS: CYANOCOBALAMIN PO SCH (09:18)
[2022-05-30] MEDS: TERBINAFINE HCL 250 MG PO SCH (09:19)
[2022-05-30] MEDS: Acetaminophen 325 MG Tab PO PRN (17:01)
[2022-05-30] MEDS: Cetirizine 10 MG Tab PO SCH (20:09)
[2022-05-30] MEDS: Rosuvastatin 10 MG Tab PO SCH (20:09)
[2022-05-30] MEDS: Melatonin 3 MG Tab PO SCH (20:10)
[2022-05-30] MEDS: Gabapentin 100 MG Cap PO SCH (20:10)
[2022-05-30] MEDS: traZODone 50 MG Tab PO SCH (20:12)
[2022-05-31] MEDS: Heparin Sodium 5,000 Units/ML Vial SUBCUT SCH ×4 (06:58→21:35)
[2022-05-31] MEDS: Insulin Glargine,Human Rec. Analog 100 Units/ML 3 ML Pen SUBCUT SCH (08:02)
[2022-05-31] MEDS: Carboxymethylcellulose Sodium 1% Ophth Gel 15 ML Bottle EYEBOTH PRN ×2 (08:43→22:55)
[2022-05-31] MEDS: Meloxicam 7.5 MG Tab PO SCH (09:08)
[2022-05-31] MEDS: Nystatin Topical Powder 15 GM Bottle TOP SCH ×4 (09:08→20:25)
[2022-05-31] MEDS: Nystatin Crm 30 GM Tube TOP SCH ×4 (09:08→20:25)
[2022-05-31] MEDS: ALPRAZolam 0.25 MG Tab PO SCH ×2 (09:09→20:22)
[2022-05-31] MEDS: Tamsulosin 0.4 MG Cap.ER PO SCH (09:09)
[2022-05-31] MEDS: Topiramate 25 MG Tab PO SCH ×3 (09:10→20:22)
[2022-05-31] MEDS: Docusate Sodium 100 MG Cap PO SCH ×2 (09:10→20:23)
[2022-05-31] MEDS: Fenofibrate Nanocrystallized 145 MG Tab PO SCH (09:10)
[2022-05-31] MEDS: Trospium 20 MG Tab PO SCH ×2 (09:11→20:21)
[2022-05-31] MEDS: Torsemide 20 MG Tab PO SCH ×2 (09:11→20:22)
[2022-05-31] MEDS: Aspirin 81 MG Tab.EC PO SCH (09:11)
[2022-05-31] MEDS: hydrOXYzine HCl 25 MG Tab PO SCH ×4 (09:11→20:23)
[2022-05-31] MEDS: Potassium Chloride 20 MEQ Tab.ER PO SCH (09:11)
[2022-05-31] MEDS: CYANOCOBALAMIN PO SCH (09:12)
[2022-05-31] MEDS: FOLIC ACID PO SCH (09:12)
[2022-05-31] MEDS: Metoprolol Succinate 50 MG Tab.ER PO SCH (09:12)
[2022-05-31] MEDS: TERBINAFINE HCL 250 MG PO SCH (09:13)
[2022-05-31] MEDS: Insulin Regular, Human 100 Units/ML 3 ML Vial SUBCUT SCH ×5 (09:13→21:35)
[2022-05-31] MEDS: Polyethylene Glycol 3350 Powder 17 GM Packet PO SCH (09:15)
[2022-05-31] MEDS: Aluminum Hydroxide/Magnesium Hydroxide/Simethicone Susp 30 ML Cup PO PRN (14:26)
[2022-05-31] MEDS: Rosuvastatin 10 MG Tab PO SCH (20:21)
[2022-05-31] MEDS: traZODone 50 MG Tab PO SCH (20:22)
[2022-05-31] MEDS: Cetirizine 10 MG Tab PO SCH (20:22)
[2022-05-31] MEDS: Gabapentin 100 MG Cap PO SCH (20:23)
[2022-05-31] MEDS: Melatonin 3 MG Tab PO SCH (20:23)
[2022-05-31] MEDS: Acetaminophen 325 MG Tab PO PRN (23:57)
[2022-06-01] MEDS: Heparin Sodium 5,000 Units/ML Vial SUBCUT SCH ×3 (06:35→21:36)
[2022-06-01] MEDS: hydrOXYzine HCl 25 MG Tab PO SCH ×4 (08:59→20:45)
[2022-06-01] MEDS: Insulin Glargine,Human Rec. Analog 100 Units/ML 3 ML Pen SUBCUT SCH (08:59)
[2022-06-01] MEDS: Meloxicam 7.5 MG Tab PO SCH (09:00)
[2022-06-01] MEDS: Torsemide 20 MG Tab PO SCH ×2 (09:00→20:43)
[2022-06-01] MEDS: Polyethylene Glycol 3350 Powder 17 GM Packet PO SCH (09:00)
[2022-06-01] MEDS: Tamsulosin 0.4 MG Cap.ER PO SCH (09:00)
[2022-06-01] MEDS: Aspirin 81 MG Tab.EC PO SCH (09:00)
[2022-06-01] MEDS: Insulin Regular, Human 100 Units/ML 3 ML Vial SUBCUT SCH ×4 (09:00→21:36)
[2022-06-01] MEDS: Docusate Sodium 100 MG Cap PO SCH ×2 (09:00→20:43)
[2022-06-01] MEDS: Potassium Chloride 20 MEQ Tab.ER PO SCH (09:00)
[2022-06-01] MEDS: Nystatin Topical Powder 15 GM Bottle TOP SCH ×4 (09:01→20:47)
[2022-06-01] MEDS: FOLIC ACID PO SCH (09:01)
[2022-06-01] MEDS: Topiramate 25 MG Tab PO SCH ×3 (09:01→20:47)
[2022-06-01] MEDS: CYANOCOBALAMIN PO SCH (09:01)
[2022-06-01] MEDS: TERBINAFINE HCL 250 MG PO SCH (09:01)
[2022-06-01] MEDS: Nystatin Crm 30 GM Tube TOP SCH ×4 (09:01→20:46)
[2022-06-01] MEDS: Metoprolol Succinate 50 MG Tab.ER PO SCH (09:01)
[2022-06-01] MEDS: Trospium 20 MG Tab PO SCH ×2 (09:01→20:47)
[2022-06-01] MEDS: Fenofibrate Nanocrystallized 145 MG Tab PO SCH (09:01)
[2022-06-01] MEDS: ALPRAZolam 0.25 MG Tab PO SCH ×2 (09:03→20:48)
[2022-06-01] MEDS: Rosuvastatin 10 MG Tab PO SCH (20:43)
[2022-06-01] MEDS: Melatonin 3 MG Tab PO SCH (20:45)
[2022-06-01] MEDS: Gabapentin 300 MG Cap PO SCH (20:46)
[2022-06-01] MEDS: Cetirizine 10 MG Tab PO SCH (20:48)
[2022-06-01] MEDS: traZODone 50 MG Tab PO SCH (20:48)
[2022-06-02] MEDS: Heparin Sodium 5,000 Units/ML Vial SUBCUT SCH ×3 (06:28→21:21)
[2022-06-02] MEDS: Torsemide 20 MG Tab PO SCH ×2 (08:41→20:03)
[2022-06-02] MEDS: ALPRAZolam 0.25 MG Tab PO SCH ×2 (08:41→20:03)
[2022-06-02] MEDS: Tamsulosin 0.4 MG Cap.ER PO SCH (08:42)
[2022-06-02] MEDS: Fenofibrate Nanocrystallized 145 MG Tab PO SCH (08:42)
[2022-06-02] MEDS: Metoprolol Succinate 50 MG Tab.ER PO SCH (08:42)
[2022-06-02] MEDS: Docusate Sodium 100 MG Cap PO SCH ×2 (08:48→20:03)
[2022-06-02] MEDS: hydrOXYzine HCl 25 MG Tab PO SCH ×4 (08:48→20:04)
[2022-06-02] MEDS: Potassium Chloride 20 MEQ Tab.ER PO SCH (08:48)
[2022-06-02] MEDS: Topiramate 25 MG Tab PO SCH ×3 (08:49→20:03)
[2022-06-02] MEDS: Meloxicam 7.5 MG Tab PO SCH (08:49)
[2022-06-02] MEDS: Aspirin 81 MG Tab.EC PO SCH (08:49)
[2022-06-02] MEDS: Polyethylene Glycol 3350 Powder 17 GM Packet PO SCH (08:50)
[2022-06-02] MEDS: Trospium 20 MG Tab PO SCH ×2 (08:50→20:03)
[2022-06-02] MEDS: Insulin Glargine,Human Rec. Analog 100 Units/ML 3 ML Pen SUBCUT SCH (08:50)
[2022-06-02] MEDS: Insulin Regular, Human 100 Units/ML 3 ML Vial SUBCUT SCH ×4 (08:51→21:25)
[2022-06-02] MEDS: Nystatin Topical Powder 15 GM Bottle TOP SCH ×4 (08:53→20:04)
[2022-06-02] MEDS: Nystatin Crm 30 GM Tube TOP SCH ×4 (08:53→20:04)
[2022-06-02] MEDS: TERBINAFINE HCL 250 MG PO SCH (13:25)
[2022-06-02] MEDS: CYANOCOBALAMIN PO SCH (13:25)
[2022-06-02] MEDS: FOLIC ACID PO SCH (13:25)
[2022-06-02] MEDS: Rosuvastatin 10 MG Tab PO SCH (20:03)
[2022-06-02] MEDS: traZODone 50 MG Tab PO SCH (20:03)
[2022-06-02] MEDS: Cetirizine 10 MG Tab PO SCH (20:03)
[2022-06-02] MEDS: Melatonin 3 MG Tab PO SCH (20:03)
[2022-06-02] MEDS: Gabapentin 300 MG Cap PO SCH (20:03)
[2022-06-02] MEDS: Aluminum Hydroxide/Magnesium Hydroxide/Simethicone Susp 30 ML Cup PO PRN (20:04)
[2022-06-03] MEDS: Heparin Sodium 5,000 Units/ML Vial SUBCUT SCH ×3 (06:15→21:03)
[2022-06-03] MEDS: Aspirin 81 MG Tab.EC PO SCH (08:19)
[2022-06-03] MEDS: Topiramate 25 MG Tab PO SCH ×3 (08:19→20:57)
[2022-06-03] MEDS: ALPRAZolam 0.25 MG Tab PO SCH ×2 (08:19→20:57)
[2022-06-03] MEDS: Tamsulosin 0.4 MG Cap.ER PO SCH (08:19)
[2022-06-03] MEDS: Potassium Chloride 20 MEQ Tab.ER PO SCH (08:19)
[2022-06-03] MEDS: Metoprolol Succinate 50 MG Tab.ER PO SCH (08:19)
[2022-06-03] MEDS: Trospium 20 MG Tab PO SCH ×2 (08:20→20:57)
[2022-06-03] MEDS: Docusate Sodium 100 MG Cap PO SCH ×2 (08:21→20:56)
[2022-06-03] MEDS: hydrOXYzine HCl 25 MG Tab PO SCH ×4 (08:21→20:57)
[2022-06-03] MEDS: Fenofibrate Nanocrystallized 145 MG Tab PO SCH (08:21)
[2022-06-03] MEDS: Torsemide 20 MG Tab PO SCH ×2 (08:21→20:57)
[2022-06-03] MEDS: Polyethylene Glycol 3350 Powder 17 GM Packet PO SCH (08:21)
[2022-06-03] MEDS: Insulin Regular, Human 100 Units/ML 3 ML Vial SUBCUT SCH (08:22)
[2022-06-03] MEDS: Meloxicam 7.5 MG Tab PO SCH (08:22)
[2022-06-03] MEDS: Insulin Glargine,Human Rec. Analog 100 Units/ML 3 ML Pen SUBCUT SCH (08:23)
[2022-06-03] MEDS: Nystatin Crm 30 GM Tube TOP SCH ×4 (08:26→20:58)
[2022-06-03] MEDS: Nystatin Topical Powder 15 GM Bottle TOP SCH ×4 (08:26→20:58)
[2022-06-03] MEDS: TERBINAFINE HCL 250 MG PO SCH (09:40)
[2022-06-03] MEDS: CYANOCOBALAMIN PO SCH (09:41)
[2022-06-03] MEDS: FOLIC ACID PO SCH (09:41)
[2022-06-03] MEDS ORDERED: Insulin Regular, Human 100 Units/ML 3 ML Vial SUBCUT SCH (16:00)
[2022-06-03] MEDS: Gabapentin 300 MG Cap PO SCH (20:56)
[2022-06-03] MEDS: Melatonin 3 MG Tab PO SCH (20:57)
[2022-06-03] MEDS: Cetirizine 10 MG Tab PO SCH (20:57)
[2022-06-03] MEDS: traZODone 50 MG Tab PO SCH (20:57)
[2022-06-03] MEDS: Rosuvastatin 10 MG Tab PO SCH (20:58)
[2022-06-04] MEDS: Heparin Sodium 5,000 Units/ML Vial SUBCUT SCH ×3 (06:56→21:00)
[2022-06-04] MEDS: Insulin Regular, Human 100 Units/ML 3 ML Vial SUBCUT SCH ×2 (08:11→17:47)
[2022-06-04] MEDS: Insulin Glargine,Human Rec. Analog 100 Units/ML 3 ML Pen SUBCUT SCH (08:13)
[2022-06-04] MEDS: Fenofibrate Nanocrystallized 145 MG Tab PO SCH (08:15)
[2022-06-04] MEDS: Tamsulosin 0.4 MG Cap.ER PO SCH (08:15)
[2022-06-04] MEDS: Polyethylene Glycol 3350 Powder 17 GM Packet PO SCH (08:15)
[2022-06-04] MEDS: Trospium 20 MG Tab PO SCH ×2 (08:15→20:58)
[2022-06-04] MEDS: hydrOXYzine HCl 25 MG Tab PO SCH ×4 (08:15→20:57)
[2022-06-04] MEDS: Topiramate 25 MG Tab PO SCH ×3 (08:15→20:57)
[2022-06-04] MEDS: Potassium Chloride 20 MEQ Tab.ER PO SCH (08:16)
[2022-06-04] MEDS: Docusate Sodium 100 MG Cap PO SCH ×2 (08:16→20:58)
[2022-06-04] MEDS: Metoprolol Succinate 50 MG Tab.ER PO SCH (08:16)
[2022-06-04] MEDS: Aspirin 81 MG Tab.EC PO SCH (08:16)
[2022-06-04] MEDS: Meloxicam 7.5 MG Tab PO SCH (08:16)
[2022-06-04] MEDS: Torsemide 20 MG Tab PO SCH ×2 (08:16→20:59)
[2022-06-04] MEDS: Nystatin Crm 30 GM Tube TOP SCH ×4 (08:17→21:11)
[2022-06-04] MEDS: Nystatin Topical Powder 15 GM Bottle TOP SCH ×4 (08:17→21:11)
[2022-06-04] MEDS: FOLIC ACID PO SCH (08:18)
[2022-06-04] MEDS: ALPRAZolam 0.25 MG Tab PO SCH ×2 (08:18→20:59)
[2022-06-04] MEDS: CYANOCOBALAMIN PO SCH (08:18)
[2022-06-04] MEDS: TERBINAFINE HCL 250 MG PO SCH (08:18)
[2022-06-04] MEDS: Gabapentin 300 MG Cap PO SCH (20:57)
[2022-06-04] MEDS: Cetirizine 10 MG Tab PO SCH (20:57)
[2022-06-04] MEDS: Rosuvastatin 10 MG Tab PO SCH (20:57)
[2022-06-04] MEDS: traZODone 50 MG Tab PO SCH (20:57)
[2022-06-04] MEDS: Melatonin 3 MG Tab PO SCH (20:59)
[2022-06-04] MEDS: Codeine/Promethazine 10-6.25 MG/5 ML Syrup 5 ML UD Cup PO PRN (21:09)
[2022-06-05] MEDS: Heparin Sodium 5,000 Units/ML Vial SUBCUT SCH ×3 (06:48→20:55)
[2022-06-05] MEDS: Docusate Sodium 100 MG Cap PO SCH ×2 (09:01→20:50)
[2022-06-05] MEDS: Tamsulosin 0.4 MG Cap.ER PO SCH (09:01)
[2022-06-05] MEDS: Fenofibrate Nanocrystallized 145 MG Tab PO SCH (09:01)
[2022-06-05] MEDS: hydrOXYzine HCl 25 MG Tab PO SCH ×4 (09:01→20:48)
[2022-06-05] MEDS: Torsemide 20 MG Tab PO SCH ×2 (09:01→20:48)
[2022-06-05] MEDS: Topiramate 25 MG Tab PO SCH ×3 (09:01→20:49)
[2022-06-05] MEDS: Potassium Chloride 20 MEQ Tab.ER PO SCH (09:01)
[2022-06-05] MEDS: Aspirin 81 MG Tab.EC PO SCH (09:02)
[2022-06-05] MEDS: Metoprolol Succinate 50 MG Tab.ER PO SCH (09:02)
[2022-06-05] MEDS: Meloxicam 7.5 MG Tab PO SCH (09:04)
[2022-06-05] MEDS: Trospium 20 MG Tab PO SCH ×2 (09:04→20:50)
[2022-06-05] MEDS: Polyethylene Glycol 3350 Powder 17 GM Packet PO SCH (09:04)
[2022-06-05] MEDS: ALPRAZolam 0.25 MG Tab PO SCH ×2 (09:04→20:49)
[2022-06-05] MEDS: Insulin Regular, Human 100 Units/ML 3 ML Vial SUBCUT SCH ×2 (09:05→17:48)
[2022-06-05] MEDS: Insulin Glargine,Human Rec. Analog 100 Units/ML 3 ML Pen SUBCUT SCH (09:07)
[2022-06-05] MEDS: Nystatin Topical Powder 15 GM Bottle TOP SCH ×4 (09:08→20:51)
[2022-06-05] MEDS: Nystatin Crm 30 GM Tube TOP SCH ×4 (09:09→20:50)
[2022-06-05] MEDS: CYANOCOBALAMIN PO SCH (09:16)
[2022-06-05] MEDS: TERBINAFINE HCL 250 MG PO SCH (09:16)
[2022-06-05] MEDS: FOLIC ACID PO SCH (09:16)
[2022-06-05] MEDS: oxyCODONE 5 MG Tab PO PRN (10:49)
[2022-06-05] MEDS: Melatonin 3 MG Tab PO SCH (20:49)
[2022-06-05] MEDS: traZODone 50 MG Tab PO SCH (20:49)
[2022-06-05] MEDS: Rosuvastatin 10 MG Tab PO SCH (20:49)
[2022-06-05] MEDS: Cetirizine 10 MG Tab PO SCH (20:49)
[2022-06-05] MEDS: Gabapentin 300 MG Cap PO SCH (20:50)
[2022-06-06] MEDS: Codeine/Promethazine 10-6.25 MG/5 ML Syrup 5 ML UD Cup PO PRN (02:57)
[2022-06-06] MEDS: Heparin Sodium 5,000 Units/ML Vial SUBCUT SCH ×4 (02:57→21:51)
[2022-06-06] MEDS: Insulin Regular, Human 100 Units/ML 3 ML Vial SUBCUT SCH ×2 (08:04→17:31)
[2022-06-06] MEDS: Tamsulosin 0.4 MG Cap.ER PO SCH (08:05)
[2022-06-06] MEDS: Trospium 20 MG Tab PO SCH ×2 (08:05→20:06)
[2022-06-06] MEDS: Meloxicam 7.5 MG Tab PO SCH (08:05)
[2022-06-06] MEDS: Metoprolol Succinate 50 MG Tab.ER PO SCH (08:06)
[2022-06-06] MEDS: Fenofibrate Nanocrystallized 145 MG Tab PO SCH (08:09)
[2022-06-06] MEDS: Docusate Sodium 100 MG Cap PO SCH ×2 (08:09→20:06)
[2022-06-06] MEDS: Torsemide 20 MG Tab PO SCH ×2 (08:09→20:06)
[2022-06-06] MEDS: ALPRAZolam 0.25 MG Tab PO SCH ×2 (08:09→20:07)
[2022-06-06] MEDS: Potassium Chloride 20 MEQ Tab.ER PO SCH (08:09)
[2022-06-06] MEDS: Topiramate 25 MG Tab PO SCH ×3 (08:09→20:06)
[2022-06-06] MEDS: Aspirin 81 MG Tab.EC PO SCH (08:09)
[2022-06-06] MEDS: Insulin Glargine,Human Rec. Analog 100 Units/ML 3 ML Pen SUBCUT SCH (08:09)
[2022-06-06] MEDS: hydrOXYzine HCl 25 MG Tab PO SCH ×4 (08:09→20:06)
[2022-06-06] MEDS: Nystatin Crm 30 GM Tube TOP SCH ×4 (08:17→20:07)
[2022-06-06] MEDS: Nystatin Topical Powder 15 GM Bottle TOP SCH ×4 (08:17→20:07)
[2022-06-06] MEDS: Polyethylene Glycol 3350 Powder 17 GM Packet PO SCH (08:17)
[2022-06-06] MEDS: FOLIC ACID PO SCH (08:18)
[2022-06-06] MEDS: CYANOCOBALAMIN PO SCH (08:18)
[2022-06-06] MEDS: TERBINAFINE HCL 250 MG PO SCH (08:18)
[2022-06-06] MEDS: Cetirizine 10 MG Tab PO SCH (20:06)
[2022-06-06] MEDS: ARIPiprazole 5 MG Tab PO SCH (20:06)
[2022-06-06] MEDS: traZODone 50 MG Tab PO SCH (20:06)
[2022-06-06] MEDS: Rosuvastatin 10 MG Tab PO SCH (20:07)
[2022-06-06] MEDS: Gabapentin 300 MG Cap PO SCH (20:07)
[2022-06-06] MEDS: Melatonin 3 MG Tab PO SCH (20:07)
[2022-06-06] MEDS: Diclofenac Sodium 1% Gel 100 GM Tube TOP PRN (20:08)
[2022-06-07] MEDS: Heparin Sodium 5,000 Units/ML Vial SUBCUT SCH ×3 (05:04→22:00)
[2022-06-07] MEDS: Insulin Regular, Human 100 Units/ML 3 ML Vial SUBCUT SCH ×2 (10:26→17:35)
[2022-06-07] MEDS: Meloxicam 7.5 MG Tab PO SCH (10:27)
[2022-06-07] MEDS: Insulin Glargine,Human Rec. Analog 100 Units/ML 3 ML Pen SUBCUT SCH (10:27)
[2022-06-07] MEDS: Aspirin 81 MG Tab.EC PO SCH (10:27)
[2022-06-07] MEDS: Polyethylene Glycol 3350 Powder 17 GM Packet PO SCH (10:27)
[2022-06-07] MEDS: Fenofibrate Nanocrystallized 145 MG Tab PO SCH (10:27)
[2022-06-07] MEDS: Tamsulosin 0.4 MG Cap.ER PO SCH (10:28)
[2022-06-07] MEDS: Docusate Sodium 100 MG Cap PO SCH ×2 (10:28→20:35)
[2022-06-07] MEDS: Potassium Chloride 20 MEQ Tab.ER PO SCH (10:28)
[2022-06-07] MEDS: Nystatin Crm 30 GM Tube TOP SCH ×4 (10:28→20:35)
[2022-06-07] MEDS: hydrOXYzine HCl 25 MG Tab PO SCH ×4 (10:28→20:35)
[2022-06-07] MEDS: Torsemide 20 MG Tab PO SCH ×2 (10:28→20:32)
[2022-06-07] MEDS: FOLIC ACID PO SCH (10:29)
[2022-06-07] MEDS: TERBINAFINE HCL 250 MG PO SCH (10:29)
[2022-06-07] MEDS: Nystatin Topical Powder 15 GM Bottle TOP SCH ×4 (10:29→20:35)
[2022-06-07] MEDS: CYANOCOBALAMIN PO SCH (10:29)
[2022-06-07] MEDS: Metoprolol Succinate 50 MG Tab.ER PO SCH (10:30)
[2022-06-07] MEDS: Trospium 20 MG Tab PO SCH ×2 (10:30→20:32)
[2022-06-07] MEDS: Topiramate 25 MG Tab PO SCH ×3 (10:30→20:32)
[2022-06-07] MEDS: ALPRAZolam 0.25 MG Tab PO SCH ×2 (10:30→20:32)
[2022-06-07] MEDS: Melatonin 3 MG Tab PO SCH (20:00)
[2022-06-07] MEDS: ARIPiprazole 5 MG Tab PO SCH (20:32)
[2022-06-07] MEDS: Cetirizine 10 MG Tab PO SCH (20:32)
[2022-06-07] MEDS: Rosuvastatin 10 MG Tab PO SCH (20:32)
[2022-06-07] MEDS: traZODone 50 MG Tab PO SCH (20:33)
[2022-06-07] MEDS: Gabapentin 300 MG Cap PO SCH (20:35)
[2022-06-08] MEDS: Heparin Sodium 5,000 Units/ML Vial SUBCUT SCH ×3 (05:37→21:28)
[2022-06-08] MEDS: Insulin Regular, Human 100 Units/ML 3 ML Vial SUBCUT SCH ×2 (08:32→17:46)
[2022-06-08] MEDS: Torsemide 20 MG Tab PO SCH ×2 (08:33→20:08)
[2022-06-08] MEDS: Aspirin 81 MG Tab.EC PO SCH (08:34)
[2022-06-08] MEDS: Metoprolol Succinate 50 MG Tab.ER PO SCH (08:34)
[2022-06-08] MEDS: hydrOXYzine HCl 25 MG Tab PO SCH ×4 (08:34→20:07)
[2022-06-08] MEDS: Docusate Sodium 100 MG Cap PO SCH ×2 (08:34→20:08)
[2022-06-08] MEDS: Tamsulosin 0.4 MG Cap.ER PO SCH (08:34)
[2022-06-08] MEDS: ALPRAZolam 0.25 MG Tab PO SCH ×2 (08:34→20:07)
[2022-06-08] MEDS: Topiramate 25 MG Tab PO SCH ×3 (08:34→20:07)
[2022-06-08] MEDS: Meloxicam 7.5 MG Tab PO SCH (08:34)
[2022-06-08] MEDS: Trospium 20 MG Tab PO SCH ×2 (08:34→20:08)
[2022-06-08] MEDS: Fenofibrate Nanocrystallized 145 MG Tab PO SCH (08:34)
[2022-06-08] MEDS: Insulin Glargine,Human Rec. Analog 100 Units/ML 3 ML Pen SUBCUT SCH (08:35)
[2022-06-08] MEDS: Potassium Chloride 20 MEQ Tab.ER PO SCH (08:35)
[2022-06-08] MEDS: Nystatin Crm 30 GM Tube TOP SCH ×4 (08:38→20:08)
[2022-06-08] MEDS: FOLIC ACID PO SCH (08:39)
[2022-06-08] MEDS: TERBINAFINE HCL 250 MG PO SCH (08:39)
[2022-06-08] MEDS: Nystatin Topical Powder 15 GM Bottle TOP SCH ×4 (08:39→20:08)
[2022-06-08] MEDS: CYANOCOBALAMIN PO SCH (08:39)
[2022-06-08] MEDS: Polyethylene Glycol 3350 Powder 17 GM Packet PO SCH (09:14)
[2022-06-08] MEDS ORDERED: Dexamethasone/Neomycin/Polymyxin B Ophth Oint 3.5 GM Tube EYEBOTH PRN (11:45)
[2022-06-08] MEDS ORDERED: Albuterol 6.7 GM Inhaler INH PRN (11:45)
[2022-06-08] MEDS ORDERED: Diclofenac Sodium 1% Gel 100 GM Tube TOP PRN (11:46)
[2022-06-08] MEDS ORDERED: Acetaminophen 325 MG Tab PO PRN (11:46)
[2022-06-08] MEDS ORDERED: Codeine/Promethazine 10-6.25 MG/5 ML Syrup 5 ML UD Cup PO PRN (11:48)
[2022-06-08] MEDS: traZODone 50 MG Tab PO SCH (20:07)
[2022-06-08] MEDS: Melatonin 3 MG Tab PO SCH (20:07)
[2022-06-08] MEDS: Rosuvastatin 10 MG Tab PO SCH (20:08)
[2022-06-08] MEDS: Cetirizine 10 MG Tab PO SCH (20:08)
[2022-06-08] MEDS: Gabapentin 300 MG Cap PO SCH (20:08)
[2022-06-08] MEDS: ARIPiprazole 5 MG Tab PO SCH (20:08)
[2022-06-09] MEDS: Heparin Sodium 5,000 Units/ML Vial SUBCUT SCH (05:33)
[2022-06-09] MEDS ORDERED: Potassium Chloride 20 MEQ Tab.ER PO SCH (09:00)
[2022-06-09] MEDS ORDERED: CYANOCOBALAMIN PO SCH (09:00)
[2022-06-09] MEDS ORDERED: TERBINAFINE HCL 250 MG PO SCH (09:00)
[2022-06-09] MEDS ORDERED: Aspirin 81 MG Tab.EC PO SCH (09:00)
[2022-06-09] MEDS ORDERED: FOLIC ACID PO SCH (09:00)
[2022-06-09] MEDS ORDERED: Fenofibrate Nanocrystallized 145 MG Tab PO SCH (09:00)
[2022-06-09] MEDS ORDERED: Meloxicam 7.5 MG Tab PO SCH (09:00)
[2022-06-09] MEDS: Insulin Regular, Human 100 Units/ML 3 ML Vial SUBCUT SCH (09:30)
[2022-06-09] MEDS: Torsemide 20 MG Tab PO SCH (09:32)
[2022-06-09] MEDS: Metoprolol Succinate 50 MG Tab.ER PO SCH ×2 (09:38→10:05)
[2022-06-09] MEDS: Topiramate 25 MG Tab PO SCH (09:47)
[2022-06-09] MEDS: Tamsulosin 0.4 MG Cap.ER PO SCH (09:47)
[2022-06-09] MEDS: Nystatin Topical Powder 15 GM Bottle TOP SCH (09:48)
[2022-06-09] MEDS: hydrOXYzine HCl 25 MG Tab PO SCH (09:48)
[2022-06-09] MEDS: ALPRAZolam 0.25 MG Tab PO SCH (09:48)
[2022-06-09] MEDS: Docusate Sodium 100 MG Cap PO SCH (09:48)
[2022-06-09] MEDS: Nystatin Crm 30 GM Tube TOP SCH (09:49)
[2022-06-09] MEDS: Polyethylene Glycol 3350 Powder 17 GM Packet PO SCH (09:51)
[2022-06-09] MEDS: Insulin Glargine,Human Rec. Analog 100 Units/ML 3 ML Pen SUBCUT SCH (09:51)
[2022-06-09] MEDS: Trospium 20 MG Tab PO SCH (10:01)
[2022-06-09 10:06] VITALS: BP 121/80; PULSE 59
[2022-06-09] MEDS ORDERED: FLU Vacc QS2022(65UP)/MF59C/PF 60 MCG/0.5 ML Syringe IM ONE (12:30)
== END 2022-06-09 12:30 | disposition other institution (70) | DRG 884 ==
LOC: JD.ED 11:40 → JD.MS 18:12
PROVIDERS: ADMIT Internal Medicine; ATTEND Internal Medicine
DX: R40.4 Transient alteration of awareness (principal); Z68.41 Body mass index [BMI] 40.0-44.9, adult; S00.81XA Abrasion of other part of head, initial encounter; F31.60 Bipolar disorder, current episode mixed, unspecified; R06.89 Other abnormalities of breathing; R29.6 Repeated falls; R53.1 Weakness; E11.9 Type 2 diabetes mellitus without complications; E66.9 Obesity, unspecified; F43.22 Adjustment disorder with anxiety; N40.0 Benign prostatic hyperplasia without lower urinary tract symptoms; R05.1 Acute cough; R09.02 Hypoxemia; Z79.899 Other long term (current) drug therapy; R42 Dizziness and giddiness; Z89.201 Acquired absence of right upper limb, unspecified level; W07.XXXA Fall from chair, initial encounter; M54.10 Radiculopathy, site unspecified; M54.50 Low back pain, unspecified; K21.9 Gastro-esophageal reflux disease without esophagitis; N40.1 Benign prostatic hyperplasia with lower urinary tract symptoms; R33.8 Other retention of urine; R35.0 Frequency of micturition; E66.01 Morbid (severe) obesity due to excess calories; G47.33 Obstructive sleep apnea (adult) (pediatric); J44.9 Chronic obstructive pulmonary disease, unspecified; I87.2 Venous insufficiency (chronic) (peripheral); L29.9 Pruritus, unspecified; F29 Unspecified psychosis not due to a substance or known physiological condition; E78.5 Hyperlipidemia, unspecified; Z20.822 Contact with and (suspected) exposure to COVID-19; Z96.653 Presence of artificial knee joint, bilateral; I10 Essential (primary) hypertension; K64.1 Second degree hemorrhoids; Z86.73 Personal history of transient ischemic attack (TIA), and cerebral infarction without residual deficits; Z87.19 Personal history of other diseases of the digestive system; Z89.211 Acquired absence of right upper limb below elbow; Z99.81 Dependence on supplemental oxygen; Z79.52 Long term (current) use of systemic steroids; Z79.1 Long term (current) use of non-steroidal anti-inflammatories (NSAID); Z79.82 Long term (current) use of aspirin; Z79.4 Long term (current) use of insulin; Z91.010 Allergy to peanuts; Z91.09 Other allergy status, other than to drugs and biological substances; Z88.1 Allergy status to other antibiotic agents; Z97.3 Presence of spectacles and contact lenses; Z90.89 Acquired absence of other organs; Z98.890 Other specified postprocedural states; W17.89XA Other fall from one level to another, initial encounter; Y92.099 Unspecified place in other non-institutional residence as the place of occurrence of the external cause
CPT/HCPCS: 0241U; 36415; 36600; 51798; 70450; 71045; 73030; 73562; 73590; 73610; 80048; 80053; 81001; 82803; 82947; 83036; 83735; 84153; 85025; 86140; 90694; 92523; 94640; 94660; 94760; 94761; 97110; 97116; 97162; 97166; 97530; 99285; 36410; 76937; 90792; 99222; 99231; 99232; 99233; 99239; 99284; A9270-GY; J1644; J1815-GY; J3490; J7120; J7620-GY; Q0163

== ENCOUNTER 2022-06-18 12:42 | Emergency (ER) | payer MEDICARE, OTHER ==
[2022-06-18] MEDS ORDERED: Sodium Chloride 0.9% 1,000 ML IV ONE ×2 (13:13→15:58)
[2022-06-18 14:33] LABS: ESTIMATED GFR 13 mL/min (>60)
[2022-06-18 15:23] LABS: CORONAVIRUS COVID-19 NAA NEGATIVE (NEGATIVE)
[2022-06-18] MEDS ORDERED: LORazepam 2 MG/ML SDV IVPUSH ONE ×2 (17:03→20:28)
[2022-06-18 21:17] VITALS: BP 112/63; PULSE 89
== END 2022-06-18 20:27 ==
LOC: JD.ED 12:42
DX: I95.9 Hypotension, unspecified (principal); N17.9 Acute kidney failure, unspecified; I10 Essential (primary) hypertension; J44.9 Chronic obstructive pulmonary disease, unspecified; E78.00 Pure hypercholesterolemia, unspecified; K21.9 Gastro-esophageal reflux disease without esophagitis; N40.0 Benign prostatic hyperplasia without lower urinary tract symptoms; M19.90 Unspecified osteoarthritis, unspecified site; E11.40 Type 2 diabetes mellitus with diabetic neuropathy, unspecified; E66.9 Obesity, unspecified; Z68.30 Body mass index [BMI] 30.0-30.9, adult; Z86.73 Personal history of transient ischemic attack (TIA), and cerebral infarction without residual deficits; Z91.010 Allergy to peanuts; Z88.5 Allergy status to narcotic agent; Z88.8 Allergy status to other drugs, medicaments and biological substances; Z88.1 Allergy status to other antibiotic agents; Z91.09 Other allergy status, other than to drugs and biological substances; Z79.82 Long term (current) use of aspirin; Z79.4 Long term (current) use of insulin; Z79.899 Other long term (current) drug therapy; Z20.822 Contact with and (suspected) exposure to COVID-19
CPT/HCPCS: 0241U; 36415; 71045; 71250; 74176; 80053; 81001; 83605; 83735; 83880; 84484; 85007; 85027; 85610; 85730; 87040; 93005; 96361; 96374; 96376; 99285; J2060; J7030; 36410; 93010; 99284

== ENCOUNTER 2022-07-17 12:49 | Emergency (ER) | payer MEDICARE, OTHER ==
[2022-07-17] MEDS ORDERED: Haloperidol Lactate 5 MG/ML SDV IM ONE (13:50)
[2022-07-17] MEDS ORDERED: OLANZapine 10 MG Vial IM ONE ×2 (14:50→15:43)
[2022-07-17 15:27] LABS: ESTIMATED GFR 98 mL/min (>60)
[2022-07-17] MEDS ORDERED: Acetaminophen 325 MG Tab PO ONE (17:20)
[2022-07-17 17:41] VITALS: BP 103/56; PULSE 62
== END 2022-07-17 18:35 | disposition other institution (70) ==
LOC: JD.ED 12:49
DX: E11.649 Type 2 diabetes mellitus with hypoglycemia without coma (principal); E11.40 Type 2 diabetes mellitus with diabetic neuropathy, unspecified; F91.8 Other conduct disorders; I10 Essential (primary) hypertension; J44.9 Chronic obstructive pulmonary disease, unspecified; N40.0 Benign prostatic hyperplasia without lower urinary tract symptoms; M19.90 Unspecified osteoarthritis, unspecified site; R94.31 Abnormal electrocardiogram [ECG] [EKG]; R60.0 Localized edema; E78.00 Pure hypercholesterolemia, unspecified; E66.9 Obesity, unspecified; Z76.5 Malingerer [conscious simulation]; Z91.048 Other nonmedicinal substance allergy status; Z91.010 Allergy to peanuts; Z88.8 Allergy status to other drugs, medicaments and biological substances; Z88.1 Allergy status to other antibiotic agents; Z79.82 Long term (current) use of aspirin; Z79.899 Other long term (current) drug therapy; Z79.4 Long term (current) use of insulin
CPT/HCPCS: 36415; 70450; 71045; 80053; 81001; 82947; 83605; 83690; 83880; 84484; 85025; 85610; 87040; 93005; 96361; 96372; 96374; 99285; A9270; J1610; J1630; J2405; J7042; 93010; 99284; J3490

== ENCOUNTER 2022-09-03 15:58 | Day surgery (SDC) | payer MEDICARE, OTHER ==
[2022-09-03] MEDS ORDERED: Morphine 4 MG/ML Syringe IVPUSH ONE (16:45)
[2022-09-03] MEDS ORDERED: Piperacillin/Tazobactam 4.5 GM in Sodium Chloride 0.9% 100 ML IV ONE (17:50)
[2022-09-03] MEDS ORDERED: Lactated Ringers 1,000 ML IV ONE (19:17)
[2022-09-03] MEDS ORDERED: fentaNYL 100 MCG/2 ML SDV ONE (19:31)
[2022-09-03] MEDS ORDERED: Bupivacaine 0.5% 30 ML SDV ONE (19:31)
[2022-09-03] MEDS ORDERED: Lidocaine 1% 5 ML VIAL ONE (19:31)
[2022-09-03] MEDS ORDERED: Lidocaine 1% with EPINEPHrine 1:100,000 20 ML MDV ONE (19:31)
[2022-09-03] MEDS ORDERED: Midazolam 1 MG/ML 2 ML SDV ONE (19:31)
[2022-09-03] MEDS ORDERED: Propofol 200 MG/20 ML SDV ONE ×2 (19:32)
[2022-09-03] MEDS ORDERED: Ketamine 500 mg/10 ML MDV ONE (20:04)
[2022-09-03] MEDS ORDERED: Morphine 2 MG/ML SYRINGE IVPUSH PRN (20:35)
[2022-09-03] MEDS ORDERED: fentaNYL 100 MCG/2 ML SDV IVPUSH PRN (20:35)
[2022-09-03] MEDS ORDERED: Sodium Chloride 0.9% 10 ML Syringe FLUSH PRN (20:35)
[2022-09-03] MEDS ORDERED: Acetaminophen 325 MG Tab PO PRN (20:35)
[2022-09-03] MEDS ORDERED: Ondansetron 4 MG/2 ML SDV IVPUSH PRN (20:35)
[2022-09-03] MEDS ORDERED: HYDROmorphone 0.5 MG/0.5 ML Syringe IVPUSH PRN (20:35)
[2022-09-03] MEDS ORDERED: Albuterol 6.7 GM Inhaler INH PRN (20:43)
[2022-09-03] MEDS ORDERED: traZODone 50 MG Tab PO SCH (21:00)
[2022-09-03] MEDS ORDERED: Topiramate 25 MG Tab PO SCH (21:00)
[2022-09-03] MEDS: Acetaminophen/HYDROcodone 325-5 MG Tab PO PRN (22:13)
[2022-09-04] MEDS: Acetaminophen/HYDROcodone 325-5 MG Tab PO PRN ×2 (02:16→06:49)
[2022-09-04] MEDS ORDERED: Pantoprazole 40 MG Tab.CR PO SCH (07:00)
[2022-09-04] MEDS ORDERED: Amoxicillin/Clavulanate K 875-125 MG Tab PO SCH (07:00)
[2022-09-04] MEDS ORDERED: Insulin Glargine,Human Rec. Analog 100 Units/ML 3 ML Pen SUBCUT SCH (08:00)
[2022-09-04] MEDS ORDERED: Non-Formulary Medication 1 Each (Insulin Detemir 100 UNIT/ML Insuln.Pen) SQ SCH (08:00)
[2022-09-04] MEDS ORDERED: Sennosides 8.6 MG Tab PO SCH (09:00)
[2022-09-04] MEDS ORDERED: Non-Formulary Medication 1 Each (Omeprazole 20 MG Capsule.Dr) PO SCH (09:00)
[2022-09-04] MEDS ORDERED: Metoprolol Succinate 50 MG Tab.ER PO SCH (09:00)
[2022-09-04] MEDS ORDERED: Tamsulosin 0.4 MG Cap.ER PO SCH (09:00)
[2022-09-04] MEDS ORDERED: Spironolactone 25 MG Tab PO SCH (09:00)
[2022-09-04 10:48] VITALS: BP 122/88; PULSE 77
== END 2022-09-04 10:22 | disposition home or self-care (01) ==
LOC: JD.ED 15:58 → JD.SDS 19:16 → JD.MS 20:36 → JD.SDS 09-04 10:22
PROVIDERS: ATTEND Surgery
DX: K61.2 Anorectal abscess (principal); E78.00 Pure hypercholesterolemia, unspecified; I10 Essential (primary) hypertension; J44.9 Chronic obstructive pulmonary disease, unspecified; G47.00 Insomnia, unspecified; K21.9 Gastro-esophageal reflux disease without esophagitis; Z87.19 Personal history of other diseases of the digestive system; F41.9 Anxiety disorder, unspecified; F32.A Depression, unspecified; E11.9 Type 2 diabetes mellitus without complications; E66.9 Obesity, unspecified; E87.6 Hypokalemia; Z90.49 Acquired absence of other specified parts of digestive tract; Z91.048 Other nonmedicinal substance allergy status; Z88.1 Allergy status to other antibiotic agents; Z88.8 Allergy status to other drugs, medicaments and biological substances; Z79.899 Other long term (current) drug therapy; Z79.82 Long term (current) use of aspirin; Z90.89 Acquired absence of other organs
CPT/HCPCS: 36415; 46050; 80053; 82947; 85025; 94761; A9270; J2250; J2270; J2543; J2704; J3010; J3490; J7120; 00400; 99203; 99284

== ENCOUNTER 2022-09-05 08:54 | Emergency (ER) | payer MEDICARE, OTHER ==
[2022-09-05 09:16] VITALS: BP 146/80; PULSE 78
[2022-09-05] MEDS ORDERED: Acetaminophen/HYDROcodone 325-5 MG Tab PO ONE (12:14)
== END 2022-09-05 14:00 | disposition home or self-care (01) ==
LOC: JD.ED 08:54
DX: M54.50 Low back pain, unspecified (principal); E78.00 Pure hypercholesterolemia, unspecified; I10 Essential (primary) hypertension; E11.9 Type 2 diabetes mellitus without complications; E66.9 Obesity, unspecified; J44.9 Chronic obstructive pulmonary disease, unspecified; N40.0 Benign prostatic hyperplasia without lower urinary tract symptoms; Z68.37 Body mass index [BMI] 37.0-37.9, adult; Z86.73 Personal history of transient ischemic attack (TIA), and cerebral infarction without residual deficits; Z91.010 Allergy to peanuts; Z91.09 Other allergy status, other than to drugs and biological substances; Z88.1 Allergy status to other antibiotic agents; Z88.8 Allergy status to other drugs, medicaments and biological substances; Z79.82 Long term (current) use of aspirin; Z79.4 Long term (current) use of insulin; Z79.899 Other long term (current) drug therapy
CPT/HCPCS: 36415; 72100; 72170; 80053; 80306; 80307; 81001; 82947; 85025; 99283; A9270; 99284

== ENCOUNTER 2022-09-07 01:01 | Emergency (ER) | payer MEDICARE, OTHER ==
[2022-09-07 01:08] VITALS: BP 129/78; PULSE 68
[2022-09-07] MEDS ORDERED: Acetaminophen/HYDROcodone 325-5 MG Tab PO ONE (01:13)
[2022-09-07] MEDS ORDERED: LORazepam 0.5 MG Tab PO ONE (03:47)
== END 2022-09-07 05:25 | disposition home or self-care (01) ==
LOC: JD.ED 01:01
DX: M54.50 Low back pain, unspecified (principal); E78.00 Pure hypercholesterolemia, unspecified; I10 Essential (primary) hypertension; J44.9 Chronic obstructive pulmonary disease, unspecified; K21.9 Gastro-esophageal reflux disease without esophagitis; Z86.73 Personal history of transient ischemic attack (TIA), and cerebral infarction without residual deficits; E11.9 Type 2 diabetes mellitus without complications; E66.9 Obesity, unspecified; Z68.30 Body mass index [BMI] 30.0-30.9, adult; Z91.010 Allergy to peanuts; Z91.09 Other allergy status, other than to drugs and biological substances; Z88.1 Allergy status to other antibiotic agents; Z88.8 Allergy status to other drugs, medicaments and biological substances; Z79.4 Long term (current) use of insulin; Z79.899 Other long term (current) drug therapy
CPT/HCPCS: 99284; A9270; 99283

== ENCOUNTER 2022-09-16 17:12 | Emergency (ER) | payer MEDICARE, OTHER ==
[2022-09-16 17:19] VITALS: BP 149/75; PULSE 64
[2022-09-16] MEDS ORDERED: HYDROmorphone 1 MG/ML Syringe IM ONE (18:49)
[2022-09-16] MEDS ORDERED: Acetaminophen/HYDROcodone 325-5 MG Tab PO ONE (20:28)
== END 2022-09-16 21:28 | disposition home or self-care (01) ==
LOC: JD.ED 17:12
DX: M54.50 Low back pain, unspecified (principal); E78.00 Pure hypercholesterolemia, unspecified; I10 Essential (primary) hypertension; J44.9 Chronic obstructive pulmonary disease, unspecified; K21.9 Gastro-esophageal reflux disease without esophagitis; E11.40 Type 2 diabetes mellitus with diabetic neuropathy, unspecified; N40.0 Benign prostatic hyperplasia without lower urinary tract symptoms; E66.9 Obesity, unspecified; Z68.37 Body mass index [BMI] 37.0-37.9, adult; Z91.010 Allergy to peanuts; Z88.5 Allergy status to narcotic agent; Z88.1 Allergy status to other antibiotic agents; Z88.8 Allergy status to other drugs, medicaments and biological substances; Z79.899 Other long term (current) drug therapy
CPT/HCPCS: 82947; 96372; 99283; A9270; J1170

== ENCOUNTER 2022-09-28 15:29 | Emergency (ER) | payer MEDICARE, OTHER ==
[2022-09-28 15:33] VITALS: BP 128/73; PULSE 72
[2022-09-28 16:35] LABS: BASOPHILS ABSOLUTE AUTO 0.04 K/mm3 (0.01-0.08); BASOPHILS PERCENT AUTO 0.5 % (0.1-1.2); EOSINOPHILS ABSOLUTE AUTO 0.53 K/mm3 (0.04-0.54); EOSINOPHILS PERCENT AUTO 6.7 (0.8-7.0); HEMOGLOBIN 14.9 gm/dl (13.7-17.5); IMMATURE GRAN ABSOLUTE AUTO 0.01 K/mm3 (0.00-0.10); IMMATURE GRAN PERCENT AUTO 0.1 % (<=1.0); LYMPHOCYTES ABSOLUTE AUTO 1.28 K/mm3 (1.32-3.57); LYMPHOCYTES PERCENT AUTO 16.2 % (21.8-53.1); MEAN CORPUSCULAR HEMOGLOBIN 27.2 pg (25.7-32.2); MEAN CORPUSCULAR VOLUME 87.6 fl (79.0-92.2); MEAN PLATELET VOLUME 10.4 fl (9.4-12.3); MONOCYTES ABSOLUTE AUTO 0.52 K/mm3 (0.30-0.82); MONOCYTES PERCENT AUTO 6.6 % (5.3-12.2); NEUTROPHILS ABSOLUTE AUTO 5.54 K/mm3 (1.78-5.38); NEUTROPHILS PERCENT AUTO 69.9 % (34.0-67.9); PLATELET COUNT,PLT 182 K/mm3 (163-337); RED BLOOD CELL COUNT 5.48 M/mm3 (4.63-6.08); WHITE BLOOD CELL COUNT,WBC 7.92 K/mm3 (4.23-9.07)
[2022-09-28 16:53] LABS: A/G RATIO 0.8 (1-2); ALBUMIN 3.2 g/dl (3.4-5.0); ANION GAP 10.4 (5-15); BILIRUBIN TOTAL 0.5 mg/dL (0.2-1.0); C-REACTIVE PROTEIN 2.2 mg/dL (<1.0); CALCIUM 8.9 mg/dL (8.5-10.1); EST CRCL DRUG DOSING (CG) 75.03 mL/min; POTASSIUM,K 3.4 mEq/L (3.5-5.1)
[2022-09-28] MEDS ORDERED: Acetaminophen/oxyCODONE 325-5 MG Tab PO ONE (17:42)
== END 2022-09-28 18:06 | disposition home or self-care (01) ==
LOC: JD.ED 15:29
DX: M54.50 Low back pain, unspecified (principal); E78.00 Pure hypercholesterolemia, unspecified; I10 Essential (primary) hypertension; K21.9 Gastro-esophageal reflux disease without esophagitis; M19.90 Unspecified osteoarthritis, unspecified site; E11.40 Type 2 diabetes mellitus with diabetic neuropathy, unspecified; E66.9 Obesity, unspecified; Z68.37 Body mass index [BMI] 37.0-37.9, adult; Z86.73 Personal history of transient ischemic attack (TIA), and cerebral infarction without residual deficits; Z79.82 Long term (current) use of aspirin; Z79.899 Other long term (current) drug therapy; Z79.4 Long term (current) use of insulin; Z88.1 Allergy status to other antibiotic agents; Z79.84 Long term (current) use of oral hypoglycemic drugs; Z88.8 Allergy status to other drugs, medicaments and biological substances; Z91.010 Allergy to peanuts; Z91.048 Other nonmedicinal substance allergy status; W05.0XXA Fall from non-moving wheelchair, initial encounter
CPT/HCPCS: 36415; 70450; 72100; 80053; 85025; 86140; 99284; A9270

== ENCOUNTER 2022-12-28 22:10 | Emergency (ER) | payer MEDICARE, OTHER ==
[2022-12-28 22:47] VITALS: PULSE 70
[2022-12-28] MEDS ORDERED: HYDROmorphone 0.5 MG/0.5 ML Syringe IM ONE (23:23)
[2022-12-28] MEDS ORDERED: Ondansetron 4 MG Tab.DIS PO ONE (23:24)
[2022-12-28 23:54] VITALS: BP 143/95
== END 2022-12-29 01:35 | disposition home or self-care (01) ==
LOC: JD.ED 22:10
DX: M54.50 Low back pain, unspecified (principal); E11.40 Type 2 diabetes mellitus with diabetic neuropathy, unspecified; E78.00 Pure hypercholesterolemia, unspecified; I10 Essential (primary) hypertension; E66.9 Obesity, unspecified; K21.9 Gastro-esophageal reflux disease without esophagitis; Z86.73 Personal history of transient ischemic attack (TIA), and cerebral infarction without residual deficits; Z91.048 Other nonmedicinal substance allergy status; Z91.010 Allergy to peanuts; Z88.8 Allergy status to other drugs, medicaments and biological substances; Z88.1 Allergy status to other antibiotic agents; Z79.82 Long term (current) use of aspirin; Z79.4 Long term (current) use of insulin; Z79.899 Other long term (current) drug therapy; W07.XXXA Fall from chair, initial encounter; Y92.009 Unspecified place in unspecified non-institutional (private) residence as the place of occurrence of the external cause
CPT/HCPCS: 72131; 96372; 99284; A9270; J1170

== ENCOUNTER 2023-03-23 19:10 | Emergency (ER) | payer MEDICARE, OTHER ==
[2023-03-23 21:28] VITALS: BP 134/71; PULSE 84
== END 2023-03-23 21:27 | disposition home or self-care (01) ==
LOC: JD.ED 19:10
DX: R60.0 Localized edema (principal); I10 Essential (primary) hypertension; K21.9 Gastro-esophageal reflux disease without esophagitis; E11.40 Type 2 diabetes mellitus with diabetic neuropathy, unspecified; M19.90 Unspecified osteoarthritis, unspecified site; E66.9 Obesity, unspecified; Z68.42 Body mass index [BMI] 45.0-49.9, adult; Z88.8 Allergy status to other drugs, medicaments and biological substances; Z91.048 Other nonmedicinal substance allergy status; Z91.010 Allergy to peanuts; Z88.1 Allergy status to other antibiotic agents; Z79.82 Long term (current) use of aspirin; Z79.899 Other long term (current) drug therapy; Z79.4 Long term (current) use of insulin
CPT/HCPCS: 99282; 99284

== ENCOUNTER 2023-04-07 13:15 | Emergency (ER) | payer MEDICARE, OTHER ==
[2023-04-07 14:12] LABS: BASOPHILS ABSOLUTE AUTO 0.1 K/mm3 (0.0-0.2); BASOPHILS PERCENT AUTO 0.9 % (0.0-1.0); EOSINOPHILS ABSOLUTE AUTO 0.3 K/mm3 (0.0-0.4); HEMOGLOBIN 13.8 gm/dl (14.0-18.0); IMMATURE GRAN ABSOLUTE AUTO 0.02 K/mm3 (0.00-0.05); IMMATURE GRAN PERCENT AUTO 0.3 % (0.0-0.4); LYMPHOCYTES ABSOLUTE AUTO 1.6 K/mm3 (1.0-4.8); LYMPHOCYTES PERCENT AUTO 20.1 % (24.0-44.0); MEAN CORPUSCULAR HEMOGLOBIN 29.6 pg (28.0-32.0); MEAN CORPUSCULAR HGB CONC 32.1 g/dl (32.0-36.0); MEAN CORPUSCULAR VOLUME 92.3 fl (83.0-99.0); MEAN PLATELET VOLUME 9.6 fl (9.4-12.4); MONOCYTES ABSOLUTE AUTO 0.6 K/mm3 (0.0-0.8); MONOCYTES PERCENT AUTO 7.3 % (0.0-8.0); NEUTROPHILS ABSOLUTE AUTO 5.3 K/mm3 (1.8-7.7); NEUTROPHILS PERCENT AUTO 67.4 % (41.0-71.0); PLATELET COUNT,PLT 217 K/mm3 (150-400); RED BLOOD CELL COUNT 4.66 M/mm3 (4.52-5.90); WHITE BLOOD CELL COUNT,WBC 7.78 K/mm3 (3.9-11.3)
[2023-04-07 14:42] LABS: A/G RATIO 0.7 (1-2); ALANINE AMINOTRANSFERASE,ALT 10 U/L (16-63); ALBUMIN 2.8 g/dl (3.4-5.0); ALKALINE PHOSPHATASE 78 U/L (46-116); ANION GAP 9.2 (5-15); ASPARTATE AMNIOTRANSFERASE,AST 6 U/L (15-37); BILIRUBIN TOTAL 0.4 mg/dL (0.2-1.0); BLOOD UREA NITROGEN,BUN 19 mg/dL (7-18); BUN/CREATININE RATIO 21.1 (14-18); C-REACTIVE PROTEIN 2.2 mg/dL (<1.0); CALCIUM 8.6 mg/dL (8.5-10.1); CARBON DIOXIDE,CO2 30 mEq/L (21-32); CHLORIDE,CL 108 mEq/L (98-107); CREATININE 0.9 mg/dL (0.7-1.3); ESTIMATED GFR 94 mL/min (>60); GLUCOSE RANDOM 127 mg/dL (70-99); POTASSIUM,K 3.2 mEq/L (3.5-5.1); PROTEIN TOTAL,TP 6.6 g/dl (6.4-8.2); SODIUM,NA 144 mEq/L (136-145)
[2023-04-07 18:04] LABS: APPEARANCE,URINE SLT CLOUDY (Clear); BILIRUBIN,URINE NEGATIVE (Negative); COLOR,URINE YELLOW (Yellow); GLUCOSE,URINE NEGATIVE (Negative); KETONES,URINE NEGATIVE (Negative); LEUKOCYTE ESTERASE,URINE 1+ (Negative); NITRITE,URINE POSITIVE (Negative); OCCULT BLOOD,URINE 1+ (Negative); PH,URINE 7.5 (5.0-8.0); PROTEIN,URINE TRACE (Negative)
[2023-04-07 18:17] LABS: BACTERIA,URINE MANY /hpf (FEW); MUCUS,URINE FEW /hpf (FEW); SQUAMOUS EPITHELIAL CELLS,UR 0-5 /hpf (0-5); WBC,URINE 75-100 /hpf (0-5)
[2023-04-07 18:52] VITALS: BP 134/63; PULSE 83
== END 2023-04-07 18:37 | disposition home or self-care (01) ==
LOC: JD.ED 13:15
DX: R60.0 Localized edema (principal); I10 Essential (primary) hypertension; E78.00 Pure hypercholesterolemia, unspecified; K21.9 Gastro-esophageal reflux disease without esophagitis; E11.40 Type 2 diabetes mellitus with diabetic neuropathy, unspecified; E66.9 Obesity, unspecified; Z86.73 Personal history of transient ischemic attack (TIA), and cerebral infarction without residual deficits; Z79.82 Long term (current) use of aspirin; Z79.4 Long term (current) use of insulin; Z79.899 Other long term (current) drug therapy; Z91.048 Other nonmedicinal substance allergy status; Z91.010 Allergy to peanuts; Z88.8 Allergy status to other drugs, medicaments and biological substances; Z88.1 Allergy status to other antibiotic agents
CPT/HCPCS: 36415; 80053; 81001; 83880; 85025; 86140; 87086; 99283

== ENCOUNTER 2023-08-18 03:07 | Emergency (ER) | payer MEDICARE, OTHER ==
[2023-08-18] MEDS ORDERED: Sodium Chloride 0.9% 10 ML Syringe FLUSH PRN (03:29)
[2023-08-18 04:21] LABS: BASOPHILS ABSOLUTE AUTO 0.1 K/mm3 (0.0-0.2); BASOPHILS PERCENT AUTO 0.4 % (0.0-1.0); EOSINOPHILS ABSOLUTE AUTO 0.6 K/mm3 (0.0-0.4); EOSINOPHILS PERCENT AUTO 5.1 % (0.0-6.0); HEMATOCRIT 54.7 % (42.0-52.0); HEMOGLOBIN 17.8 gm/dl (14.0-18.0); IMMATURE GRAN ABSOLUTE AUTO 0.07 K/mm3 (0.00-0.05); IMMATURE GRAN PERCENT AUTO 0.6 % (0.0-0.4); LYMPHOCYTES ABSOLUTE AUTO 1.8 K/mm3 (1.0-4.8); MEAN CORPUSCULAR HEMOGLOBIN 29.1 pg (28.0-32.0); MEAN CORPUSCULAR HGB CONC 32.5 g/dl (32.0-36.0); MEAN CORPUSCULAR VOLUME 89.5 fl (83.0-99.0); MEAN PLATELET VOLUME 9.8 fl (9.4-12.4); MONOCYTES ABSOLUTE AUTO 1.8 K/mm3 (0.0-0.8); MONOCYTES PERCENT AUTO 15.3 % (0.0-8.0); NEUTROPHILS ABSOLUTE AUTO 7.4 K/mm3 (1.8-7.7); NEUTROPHILS PERCENT AUTO 63.6 % (41.0-71.0); PLATELET COUNT,PLT 230 K/mm3 (150-400); RED BLOOD CELL COUNT 6.11 M/mm3 (4.52-5.90); WHITE BLOOD CELL COUNT,WBC 11.66 K/mm3 (3.9-11.3)
[2023-08-18] MEDS: Ondansetron 4 MG/2 ML SDV IVPUSH ONE (04:25)
[2023-08-18] MEDS: Sodium Chloride 0.9% 1,000 ML IV STA (04:25)
[2023-08-18] MEDS: Ondansetron 4 MG Tab.DIS PO ONE (04:26)
[2023-08-18 04:39] LABS: A/G RATIO 0.8 (1-2); ALANINE AMINOTRANSFERASE,ALT 9 U/L (16-63); ALBUMIN 2.5 g/dl (3.4-5.0); ALKALINE PHOSPHATASE 82 U/L (46-116); ANION GAP 18.9 (5-15); ASPARTATE AMNIOTRANSFERASE,AST 4 U/L (15-37); BILIRUBIN TOTAL 0.4 mg/dL (0.2-1.0); BLOOD UREA NITROGEN,BUN 31 mg/dL (7-18); BUN/CREATININE RATIO 20.7 (14-18); CALCIUM 7.9 mg/dL (8.5-10.1); CARBON DIOXIDE,CO2 18 mEq/L (21-32); CHLORIDE,CL 104 mEq/L (98-107); CREATININE 1.5 mg/dL (0.7-1.3); ESTIMATED GFR 51 mL/min (>60); GLUCOSE RANDOM 60 mg/dL (70-99); LIPASE 7 U/L (16-77); POTASSIUM,K 2.9 mEq/L (3.5-5.1); PROTEIN TOTAL,TP 5.7 g/dl (6.4-8.2); SODIUM,NA 138 mEq/L (136-145)
[2023-08-18] MEDS: Potassium Chloride 20 MEQ Tab.ER PO ONE (05:54)
[2023-08-18 06:40] VITALS: BP 124/93; PULSE 88
[2023-08-18 07:38] LABS: SLIDE REVIEW ABNORMAL SMEAR
== END 2023-08-18 08:20 | disposition home or self-care (01) ==
LOC: JD.ED 03:07
DX: E11.65 Type 2 diabetes mellitus with hyperglycemia (principal); E87.6 Hypokalemia; J44.9 Chronic obstructive pulmonary disease, unspecified; K21.9 Gastro-esophageal reflux disease without esophagitis; I10 Essential (primary) hypertension; E78.00 Pure hypercholesterolemia, unspecified; E66.9 Obesity, unspecified; Z79.899 Other long term (current) drug therapy; Z79.82 Long term (current) use of aspirin; Z79.4 Long term (current) use of insulin; Z88.8 Allergy status to other drugs, medicaments and biological substances; Z91.048 Other nonmedicinal substance allergy status; Z91.018 Allergy to other foods; Z88.1 Allergy status to other antibiotic agents
CPT/HCPCS: 36415; 80053; 83690; 85025; 99285; A9270; 99284

== ENCOUNTER 2023-08-20 01:28 | Inpatient (IN) | payer MEDICARE, OTHER ==
[2023-08-20] MEDS: Acetaminophen 325 MG Tab PO ONE (04:31)
[2023-08-20 09:02] LABS: BASOPHILS ABSOLUTE AUTO 0.1 K/mm3 (0.0-0.2); BASOPHILS PERCENT AUTO 0.7 % (0.0-1.0); EOSINOPHILS ABSOLUTE AUTO 1.5 K/mm3 (0.0-0.4); EOSINOPHILS PERCENT AUTO 12.6 % (0.0-6.0); HEMATOCRIT 49.3 % (42.0-52.0); HEMOGLOBIN 16.4 gm/dl (14.0-18.0); IMMATURE GRAN ABSOLUTE AUTO 0.11 K/mm3 (0.00-0.05); IMMATURE GRAN PERCENT AUTO 0.9 % (0.0-0.4); LYMPHOCYTES ABSOLUTE AUTO 1.8 K/mm3 (1.0-4.8); LYMPHOCYTES PERCENT AUTO 14.6 % (24.0-44.0); MEAN CORPUSCULAR HEMOGLOBIN 29.2 pg (28.0-32.0); MEAN CORPUSCULAR HGB CONC 33.3 g/dl (32.0-36.0); MEAN CORPUSCULAR VOLUME 87.7 fl (83.0-99.0); MEAN PLATELET VOLUME 9.3 fl (9.4-12.4); MONOCYTES ABSOLUTE AUTO 1.3 K/mm3 (0.0-0.8); MONOCYTES PERCENT AUTO 10.9 % (0.0-8.0); NEUTROPHILS ABSOLUTE AUTO 7.4 K/mm3 (1.8-7.7); NEUTROPHILS PERCENT AUTO 60.3 % (41.0-71.0); PLATELET COUNT,PLT 241 K/mm3 (150-400); RED BLOOD CELL COUNT 5.62 M/mm3 (4.52-5.90)
[2023-08-20 09:25] LABS: A/G RATIO 0.8 (1-2); ALANINE AMINOTRANSFERASE,ALT 12 U/L (16-63); ALKALINE PHOSPHATASE 78 U/L (46-116); ANION GAP 18.7 (5-15); ASPARTATE AMNIOTRANSFERASE,AST 12 U/L (15-37); BILIRUBIN TOTAL 0.3 mg/dL (0.2-1.0); BLOOD UREA NITROGEN,BUN 55 mg/dL (7-18); CALCIUM 6.9 mg/dL (8.5-10.1); CARBON DIOXIDE,CO2 16 mEq/L (21-32); CHLORIDE,CL 102 mEq/L (98-107); CREATINE KINASE,CK 134 U/L (39-308); GLUCOSE RANDOM 68 mg/dL (70-99); MAGNESIUM 1.4 mg/dL (1.8-2.4); POTASSIUM,K 2.7 mEq/L (3.5-5.1); PROTEIN TOTAL,TP 4.5 g/dl (6.4-8.2); SODIUM,NA 134 mEq/L (136-145)
[2023-08-20 09:42] LABS: BUN/CREATININE RATIO 14.9 (14-18); ESTIMATED GFR 17 mL/min (>60)
[2023-08-20 09:52] LABS: CREATININE 3.7 mg/dL (0.7-1.3)
[2023-08-20] MEDS: Sodium Chloride 0.9% 1,000 ML IV ONE ×2 (10:20→14:49)
[2023-08-20] MEDS: Potassium Chloride 10 MEQ in Premix Bag 1 BAG IV ONE (10:21)
[2023-08-20] MEDS: Potassium Chloride 20 MEQ Tab.ER PO ONE ×2 (10:35→18:39)
[2023-08-20] MEDS: Sodium Chloride 0.9% 1,000 ML IV SCH (14:07)
[2023-08-20] MEDS: Pantoprazole 40 MG Tab.CR PO SCH (14:07)
[2023-08-20] MEDS: Acetaminophen 325 MG Tab PO PRN (14:23)
[2023-08-20] MEDS: Norepinephrine 4 MG in Dextrose 5% in Water 246 ML IV SCH (14:36)
[2023-08-20] MEDS ORDERED: ALBUTEROL INH PRN (16:08)
[2023-08-20] MEDS ORDERED: Non-Formulary Medication 1 Each (Lorazepam 0.5 MG Tablet) PO PRN (16:08)
[2023-08-20] MEDS ORDERED: Carboxymethylcellulose Sodium 1% Ophth Gel 15 ML Bottle EYERT PRN (16:27)
[2023-08-20] MEDS ORDERED: Albuterol 6.7 GM Inhaler INH PRN (16:28)
[2023-08-20 16:31] LABS: ANION GAP 19.8 (5-15); BUN/CREATININE RATIO 19.1 (14-18); CREATININE 2.3 mg/dL (0.7-1.3); EST CRCL DRUG DOSING (CG) 33.19 mL/min
[2023-08-20 16:43] LABS: CALCIUM 5.8 mg/dL (8.5-10.1)
[2023-08-20 16:45] LABS: POTASSIUM,K 2.8 mEq/L (3.5-5.1)
[2023-08-20] MEDS: Vancomycin 125 MG Cap PO SCH (16:54)
[2023-08-20] MEDS ORDERED: Vancomycin 125 MG Cap PO SCH (17:00)
[2023-08-20] MEDS: Calcium Gluconate 2 GM in Sodium Chloride 0.9% 100 ML IV ONE (18:38)
[2023-08-20] MEDS: Potassium Chloride 10 MEQ in Premix Bag 1 BAG IV SCH (18:39)
[2023-08-20] MEDS: Heparin Sodium 5,000 Units/ML Vial SUBCUT SCH (18:41)
[2023-08-20] MEDS: Piperacillin/Tazobactam 4.5 GM in Sodium Chloride 0.9% 100 ML IV ONE (18:41)
[2023-08-20] MEDS: OXYCODONE MYRISTATE 9 MG PO SCH (19:23)
[2023-08-20] MEDS: Topiramate 25 MG Tab PO SCH (19:42)
[2023-08-20] MEDS: oxyCODONE 5 MG Tab PO PRN (19:42)
[2023-08-20] MEDS: risperiDONE 1 MG Tab PO SCH (20:32)
[2023-08-20] MEDS: traZODone 50 MG Tab PO SCH (20:32)
[2023-08-20] MEDS: Insulin Lispro 100 Unit/ML 3 ML KwikPen SUBCUT SCH (20:33)
[2023-08-20] MEDS ORDERED: Non-Formulary Medication 1 Each (Trazodone Hcl [Trazodone Hcl] 150 MG Tablet) PO SCH (21:00)
[2023-08-20] MEDS ORDERED: Non-Formulary Medication 1 Each (Acetaminophen 650 MG Tablet.Er) PO SCH ×2 (21:00)
[2023-08-20] MEDS ORDERED: OXYCODONE MYRISTATE 9 MG PO SCH (21:00)
[2023-08-20] MEDS ORDERED: Enoxaparin 30 MG/0.3 ML Syringe SUBCUT SCH (21:00)
[2023-08-20] MEDS: Piperacillin/Tazobactam 4.5 GM in Sodium Chloride 0.9% 100 ML IV SCH (21:04)
[2023-08-21] MEDS: LORazepam 1 MG Tab PO PRN (00:42)
[2023-08-21] MEDS: Pantoprazole 40 MG Tab.CR PO SCH (06:12)
[2023-08-21 07:40] LABS: BASOPHILS PERCENT AUTO 0.3 % (0.0-1.0); EOSINOPHILS ABSOLUTE AUTO 1.2 K/mm3 (0.0-0.4); EOSINOPHILS PERCENT AUTO 11.3 % (0.0-6.0); HEMATOCRIT 44.1 % (42.0-52.0); HEMOGLOBIN 15.2 gm/dl (14.0-18.0); IMMATURE GRAN PERCENT AUTO 0.9 % (0.0-0.4); LYMPHOCYTES ABSOLUTE AUTO 1.7 K/mm3 (1.0-4.8); LYMPHOCYTES PERCENT AUTO 15.9 % (24.0-44.0); MEAN CORPUSCULAR HEMOGLOBIN 29.6 pg (28.0-32.0); MEAN CORPUSCULAR HGB CONC 34.5 g/dl (32.0-36.0); MONOCYTES PERCENT AUTO 9.1 % (0.0-8.0); NEUTROPHILS ABSOLUTE AUTO 6.6 K/mm3 (1.8-7.7); NEUTROPHILS PERCENT AUTO 62.5 % (41.0-71.0); PLATELET COUNT,PLT 223 K/mm3 (150-400); RED BLOOD CELL COUNT 5.13 M/mm3 (4.52-5.90); WHITE BLOOD CELL COUNT,WBC 10.63 K/mm3 (3.9-11.3)
[2023-08-21] MEDS: Tamsulosin 0.4 MG Cap.ER PO SCH (08:15)
[2023-08-21] MEDS: Potassium Chloride 20 MEQ Tab.ER PO SCH (08:15)
[2023-08-21] MEDS: Insulin Glargine,Human Rec. Analog 100 Units/ML 3 ML Pen SUBCUT SCH (08:15)
[2023-08-21] MEDS: Sertraline 50 MG Tab PO SCH (08:15)
[2023-08-21 08:41] LABS: ALBUMIN 1.8 g/dl (3.4-5.0); ANION GAP 16.2 (5-15); BUN/CREATININE RATIO 24.3 (14-18); CALCIUM 7.3 mg/dL (8.5-10.1); CREATININE 1.4 mg/dL (0.7-1.3); EST CRCL DRUG DOSING (CG) 54.53 mL/min; POTASSIUM,K 3.2 mEq/L (3.5-5.1); PROTEIN TOTAL,TP 4.3 g/dl (6.4-8.2)
[2023-08-21 08:42] LABS: A/G RATIO 0.7 (1-2); BILIRUBIN TOTAL 0.4 mg/dL (0.2-1.0); C-REACTIVE PROTEIN 4.48 mg/dL (<0.30); MAGNESIUM 1.9 mg/dL (1.8-2.4); PHOSPHORUS 2.8 mg/dL (2.6-4.7)
[2023-08-21] MEDS ORDERED: Insulin Glargine,Human Rec. Analog 100 Units/ML 3 ML Pen SUBCUT SCH (09:00)
[2023-08-21] MEDS ORDERED: Metoprolol Succinate 50 MG Tab.ER PO SCH (09:00)
[2023-08-21] MEDS ORDERED: Non-Formulary Medication 1 Each (Insulin Degludec [Tresiba] 100 UNIT/ML Vial) SUBCUT SCH (09:00)
[2023-08-21] MEDS ORDERED: Non-Formulary Medication 1 Each (Sertraline 100 MG Tablet) PO SCH (09:00)
[2023-08-21] MEDS ORDERED: Non-Formulary Medication 1 Each (Omeprazole 20 MG Capsule.Dr) PO SCH (09:00)
[2023-08-21] MEDS: Ertapenem 1 GM in Sodium Chloride 0.9% 50 ML IV SCH (12:44)
[2023-08-21] MEDS: Potassium Chloride 20 MEQ Tab.ER PO ONE (12:50)
[2023-08-21] MEDS: Sodium Chloride 0.45% with KCl 1,000 ML IV SCH (14:16)
[2023-08-21] MEDS ORDERED: Potassium Chloride 20 MEQ Tab.ER PO SCH (21:00)
[2023-08-22] MEDS: LORazepam 0.5 MG Tab PO PRN (04:08)
[2023-08-22] MEDS: Potassium Chloride 10 MEQ in Premix Bag 1 BAG IV SCH ×2 (09:47→14:58)
[2023-08-22] MEDS: Haloperidol 0.5 MG Tab PO ONE (15:27)
[2023-08-22 18:49] LABS: BASOPHILS PERCENT AUTO 0.5 % (0.0-1.0); EOSINOPHILS ABSOLUTE AUTO 0.4 K/mm3 (0.0-0.4); EOSINOPHILS PERCENT AUTO 4.3 % (0.0-6.0); HEMOGLOBIN 15.3 gm/dl (14.0-18.0); IMMATURE GRAN ABSOLUTE AUTO 0.17 K/mm3 (0.00-0.05); LYMPHOCYTES ABSOLUTE AUTO 1.4 K/mm3 (1.0-4.8); LYMPHOCYTES PERCENT AUTO 16.3 % (24.0-44.0); MEAN CORPUSCULAR HEMOGLOBIN 29.5 pg (28.0-32.0); MEAN CORPUSCULAR VOLUME 86.9 fl (83.0-99.0); MEAN PLATELET VOLUME 9.2 fl (9.4-12.4); MONOCYTES ABSOLUTE AUTO 0.7 K/mm3 (0.0-0.8); MONOCYTES PERCENT AUTO 8.8 % (0.0-8.0); NEUTROPHILS ABSOLUTE AUTO 5.7 K/mm3 (1.8-7.7); NEUTROPHILS PERCENT AUTO 68.1 % (41.0-71.0); PLATELET COUNT,PLT 191 K/mm3 (150-400); RED BLOOD CELL COUNT 5.18 M/mm3 (4.52-5.90); WHITE BLOOD CELL COUNT,WBC 8.34 K/mm3 (3.9-11.3)
[2023-08-22 19:25] LABS: A/G RATIO 0.6 (1-2); ALBUMIN 1.8 g/dl (3.4-5.0); ANION GAP 10.6 (5-15); BILIRUBIN TOTAL 0.4 mg/dL (0.2-1.0); BUN/CREATININE RATIO 12.9 (14-18); CALCIUM 7.5 mg/dL (8.5-10.1); CREATININE 0.7 mg/dL (0.7-1.3); EST CRCL DRUG DOSING (CG) 109.07 mL/min; MAGNESIUM 1.7 mg/dL (1.8-2.4); PROTEIN TOTAL,TP 4.8 g/dl (6.4-8.2); TSH 1.795 uIU/mL (0.358-3.74)
[2023-08-22 19:32] LABS: POTASSIUM,K 6.6 mEq/L (3.5-5.1)
[2023-08-22] MEDS: Dextrose 5% in Water 1,000 ML IV SCH (21:03)
[2023-08-23] MEDS: LORazepam 2 MG/ML SDV IVPUSH ONE (03:43)
[2023-08-23] MEDS: LORazepam 2 MG/ML SDV ONE (03:43)
[2023-08-23 05:42] LABS: BASOPHILS ABSOLUTE AUTO 0.1 K/mm3 (0.0-0.2); BASOPHILS PERCENT AUTO 0.8 % (0.0-1.0); EOSINOPHILS PERCENT AUTO 10.8 % (0.0-6.0); HEMATOCRIT 46.5 % (42.0-52.0); HEMOGLOBIN 15.2 gm/dl (14.0-18.0); IMMATURE GRAN ABSOLUTE AUTO 0.26 K/mm3 (0.00-0.05); LYMPHOCYTES ABSOLUTE AUTO 1.7 K/mm3 (1.0-4.8); LYMPHOCYTES PERCENT AUTO 19.5 % (24.0-44.0); MEAN CORPUSCULAR HEMOGLOBIN 28.6 pg (28.0-32.0); MEAN CORPUSCULAR HGB CONC 32.7 g/dl (32.0-36.0); MEAN CORPUSCULAR VOLUME 87.4 fl (83.0-99.0); MEAN PLATELET VOLUME 9.2 fl (9.4-12.4); MONOCYTES ABSOLUTE AUTO 0.7 K/mm3 (0.0-0.8); MONOCYTES PERCENT AUTO 7.7 % (0.0-8.0); NEUTROPHILS ABSOLUTE AUTO 5.1 K/mm3 (1.8-7.7); NEUTROPHILS PERCENT AUTO 58.2 % (41.0-71.0); PLATELET COUNT,PLT 196 K/mm3 (150-400); RED BLOOD CELL COUNT 5.32 M/mm3 (4.52-5.90); WHITE BLOOD CELL COUNT,WBC 8.78 K/mm3 (3.9-11.3)
[2023-08-23 06:01] LABS: A/G RATIO 0.6 (1-2); ALBUMIN 1.7 g/dl (3.4-5.0); BILIRUBIN TOTAL 0.3 mg/dL (0.2-1.0); BUN/CREATININE RATIO 12.9 (14-18); C-REACTIVE PROTEIN 5.96 mg/dL (<0.30); CALCIUM 7.7 mg/dL (8.5-10.1); CREATININE 0.7 mg/dL (0.7-1.3); EST CRCL DRUG DOSING (CG) 109.07 mL/min; MAGNESIUM 1.8 mg/dL (1.8-2.4); PROTEIN TOTAL,TP 4.8 g/dl (6.4-8.2)
[2023-08-23] MEDS: Sodium Chloride 0.9% 1,000 ML IV SCH (14:05)
[2023-08-23] MEDS: Ondansetron 4 MG/2 ML SDV IV PRN (15:02)
[2023-08-24 05:46] LABS: BASOPHILS ABSOLUTE AUTO 0.1 K/mm3 (0.0-0.2); BASOPHILS PERCENT AUTO 0.5 % (0.0-1.0); EOSINOPHILS ABSOLUTE AUTO 0.5 K/mm3 (0.0-0.4); EOSINOPHILS PERCENT AUTO 5.8 % (0.0-6.0); HEMATOCRIT 44.3 % (42.0-52.0); HEMOGLOBIN 14.8 gm/dl (14.0-18.0); IMMATURE GRAN PERCENT AUTO 2.2 % (0.0-0.4); LYMPHOCYTES ABSOLUTE AUTO 1.4 K/mm3 (1.0-4.8); LYMPHOCYTES PERCENT AUTO 15.5 % (24.0-44.0); MEAN CORPUSCULAR HEMOGLOBIN 29.4 pg (28.0-32.0); MEAN CORPUSCULAR HGB CONC 33.4 g/dl (32.0-36.0); MEAN CORPUSCULAR VOLUME 87.9 fl (83.0-99.0); MEAN PLATELET VOLUME 9.3 fl (9.4-12.4); MONOCYTES ABSOLUTE AUTO 0.8 K/mm3 (0.0-0.8); MONOCYTES PERCENT AUTO 8.5 % (0.0-8.0); NEUTROPHILS ABSOLUTE AUTO 6.3 K/mm3 (1.8-7.7); NEUTROPHILS PERCENT AUTO 67.5 % (41.0-71.0); PLATELET COUNT,PLT 173 K/mm3 (150-400); RED BLOOD CELL COUNT 5.04 M/mm3 (4.52-5.90); WHITE BLOOD CELL COUNT,WBC 9.27 K/mm3 (3.9-11.3)
[2023-08-24 06:13] LABS: A/G RATIO 0.5 (1-2); ALBUMIN 1.6 g/dl (3.4-5.0); ANION GAP 10.6 (5-15); BILIRUBIN TOTAL 0.4 mg/dL (0.2-1.0); C-REACTIVE PROTEIN 3.19 mg/dL (<0.30); CALCIUM 7.1 mg/dL (8.5-10.1); EST CRCL DRUG DOSING (CG) 76.35 mL/min; MAGNESIUM 1.6 mg/dL (1.8-2.4); POTASSIUM,K 3.6 mEq/L (3.5-5.1); PROTEIN TOTAL,TP 4.7 g/dl (6.4-8.2)
[2023-08-24] MEDS ORDERED: Magnesium Sulfate (4.06 MEQ/ML) 5 GM/10 ML SDV IV ONE (07:52)
[2023-08-24] MEDS: oxyCODONE 5 MG Tab PO PRN (08:18)
[2023-08-24] MEDS: Lisinopril 10 MG Tab PO SCH (08:23)
[2023-08-25 04:53] LABS: HEMATOCRIT 41.9 % (42.0-52.0); HEMOGLOBIN 13.8 gm/dl (14.0-18.0); MEAN CORPUSCULAR HEMOGLOBIN 29.6 pg (28.0-32.0); MEAN CORPUSCULAR HGB CONC 32.9 g/dl (32.0-36.0); MEAN CORPUSCULAR VOLUME 89.9 fl (83.0-99.0); PLATELET COUNT,PLT 159 K/mm3 (150-400); RED BLOOD CELL COUNT 4.66 M/mm3 (4.52-5.90); WHITE BLOOD CELL COUNT,WBC 9.16 K/mm3 (3.9-11.3)
[2023-08-25 05:24] LABS: ANION GAP 10.8 (5-15); BUN/CREATININE RATIO 11.7 (14-18); CALCIUM 7.5 mg/dL (8.5-10.1); CREATININE 1.2 mg/dL (0.7-1.3); EST CRCL DRUG DOSING (CG) 63.62 mL/min; MAGNESIUM 1.9 mg/dL (1.8-2.4); POTASSIUM,K 3.8 mEq/L (3.5-5.1)
[2023-08-25] MEDS: Magnesium Oxide 400 MG Tab PO SCH (08:24)
[2023-08-25] MEDS: Furosemide 20 MG Tab PO SCH (08:24)
[2023-08-25] MEDS ORDERED: Nitrofurantoin Monohydrate/Macrocrystalline 100 MG Cap PO SCH (09:00)
[2023-08-25] MEDS: Ertapenem 1 GM in Sodium Chloride 0.9% 50 ML IV SCH (11:53)
[2023-08-25] MEDS ORDERED: Ertapenem 1 GM in Sodium Chloride 0.9% 50 ML IV SCH (12:00)
[2023-08-27 07:12] LABS: HEMOGLOBIN 14.4 gm/dl (14.0-18.0); MEAN CORPUSCULAR HEMOGLOBIN 29.3 pg (28.0-32.0); MEAN CORPUSCULAR HGB CONC 32.7 g/dl (32.0-36.0); MEAN CORPUSCULAR VOLUME 89.4 fl (83.0-99.0); MEAN PLATELET VOLUME 9.4 fl (9.4-12.4); PLATELET COUNT,PLT 138 K/mm3 (150-400); RED BLOOD CELL COUNT 4.92 M/mm3 (4.52-5.90); WHITE BLOOD CELL COUNT,WBC 8.71 K/mm3 (3.9-11.3)
[2023-08-27 07:43] LABS: BUN/CREATININE RATIO 17.8 (14-18); CALCIUM 7.8 mg/dL (8.5-10.1); CREATININE 0.9 mg/dL (0.7-1.3); EST CRCL DRUG DOSING (CG) 84.83 mL/min; MAGNESIUM 1.8 mg/dL (1.8-2.4)
[2023-08-27] MEDS: Aspirin 81 MG Tab.EC PO SCH (11:06)
[2023-08-27] MEDS: Spironolactone 25 MG Tab PO SCH (11:09)
[2023-08-27] MEDS: Enoxaparin 40 MG/0.4 ML Syringe SUBCUT SCH (11:10)
[2023-08-27] MEDS: Rosuvastatin 10 MG Tab PO SCH (20:22)
[2023-08-29 05:39] LABS: HEMATOCRIT 44.7 % (42.0-52.0); HEMOGLOBIN 14.9 gm/dl (14.0-18.0); MEAN CORPUSCULAR HEMOGLOBIN 29.2 pg (28.0-32.0); MEAN CORPUSCULAR HGB CONC 33.3 g/dl (32.0-36.0); MEAN CORPUSCULAR VOLUME 87.5 fl (83.0-99.0); MEAN PLATELET VOLUME 9.3 fl (9.4-12.4); PLATELET COUNT,PLT 145 K/mm3 (150-400); RED BLOOD CELL COUNT 5.11 M/mm3 (4.52-5.90); WHITE BLOOD CELL COUNT,WBC 7.24 K/mm3 (3.9-11.3)
[2023-08-29 05:58] LABS: ANION GAP 11.4 (5-15); BUN/CREATININE RATIO 14.6 (14-18); CREATININE 1.3 mg/dL (0.7-1.3); EST CRCL DRUG DOSING (CG) 58.73 mL/min; POTASSIUM,K 4.4 mEq/L (3.5-5.1)
[2023-09-02] MEDS: Vancomycin 125 MG Cap PO SCH (12:17)
[2023-09-03 06:38] LABS: A/G RATIO 0.7 (1-2); ALBUMIN 2.4 g/dl (3.4-5.0); ANION GAP 12.5 (5-15); BILIRUBIN TOTAL 0.5 mg/dL (0.2-1.0); CALCIUM 8.6 mg/dL (8.5-10.1); EST CRCL DRUG DOSING (CG) 76.35 mL/min; MAGNESIUM 2.2 mg/dL (1.8-2.4); POTASSIUM,K 4.5 mEq/L (3.5-5.1); PROTEIN TOTAL,TP 6.1 g/dl (6.4-8.2)
[2023-09-03] MEDS: Vitamin B6-pyridOXINE 50 MG Tab PO SCH (08:01)
[2023-09-03] MEDS: Cholecalciferol (Vitamin D3) 25 MCG Tab PO SCH (08:01)
[2023-09-03] MEDS: Cyanocobalamin (Vitamin B12) 1,000 MCG Tab PO SCH (08:01)
[2023-09-03] MEDS: Folic Acid 1 MG Tab PO SCH (08:02)
[2023-09-03] MEDS: Nystatin Crm 30 GM Tube TOP SCH (16:29)
[2023-09-09] MEDS: Insulin Glargine,Human Rec. Analog 100 Units/ML 3 ML Pen SUBCUT SCH (08:13)
[2023-09-09 22:27] VITALS: PULSE 80
[2023-09-10 08:27] VITALS: BP 92/56
== END 2023-09-10 09:03 | disposition home or self-care (01) | DRG 871 ==
LOC: JD.ED 01:28 → JD.ICU 11:19 → JD.MS 09-02 11:25
PROVIDERS: ADMIT Internal Medicine; ATTEND Hospitalist
PROC: 3E03329 Introduction of Other Anti-infective into Peripheral Vein, Percutaneous Approach (ICD-10-PCS; principal; 2023-08-20)
PROC: 3E033XZ Introduction of Vasopressor into Peripheral Vein, Percutaneous Approach (ICD-10-PCS; 2023-08-20)
DX: K52.1 Toxic gastroenteritis and colitis (principal); T36.8X5A Adverse effect of other systemic antibiotics, initial encounter; A41.51 Sepsis due to Escherichia coli [E. coli]; R65.21 Severe sepsis with septic shock; A04.72 Enterocolitis due to Clostridium difficile, not specified as recurrent; N39.0 Urinary tract infection, site not specified; E11.40 Type 2 diabetes mellitus with diabetic neuropathy, unspecified; Z16.12 Extended spectrum beta lactamase (ESBL) resistance; N17.9 Acute kidney failure, unspecified; Z79.899 Other long term (current) drug therapy; F03.94 Unspecified dementia, unspecified severity, with anxiety; Z79.82 Long term (current) use of aspirin; Z91.048 Other nonmedicinal substance allergy status; F03.911 Unspecified dementia, unspecified severity, with agitation; F03.93 Unspecified dementia, unspecified severity, with mood disturbance; A41.4 Sepsis due to anaerobes; W18.2XXA Fall in (into) shower or empty bathtub, initial encounter; Y92.002 Bathroom of unspecified non-institutional (private) residence as the place of occurrence of the external cause; E86.0 Dehydration; E83.51 Hypocalcemia; E87.6 Hypokalemia; E83.42 Hypomagnesemia; G47.33 Obstructive sleep apnea (adult) (pediatric); E88.09 Other disorders of plasma-protein metabolism, not elsewhere classified; E66.9 Obesity, unspecified; J44.9 Chronic obstructive pulmonary disease, unspecified; K21.9 Gastro-esophageal reflux disease without esophagitis; I10 Essential (primary) hypertension; N40.1 Benign prostatic hyperplasia with lower urinary tract symptoms; R35.0 Frequency of micturition; E11.649 Type 2 diabetes mellitus with hypoglycemia without coma; Z96.659 Presence of unspecified artificial knee joint; E78.00 Pure hypercholesterolemia, unspecified; E11.42 Type 2 diabetes mellitus with diabetic polyneuropathy; S40.812A Abrasion of left upper arm, initial encounter; Z79.4 Long term (current) use of insulin; Z86.73 Personal history of transient ischemic attack (TIA), and cerebral infarction without residual deficits; Z89.201 Acquired absence of right upper limb, unspecified level; Z88.8 Allergy status to other drugs, medicaments and biological substances; Z91.010 Allergy to peanuts; Z68.29 Body mass index [BMI] 29.0-29.9, adult; Z88.1 Allergy status to other antibiotic agents; Z90.89 Acquired absence of other organs; Z98.890 Other specified postprocedural states; W18.30XA Fall on same level, unspecified, initial encounter; Y92.091 Bathroom in other non-institutional residence as the place of occurrence of the external cause
CPT/HCPCS: 36415; 80053; 82550; 83735; 85025; 96365; 99285; A9270 ×2; J3480; J7030; 70450; 70450-26; 80048; 82140; 82947; 83605; 84100; 84132; 84443; 85027; 86140; 87040; 87324; 87493; 93971-26-LT; 93971-LT; 94660; 94760; 94761; 97110-GP; 97116-GP; 97161-GP; 97530-GP; 99223; 99231; 99232; 99233; 99239; 99284; J0612; J1335; J1644; J1650; J1815; J1815-GY; J2405; J2543; J3475; J3490; J7060; Q3014

== ENCOUNTER 2023-09-14 12:01 | Observation (INO) | payer MEDICARE, OTHER ==
[2023-09-14 12:33] LABS: BASOPHILS ABSOLUTE AUTO 0.1 K/mm3 (0.0-0.2); BASOPHILS PERCENT AUTO 0.7 % (0.0-1.0); EOSINOPHILS ABSOLUTE AUTO 0.4 K/mm3 (0.0-0.4); EOSINOPHILS PERCENT AUTO 4.8 % (0.0-6.0); HEMATOCRIT 46.3 % (42.0-52.0); HEMOGLOBIN 14.9 gm/dl (14.0-18.0); IMMATURE GRAN ABSOLUTE AUTO 0.05 K/mm3 (0.00-0.05); IMMATURE GRAN PERCENT AUTO 0.6 % (0.0-0.4); LYMPHOCYTES ABSOLUTE AUTO 1.4 K/mm3 (1.0-4.8); LYMPHOCYTES PERCENT AUTO 16.8 % (24.0-44.0); MEAN CORPUSCULAR HEMOGLOBIN 28.9 pg (28.0-32.0); MEAN CORPUSCULAR HGB CONC 32.2 g/dl (32.0-36.0); MEAN CORPUSCULAR VOLUME 89.7 fl (83.0-99.0); MEAN PLATELET VOLUME 9.6 fl (9.4-12.4); MONOCYTES ABSOLUTE AUTO 0.6 K/mm3 (0.0-0.8); MONOCYTES PERCENT AUTO 7.6 % (0.0-8.0); NEUTROPHILS ABSOLUTE AUTO 5.8 K/mm3 (1.8-7.7); NEUTROPHILS PERCENT AUTO 69.5 % (41.0-71.0); PLATELET COUNT,PLT 304 K/mm3 (150-400); RED BLOOD CELL COUNT 5.16 M/mm3 (4.52-5.90); WHITE BLOOD CELL COUNT,WBC 8.37 K/mm3 (3.9-11.3)
[2023-09-14 12:48] LABS: A/G RATIO 0.8 (1-2); ALANINE AMINOTRANSFERASE,ALT 17 U/L (16-63); ALKALINE PHOSPHATASE 123 U/L (46-116); ANION GAP 17.9 (5-15); ASPARTATE AMNIOTRANSFERASE,AST 22 U/L (15-37); BILIRUBIN TOTAL 0.4 mg/dL (0.2-1.0); BLOOD UREA NITROGEN,BUN 40 mg/dL (7-18); CALCIUM 8.6 mg/dL (8.5-10.1); CARBON DIOXIDE,CO2 21 mEq/L (21-32); CHLORIDE,CL 106 mEq/L (98-107); CREATININE 1.6 mg/dL (0.7-1.3); ESTIMATED GFR 47 mL/min (>60); GLUCOSE RANDOM 173 mg/dL (70-99); LIPASE 96 U/L (16-77); MAGNESIUM 1.9 mg/dL (1.8-2.4); POTASSIUM,K 4.9 mEq/L (3.5-5.1); PROTEIN TOTAL,TP 6.7 g/dl (6.4-8.2); SODIUM,NA 140 mEq/L (136-145)
[2023-09-14] MEDS: Sodium Chloride 0.9% 10 ML Syringe FLUSH PRN (12:57)
[2023-09-14] MEDS: Sodium Chloride 0.9% 1,000 ML IV SCH (13:27)
[2023-09-14] MEDS ORDERED: OLANZapine 10 MG Vial IM ONE (15:40)
[2023-09-14 16:39] LABS: APPEARANCE,URINE CLEAR (Clear); BILIRUBIN,URINE NEGATIVE (Negative); COLOR,URINE YELLOW (Yellow); GLUCOSE,URINE NEGATIVE (Negative); KETONES,URINE NEGATIVE (Negative); LEUKOCYTE ESTERASE,URINE 2+ (Negative); NITRITE,URINE NEGATIVE (Negative); OCCULT BLOOD,URINE 2+ (Negative); PH,URINE 6.5 (5.0-8.0); PROTEIN,URINE NEGATIVE (Negative); UROBILINOGEN,URINE 0.2 (0.2-1.0)
[2023-09-14 16:54] LABS: BACTERIA,URINE FEW /hpf (FEW); MUCUS,URINE FEW /hpf (FEW); SQUAMOUS EPITHELIAL CELLS,UR 0-5 /hpf (0-5)
[2023-09-14] MEDS: cefTRIAXone 2 GM in Sodium Chloride 0.9% 100 ML IV ONE (18:11)
[2023-09-14] MEDS ORDERED: Albuterol 6.7 GM Inhaler INH PRN (21:44)
[2023-09-14] MEDS ORDERED: 50% Dextrose in Water 50 ML Syringe IVPUSH PRN (21:46)
[2023-09-14] MEDS: traZODone 50 MG Tab PO SCH (22:18)
[2023-09-14] MEDS: Acetaminophen 325 MG Tab ONE (22:23)
[2023-09-14] MEDS: Acetaminophen 325 MG Tab PO ONE (22:24)
[2023-09-14] MEDS: Rosuvastatin 10 MG Tab PO SCH (22:25)
[2023-09-15] MEDS: Lisinopril 10 MG Tab PO SCH (09:05)
[2023-09-15] MEDS: Cholecalciferol (Vitamin D3) 25 MCG Tab PO SCH (09:07)
[2023-09-15] MEDS: Spironolactone 25 MG Tab PO SCH (09:07)
[2023-09-15] MEDS: Vitamin B6-pyridOXINE 50 MG Tab PO SCH (09:08)
[2023-09-15] MEDS: Tamsulosin 0.4 MG Cap.ER PO SCH (09:08)
[2023-09-15] MEDS: Aspirin 81 MG Tab.EC PO SCH (09:09)
[2023-09-15] MEDS: Sertraline 50 MG Tab PO SCH (09:10)
[2023-09-15] MEDS: Potassium Chloride 20 MEQ Tab.ER PO SCH (09:10)
[2023-09-15] MEDS: Topiramate 25 MG Tab PO SCH (09:11)
[2023-09-15] MEDS: Acetaminophen 325 MG Tab PO SCH (09:12)
[2023-09-15] MEDS: Furosemide 20 MG Tab PO SCH (09:13)
[2023-09-15] MEDS: Folic Acid 1 MG Tab PO SCH (09:13)
[2023-09-15] MEDS: Metoprolol Succinate 50 MG Tab.ER PO SCH (09:14)
[2023-09-15] MEDS: Insulin Regular, Human 100 Units/ML 3 ML Vial SUBCUT SCH (09:28)
[2023-09-15] MEDS: risperiDONE 1 MG Tab PO SCH (09:48)
[2023-09-15] MEDS: OLANZapine 5 MG Tab PO SCH (20:32)
[2023-09-16] MEDS: LORazepam 0.5 MG Tab PO PRN (23:13)
[2023-09-17] MEDS: Enoxaparin 40 MG/0.4 ML Syringe SUBCUT SCH (16:59)
[2023-09-18] MEDS: Enoxaparin 40 MG/0.4 ML Syringe SUBCUT SCH (09:27)
[2023-09-18] MEDS: Topiramate 25 MG Tab PO SCH (09:32)
[2023-09-19] MEDS: QUEtiapine 100 MG Tab PO ONE (03:26)
[2023-09-19 05:26] LABS: A/G RATIO 0.9 (1-2); ALBUMIN 2.9 g/dl (3.4-5.0); ANION GAP 14.6 (5-15); BILIRUBIN TOTAL 0.3 mg/dL (0.2-1.0); BUN/CREATININE RATIO 25.4 (14-18); CALCIUM 8.9 mg/dL (8.5-10.1); CREATININE 1.3 mg/dL (0.7-1.3); EST CRCL DRUG DOSING (CG) 47.96 mL/min; POTASSIUM,K 3.6 mEq/L (3.5-5.1); PROTEIN TOTAL,TP 6.3 g/dl (6.4-8.2)
[2023-09-19 05:30] LABS: BASOPHILS ABSOLUTE AUTO 0.1 K/mm3 (0.0-0.2); BASOPHILS PERCENT AUTO 0.7 % (0.0-1.0); EOSINOPHILS ABSOLUTE AUTO 0.5 K/mm3 (0.0-0.4); HEMATOCRIT 43.6 % (42.0-52.0); HEMOGLOBIN 14.3 gm/dl (14.0-18.0); IMMATURE GRAN ABSOLUTE AUTO 0.06 K/mm3 (0.00-0.05); IMMATURE GRAN PERCENT AUTO 0.6 % (0.0-0.4); LYMPHOCYTES ABSOLUTE AUTO 2.7 K/mm3 (1.0-4.8); LYMPHOCYTES PERCENT AUTO 27.1 % (24.0-44.0); MEAN CORPUSCULAR HEMOGLOBIN 29.2 pg (28.0-32.0); MEAN CORPUSCULAR HGB CONC 32.8 g/dl (32.0-36.0); MEAN PLATELET VOLUME 9.8 fl (9.4-12.4); MONOCYTES ABSOLUTE AUTO 0.9 K/mm3 (0.0-0.8); MONOCYTES PERCENT AUTO 8.6 % (0.0-8.0); NEUTROPHILS ABSOLUTE AUTO 5.7 K/mm3 (1.8-7.7); PLATELET COUNT,PLT 208 K/mm3 (150-400); WHITE BLOOD CELL COUNT,WBC 9.86 K/mm3 (3.9-11.3)
[2023-09-19] MEDS: Sodium Chloride 0.9% 1,000 ML IV ONE (09:41)
[2023-09-20] MEDS: Acetaminophen/HYDROcodone 325-5 MG Tab PO ONE (14:35)
[2023-09-22] MEDS: Acetaminophen 325 MG Tab PO ONE ×2 (02:39→16:51)
[2023-09-22] MEDS: Acetaminophen/HYDROcodone 325-5 MG Tab PO ONE (21:54)
[2023-09-23] MEDS: Acetaminophen/HYDROcodone 325-5 MG Tab PO ONE (23:02)
[2023-09-24] MEDS: Acetaminophen 325 MG Tab PO ONE (00:34)
[2023-09-24] MEDS: Acetaminophen/HYDROcodone 325-5 MG Tab PO ONE (21:30)
[2023-09-25] MEDS: Acetaminophen 325 MG Tab PO ONE (11:31)
[2023-09-25] MEDS: Acetaminophen/HYDROcodone 325-10 MG Tab PO ONE (12:28)
[2023-09-26] MEDS: Acetaminophen/HYDROcodone 325-5 MG Tab PO ONE (21:10)
[2023-09-27] MEDS: Acetaminophen 325 MG Tab PO ONE (16:25)
[2023-09-28] MEDS: Insulin Regular, Human 100 Units/ML 3 ML Vial ONE (17:05)
[2023-09-28] MEDS: Hydrocortisone 1% Crm 30 GM Tube TOP SCH (21:26)
[2023-09-29] MEDS: Clotrimazole 1% Crm 30 GM Tube TOP SCH (10:21)
[2023-09-29] MEDS: Hydrocortisone 1% Crm 30 GM Tube TOP SCH (22:55)
[2023-09-30] MEDS: Acetaminophen/HYDROcodone 325-5 MG Tab PO ONE (07:14)
[2023-10-02] MEDS: Acetaminophen/HYDROcodone 325-5 MG Tab PO ONE (19:14)
[2023-10-04] MEDS: Acetaminophen/HYDROcodone 325-10 MG Tab PO PRN (03:50)
[2023-10-10 11:49] LABS: APPEARANCE,URINE CLOUDY (Clear); BILIRUBIN,URINE NEGATIVE (Negative); COLOR,URINE YELLOW (Yellow); GLUCOSE,URINE NEGATIVE (Negative); KETONES,URINE NEGATIVE (Negative); LEUKOCYTE ESTERASE,URINE 2+ (Negative); NITRITE,URINE NEGATIVE (Negative); OCCULT BLOOD,URINE 2+ (Negative); PROTEIN,URINE 2+ (Negative); UROBILINOGEN,URINE 0.2 (0.2-1.0)
[2023-10-10 12:00] LABS: BACTERIA,URINE MANY /hpf (FEW); EPITHELIAL CELLS,URINE 0-5 /hpf (0-5); RBC,URINE 30-40 /hpf (0-5); WBC,URINE 50-75 /hpf (0-5)
[2023-10-10 12:01] LABS: MUCUS,URINE FEW /hpf (FEW)
[2023-10-10] MEDS: Levofloxacin 750 MG Tab PO SCH (17:39)
[2023-10-10] MEDS: Sulfamethoxazole/Trimethoprim 800-160 MG Tab PO SCH (23:40)
[2023-10-11 12:10] LABS: BASOPHILS ABSOLUTE AUTO 0.1 K/mm3 (0.0-0.2); BASOPHILS PERCENT AUTO 0.7 % (0.0-1.0); EOSINOPHILS ABSOLUTE AUTO 0.3 K/mm3 (0.0-0.4); EOSINOPHILS PERCENT AUTO 3.1 % (0.0-6.0); HEMATOCRIT 42.3 % (42.0-52.0); HEMOGLOBIN 13.9 gm/dl (14.0-18.0); IMMATURE GRAN ABSOLUTE AUTO 0.07 K/mm3 (0.00-0.05); IMMATURE GRAN PERCENT AUTO 0.6 % (0.0-0.4); LYMPHOCYTES PERCENT AUTO 18.3 % (24.0-44.0); MEAN CORPUSCULAR HEMOGLOBIN 29.6 pg (28.0-32.0); MEAN CORPUSCULAR HGB CONC 32.9 g/dl (32.0-36.0); MEAN PLATELET VOLUME 9.7 fl (9.4-12.4); MONOCYTES ABSOLUTE AUTO 0.7 K/mm3 (0.0-0.8); MONOCYTES PERCENT AUTO 6.8 % (0.0-8.0); NEUTROPHILS ABSOLUTE AUTO 7.6 K/mm3 (1.8-7.7); NEUTROPHILS PERCENT AUTO 70.5 % (41.0-71.0); PLATELET COUNT,PLT 188 K/mm3 (150-400); WHITE BLOOD CELL COUNT,WBC 10.81 K/mm3 (3.9-11.3)
[2023-10-11 12:37] LABS: A/G RATIO 0.8 (1-2); ANION GAP 13.2 (5-15); BILIRUBIN TOTAL 0.3 mg/dL (0.2-1.0); CALCIUM 8.6 mg/dL (8.5-10.1); CREATININE 1.2 mg/dL (0.7-1.3); EST CRCL DRUG DOSING (CG) 51.96 mL/min; POTASSIUM,K 4.2 mEq/L (3.5-5.1); PROTEIN TOTAL,TP 6.6 g/dl (6.4-8.2)
[2023-10-11] MEDS: Acetaminophen/HYDROcodone 325-10 MG Tab PO PRN (19:53)
[2023-10-14] MEDS: Insulin Glargine,Human Rec. Analog 100 Units/ML 3 ML Pen SUBCUT SCH (08:40)
[2023-10-14] MEDS: Enoxaparin 40 MG/0.4 ML Syringe SUBCUT SCH (08:43)
[2023-10-14] MEDS: Insulin Lispro 100 Unit/ML 3 ML KwikPen SUBCUT SCH (11:36)
[2023-10-14] MEDS: Acetaminophen/oxyCODONE 325-5 MG Tab ONE (20:51)
[2023-10-15 06:06] LABS: HEMATOCRIT 40.4 % (42.0-52.0); HEMOGLOBIN 13.5 gm/dl (14.0-18.0); MEAN CORPUSCULAR HEMOGLOBIN 29.3 pg (28.0-32.0); MEAN CORPUSCULAR HGB CONC 33.4 g/dl (32.0-36.0); MEAN CORPUSCULAR VOLUME 87.8 fl (83.0-99.0); MEAN PLATELET VOLUME 9.3 fl (9.4-12.4); PLATELET COUNT,PLT 174 K/mm3 (150-400); WHITE BLOOD CELL COUNT,WBC 8.95 K/mm3 (3.9-11.3)
[2023-10-15 06:32] LABS: ANION GAP 14.5 (5-15); CALCIUM 8.3 mg/dL (8.5-10.1); CREATININE 1.2 mg/dL (0.7-1.3); EST CRCL DRUG DOSING (CG) 51.96 mL/min; POTASSIUM,K 4.5 mEq/L (3.5-5.1)
[2023-10-16] MEDS: Insulin Glargine,Human Rec. Analog 100 Units/ML 3 ML Pen SUBCUT SCH (09:42)
[2023-10-16] MEDS: OLANZapine 5 MG Tab PO SCH (23:05)
[2023-10-17] MEDS: Meropenem 1 GM in Sodium Chloride 0.9% 100 ML IV SCH (12:21)
[2023-10-17] MEDS: Meropenem 500 MG in Sodium Chloride 0.9% 100 ML IV SCH ×2 (12:55→16:24)
[2023-10-18] MEDS: oxyCODONE 5 MG Tab PO PRN (10:20)
[2023-10-19] MEDS ORDERED: Bisacodyl 10 MG Supp RECTAL PRN (11:05)
[2023-10-19] MEDS ORDERED: Calcium Carbonate 500 MG Tab.Chew CHEW PRN (11:05)
[2023-10-19] MEDS ORDERED: Albuterol 6.7 GM Inhaler INH PRN (11:14)
[2023-10-19] MEDS: Gabapentin 100 MG Cap PO SCH (15:49)
[2023-10-19] MEDS: traZODone 50 MG Tab PO SCH (20:49)
[2023-10-19] MEDS: Rosuvastatin 10 MG Tab PO SCH (20:51)
[2023-10-19] MEDS: Acetaminophen 325 MG Tab PO SCH (20:51)
[2023-10-19] MEDS: risperiDONE 1 MG Tab PO SCH (20:51)
[2023-10-19] MEDS: Sertraline 50 MG Tab PO SCH (20:51)
[2023-10-19] MEDS ORDERED: Sertraline 50 MG Tab PO SCH (21:00)
[2023-10-19] MEDS ORDERED: Gabapentin 100 MG Cap PO SCH (21:00)
[2023-10-20] MEDS: Aspirin 81 MG Tab.EC PO SCH (09:25)
[2023-10-20] MEDS: Tamsulosin 0.4 MG Cap.ER PO SCH (09:25)
[2023-10-20] MEDS: Potassium Chloride 20 MEQ Tab.ER PO SCH (09:25)
[2023-10-20] MEDS: Folic Acid 1 MG Tab PO SCH (09:25)
[2023-10-20] MEDS: Cholecalciferol (Vitamin D3) 25 MCG Tab PO SCH (09:25)
[2023-10-20] MEDS: Vitamin B6-pyridOXINE 50 MG Tab PO SCH (09:25)
[2023-10-20] MEDS: Insulin Glargine,Human Rec. Analog 100 Units/ML 3 ML Pen SUBCUT SCH (09:26)
[2023-10-20] MEDS: Pantoprazole 40 MG Tab.CR PO SCH (09:26)
[2023-10-20] MEDS: Furosemide 20 MG Tab PO SCH (09:26)
[2023-10-20] MEDS: Metoprolol Succinate 50 MG Tab.ER PO SCH (09:26)
[2023-10-20] MEDS: Polyethylene Glycol 3350 Powder 17 GM Packet PO PRN (11:28)
[2023-10-21] MEDS: Insulin Glargine,Human Rec. Analog 100 Units/ML 3 ML Pen SUBCUT SCH (08:34)
[2023-10-21] MEDS: Gabapentin 300 MG Cap PO SCH (14:27)
[2023-10-21] MEDS: Lidocaine 4% 1 each Patch TOP SCH (17:08)
[2023-10-23] MEDS: Insulin Glargine,Human Rec. Analog 100 Units/ML 3 ML Pen SUBCUT SCH (08:28)
[2023-10-24] MEDS: Insulin Glargine,Human Rec. Analog 100 Units/ML 3 ML Pen SUBCUT SCH (08:19)
[2023-10-25] MEDS: oxyCODONE 5 MG Tab PO PRN (20:27)
[2023-10-26] MEDS: Insulin Lispro 100 Unit/ML 3 ML KwikPen SUBCUT SCH (11:44)
[2023-10-26] MEDS: Insulin Glargine,Human Rec. Analog 100 Units/ML 3 ML Pen SUBCUT ONE (11:46)
[2023-10-27] MEDS: Insulin Glargine,Human Rec. Analog 100 Units/ML 3 ML Pen SUBCUT SCH (09:23)
[2023-10-27] MEDS: Insulin Lispro 100 Unit/ML 3 ML KwikPen SUBCUT SCH (11:33)
[2023-10-28] MEDS: Insulin Lispro 100 Unit/ML 3 ML KwikPen SUBCUT SCH (17:13)
[2023-10-30 08:28] LABS: APPEARANCE,URINE CLOUDY (Clear); BILIRUBIN,URINE NEGATIVE (Negative); COLOR,URINE YELLOW (Yellow); GLUCOSE,URINE TRACE (Negative); KETONES,URINE NEGATIVE (Negative); LEUKOCYTE ESTERASE,URINE 3+ (Negative); NITRITE,URINE POSITIVE (Negative); OCCULT BLOOD,URINE 2+ (Negative); PROTEIN,URINE 2+ (Negative); UROBILINOGEN,URINE 0.2 (0.2-1.0)
[2023-10-30 08:33] LABS: BACTERIA,URINE MANY /hpf (FEW); EPITHELIAL CELLS,URINE 0-5 /hpf (0-5); MUCUS,URINE FEW /hpf (FEW); RBC,URINE 50-75 /hpf (0-5); WBC,URINE >100 /hpf (0-5)
[2023-10-30 11:10] LABS: HEMATOCRIT 40.6 % (42.0-52.0); HEMOGLOBIN 13.4 gm/dl (14.0-18.0); RED BLOOD CELL COUNT 4.48 M/mm3 (4.52-5.90); WHITE BLOOD CELL COUNT,WBC 8.19 K/mm3 (3.9-11.3)
[2023-10-30 11:11] LABS: BASOPHILS ABSOLUTE AUTO 0.1 K/mm3 (0.0-0.2); BASOPHILS PERCENT AUTO 0.6 % (0.0-1.0); EOSINOPHILS ABSOLUTE AUTO 0.3 K/mm3 (0.0-0.4); EOSINOPHILS PERCENT AUTO 3.2 % (0.0-6.0); IMMATURE GRAN ABSOLUTE AUTO 0.02 K/mm3 (0.00-0.05); IMMATURE GRAN PERCENT AUTO 0.2 % (0.0-0.4); LYMPHOCYTES ABSOLUTE AUTO 1.9 K/mm3 (1.0-4.8); LYMPHOCYTES PERCENT AUTO 23.2 % (24.0-44.0); MEAN CORPUSCULAR HEMOGLOBIN 29.9 pg (28.0-32.0); MEAN CORPUSCULAR VOLUME 90.6 fl (83.0-99.0); MEAN PLATELET VOLUME 9.5 fl (9.4-12.4); MONOCYTES ABSOLUTE AUTO 0.7 K/mm3 (0.0-0.8); MONOCYTES PERCENT AUTO 8.2 % (0.0-8.0); NEUTROPHILS ABSOLUTE AUTO 5.3 K/mm3 (1.8-7.7); NEUTROPHILS PERCENT AUTO 64.6 % (41.0-71.0); PLATELET COUNT,PLT 184 K/mm3 (150-400)
[2023-10-30 11:39] LABS: A/G RATIO 0.8 (1-2); ALBUMIN 2.8 g/dl (3.4-5.0); ANION GAP 10.3 (5-15); BILIRUBIN TOTAL 0.3 mg/dL (0.2-1.0); BUN/CREATININE RATIO 22.5 (14-18); CALCIUM 8.6 mg/dL (8.5-10.1); CREATININE 0.8 mg/dL (0.7-1.3); EST CRCL DRUG DOSING (CG) 77.94 mL/min; MAGNESIUM 1.8 mg/dL (1.8-2.4); POTASSIUM,K 4.3 mEq/L (3.5-5.1); PROTEIN TOTAL,TP 6.2 g/dl (6.4-8.2)
[2023-10-30] MEDS: Docusate Sodium 100 MG Cap PO PRN (20:24)
[2023-10-30] MEDS: Phenazopyridine 95 MG Tab PO SCH (20:25)
[2023-10-31] MEDS: Insulin Lispro 100 Unit/ML 3 ML KwikPen SUBCUT SCH (11:20)
[2023-11-01 05:45] LABS: BASOPHILS ABSOLUTE AUTO 0.1 K/mm3 (0.0-0.2); BASOPHILS PERCENT AUTO 0.7 % (0.0-1.0); EOSINOPHILS ABSOLUTE AUTO 0.3 K/mm3 (0.0-0.4); EOSINOPHILS PERCENT AUTO 4.5 % (0.0-6.0); HEMATOCRIT 40.4 % (42.0-52.0); HEMOGLOBIN 13.2 gm/dl (14.0-18.0); IMMATURE GRAN ABSOLUTE AUTO 0.04 K/mm3 (0.00-0.05); IMMATURE GRAN PERCENT AUTO 0.5 % (0.0-0.4); LYMPHOCYTES ABSOLUTE AUTO 2.5 K/mm3 (1.0-4.8); LYMPHOCYTES PERCENT AUTO 33.5 % (24.0-44.0); MEAN CORPUSCULAR HEMOGLOBIN 29.7 pg (28.0-32.0); MEAN CORPUSCULAR HGB CONC 32.7 g/dl (32.0-36.0); MEAN PLATELET VOLUME 9.8 fl (9.4-12.4); MONOCYTES ABSOLUTE AUTO 0.6 K/mm3 (0.0-0.8); MONOCYTES PERCENT AUTO 8.6 % (0.0-8.0); NEUTROPHILS ABSOLUTE AUTO 3.9 K/mm3 (1.8-7.7); NEUTROPHILS PERCENT AUTO 52.2 % (41.0-71.0); PLATELET COUNT,PLT 184 K/mm3 (150-400); RED BLOOD CELL COUNT 4.44 M/mm3 (4.52-5.90); WHITE BLOOD CELL COUNT,WBC 7.41 K/mm3 (3.9-11.3)
[2023-11-01 06:11] LABS: ANION GAP 8.2 (5-15); BUN/CREATININE RATIO 23.3 (14-18); CALCIUM 8.6 mg/dL (8.5-10.1); CREATININE 0.9 mg/dL (0.7-1.3); EST CRCL DRUG DOSING (CG) 69.28 mL/min; POTASSIUM,K 4.2 mEq/L (3.5-5.1)
[2023-11-01] MEDS: Insulin Glargine,Human Rec. Analog 100 Units/ML 3 ML Pen SUBCUT SCH (09:26)
[2023-11-02 05:46] LABS: BASOPHILS ABSOLUTE AUTO 0.1 K/mm3 (0.0-0.2); BASOPHILS PERCENT AUTO 0.7 % (0.0-1.0); EOSINOPHILS ABSOLUTE AUTO 0.4 K/mm3 (0.0-0.4); EOSINOPHILS PERCENT AUTO 4.9 % (0.0-6.0); HEMATOCRIT 40.7 % (42.0-52.0); HEMOGLOBIN 13.4 gm/dl (14.0-18.0); IMMATURE GRAN ABSOLUTE AUTO 0.06 K/mm3 (0.00-0.05); IMMATURE GRAN PERCENT AUTO 0.8 % (0.0-0.4); LYMPHOCYTES ABSOLUTE AUTO 2.6 K/mm3 (1.0-4.8); LYMPHOCYTES PERCENT AUTO 34.6 % (24.0-44.0); MEAN CORPUSCULAR HEMOGLOBIN 29.6 pg (28.0-32.0); MEAN CORPUSCULAR HGB CONC 32.9 g/dl (32.0-36.0); MEAN PLATELET VOLUME 9.5 fl (9.4-12.4); MONOCYTES ABSOLUTE AUTO 0.7 K/mm3 (0.0-0.8); MONOCYTES PERCENT AUTO 9.1 % (0.0-8.0); NEUTROPHILS ABSOLUTE AUTO 3.7 K/mm3 (1.8-7.7); NEUTROPHILS PERCENT AUTO 49.9 % (41.0-71.0); PLATELET COUNT,PLT 174 K/mm3 (150-400); RED BLOOD CELL COUNT 4.52 M/mm3 (4.52-5.90); WHITE BLOOD CELL COUNT,WBC 7.49 K/mm3 (3.9-11.3)
[2023-11-02 06:23] LABS: ANION GAP 6.9 (5-15); BUN/CREATININE RATIO 22.2 (14-18); CALCIUM 8.8 mg/dL (8.5-10.1); CREATININE 0.9 mg/dL (0.7-1.3); EST CRCL DRUG DOSING (CG) 69.28 mL/min; POTASSIUM,K 3.9 mEq/L (3.5-5.1)
[2023-11-02] MEDS: Insulin Glargine,Human Rec. Analog 100 Units/ML 3 ML Pen SUBCUT SCH (09:19)
[2023-11-02] MEDS: Insulin Lispro 100 Unit/ML 3 ML KwikPen SUBCUT SCH (11:26)
[2023-11-03] MEDS: Insulin Lispro 100 Unit/ML 3 ML KwikPen SUBCUT SCH (17:48)
[2023-11-03] MEDS ORDERED: Phenazopyridine 95 MG Tab PO SCH (19:00)
[2023-11-03] MEDS: Phenazopyridine 95 MG Tab PO SCH (21:59)
[2023-11-04 22:40] LABS: C. TRACHOMATIS BY PCR NOT DETECTED; N. GONORRHOEAE BY PCR NOT DETECTED
[2023-11-06 06:19] LABS: BASOPHILS ABSOLUTE AUTO 0.1 K/mm3 (0.0-0.2); BASOPHILS PERCENT AUTO 0.7 % (0.0-1.0); EOSINOPHILS ABSOLUTE AUTO 0.4 K/mm3 (0.0-0.4); EOSINOPHILS PERCENT AUTO 4.7 % (0.0-6.0); HEMATOCRIT 42.4 % (42.0-52.0); HEMOGLOBIN 13.5 gm/dl (14.0-18.0); IMMATURE GRAN ABSOLUTE AUTO 0.07 K/mm3 (0.00-0.05); IMMATURE GRAN PERCENT AUTO 0.9 % (0.0-0.4); LYMPHOCYTES ABSOLUTE AUTO 2.9 K/mm3 (1.0-4.8); LYMPHOCYTES PERCENT AUTO 36.2 % (24.0-44.0); MEAN CORPUSCULAR HEMOGLOBIN 29.9 pg (28.0-32.0); MEAN CORPUSCULAR HGB CONC 31.8 g/dl (32.0-36.0); MEAN PLATELET VOLUME 9.6 fl (9.4-12.4); MONOCYTES ABSOLUTE AUTO 0.8 K/mm3 (0.0-0.8); MONOCYTES PERCENT AUTO 9.2 % (0.0-8.0); NEUTROPHILS ABSOLUTE AUTO 3.9 K/mm3 (1.8-7.7); NEUTROPHILS PERCENT AUTO 48.3 % (41.0-71.0); PLATELET COUNT,PLT 203 K/mm3 (150-400); RED BLOOD CELL COUNT 4.51 M/mm3 (4.52-5.90); WHITE BLOOD CELL COUNT,WBC 8.13 K/mm3 (3.9-11.3)
[2023-11-06 06:42] LABS: ANION GAP 8.1 (5-15); CALCIUM 8.6 mg/dL (8.5-10.1); EST CRCL DRUG DOSING (CG) 62.35 mL/min; POTASSIUM,K 4.1 mEq/L (3.5-5.1)
[2023-11-07] MEDS ORDERED: Insulin Glargine,Human Rec. Analog 100 Units/ML 3 ML Pen SUBCUT SCH (09:00)
[2023-11-07] MEDS: Insulin Glargine,Human Rec. Analog 100 Units/ML 3 ML Pen SUBCUT SCH (10:31)
[2023-11-07] MEDS: Insulin Lispro 100 Unit/ML 3 ML KwikPen SUBCUT SCH (12:37)
[2023-11-10] MEDS ORDERED: Lidocaine 4% 1 each Patch TOP PRN ×2 (10:18→18:00)
[2023-11-13] MEDS: Carboxymethylcellulose Sodium 1% Ophth Gel 15 ML Bottle EYEBOTH PRN (09:32)
[2023-11-13] MEDS: diphenhydrAMINE 25 MG Cap PO ONE (11:02)
[2023-11-17] MEDS ORDERED: Loperamide 2 MG Cap PO PRN (16:56)
[2023-11-17] MEDS ORDERED: Acetaminophen 325 MG Tab PO PRN (16:57)
[2023-11-23] MEDS: LORazepam 0.5 MG Tab PO PRN (21:54)
[2023-11-23] MEDS: Phenazopyridine 95 MG Tab PO PRN (21:55)
[2023-11-24 08:42] VITALS: BP 113/70; PULSE 56
== END 2023-11-24 09:20 ==
LOC: JD.ED 12:01 → JD.MS 10-13 14:42 → INTOOBSV 10-13 14:42
PROVIDERS: ADMIT Internal Medicine; ATTEND Internal Medicine
DX: R62.7 Adult failure to thrive (principal); N39.0 Urinary tract infection, site not specified; B96.20 Unspecified Escherichia coli [E. coli] as the cause of diseases classified elsewhere; B96.4 Proteus (mirabilis) (morganii) as the cause of diseases classified elsewhere; G30.0 Alzheimer's disease with early onset; F02.B11 Dementia in other diseases classified elsewhere, moderate, with agitation; F29 Unspecified psychosis not due to a substance or known physiological condition; T87.89 Other complications of amputation stump; M79.609 Pain in unspecified limb; M25.511 Pain in right shoulder; L21.9 Seborrheic dermatitis, unspecified; J44.9 Chronic obstructive pulmonary disease, unspecified; I12.9 Hypertensive chronic kidney disease with stage 1 through stage 4 chronic kidney disease, or unspecified chronic kidney disease; E11.22 Type 2 diabetes mellitus with diabetic chronic kidney disease; N18.9 Chronic kidney disease, unspecified; E11.40 Type 2 diabetes mellitus with diabetic neuropathy, unspecified; E78.5 Hyperlipidemia, unspecified; K21.9 Gastro-esophageal reflux disease without esophagitis; N40.0 Benign prostatic hyperplasia without lower urinary tract symptoms; F41.9 Anxiety disorder, unspecified; F31.89 Other bipolar disorder; E66.9 Obesity, unspecified; Z79.4 Long term (current) use of insulin; Z79.82 Long term (current) use of aspirin; Z79.899 Other long term (current) drug therapy; Z86.73 Personal history of transient ischemic attack (TIA), and cerebral infarction without residual deficits; Z86.19 Personal history of other infectious and parasitic diseases
CPT/HCPCS: 36415; 80048; 80053; 81001; 81003; 82947; 83690; 83735; 85025; 85027; 87077; 87086; 87088; 87186; 87491; 87591; 93005; 96361; 96365; 96366; 96367; 96372; 96376; 97110; 97161; 97530; 99285; G0378; J0696; J1650; J2185; J3490; J7030; 93010; 99222; 99231; 99232; 99239; A9270-GY; J1815; J1815-GY